=== PATIENT | female | born 1930 | race Asian ===

== ENCOUNTER 2016-12-31 06:18 | Day surgery (SDC) | payer OTHER ==
[2016-12-25 14:58] VITALS: BMI 22.2
[2016-12-31] MEDS ORDERED: LIDOCAINE HCL 1%, 10 MG/ML (20ML VIAL) ONE (07:14)
[2016-12-31] MEDS ORDERED: BUPIVACAINE HCL/PF 0.5% (5MG/ML) 10 ML VIAL ONE (07:14)
--- NOTE | 2016-12-31 07:56 | HP ---
Satellite [facility] - Chief Complaint Chief Complaint: right hand pain/numbness - Past Medical History Allergies/Adverse Reactions: Allergies Allergy/AdvReac Type Severity Reaction Status Date / Time No Known Allergies Allergy Verified 12/31/16 07:12 - Current Medications Current Medications: Home Medications Medication Instructions Recorded Amlodipine Besylate [Norvasc -] 5 mg PO DAILY #0 tablet 04/04/12 Aspirin [ASA -] 81 mg PO DAILY #0 tab.chew 04/04/12 Simvastatin 20 mg PO DAILY #0 tablet 04/04/12 Linagliptin [Tradjenta] 5 mg PO DAILY 09/20/15 Losartan Potassium 100 mg PO DAILY 09/20/15 Metoprolol Succinate [Toprol XL -] 25 mg PO DAILY 09/20/15 Calcium Carbonate/Vitamin D3 1 each PO DAILY 12/31/16 [Calcium 500-Vit D3 400 Tablet] Diclofenac Sodium [Diclofenac 100 mg PO DAILY 12/31/16 Sodium ER] Hydrocodone/Acetaminophen 1 each PO Q6H PRN #40 tablet MDD 4 12/31/16 [Hydrocodon-Acetaminophen 5-300] Linagliptin [Tradjenta] 5 mg PO DAILY 12/31/16 Methylprednisolone [Medrol -] 4 mg PO DAILY 12/31/16 Satellite Physical Exam - Physical Examination Vital Signs: Vital Signs Period Temp Pulse Resp BP Sys/Mabry Pulse Ox Last 24 Hr 97.5 F 83 20 163/99 96 General Appearance: Well Nourished, Well Developed, Alert & Oriented x3 ENT: Clear Lung: Normal air movement Heart: Regular rate & rhythm Extremities: Other (right hand- + ttp, + tinels, + phalens EMG + cts) Neurological: Intact, Alert, Oriented Satellite Impression/Plan - Impression/Plan Impression: right cts Operative Procedure: right ctr Date to be Performed: 12/31/16
[2016-12-31] MEDS ORDERED: MIDAZOLAM HCL 2 MG/2 ML SINGLE DOSE VIAL ONE (08:27)
[2016-12-31] MEDS ORDERED: PROPOFOL 20 ML ONE (08:29)
[2016-12-31] MEDS ORDERED: LIDOCAINE HCL 1%, 10 MG/ML (50 mL VIAL) IJ ONE ×2 (08:35)
[2016-12-31] MEDS ORDERED: BUPIVACAINE HCL/PF 0.5% (5MG/ML) 10 ML VIAL IJ ONE ×2 (08:35)
--- NOTE | 2016-12-31 08:46 | OP ---
Operative Note - Note: Operative Date: 12/31/16 ([facility]) Pre-Operative Diagnosis: right cts Operation: right ctr, tenosynovectomy Post-Operative Diagnosis: Same as Pre-op Surgeon: Zach Craft Anesthesiologist/SHIP RIGGER: Janice Hester MD Anesthesia: Local, MAC Specimens Removed: tenosynovium Estimated Blood Loss (mls): 0 (tourniquet) Operative Report Dictated: Yes
[2016-12-31 09:42] VITALS: TEMP 98.3
--- NOTE | 2016-12-31 10:17 | OP ---
DATE OF OPERATION: 12/31/2016 PROCEDURE: 1. Right carpal tunnel release. 2. Tenosynovectomy. PREOPERATIVE DIAGNOSIS: 1. Right carpal tunnel syndrome. 2, Tenosynovitis. POSTOPERATIVE DIAGNOSIS: 1. Right carpal tunnel syndrome. 2, Tenosynovitis. SURGEON: Facundo Neely MD ASSISTANTS: None. DRAINS: None ANESTHESIA: MAC anesthesia, local injection of 12 mL of 0.5% Marcaine and 1% lidocaine mix. DRAINS: None. COMPLICATIONS: None. SPECIMEN: Tenosynovium right wrist. BLOOD LOSS: None. BLOOD GIVEN: None. FLUID REPLACEMENT: 500 mL. INDICATIONS: This patient right is an 86-year-old female with a preoperative diagnosis of severe right carpal tunnel syndrome. After understanding the potential risks, complications, alternatives and benefits to surgery versus non-surgical treatment, the patient elected to undergo this procedure. She understands she may not get complete relief of her symptoms. She will likely have continuation of some of her numbness, tingling/pins and needles, weakness, thenar atrophy, et cetera. This was all explained in both [place] and [place]istan[place]. She understands she will not improve for 6 months. DESCRIPTION OF PROCEDURE: The patient was brought to the operating room, peripheral IV placed and intravenous sedation was given. One gram of intravenous Ancef was given. MAC anesthesia was induced. A tourniquet was applied to the right upper arm and the right upper extremity was prepped and draped in sterile fashion. The entire case was done under 3.8 loupe magnification. A marking pen was utilized to chari out a longitudinal incision in an already existing skin crease. Twenty mL of 0.5% Marcaine mixed with 1% Lidocaine was injected in and around the surgical incision. The right upper extremity was elevated, exsanguinated with an Esmarch bandage and the tourniquet inflated to 250 mmHg. A No. 15 scalpel blade was utilized to cut down through the skin. Subcutaneous hemostasis was achieved with the bipolar cautery. Dissection was done through the superficial palmar fascia. Self-retaining retractors were placed into the wound. Under direct visualization, the transverse carpal ligament was transected with a No. 15 scalpel blade, exposing the median nerve and the contents of the carpal tunnel. The distal and proximal extents of the release were completed with a Littler scissor and checked with irrigation and my small finger. They were seen to be complete. Limited dissection was done on the radial side of the median nerve and more extensive dissection was done on the ulnar side of the median nerve. The patients nerve was seen to be quite compressed by epineurium and therefore a limited epineurotomy was performed. A Ragnell retractor was used to gently retract the median nerve in a radial direction. The patient had a lot of tenosynovitis and therefore a tenosynovectomy was performed off all 9 flexor tendons. This was passed off the field as tenosynovium right wrist. The floor of the carpal tunnel was checked. There were no abnormal masses or ganglion cysts. The area was copiously irrigated and washed out and closure begun. Undyed 4-0 Vicryl was used to close the deep dermal layer. Final skin reapproximation was done with horizontal mattress 4-0 nylon sutures. The area was then washed and dried, covered with Xeroform, 4x4s, fluffs between the fingers, Webril and a 4-inch plaster roll was utilized to make a volar splint, which was then wrapped with Richa and Coban. The tourniquet was taken down after a total tourniquet time of 16 minutes. There were no complications during the case. The patient tolerated the procedure well and was brought to the ambulatory recovery room in stable condition. FACUNDO NEELY M.D. [id number]
[2016-12-31 12:27] VITALS: BP 148/70; PULSE 88
--- NOTE | 2017-01-01 11:21 | PATH ---
Surgical Pathology Report Patient Name: BRIDGET RAMEY [facility]. Rec. #: [id number] /Age/Gender: 1930 (Age: 86) / F Account: [id number] Location: [facility] SURGICAL Taken: 12/31/2016 Received: 12/31/2016 Reported: 01/01/2017 Physicians: Zach Craft M.D. Specimen(s) Received TENOSYNOVIUM RIGHT WRIST Clinical History Carpal tunnel syndrome right Final Diagnosis SOFT TISSUE, RIGHT WRIST, CARPAL TUNNEL RELEASE: TENOSYNOVIUM WITH NON-SPECIFIC CHRONIC INFLAMMATION. Comment: Recommend correlation with clinical findings and follow up as clinically indicated. Electronically Signed Joe Mitchell M.D. Gross Description Received in formalin labelled "tenosynovium right wrist" is a 2 x 2 x 0.3 cm aggregate of greene tissue fragments. Totally submitted in one cassette. [facility]/12/31/2016 [facility]/12/31/2016
== END 2016-12-31 11:40 | disposition home or self-care (01) ==
LOC: JASU-SURG 06:18
PROVIDERS: ATTEND Orthopaedic Surgery
PROC: 0LB50ZZ Excision of Right Lower Arm and Wrist Tendon, Open Approach (ICD-10-PCS; 2016-12-31)
PROC: 01N50ZZ Release Median Nerve, Open Approach (ICD-10-PCS; principal; 2016-12-31 08:00)
DX: G56.01 Carpal tunnel syndrome, right upper limb (principal); M65.831 Other synovitis and tenosynovitis, right forearm
CPT/HCPCS: 88304-TC; 94760

== ENCOUNTER 2018-07-23 04:39 | Inpatient (IN) | payer OTHER ==
--- NOTE | 2018-07-23 05:01 | PDOC ---
Attending Attestation - Resident Resident Name: Jorden Acevedo - ED Attending Attestation I have performed the following: I have examined & evaluated the patient, The case was reviewed & discussed with the resident, I agree w/resident's findings & plan - HPI HPI: 07/23/18 05:36 Pt has a hx of peptic ulcers in the past. Pt takes omeprazole daily. She comes with tachycardia, vomiting blood and tarry black stools, noted since yesterday. - Physicial Exam PE: 07/23/18 05:37 Agree with resident exam. - Medical Decision Making 07/23/18 05:38 Pt's chem and CBC pending. 07/23/18 06:55 We paged ICU for consult; no reply. We will sign out to the day team. 2 Units PRBC ordered.
[2018-07-23] MEDS ORDERED: PANTOPRAZOLE SODIUM 40 MG VIAL IVPUSH ONE (05:06)
[2018-07-23] MEDS ORDERED: SODIUM CHLORIDE 500 ML IV STA ×2 (05:08→05:14)
[2018-07-23] MEDS ORDERED: ONDANSETRON 4 MG/2 ML VIAL IVPUSH ONE (05:21)
--- NOTE | 2018-07-23 05:23 | PDOC ---
History of Present Illness - General Chief Complaint: Hemoptysis Stated Complaint: COUGHING UP BLOOD Time Seen by Provider: 07/23/18 04:57 History Source: Patient, Family - History of Present Illness Initial Comments: 07/23/18 05:18 Patient is an 88F with history of HTN, DM, HLD, PUD here today complaining of hematemesis that started last night. She also complains of dark stools and nausea. She denies chest pain, shortness of breath. Denies fevers, chills. Review of hospital records shows that the patient was admitted for a "PUD exacerbation" in 2011 and instructed to follow up with Dr Hein. Patient currently takes meloxicam everyday. No history of alcohol abuse or liver cirrhosis. Patient was born in [place], no night sweats, no history of +TB testing. Takes aspirin, no other blood thinners. Past History - Past Medical History Allergies/Adverse Reactions: Allergies Allergy/AdvReac Type Severity Reaction Status Date / Time No Known Allergies Allergy Verified 07/23/18 04:52 Home Medications: Ambulatory Orders Amlodipine Besylate [Norvasc -] 5 mg PO DAILY #0 tablet 04/04/12 Aspirin [ASA -] 81 mg PO DAILY #0 tab.chew 04/04/12 Simvastatin 20 mg PO DAILY #0 tablet 04/04/12 Losartan Potassium 100 mg PO DAILY 09/20/15 Metoprolol Succinate [Toprol XL -] 25 mg PO DAILY 09/20/15 Linagliptin [Tradjenta] 5 mg PO DAILY 12/31/16 Cholecalciferol (Vitamin D3) [Vitamin D3] 10,000 unit PO 07/23/18 Donepezil HCl [Aricept -] 5 mg PO DAILY 07/23/18 Esomeprazole Magnesium 40 mg PO 07/23/18 Gabapentin [Neurontin] 300 mg PO 07/23/18 Icosapent Ethyl [Vascepa] 1 gm PO 07/23/18 Loratadine [Claritin -] 10 mg PO DAILY 07/23/18 Meloxicam [Mobic] 15 mg PO DAILY 07/23/18 Oxybutynin Chloride [Oxybutynin Chloride ER] 5 mg PO DAILY 07/23/18 Sennosides [Senna] 8.6 mg PO DAILY 07/23/18 Anemia: No Asthma: No Cancer: No Cardiac Disorders: No CVA: No COPD: No CHF: No Dementia: No Diabetes: Yes GI Disorders: Yes (GERD) Disorders: No HTN: Yes Hypercholesterolemia: Yes Liver Disease: No Seizures: No Thyroid Disease: No - Suicide/Smoking/Psychosocial Hx Smoking Status: No Smoking History: Never smoked Have you smoked in the past 12 months: No Number of Cigarettes Smoked Daily: 0 Information on smoking cessation initiated: No Hx Alcohol Use: No Drug/Substance Use Hx: No Substance Use Type: None Hx Substance Use Treatment: No Review of Systems - Review of Systems Comments:: 07/23/18 05:23 GENERAL/CONSTITUTIONAL: No fever or chills. No weakness. HEAD, EYES, EARS, NOSE AND THROAT: No change in vision. No sore throat. CARDIOVASCULAR: No chest pain or shortness of breath RESPIRATORY: No cough, wheezing, or hemoptysis. GASTROINTESTINAL: +nausea, +vomiting. No diarrhea or constipation. GENITOURINARY: No dysuria, frequency, or change in urination. MUSCULOSKELETAL: No joint or muscle swelling or pain. No neck or back pain. SKIN: No rash NEUROLOGIC: No headache, vertigo, loss of consciousness, or change in strength/ sensation. ENDOCRINE: No increased thirst. No abnormal weight change HEMATOLOGIC/LYMPHATIC: No anemia, easy bleeding, or history of blood clots. ALLERGIC/IMMUNOLOGIC: No hives or skin allergy. *Physical Exam - Vital Signs Last Vital Signs Temp Pulse Resp BP Pulse Ox 97.9 F 108 H 18 122/77 95 07/23/18 04:53 07/23/18 04:53 07/23/18 04:53 07/23/18 04:53 07/23/18 04:53 - Physical Exam Comments: 07/23/18 05:24 GENERAL: Awake, alert, and fully oriented, in no acute distress RECTAL: Dark tarry stool, normal tone, no masses HEAD: No signs of trauma, normocephalic, atraumatic EYES: PERRLA, EOMI, sclera anicteric, conjunctiva clear ENT: Auricles normal inspection, hearing grossly normal, nares patent, oropharynx clear without exudates. Moist mucosa NECK: Normal ROM, supple, no lymphadenopathy, JVD, or masses LUNGS: No distress, speaks full sentences, clear to auscultation bilaterally HEART: Tachycardic, normal S1 and S2, no murmurs, rubs or gallops, peripheral pulses normal and equal bilaterally. ABDOMEN: Soft, nontender, normoactive bowel sounds. No guarding, no rebound. No masses EXTREMITIES: Normal inspection, Normal range of motion, no edema. No clubbing or cyanosis. NEUROLOGICAL: Cranial nerves II through XII grossly intact. Normal speech, no focal sensorimotor deficits SKIN: Warm, Dry, normal turgor, no rashes or lesions noted. ED Treatment Course - LABORATORY CBC & Chemistry Diagram: 07/23/18 05:22 07/23/18 05:22 - RADIOLOGY Radiology Studies Ordered: Category Date Time Status CHEST X-RAY PORTABLE* [RAD] Stat Radiology 07/23/18 05:05 Ordered Medical Decision Making - Medical Decision Making 07/23/18 05:40 Patient is 88F with history of HTN, DM, HLD, PUD here today with GI bleed. Vital signs notable for tachycardia, blood pressures stable. No marielos bowel movements or episodes of vomiting in ED, but melena appreciated on exam. Will evaluate with cbc, cmp, type and screen, pt/inr, ekg, cxr. Will treat with protonix, fluid resuscitate and likely transfuse. CXR shows no free air under diaphragm. No acute cardiopulmonary process. EKG shows sinus tachycardia with rate of 109. No st elevations. ST depressions in lateral leads. ST depressions in prior EKGs, but deeper now. Suspect cardiopulmonary process. 07/23/18 05:52 FOBT+ 07/23/18 05:57 Laboratory Tests 10/24/15 07/23/18 11:00 05:22 Hgb 11.4 D 7.9 L MCV 92.6 CBC shows hgb of 7.9, last hgb done in 2016. GI paged. 2 units ordered. 07/23/18 06:52 Dr Srivastava paged 6:10 and 6:35. 07/23/18 06:[address] Kaufman. *DC/Admit/Observation/Transfer Diagnosis at time of Disposition: GI bleed - Discharge Dispostion Condition at time of disposition: Stable - Referrals - Patient Instructions - Post Discharge Activity
[2018-07-23] MEDS ORDERED: ONDANSETRON 4 MG/2 ML VIAL ONE (05:37)
[2018-07-23] MEDS ORDERED: PANTOPRAZOLE SODIUM 40 MG VIAL ONE ×2 (05:37→08:40)
[2018-07-23 05:49] LABS: BASO % 0.6 % (0-2.0); HEMATOCRIT 23.8 % (32.4-45.2); HEMOGLOBIN 7.9 GM/dL (10.7-15.3); MCHC 33.4 g/dl (32.0-36.0); MEAN CELL VOLUME 92.6 fl (80-96); MEAN PLT VOLUME 9.9 fl (7.5-11.1); MONO % 2.1 % (3.8-10.2); NEUT % 86.3 % (42.8-82.8); PLATELET COUNT 210 K/MM3 (134-434); RBC 2.57 M/mm3 (3.60-5.2); RDW 14.1 % (11.6-15.6)
[2018-07-23 06:00] LABS: INR 1.18 (0.83-1.09); PROTHROMBIN TIME (PATIENT) 13.9 SEC (9.7-13.0)
--- NOTE | 2018-07-23 07:04 | PDOC ---
*Physical Exam - Vital Signs Last Vital Signs Temp Pulse Resp BP Pulse Ox 97.9 F 108 H 18 122/77 99 07/23/18 04:53 07/23/18 06:00 07/23/18 04:53 07/23/18 04:53 07/23/18 06:00 - Physical Exam General Appearance: Yes: Nourished, Thin HEENT: positive: Normal Voice, Hearing Grossly Normal Neck: positive: Trachea midline, Supple Respiratory/Chest: positive: Rapid RR, Crackles (bibasilar) Cardiovascular: positive: S1, S2, Murmur (Grade II systolic murmur best appreciated in 2nd R intercostal space). negative: Edema, JVD <Sheron Kaufman - Last Filed: 07/23/18 18:13> - Vital Signs Last Vital Signs Temp Pulse Resp BP Pulse Ox 98.3 F 86 22 H 113/60 98 07/24/18 06:00 07/24/18 06:00 07/24/18 06:00 07/24/18 06:00 07/23/18 21:00 <Chrissie Zelaya - Last Filed: 07/24/18 07:39> ED Treatment Course - LABORATORY CBC & Chemistry Diagram: 07/23/18 05:22 07/23/18 05:22 - ADDITIONAL ORDERS Additional order review: Laboratory Results 07/23/18 07/23/18 07/23/18 05:22 05:22 05:11 PT with INR 13.90 H INR 1.18 H Stool Occult Blood Positive Blood Type A POSITIVE Antibody Screen Negative Crossmatch See Detail 07/23/18 05:22 RBC 2.57 L MCV 92.6 MCHC 33.4 RDW 14.1 D MPV 9.9 D Neutrophils % 86.3 H Lymphocytes % 11.0 D Monocytes % 2.1 L Eosinophils % 0.0 D Basophils % 0.6 - Medications Given in the ED: ED Medications Discontinued Medications Generic Name Dose Route Start Last Admin Trade Name Freq PRN Reason Stop Dose Admin Sodium Chloride 500 mls @ 500 mls/hr 07/23/18 05:08 07/23/18 05:50 Normal Saline - IV 07/23/18 06:07 500 mls/hr ASDIR STA Administration Sodium Chloride 500 mls @ 500 mls/hr 07/23/18 05:14 07/23/18 05:51 Normal Saline - IV 07/23/18 06:13 500 mls/hr ASDIR STA Administration Ondansetron HCl 4 mg 07/23/18 05:21 07/23/18 05:51 Zofran Injection IVPUSH 07/23/18 05:22 4 mg ONCE ONE Administration Pantoprazole Sodium 80 mg 07/23/18 05:06 07/23/18 05:50 Protonix Iv IVPUSH 07/23/18 05:07 80 mg ONCE ONE Administration <ShaeSheron - Last Filed: 07/23/18 18:13> - LABORATORY CBC & Chemistry Diagram: 07/24/18 05:30 07/24/18 05:30 - ADDITIONAL ORDERS Additional order review: 07/23/18 05:22 RBC 2.57 L MCV 92.6 MCHC 33.4 RDW 14.1 D MPV 9.9 D Neutrophils % 86.3 H Lymphocytes % 11.0 D Monocytes % 2.1 L Eosinophils % 0.0 D Basophils % 0.6 - Medications Given in the ED: ED Medications Discontinued Medications Generic Name Dose Route Start Last Admin Trade Name Freq PRN Reason Stop Dose Admin Atorvastatin Calcium 80 mg 07/23/18 15:08 07/23/18 16:07 Lipitor - PO 07/23/18 15:09 80 mg ONCE ONE Administration Furosemide 40 mg 07/23/18 12:25 07/23/18 12:25 Lasix Injection - IVPUSH 07/23/18 12:26 40 mg ONCE ONE Administration Sodium Chloride 500 mls @ 500 mls/hr 07/23/18 05:08 07/23/18 05:50 Normal Saline - IV 07/23/18 06:07 500 mls/hr ASDIR STA Administration Sodium Chloride 500 mls @ 500 mls/hr 07/23/18 05:14 07/23/18 05:51 Normal Saline - IV 07/23/18 06:13 500 mls/hr ASDIR STA Administration Insulin Aspart 0 vial 07/23/18 08:30 07/23/18 09:27 Novolog Vial Sliding Scale - SQ Not Given Q6H JANETTE Protocol Insulin Aspart 0 vial 07/23/18 09:13 07/23/18 09:26 Novolog Vial Sliding Scale - SQ 4 unit Q6H JANETTE Administration Protocol Ondansetron HCl 4 mg 07/23/18 05:21 07/23/18 05:51 Zofran Injection IVPUSH 07/23/18 05:22 4 mg ONCE ONE Administration Pantoprazole Sodium 80 mg 07/23/18 05:06 07/23/18 05:50 Protonix Iv IVPUSH 07/23/18 05:07 80 mg ONCE ONE Administration <Chrissie Zelaya - Last Filed: 07/24/18 07:39> Medical Decision Making - Medical Decision Making 07/23/18 07:07 Patient signed out by Dr. Acevedo (Resident) and Dr. Sullivan (Attending) 88 year old female presents w/hematemsis possibly 2/2 to PUD vs. NSAID abuse. FOBT (+). - Hb 7.9 - Repeat VS: HR 105, RR 21, BP 129/72, SpO2 100% - recieving 1 L IV NS, pending 2 units RBC - ICU called (no MD in unit), Hospitalist microblogged 07/23/18 07:46 Trop leak (0.06) previous Trop 0.02 in 2016 - no ASA given GI bleed, EKG shows ST depressions in Leads V4-V6. Serial troponins ordered. BS 343 - patient receiving IV fluids Paged ICU consult pager 07/23/18 07:55 Contacted ICU, requests callback in 5 minutes 07/23/18 07:56 Case d/w AMINA Hudson. Will evaluate patient @ bedside. Patient and patient's family counseled on plan of care 07/23/18 08:24 Case d/w Dr. Srivastava (GI) will evaluated patient @ bedside. Requests cardio eval prior to endoscopy given patient's . Cardio consult ordered. 07/23/18 10:52 Patient admitted to ICU. <Sheron Kaufman - Last Filed: 07/23/18 18:13> - Medical Decision Making pt signed out from Dr. Sullivan pending GI eval, ICU placement for GIB, UGIB vs LGIB given protonix. 2 units pRBC. hydrated. BP stable, VS notable for tachycardia that is relatively unchanged ~100s. GI consulted, ICU for higher level of care and bleeding. admitted to ICU for further management. 07/24/18 07:37 07/24/18 07:38 <Chrissie Zelaya - Last Filed: 07/24/18 07:39> *DC/Admit/Observation/Transfer <Sheron Kaufman - Last Filed: 07/23/18 18:13> - Discharge Dispostion Decision to Admit order: Yes Decision to Admit order Date/Time: 07/24/18 07:39 <Chrissie Zelaya - Last Filed: 07/24/18 07:39> Diagnosis at time of Disposition: GI bleed - Discharge Dispostion Condition at time of disposition: Guarded
[2018-07-23 07:05] LABS: ALK PHOS 52 U/L (45-117); ANION GAP 9 MMOL/L (8-16); BILIRUBIN,TOTAL 0.5 mg/dL (0.2-1); BLOOD UREA NITROGEN 75 mg/dL (7-18); CALCIUM 8.4 mg/dL (8.5-10.1); CHLORIDE 107 mmol/L (98-107); CO2 24 mmol/L (21-32); CREATININE 0.7 mg/dL (0.55-1.3); MAGNESIUM 2.1 mg/dL (1.8-2.4); POTASSIUM 4.7 mmol/L (3.5-5.1); SGOT/AST 19 U/L (15-37); SGPT/ALT 11 U/L (13-61); SODIUM 141 mmol/L (136-145); TOT PROT 5.9 g/dl (6.4-8.2)
[2018-07-23 07:07] LABS: GLUCOSE,RANDOM 343 mg/dL (74-106)
[2018-07-23] MEDS ORDERED: INSULIN SLIDING SCALE (NOVOLOG) 1 VIAL SQ SCH ×2 (08:30→09:13)
--- NOTE | 2018-07-23 08:48 | HP ---
CHIEF COMPLAINT:Vomiting Blood PCP:Alexy Campbell MD HISTORY OF PRESENT ILLNESS: 88F with PMH listed below including presents to the hospital with acute onset hematemesis which started last night. Patient is Nepali speaking and presents with her son who speaks Turkish. Patient states she all of a sudden had hematemesis last night. Her son who does not live with her (Patient lives alone) , has also noticed her stools are becoming pasty and black. She denies any abdominal pain. She has a history of peptic ulcer disease and was seen here at [place] [facility] 6 years ago, for which she was to follow up with GI. She followed up with a GI doctor about 5 years ago and had an EGD and colonoscopy and per patient she does not remember anything concerning as a result. The patient denies any other symptoms such fever, chills, chest pain, shortness of breath, or lightheadedness. Patient does report some mild weakness. Son endorses the patient's recently 3 months ago and the patient has been very depressed and has not been eating and drinking well. Her Hb in our system about 2.5 years ago was 11.9. Hb 6 years ago was around 13. Patient reports taking meloxicam daily and aspirin daily. ER course was notable for: (1)Labs (2)IVF (3)Blood transfusion Recent Travel:Denies PAST MEDICAL HISTORY:HTN, HLD, DM, CAD, chronic low back pain, osteoperosis, urinary incontinence/urinary frequency, Peptic Ulcer Disease, Dementia PAST SURGICAL HISTORY:Patient and Son denies any major surgical history of procedures Social History: Smoking:Denies Alcohol:Denies Drugs: Denies Family History:Denies Allergies No Known Allergies Allergy (Verified 07/23/18 04:52) HOME MEDICATIONS: HOME MEDICATIONS WERE REVIEWED, VERIFIED, ENTERED, AND EDITED BY DR. RUANO Home Medications Medication Instructions Recorded Amlodipine Besylate [Norvasc -] 5 mg PO DAILY #0 tablet 04/04/12 Aspirin [ASA -] 81 mg PO DAILY #0 tab.chew 04/04/12 Losartan Potassium 100 mg PO DAILY 09/20/15 Metoprolol Succinate [Toprol XL -] 25 mg PO DAILY 09/20/15 Linagliptin [Tradjenta] 5 mg PO DAILY 12/31/16 Donepezil HCl [Aricept -] 5 mg PO DAILY 07/23/18 Ergocalciferol [Vitamin D2] 50,000 unit PO Q7D@1000 07/23/18 Esomeprazole Magnesium 40 mg PO DAILY@0700 07/23/18 Gabapentin [Neurontin] 300 mg PO Q12H 07/23/18 Icosapent Ethyl [Vascepa] 1 gm PO Q12H 07/23/18 Loratadine [Claritin -] 10 mg PO DAILY 07/23/18 Meloxicam [Mobic] 15 mg PO DAILY 07/23/18 Oxybutynin Chloride [Oxybutynin 5 mg PO DAILY 07/23/18 Chloride ER] Sennosides [Senna] 2 tab PO DAILY PRN 07/23/18 Simvastatin 20 mg PO HS 07/23/18 REVIEW OF SYSTEMS CONSTITUTIONAL: Absent: fever, chills, diaphoresis, malaise, loss of appetite, weight change Present:generalized weakness HEENT: Absent: rhinorrhea, nasal congestion, throat pain, throat swelling, difficulty swallowing, mouth swelling, ear pain, eye pain, visual changes CARDIOVASCULAR: Absent: chest pain, syncope, palpitations, irregular heart rate, lightheadedness , peripheral edema RESPIRATORY: Absent: cough, shortness of breath, dyspnea with exertion, orthopnea, wheezing, stridor, hemoptysis GASTROINTESTINAL: Absent: abdominal pain, abdominal distension, diarrhea, constipation, melena Present: Nausea, vomiting, hematemesis, black tarry stools GENITOURINARY: Absent: dysuria, hesitancy, hematuria, flank pain, genital pain Present: Chronic frequency, urgency MUSCULOSKELETAL: Absent: myalgia, arthralgia, joint swelling, neck pain Present: Chronic back pain SKIN: Absent: rash, itching, pallor HEMATOLOGIC/IMMUNOLOGIC: Absent: easy bleeding, easy bruising, lymphadenopathy, frequent infections ENDOCRINE: Absent: unexplained weight gain, unexplained weight loss, heat intolerance, cold intolerance NEUROLOGIC: Absent: headache, focal weakness or paresthesias, dizziness, unsteady gait, seizure, mental status changes, bladder or bowel incontinence PSYCHIATRIC: Absent: anxiety, depression, suicidal or homicidal ideation, hallucinations. PHYSICAL EXAMINATION Vital Signs - 24 hr 07/23/18 07/23/18 07/23/18 04:53 06:00 07:03 Temperature 97.9 F Pulse Rate 108 H 108 H Pulse Rate [ 101 H Left Radial] Respiratory 18 16 Rate Blood Pressure 122/77 Blood Pressure 129/72 [Left Arm] O2 Sat by Pulse 95 99 100 Oximetry (%) 07/23/18 07/23/18 07:35 07:50 Temperature 97.6 F 98.4 F Pulse Rate Pulse Rate [ 102 H 96 H Left Radial] Respiratory 20 18 Rate Blood Pressure Blood Pressure 125/67 119/64 [Left Arm] O2 Sat by Pulse 100 100 Oximetry (%) GENERAL: Awake, alert, and fully oriented, in no acute distress. HEAD: Normal with no signs of trauma. EYES: Pupils equal, round and reactive to light, extraocular movements intact, conjunctival pallor. EARS, NOSE, THROAT: Dry mucous membranes. NECK: Normal range of motion, supple without JVD LUNGS: Breath sounds equal, faint bibasilar crackles. HEART: Tachycardic, normal S1 and S2 loud 4/6 murmur with radiation to carotids and axilla. ABDOMEN: Soft, Mildly TTP RLQ, not distended, no guarding, no rebound MUSCULOSKELETAL: Normal range of motion at all joints. No CVA tenderness. UPPER EXTREMITIES: warm, well-perfused. No peripheral edema. LOWER EXTREMITIES: warm, well-perfused. No calf tenderness. No peripheral edema. NEUROLOGICAL: Cranial nerves II-XII intact. sensation intact in all extremities and in the face. 5/5 muscle strength in all extremities. Normal speech. SKIN: Warm, dry, normal turgor Laboratory Results - last 24 hr 07/23/18 07/23/18 07/23/18 05:11 05:22 05:22 WBC 10.0 RBC 2.57 L Hgb 7.9 L Hct 23.8 L D MCV 92.6 MCH 31.0 MCHC 33.4 RDW 14.1 D Plt Count 210 D MPV 9.9 D Absolute Neuts (auto) 8.6 H Neutrophils % 86.3 H Lymphocytes % 11.0 D Monocytes % 2.1 L Eosinophils % 0.0 D Basophils % 0.6 Nucleated RBC % 0 PT with INR 13.90 H INR 1.18 H Sodium Potassium Chloride Carbon Dioxide Anion Gap BUN Creatinine Creat Clearance w eGFR Random Glucose Calcium Magnesium Total Bilirubin AST ALT Alkaline Phosphatase Creatine Kinase Troponin I Total Protein Albumin Stool Occult Blood Positive Blood Type Antibody Screen Crossmatch 07/23/18 07/23/18 05:22 05:22 WBC RBC Hgb Hct MCV MCH MCHC RDW Plt Count MPV Absolute Neuts (auto) Neutrophils % Lymphocytes % Monocytes % Eosinophils % Basophils % Nucleated RBC % PT with INR INR Sodium 141 Potassium 4.7 Chloride 107 Carbon Dioxide 24 Anion Gap 9 BUN 75 H Creatinine 0.7 Creat Clearance w eGFR > 60 Random Glucose 343 H* Calcium 8.4 L Magnesium 2.1 Total Bilirubin 0.5 AST 19 ALT 11 L Alkaline Phosphatase 52 Creatine Kinase 50 Troponin I 0.06 H Total Protein 5.9 L Albumin 3.0 L Stool Occult Blood Blood Type A POSITIVE Antibody Screen Negative Crossmatch See Detail CXR: No acute chest process EKG: LVH Tachycardic. ST depressions in V5-V6 ASSESSMENT/PLAN: 88F with multiple medical problems presents to the ER with hematemesis and black tarry stools with likely UGIB. Acute blood loss anemia: Stage 2 hypovolemia as evidenced by tachycardia. Patient is likely having upper GI bleed given hematemesis and black tarry stool. History of peptic ulcer disease Admit to ICU Give 2 units PRBCs Trend CBC GI consult ICU consult protonix gtt Given 1 liter NS bolus already put in second large bore IV Strict I/Os Avoid NSAIDs Hold aspirin send iron studies to rule out iron deficiency anemia (Added on to labs which were done before transfusion) Troponinemia: Likely secondary to demand ischemia given volume depletion repeat EKG STAT Cardiology consult trend troponins Cardiac monitoring in ICU CAD: Hold aspirin given GI bleed Hold statin HLD: Hold statin for now HTN: Hold antihypertensives for now given bleeding and concern for dropping her BP BP controlled at this time DM: Patient hyperglycemic on arrival BGM Q6h ISS Q6h Urinary incontinence/frequency: Chronic Hold oxybutynin for now Constipation Hold laxatives and stool softeners for now Neuropathy hold gabapentin for now while NPO FEN: No IVF for now no electrolyte issues NPO for now PPx: SCDs. No Chemical PPx Protonix gtt PT consult Case discussed with Dr. Maurer Spoke with son and patient and patient states she is DNR. Will speak to patient with a [employer] diplomatic interpreter/translator and get DNR form signed. Med list entered and reconciled and verified with pharmacy list brought in by patient's son Visit type - Emergency Visit Emergency Visit: Yes ED Registration Date: 07/23/18 Care time: The patient presented to the Emergency Department on the above date and was hospitalized for further evaluation of their emergent condition. - New Patient This patient is new to me today: Yes Date on this admission: 07/23/18 - Critical Care Critical Care patient: Yes Total Critical Care Time (in minutes): 60 Critical Care Statement: The care of this patient involved high complexity decision making to prevent further life threatening deterioration of the patient 's condition and/or to evaluate & treat vital organ system(s) failure or risk of failure.
[2018-07-23] MEDS: PANTOPRAZOLE SODIUM 80 MG in SODIUM CHLORIDE 100 ML IVPB SCH ×2 (09:04→18:30)
[2018-07-23] MEDS ORDERED: INSULIN (NOVOLOG) ASPART 100 UNITS/ML 10ML VIAL ONE (09:22)
[2018-07-23] MEDS: INSULIN SLIDING SCALE (NOVOLOG) 1 VIAL SQ SCH ×3 (10:21→22:56)
--- NOTE | 2018-07-23 10:44 | CON.GI ---
Consult Consult Specialty:: Gastroenterology ( covering Dr Barros) Referred by:: Dr. Chrissie Zelaya Reason for Consultation:: bleed - History of Present Illness Chief Complaint: hematemesis, melena and epigastric pain History of Present Illness: 88F developed hematemesis and melena at 10PM but did not want to trouble her sons. She did summon 911 at 3AM when her hematemesis worsens and weakness ensued. She denies any previous h/o GI bleeding or GI problems. She has been depressed over the loss of her 3 months ago and has been eating minimally She takes meloxicam and aspirin daily. She denies any h/o heart disease or murmurs. Her troponins are elevated. - History Source History Provided By: Patient, Family Member Limitations to Obtaining History: Language Barrier - Past Medical History Cardio/Vascular: Yes: HTN, Hyperlipdemia Psych: Yes: Depression (depressed over loss of 3 months ago) Musculoskeletal: Yes: Chronic low back pain, Osteoarthritis Endocrine: Yes: Diabetes Mellitus, Osteopenia - Past Surgical History Additional Surgical History: right hand surgery - Alcohol/Substance Use Hx Alcohol Use: No - Smoking History Smoking history: Never smoked Have you smoked in the past 12 months: No Aproximately how many cigarettes per day: 0 - Social History Usual Living Arrangement: Alone ADL: Family Assistance 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 (year): age 84 History of Recent Travel: No Home Medications - Allergies Allergies/Adverse Reactions: Allergies Allergy/AdvReac Type Severity Reaction Status Date / Time No Known Allergies Allergy Verified 07/23/18 04:52 - Home Medications Home Medications: Ambulatory Orders Amlodipine Besylate [Norvasc -] 5 mg PO DAILY #0 tablet 04/04/12 Aspirin [ASA -] 81 mg PO DAILY #0 tab.chew 04/04/12 Losartan Potassium 100 mg PO DAILY 09/20/15 Metoprolol Succinate [Toprol XL -] 25 mg PO DAILY 09/20/15 Linagliptin [Tradjenta] 5 mg PO DAILY 12/31/16 Donepezil HCl [Aricept -] 5 mg PO DAILY 07/23/18 Ergocalciferol [Vitamin D2] 50,000 unit PO Q7D@1000 07/23/18 Esomeprazole Magnesium 40 mg PO DAILY@0700 07/23/18 Gabapentin [Neurontin] 300 mg PO Q12H 07/23/18 Icosapent Ethyl [Vascepa] 1 gm PO Q12H 07/23/18 Loratadine [Claritin -] 10 mg PO DAILY 07/23/18 Meloxicam [Mobic] 15 mg PO DAILY 07/23/18 Oxybutynin Chloride [Oxybutynin Chloride ER] 5 mg PO DAILY 07/23/18 Sennosides [Senna] 2 tab PO DAILY PRN 07/23/18 Simvastatin 20 mg PO HS 07/23/18 Family Disease History - Family Disease History Family Disease History: Other: Father ( in his 70s), Mother ( in her 70s ) Review of Systems - Review of Systems Constitutional: reports: Loss of Appetite, Unintentional Wgt. Loss, Weakness Eyes: reports: No Symptoms HENT: reports: No Symptoms Neck: reports: No Symptoms Cardiovascular: reports: No Symptoms Respiratory: reports: No Symptoms Gastrointestinal: reports: Abdominal Pain, Melena, Vomiting Blood Genitourinary: reports: No Symptoms Psychiatric: reports: Depression ( 3months ago) Physical Exam-GI Vital Signs: Vital Signs Temperature 98.4 F 07/23/18 07:50 Pulse Rate 96 H 07/23/18 07:50 Respiratory Rate 18 07/23/18 07:50 Blood Pressure 119/64 07/23/18 07:50 O2 Sat by Pulse Oximetry (%) 100 07/23/18 07:50 CBC,CMP WBC 10.0 K/mm3 (4.0-10.0) 07/23/18 05:22 RBC 2.57 M/mm3 (3.60-5.2) L 07/23/18 05:22 Hgb 7.9 GM/dL (10.7-15.3) L 07/23/18 05:22 Hct 23.8 % (32.4-45.2) L D 07/23/18 05:22 MCV 92.6 fl (80-96) 07/23/18 05:22 MCH 31.0 pg (25.7-33.7) 07/23/18 05:22 MCHC 33.4 g/dl (32.0-36.0) 07/23/18 05:22 RDW 14.1 % (11.6-15.6) D 07/23/18 05:22 Plt Count 210 K/MM3 (134-434) D 07/23/18 05:22 MPV 9.9 fl (7.5-11.1) D 07/23/18 05:22 Absolute Neuts (auto) 8.6 K/mm3 (1.5-8.0) H 07/23/18 05:22 Neutrophils % 86.3 % (42.8-82.8) H 07/23/18 05:22 Lymphocytes % 11.0 % (8-40) D 07/23/18 05:22 Monocytes % 2.1 % (3.8-10.2) L 07/23/18 05:22 Eosinophils % 0.0 % (0-4.5) D 07/23/18 05:22 Basophils % 0.6 % (0-2.0) 07/23/18 05:22 Nucleated RBC % 0 % (0-0) 07/23/18 05:22 Sodium 141 mmol/L (136-145) 07/23/18 05:22 Potassium 4.7 mmol/L (3.5-5.1) 07/23/18 05:22 Chloride 107 mmol/L (98-107) 07/23/18 05:22 Carbon Dioxide 24 mmol/L (21-32) 07/23/18 05:22 Anion Gap 9 MMOL/L (8-16) 07/23/18 05:22 BUN 75 mg/dL (7-18) H 07/23/18 05:22 Creatinine 0.7 mg/dL (0.55-1.3) 07/23/18 05:22 Creat Clearance w eGFR > 60 (>60) 07/23/18 05:22 POC Glucometer 253.96994 UNITS (80-120) 07/23/18 09:00 Random Glucose 343 mg/dL (74-106) H* 07/23/18 05:22 Calcium 8.4 mg/dL (8.5-10.1) L 07/23/18 05:22 Magnesium 2.1 mg/dL (1.8-2.4) 07/23/18 05:22 Ferritin 32.5 ng/ml (8-388) 07/23/18 05:22 Total Bilirubin 0.5 mg/dL (0.2-1) 07/23/18 05:22 AST 19 U/L (15-37) 07/23/18 05:22 ALT 11 U/L (13-61) L 07/23/18 05:22 Alkaline Phosphatase 52 U/L (45-117) 07/23/18 05:22 Creatine Kinase 50 IU/L (26-192) 07/23/18 05:22 Troponin I 0.06 ng/ml (0.00-0.05) H 07/23/18 05:22 Total Protein 5.9 g/dl (6.4-8.2) L 07/23/18 05:22 Albumin 3.0 g/dl (3.4-5.0) L 07/23/18 05:22 Current Medications Generic Name Dose Route Start Last Admin Trade Name Vasquez PRN Reason Stop Dose Admin Chlorhexidine Gluconate 1 applic 07/23/18 22:00 Hibiclens For Decolonization - TP HS JANETTE Pantoprazole Sodium 80 mg/ 100 mls @ 10 mls/hr 07/23/18 08:30 07/23/18 09:04 Sodium Chloride IVPB 10 mls/hr Q10H JANETTE Administration 8 MG/HR Insulin Aspart 1 vial 07/23/18 09:58 07/23/18 10:21 Novolog Vial Sliding Scale - SQ Not Given Q6H [facility] Protocol Mupirocin 1 applic 07/23/18 10:00 Bactroban Ointment (For Decolonization) - NS 07/28/18 09:59 BID JANETTE Constitutional: Yes: Calm, Thin Eyes: Yes: Conjunctiva Clear HENT: Yes: Normocephalic Neck: Yes: Supple Cardiovascular: Yes: Regular Rate and Rhythm, Murmur (3/6 early harsh sysptolic murmur at base radiating into carotids 2/6 holosystolic blowing murmur at apex) Respiratory: Yes: CTA Bilaterally Gastrointestinal Inspection: Yes: WNL ...Auscultate: Yes: Normoactive Bowel Sounds ...Palpate: Yes: Soft, Other ...Rectal Exam: Yes: Guaiac Positive (black guaiac positive stool, no masses) Musculoskeletal: Yes: Back Pain Edema: No Peripheral Pulses WNL: Yes Neurological: Yes: Alert, Oriented Labs: CBC, BMP 07/23/18 05:22 07/23/18 05:22 INR, PTT INR 1.18 (0.83-1.09) H 07/23/18 05:22 Laboratory Tests 10/08/11 10/24/15 07/23/18 20:30 11:00 05:22 Hgb 13.9 11.4 D 7.9 L Plt Count 210 D PT with INR BUN Troponin I 07/23/18 07/23/18 05:22 05:22 Hgb Plt Count PT with INR 13.90 H BUN 75 H Troponin I 0.06 H Problem List - Problems (1) Hematemesis/vomiting blood Assessment/Plan: Suspect UGI bleeding due to NSAID induced erosions or ulcers. I have discussed the likely need for EGD with Gayle Calvillo and her sons. I informed them of the potential for such complications as perforation and hemorrhage. She has signed an informed consent. Given my concern that she may have critical aortic stenosis the EGD and anesthesia will need to be deferred until she is optimized and cleared by cardiology. Given her elevated troponins ths also gives cause to defer the EGD for now. I am prepared to do it emergently should she begin to hemorrhage significantly and discussed this with her sons and her. I discussed the case with Dr Maurer who has already consulted cardiology. A PPI drip should be maintained in the interim. She denies ever having had an ulcer or bleeding before. Code(s): K92.0 - HEMATEMESIS (2) Melena Code(s): K92.1 - MELENA (3) GI bleed Code(s): K92.2 - GASTROINTESTINAL HEMORRHAGE, UNSPECIFIED (4) Epigastric abdominal pain Code(s): R10.13 - EPIGASTRIC PAIN (5) Holosystolic murmur Code(s): R01.1 - CARDIAC MURMUR, UNSPECIFIED (6) Aortic diastolic murmur on examination Code(s): I35.8 - OTHER NONRHEUMATIC AORTIC VALVE DISORDERS Assessment/Plan NSAID induced ulcer or gastritis/duodenitis bleed PPI drip Await cardiology clearance Dr Barros will return 07/25
[2018-07-23] MEDS ORDERED: FUROSEMIDE 40 MG/4 ML INJECTABLE VIAL ONE (11:25)
--- NOTE | 2018-07-23 11:33 | PN ---
Teaching Attending Note Name of Resident: Cam Reynoso ATTENDING PHYSICIAN STATEMENT I saw and evaluated the patient. I reviewed the resident's note and discussed the case with the resident. I agree with the resident's findings and plan as documented. CC; hematemesis and melena HPI: 88 y/o lady with h/o Dm , PUD, HL, HTN who presented with hematemesis and melena. Yesterday she started having bloody emesis, and has charles having melena for a while ( unable to specify ) . denies abd pain. she has been on asa and taking meloxicam. she was evaluated here in 2011 but no scopes were done. per son she had EGD and colo 5 yrs ago and were normal. She was never told she had heart disease. No stress test before, had echo few years ago ( ? results ) . No cathor stents before and nhas no market specialist. she takes aspirin per PCP for primary prophylaxis. she was never told that she had valve disease. no cp or SOB . denies exertional CP OBJECTIVE: NAD, awake, pale, oriented x3 . dry MM. no JVD . CV: RRR, 3/6 SM at [facility] with radiatio to carotid and 3/6 Sm at [facility] and [place] with radiation to axilla Lungs: L base fine crackles Abd: soft, NT, ND , NL BS . discomfort over bladder. Ext : no edema or erythema neuro : awake , alert , oriented, no facial droop, EOMI, round equal pupils and reactive to light . tongue at mid line , strength 5/5 in uppe rand lwoer extremities proximally and distally. Rectal : deferred per family request ( done by ER ) ASSESSMENT AND PLAN: 88 y/o lady with h/o DM, PUD, HL, HTN who presented with hematemesis and melena. 1- Upper GI bleed with acute blood loss anemia: could be NSAIDS induced. no hx of cirrhosis or varices or alcohol use. - PPI gtt - transfuse 2 units of blood - repeat HB q 4 hrs after transfusion . - transfuse if Hb < 8 or for active bleed - tachycardia improved ( 90s now) , and her BP is stable - hold asa and NSAIDs - case d/w Dr. Srivastava. agree with holding EGD due to her cardiac status - add iron studies to am labs ( before transfusion ) 2- Troponenemia: likely demand ischemia insetting of acute blood loss and tachycardia. EKG with sinus rhythm and ST depression /TWI in laterl leads worsened compared to before. - repeat EKG , improved ST depression - can' t give asa or heparin products given GI bleed - follow trop . prevent Hypotension - echo . to evaluate wall motion - card consult 3- Heart murmur: possible MR and . - echo - avoid hypovolemia and avoid fluid overload with transfusion /fluids . 4- h/o HTN: hold all ani-hypertensive meds 5- SCDs Monitor in ICU Critical Care Total Critical Care Time (in minutes): 45 Critical Care Statement: The care of this patient involved high complexity decision making to prevent further life threatening deterioration of the patient 's condition and/or to evaluate & treat vital organ system(s) failure or risk of failure.
[2018-07-23] MEDS ORDERED: FUROSEMIDE 40 MG/4 ML INJECTABLE VIAL IVPUSH ONE (12:25)
--- NOTE | 2018-07-23 14:12 | CONSULT ---
Consult - text type - Consultation Consultation Note: Pulm/CCM Pt seen and examined in ICU CC: hematemesis, melena Hx obtained from medical record and pt family HPI: Briefly Ms Jennings is an 88 y/o lady with pmhx notable for PUD, IDDM, HL, HTN who came to ED with family (lives alone largely independent of all ADLs) after episode of hematemesis and melena. Her hgb from last discharge was 12, now 7.9. Pt was tachycardic but normotensive. PPI bolus and gtt started, ordered 2 PRBC, no further evidenced of bleeding. Pt takes NSAIDS and baby asa daily. She had + trop (0.08---> 3.26), seen by GI. Pt noted to have pronounced KONG, GI attending wants cardiac eval prior to scope unless severe bleeding. No hx of CAD, no stents, no valvular disease, son's not aware of murmur. Transferred to ICU for further care. Transfusion ongoing. 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 History of Recent Travel No Ambulatory Orders Amlodipine Besylate [Norvasc -] 5 mg PO DAILY #0 tablet 04/04/12 Aspirin [ASA -] 81 mg PO DAILY #0 tab.chew 04/04/12 Losartan Potassium 100 mg PO DAILY 09/20/15 Metoprolol Succinate [Toprol XL -] 25 mg PO DAILY 09/20/15 Linagliptin [Tradjenta] 5 mg PO DAILY 12/31/16 Donepezil HCl [Aricept -] 5 mg PO DAILY 07/23/18 Ergocalciferol [Vitamin D2] 50,000 unit PO Q7D@1000 07/23/18 Esomeprazole Magnesium 40 mg PO DAILY@0700 07/23/18 Gabapentin [Neurontin] 300 mg PO Q12H 07/23/18 Icosapent Ethyl [Vascepa] 1 gm PO Q12H 07/23/18 Loratadine [Claritin -] 10 mg PO DAILY 07/23/18 Meloxicam [Mobic] 15 mg PO DAILY 10/06/18 Oxybutynin Chloride [Oxybutynin Chloride ER] 5 mg PO DAILY 07/23/18 Sennosides [Senna] 2 tab PO DAILY PRN 07/23/18 Simvastatin 20 mg PO HS 07/23/18 CBCD WBC 10.0 K/mm3 (4.0-10.0) 07/23/18 05:22 RBC 2.57 M/mm3 (3.60-5.2) L 07/23/18 05:22 Hgb 7.9 GM/dL (10.7-15.3) L 07/23/18 05:22 Hct 23.8 % (32.4-45.2) L D 07/23/18 05:22 MCV 92.6 fl (80-96) 07/23/18 05:22 MCHC 33.4 g/dl (32.0-36.0) 07/23/18 05:22 RDW 14.1 % (11.6-15.6) D 07/23/18 05:22 Plt Count 210 K/MM3 (134-434) D 07/23/18 05:22 MPV 9.9 fl (7.5-11.1) D 07/23/18 05:22 CMP Sodium 141 mmol/L (136-145) 07/23/18 05:22 Potassium 4.7 mmol/L (3.5-5.1) 07/23/18 05:22 Chloride 107 mmol/L (98-107) 07/23/18 05:22 Carbon Dioxide 24 mmol/L (21-32) 07/23/18 05:22 Anion Gap 9 MMOL/L (8-16) 07/23/18 05:22 BUN 75 mg/dL (7-18) H 07/23/18 05:22 Creatinine 0.7 mg/dL (0.55-1.3) 07/23/18 05:22 Creat Clearance w eGFR > 60 (>60) 07/23/18 05:22 Random Glucose 343 mg/dL (74-106) H* 07/23/18 05:22 Calcium 8.4 mg/dL (8.5-10.1) L 07/23/18 05:22 Total Bilirubin 0.5 mg/dL (0.2-1) 07/23/18 05:22 AST 19 U/L (15-37) 07/23/18 05:22 ALT 11 U/L (13-61) L 07/23/18 05:22 Alkaline Phosphatase 52 U/L (45-117) 07/23/18 05:22 Total Protein 5.9 g/dl (6.4-8.2) L 07/23/18 05:22 Albumin 3.0 g/dl (3.4-5.0) L 07/23/18 05:22 CARDIAC ENZYMES Creatine Kinase 80 IU/L (26-192) 07/23/18 13:40 Troponin I 3.26 ng/ml (0.00-0.05) H* 07/23/18 13:40 Vital Signs Temp 99.0 F 07/23/18 14:00 Pulse 109 H 07/23/18 14:00 Resp 15 07/23/18 14:00 BP 120/60 07/23/18 14:00 Pulse Ox 96 07/23/18 12:22 Intake & Output 07/22/18 07/23/18 07/23/18 23:59 11:59 23:59 Weight 45.359 kg 45.529 kg Other: Voiding Method Bedpan Bedpan Height 5 ft 1 in 5 ft 1 in Body Mass Index (BMI) 18.8 18.9 Weight Measurement Method Built in Bedscale Weight Measurement Method Est/Stated by Patient Gen: Eld woman, INAD, awake, alert, C/o L shoulder pain HEENT: PERRL, NCAT, no jvd CV: RRR, IV/ KONG heard best a LSB but also at apex and to carotids Lungs: few scattered crackles Abd: soft, NT, ND ,+BS, Ext : no edema or erythema Rectal : deferred EKG: Sinus few PAC, LVH, diffuse TWI CXR: clear A/ 88 y/o woman on ASA and NSAIDS with hematemesis, melena, and anemia P/ -GI consult, apprec recs -PPI gtt -cardiology to see, currently not candidate for hep, asa, antiplt, given GIB -serial trop/EKG -NPO for now -glucose control, turning per protocol, PPI, SCD Tristan Ramos ACNP [id number] 35Min CCT
[2018-07-23] MEDS ORDERED: ATORVASTATIN CA 80 MG TABLET (FP) PO ONE (15:08)
--- NOTE | 2018-07-23 16:23 | CON.CARD ---
Consult Consult Specialty:: Cardiology Referred by:: Dr. Maurer Reason for Consultation:: NSTEMI - History of Present Illness Chief Complaint: GI bleeding History of Present Illness: 88 year-old Uzbek speaking woman (lives alone, independent of all ADLs) with a PMHx of HTN, IDDM, hyperlipidemia, PUD, admitted 07/23/2018 after episode of hematemesis and melena with evidence of severe anemia. The patient was seen by GI, endoscopies planned. She was found to have elevated troponin (0.08-> 3.26) with marked ECG abnormalities of inferolateral ischemia and LVH. She was tachycardic with normal BP. Significant systolic ejection murmur in the absence of A2 and holosystolic murmur consistent with severe aortic stenosis and significant mitral regurgitation. She is receiving PRBC transfusion. The patient appears weak. But she denies chest pain, SOB at rest, palpitation or history of syncope. - History Source History Provided By: Patient, Medical Record Limitations to Obtaining History: No Limitations - Past Medical History Cardio/Vascular: Yes: HTN, Hyperlipdemia ...: No Psych: Yes: Depression (depressed over loss of 3 months ago) Musculoskeletal: Yes: Chronic low back pain, Osteoarthritis Endocrine: Yes: Diabetes Mellitus, Osteopenia - Past Surgical History Additional Surgical History: right hand surgery - Alcohol/Substance Use Hx Alcohol Use: No - Smoking History Smoking history: Never smoked Have you smoked in the past 12 months: No Aproximately how many cigarettes per day: 0 - Social History Usual Living Arrangement: Alone ADL: Family Assistance 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 History of Recent Travel: No Home Medications - Allergies Allergies/Adverse Reactions: Allergies Allergy/AdvReac Type Severity Reaction Status Date / Time No Known Allergies Allergy Verified 07/23/18 04:52 - Home Medications Home Medications: Ambulatory Orders Amlodipine Besylate [Norvasc -] 5 mg PO DAILY #0 tablet 04/04/12 Aspirin [ASA -] 81 mg PO DAILY #0 tab.chew 04/04/12 Losartan Potassium 100 mg PO DAILY 09/20/15 Metoprolol Succinate [Toprol XL -] 25 mg PO DAILY 09/20/15 Linagliptin [Tradjenta] 5 mg PO DAILY 12/31/16 Donepezil HCl [Aricept -] 5 mg PO DAILY 07/23/18 Ergocalciferol [Vitamin D2] 50,000 unit PO Q7D@1000 07/23/18 Esomeprazole Magnesium 40 mg PO DAILY@0700 07/23/18 Gabapentin [Neurontin] 300 mg PO Q12H 07/23/18 Icosapent Ethyl [Vascepa] 1 gm PO Q12H 07/23/18 Loratadine [Claritin -] 10 mg PO DAILY 07/23/18 Meloxicam [Mobic] 15 mg PO DAILY 07/23/18 Oxybutynin Chloride [Oxybutynin Chloride ER] 5 mg PO DAILY 07/23/18 Sennosides [Senna] 2 tab PO DAILY PRN 07/23/18 Simvastatin 20 mg PO HS 07/23/18 Family Disease History - Family Disease History Family Disease History: Other: Father ( in his 70s), Mother ( in her 70s ) Review of Systems - Review of Systems Constitutional: reports: Weakness Eyes: reports: No Symptoms HENT: reports: No Symptoms Neck: reports: No Symptoms Cardiovascular: reports: No Symptoms Respiratory: reports: No Symptoms Gastrointestinal: reports: Rectal Bleeding, Vomiting, Vomiting Blood Genitourinary: reports: No Symptoms Breasts: reports: No Symptoms Reported Musculoskeletal: reports: No Symptoms Integumentary: reports: No Symptoms Neurological: reports: No Symptoms Endocrine: reports: No Symptoms Hematology/Lymphatic: reports: No Symptoms Psychiatric: reports: No Symptoms Vital Signs: Vital Signs Temperature 99.0 F 07/23/18 14:00 Pulse Rate 109 H 07/23/18 14:00 Respiratory Rate 15 07/23/18 14:00 Blood Pressure 120/60 07/23/18 14:00 O2 Sat by Pulse Oximetry (%) 96 07/23/18 15:00 General: Weal and pale. Well developed. Well nourished. No acute distress. Head: Normocephalic. Atraumatic, Eyes: PERRLA, EOMI. Sclerae anicteric. Conjunctivae pale Neck: Supple. No JVD. No bruits. Heart: S1, S2: Regularly regular rhythm and mild tachy. III/ KONG at RUB with radiation to the neck, A2 absent. Carotid upstroke delayed. III/ HSM with radiation to left axilla. Lungs: Symmetrical air entry. Bibasilar crackle. No wheezing or rhonchi. Abdomen: Soft. Bowel sound positive. Non tender. No masses. Extremities: No edema. No clubbing or cyanosis. PD 2+, equal bilaterally. - Other Data Labs, Other Data: CBC, BMP 07/23/18 05:22 07/23/18 05:22 INR, PTT INR 1.18 (0.83-1.09) H 07/23/18 05:22 Troponin, BNP 07/23/18 07/23/18 05:22 13:40 Troponin I 0.06 H 3.26 H* Troponin, BNP 07/23/18 07/23/18 05:22 13:40 Troponin I 0.06 H 3.26 H* Imaging - Results EKG: Image Reviewed (Sinus rhythm. Normal axis. LVH. Marked downsloping ST depression and T inversion in the inferior and lateral leads.) Assessment/Plan 88 year-old Uzbek speaking woman (lives alone, independent of all ADLs) with a PMHx of HTN, IDDM, hyperlipidemia, PUD, admitted 07/23/2018 after episode of hematemesis and melena with evidence of severe anemia. The patient was seen by GI, endoscopies planned. She was found to have elevated troponin (0.08-> 3.26) with marked ECG abnormalities of inferolateral ischemia and LVH. She was tachycardic with normal BP. Significant systolic ejection murmur in the absence of A2 and holosystolic murmur consistent with severe aortic stenosis and significant mitral regurgitation. She is receiving PRBC transfusion. 1) NSTEMI with ECG evidence of ischemia in the setting of GI bleeding and severe anemia. It is likely demand ischemia with underline CAD. Start low dose metoprolol 12.5 mg BID, titrate up for heart rate control. Start Statin therapy with atorvastatin 40 mg daily. Transfusion to keep HCT aroud 30%. 2) Severe aortic stenosis and significant mitral regurgitation. She has physical signs of pulmonary congestion Echocardiogram for further evaluation. Would use low dose - 20 mg IV Lasix and more frequent as needed for fluid overload before and after blood transfusion to prevent sudden drop pre-load in the setting of severe . Further management of , possible TAVR could be discussed in future. 3) The patient is at high risk of cardiac complication for planned endoscopies at this time. Would postpone it till the patient is more stable with better heart rate and blood pressure control
--- NOTE | 2018-07-23 16:37 | EKG ---
Test Reason : Blood Pressure : / mmHG Vent. Rate : 098 BPM Atrial Rate : 098 BPM P-R Int : 138 ms QRS Dur : 104 ms QT Int : 364 ms P-R-T Axes : 047 -10 167 degrees QTc Int : 464 ms SINUS RHYTHM WITH PREMATURE ATRIAL COMPLEXES LEFT VENTRICULAR HYPERTROPHY WITH REPOLARIZATION ABNORMALITY ABNORMAL ECG WHEN COMPARED WITH ECG OF 23-JUL-2018 09:28, PREMATURE ATRIAL COMPLEXES ARE NOW PRESENT CLINICAL CORRELATION IS RECOMMENDED Confirmed by LAURA MURRELL, PHI ([id number]) on 07/23/2018 4:37:32 PM Referred By: Dayo LATHAM Confirmed By:PHI SANCHEZ MD
--- NOTE | 2018-07-23 16:49 | EKG ---
Test Reason : Blood Pressure : / mmHG Vent. Rate : 089 BPM Atrial Rate : 089 BPM P-R Int : 140 ms QRS Dur : 104 ms QT Int : 392 ms P-R-T Axes : 039 -06 198 degrees QTc Int : 476 ms SINUS RHYTHM WITH MARKED SINUS ARRHYTHMIA LEFT VENTRICULAR HYPERTROPHY WITH REPOLARIZATION ABNORMALITY ABNORMAL ECG WHEN COMPARED WITH ECG OF 23-JUL-2018 05:24, PREMATURE ATRIAL COMPLEXES ARE NO LONGER PRESENT T WAVE INVERSION MORE EVIDENT IN INFERIOR LEADS CLINICAL CORRELATION IS RECOMMENDED Confirmed by LAURA MURRELL, PHI ([id number]) on 07/23/2018 4:48:59 PM Referred By: Confirmed By:PHI SANCHEZ MD
--- NOTE | 2018-07-23 16:51 | EKG ---
Test Reason : Blood Pressure : / mmHG Vent. Rate : 109 BPM Atrial Rate : 109 BPM P-R Int : 132 ms QRS Dur : 104 ms QT Int : 360 ms P-R-T Axes : 058 000 164 degrees QTc Int : 484 ms SINUS TACHYCARDIA WITH PREMATURE ATRIAL COMPLEXES LEFT VENTRICULAR HYPERTROPHY WITH REPOLARIZATION ABNORMALITY ABNORMAL ECG WHEN COMPARED WITH ECG OF 19-SEP-2014 08:16, NOTE PRESNSE OF APCS AND IN ADDITION, NOTE INCREASE IN THE PULSE RATE NOTE PRESNSE OF FURTHER ST SEGMENT DEPRESSION CLINICAL CORRELATION IS RECOMMENDED Confirmed by LAURA MURRELL, PHI ([id number]) on 07/23/2018 4:51:37 PM Referred By: Confirmed By:PHI SANCHEZ MD
[2018-07-23 18:24] LABS: HEMATOCRIT 32.8 % (32.4-45.2); HEMOGLOBIN 11.3 GM/dL (10.7-15.3); MCH 31.1 pg (25.7-33.7); MCHC 34.5 g/dl (32.0-36.0); PLATELET COUNT 171 K/MM3 (134-434); RBC 3.65 M/mm3 (3.60-5.2); RDW 13.9 % (11.6-15.6); WHITE BLOOD COUNT 11.3 K/mm3 (4.0-10.0)
[2018-07-23 18:55] LABS: PHOSPHOROUS 3.3 mg/dL (2.5-4.9)
[2018-07-23] MEDS: MUPIROCIN 2% TOPICAL OINTMENT FOR DECOLONIZATION NS SCH (22:55)
[2018-07-23] MEDS: CHLORHEXIDINE GLUCONATE 4% CLEANSER FOR DECOLONIZATION TP SCH (22:57)
[2018-07-24 01:14] LABS: HEMOGLOBIN 10.8 GM/dL (10.7-15.3); MCH 31.4 pg (25.7-33.7); MEAN CELL VOLUME 89.8 fl (80-96); MEAN PLT VOLUME 9.2 fl (7.5-11.1); PLATELET COUNT 171 K/MM3 (134-434); RBC 3.45 M/mm3 (3.60-5.2); RDW 14.2 % (11.6-15.6); WHITE BLOOD COUNT 10.9 K/mm3 (4.0-10.0)
[2018-07-24] MEDS: PANTOPRAZOLE SODIUM 80 MG in SODIUM CHLORIDE 100 ML IVPB SCH ×2 (04:30→16:43)
[2018-07-24] MEDS: INSULIN SLIDING SCALE (NOVOLOG) 1 VIAL SQ SCH ×4 (05:00→16:50)
[2018-07-24 05:59] LABS: BASO % 0.9 % (0-2.0); EOS % 1.2 % (0-4.5); HEMATOCRIT 30.8 % (32.4-45.2); HEMOGLOBIN 10.5 GM/dL (10.7-15.3); LYMPH % 23.9 % (8-40); MCH 30.9 pg (25.7-33.7); MCHC 33.9 g/dl (32.0-36.0); MEAN CELL VOLUME 90.9 fl (80-96); MEAN PLT VOLUME 9.1 fl (7.5-11.1); PLATELET COUNT 157 K/MM3 (134-434); RBC 3.39 M/mm3 (3.60-5.2); RDW 14.4 % (11.6-15.6)
[2018-07-24 07:24] LABS: ALK PHOS 49 U/L (45-117); ANION GAP 3 MMOL/L (8-16); BILIRUBIN,TOTAL 1.5 mg/dL (0.2-1); BLOOD UREA NITROGEN 47 mg/dL (7-18); CALCIUM 8.6 mg/dL (8.5-10.1); CHLORIDE 111 mmol/L (98-107); CO2 29 mmol/L (21-32); CREATININE 0.5 mg/dL (0.55-1.3); GLUCOSE,RANDOM 145 mg/dL (74-106); PHOSPHOROUS 3.7 mg/dL (2.5-4.9); POTASSIUM 3.5 mmol/L (3.5-5.1); SGOT/AST 20 U/L (15-37); SGPT/ALT 10 U/L (13-61); SODIUM 143 mmol/L (136-145); TOT PROT 5.5 g/dl (6.4-8.2)
[2018-07-24 08:07] LABS: SERUM IRON SATURATION 14 % (15-55); TOTAL IRON BINDING CAPACITY 280 ug/dL (250-450); UIBC 240 ug/dL (118-369)
--- NOTE | 2018-07-24 08:13 | PN ---
Progress Note (short form) - Note Progress Note: PULM/CCM Pt seen and examined in ICU 24HR: -no further bleeding -crit stable, without further transfusion -Trop peaked 3, now 2 -cards saw, concern for critical , TTE pending -no plans for EGD, will start clears Vital Signs Temp 98.3 F 07/24/18 06:00 Pulse 86 07/24/18 06:00 Resp 22 H 07/24/18 06:00 BP 113/60 07/24/18 06:00 Pulse Ox 98 07/23/18 21:00 Intake & Output 07/23/18 07/23/18 07/24/18 11:59 23:59 11:59 Intake Total 875 70 Balance 875 70 Weight 45.359 kg 45.529 kg Intake: IV 115 70 protonix drip 115 70 Oral 60 Packed Cells 700 Other: Voiding Method Bedpan Bedpan # Unmeasured Voids Void 2 1 Bowel Movement No Height 5 ft 1 in 5 ft 1 in Body Mass Index (BMI) 18.8 18.9 Weight Measurement Method Built in [facility] Weight Measurement Method Est/Stated by Patient CBC, BMP 07/24/18 05:30 07/24/18 05:30 Current Medications Chlorhexidine Gluconate (Hibiclens For Decolonization -) 1 applic TP HS JANETTE Last Admin: 07/23/18 22:57 Dose: 1 applic Pantoprazole Sodium 80 mg/ (Sodium Chloride) 100 mls @ 10 mls/hr IVPB Q10H JANETTE Last Admin: 07/24/18 04:30 Dose: 10 mls/hr Insulin Aspart (Novolog Vial Sliding Scale -) 1 vial SQ Q6H JANETTE; Protocol Last Admin: 07/23/18 22:56 Dose: Not Given Mupirocin (Bactroban Ointment (For Decolonization) -) 1 applic NS BID JANETTE Stop: 07/28/18 21:59 Last Admin: 07/23/18 22:55 Dose: 1 applic EKG:sinus diffuse inferolateral TWI PE: Gen: awake, non-toxic PULM: clear, no wheezes CV: loud III/ KONG, regular ABD:soft, NT, ND, +BS Ext: no edema Neuro: intact, non focal A/ 88 y/o woman w/ PUD, 2/2 NSAIDS, STEMI P/ -PPI x 72 hr -would start clears today -once taking clears, start stain, hold ASA -Cards consulted, TTE pending -start BB Tristan Ramos ACNP [id number]
[2018-07-24] MEDS: MUPIROCIN 2% TOPICAL OINTMENT FOR DECOLONIZATION NS SCH ×2 (09:59→21:51)
--- NOTE | 2018-07-24 14:13 | PN ---
Progress Note, Physician Chief Complaint: Patient is sitting comfortably. She reports no chest pain, SOB or palpitation. Tele shows sinus rhythm around 90s, frequent APCs and short atrial runs. History of Present Illness: 88 year-old Hungarian speaking woman (lives alone, independent of all ADLs) with a PMHx of HTN, IDDM, hyperlipidemia, PUD, admitted 07/23/2018 after episode of hematemesis and melena with evidence of severe anemia. The patient was seen by GI, endoscopies planned. She was found to have elevated troponin (0.08-> 3.26) with marked ECG abnormalities of inferolateral ischemia and LVH. She was tachycardic with normal BP. Significant systolic ejection murmur in the absence of A2 and holosystolic murmur consistent with severe aortic stenosis and significant mitral regurgitation. She is receiving PRBC transfusion. Stable without evidence of further GI bleeding. - Current Medication List Current Medications: Active Medications Chlorhexidine Gluconate (Hibiclens For Decolonization -) 1 applic TP HS [facility] Last Admin: 07/23/18 22:57 Dose: 1 applic Pantoprazole Sodium 80 mg/ (Sodium Chloride) 100 mls @ 10 mls/hr IVPB Q10H [facility] Last Admin: 07/24/18 04:30 Dose: 10 mls/hr Insulin Aspart (Novolog Vial Sliding Scale -) 1 vial SQ ACHS [facility]; Protocol Last Admin: 07/24/18 12:28 Dose: Not Given Mupirocin (Bactroban Ointment (For Decolonization) -) 1 applic NS BID [facility] Stop: 07/28/18 21:59 Last Admin: 07/24/18 09:59 Dose: 1 applic - Objective Vital Signs: Vital Signs Temperature 98.3 F 07/24/18 06:00 Pulse Rate 89 07/24/18 08:00 Respiratory Rate 14 07/24/18 08:00 Blood Pressure 108/61 07/24/18 08:00 O2 Sat by Pulse Oximetry (%) 95 07/24/18 09:09 General: Well developed. Well nourished. No acute distress. Head: Normocephalic. Atraumatic, Eyes: PERRLA, EOMI. Sclerae anicteric. Conjunctivae pale Neck: Supple. No JVD. No bruits. Heart: S1, S2: Regularly regular rhythm and rate. III/ KONG at RUB with radiation to the neck, A2 absent. Carotid upstroke delayed. III/ HSM with radiation to left axilla. Lungs: Symmetrical air entry. Bibasilar crackle. No wheezing or rhonchi. Abdomen: Soft. Bowel sound positive. Non tender. No masses. Extremities: No edema. No clubbing or cyanosis. PD 2+, equal bilaterally. Labs: CBC, BMP 07/24/18 05:30 07/24/18 05:30 INR, PTT INR 1.18 (0.83-1.09) H 07/23/18 05:22 Assessment/Plan 88 year-old Hungarian speaking woman (lives alone, independent of all ADLs) with a PMHx of HTN, IDDM, hyperlipidemia, PUD, admitted 07/23/2018 after episode of hematemesis and melena with evidence of severe anemia. The patient was seen by GI, endoscopies planned. She was found to have elevated troponin (0.08-> 3.26) with marked ECG abnormalities of inferolateral ischemia and LVH. She was tachycardic with normal BP. Significant systolic ejection murmur in the absence of A2 and holosystolic murmur consistent with severe aortic stenosis and significant mitral regurgitation. She is receiving PRBC transfusion. 1) NSTEMI with ECG evidence of ischemia in the setting of GI bleeding and severe anemia. It is likely demand ischemia with underline CAD. Start low dose metoprolol 12.5 mg BID for heart rate control. Start Statin therapy with atorvastatin 40 mg daily. Transfusion to keep HCT aroud 30%. 2) Severe aortic stenosis and significant mitral regurgitation. She has physical signs of pulmonary congestion Echocardiogram. Would use low dose Lasix and more frequent as needed for fluid overload before and after blood transfusion to prevent sudden drop pre-load in the setting of severe . Further management of , possible TAVR could be discussed in future. 3) The patient is at high risk of cardiac complication for planned endoscopies at this time. Would postpone it till the patient is more stable with better heart rate and blood pressure control
[2018-07-24] MEDS ORDERED: FUROSEMIDE 40 MG/4 ML INJECTABLE VIAL IVPUSH ONE (15:13)
--- NOTE | 2018-07-24 18:16 | PN ---
Progress Note (short form) - Note Progress Note: Subjective: No fever or chills . No SOB , no PC , no Abd pain, No BM since yesterday. per RN : hypoxic Objective: Vital Signs: Last Vital Signs Temp Pulse Resp BP Pulse Ox 98.3 F 86 14 122/59 L 95 07/24/18 06:00 07/24/18 14:44 07/24/18 14:44 07/24/18 14:44 07/24/18 09:09 Laboratory Results - last 24 hr 07/23/18 07/23/18 07/23/18 05:29 16:05 18:00 WBC RBC Hgb Hct MCV MCH MCHC RDW Plt Count MPV Absolute Neuts (auto) Neutrophils % Lymphocytes % Monocytes % Eosinophils % Basophils % Nucleated RBC % Sodium Potassium Chloride Carbon Dioxide Anion Gap BUN Creatinine Creat Clearance w eGFR POC Glucometer 132.63824 Random Glucose Calcium Phosphorus 3.3 Magnesium Iron 40 TIBC 280 Iron Saturation 14 L Total Bilirubin AST ALT Alkaline Phosphatase Creatine Kinase 82 Troponin I 2.58 H* Total Protein Albumin 07/23/18 07/23/18 07/24/18 18:00 22:25 01:00 WBC 11.3 H 10.9 H RBC 3.65 3.45 L Hgb 11.3 10.8 Hct 32.8 D 31.0 L MCV 90.0 89.8 MCH 31.1 31.4 MCHC 34.5 35.0 RDW 13.9 14.2 Plt Count 171 171 MPV 10.0 9.2 Absolute Neuts (auto) Neutrophils % Lymphocytes % Monocytes % Eosinophils % Basophils % Nucleated RBC % Sodium Potassium Chloride Carbon Dioxide Anion Gap BUN Creatinine Creat Clearance w eGFR POC Glucometer 165.62122 Random Glucose Calcium Phosphorus Magnesium Iron TIBC Iron Saturation Total Bilirubin AST ALT Alkaline Phosphatase Creatine Kinase Troponin I Total Protein Albumin 07/24/18 07/24/18 07/24/18 05:30 05:30 05:45 WBC 10.0 RBC 3.39 L Hgb 10.5 L Hct 30.8 L MCV 90.9 MCH 30.9 MCHC 33.9 RDW 14.4 Plt Count 157 MPV 9.1 Absolute Neuts (auto) 6.8 Neutrophils % 68.0 D Lymphocytes % 23.9 D Monocytes % 6.0 D Eosinophils % 1.2 D Basophils % 0.9 Nucleated RBC % 0 Sodium 143 Potassium 3.5 Chloride 111 H Carbon Dioxide 29 Anion Gap 3 L BUN 47 H Creatinine 0.5 L Creat Clearance w eGFR > 60 POC Glucometer [phone] Random Glucose 145 H Calcium 8.6 Phosphorus 3.7 Magnesium 2.0 Iron TIBC Iron Saturation Total Bilirubin 1.5 H AST 20 ALT 10 L Alkaline Phosphatase 49 Creatine Kinase Troponin I Total Protein 5.5 L Albumin 3.0 L 07/24/18 07/24/18 07/24/18 09:54 12:27 16:47 WBC RBC Hgb Hct MCV MCH MCHC RDW Plt Count MPV Absolute Neuts (auto) Neutrophils % Lymphocytes % Monocytes % Eosinophils % Basophils % Nucleated RBC % Sodium Potassium Chloride Carbon Dioxide Anion Gap BUN Creatinine Creat Clearance w eGFR POC Glucometer 159.93061 199.83211 178.14835 Random Glucose Calcium Phosphorus Magnesium Iron TIBC Iron Saturation Total Bilirubin AST ALT Alkaline Phosphatase Creatine Kinase Troponin I Total Protein Albumin Physical Exam: NAD, awake, pale,MMM. CV: RRR, 3/6 SM at RUSb with radiation to carotid and 3/6 Sm at LLSB and Adams with radiation to axilla Lungs: bilateral crackles half way down Abd: soft, NT, ND , NL BS Ext : no edema or erythema ASSESSMENT AND PLAN: 88 y/o lady with h/o DM, PUD, HL, HTN who presented with hematemesis and melena. 1- Upper GI bleed with acute blood loss anemia: - cont PPI gtt - stable Hb . repeat - clears - EGD is deffered at this point - iron studies pending 2- NSTemi: in setting of Acute GI bleed - BP stable . hold her toprol and add lopressor in case she re-bleeds - echo pending - start statin - No aspirin 3- Heart murmurs: possible MR and . - echo pending - give iv lasix x 1 today as more crackly 4- h/o HTN: BB as above hold other home meds 5- SCDs d/w patient and her son at bedside Visit type - Emergency Visit Emergency Visit: Yes ED Registration Date: 07/23/18 Care time: The patient presented to the Emergency Department on the above date and was hospitalized for further evaluation of their emergent condition. - New Patient This patient is new to me today: No - Critical Care Critical Care patient: No
--- NOTE | 2018-07-24 18:41 | PN ---
GI Progress Note Subjective: GI NOte ( covering Dr Barros): The bleeding has fortunately stopped with PPI drip. Elevated troponins have risen further. Cardiology agrees with aortic stenosis concerns- discussed case with Dr Lora - Objective Vital Signs: Vital Signs Temperature 98.1 F 07/24/18 18:00 Pulse Rate 87 07/24/18 18:00 Respiratory Rate 17 07/24/18 18:00 Blood Pressure 120/60 07/24/18 18:00 O2 Sat by Pulse Oximetry (%) 95 07/24/18 09:09 Laboratory Tests 07/23/18 07/23/18 07/24/18 05:22 18:00 01:00 Hgb 7.9 L 11.3 10.8 07/24/18 05:30 Hgb 10.5 L Constitutional: Calm ...Auscultate: Yes: Normoactive Bowel Sounds ...Palpate: Yes: Soft, Other (nontender) Labs: CBC, BMP 07/24/18 05:30 07/24/18 05:30 INR, PTT INR 1.18 (0.83-1.09) H 07/23/18 05:22 Assessment/Plan NSAID induced ulcer or gastritis/duodenitis bleed PPI drip Await cardiology clearance Dr Barros will return 07/25 Problem List - Problems (1) Hematemesis/vomiting blood Assessment/Plan: Suspect UGI bleeding due to NSAID induced erosions or ulcers. EGD deferred until cardiologically fit for this. Will advance to full liquid diet. Discussed case with family at bedside and with Dr. Maurer. Code(s): K92.0 - HEMATEMESIS (2) Melena Code(s): K92.1 - MELENA (3) GI bleed Code(s): K92.2 - GASTROINTESTINAL HEMORRHAGE, UNSPECIFIED (4) Epigastric abdominal pain Code(s): R10.13 - EPIGASTRIC PAIN (5) Holosystolic murmur Code(s): R01.1 - CARDIAC MURMUR, UNSPECIFIED (6) Aortic diastolic murmur on examination Code(s): I35.8 - OTHER NONRHEUMATIC AORTIC VALVE DISORDERS
[2018-07-24 19:23] LABS: HEMATOCRIT 31.5 % (32.4-45.2); HEMOGLOBIN 10.8 GM/dL (10.7-15.3); MCHC 34.3 g/dl (32.0-36.0); MEAN CELL VOLUME 90.2 fl (80-96); MEAN PLT VOLUME 9.6 fl (7.5-11.1); PLATELET COUNT 185 K/MM3 (134-434); RBC 3.49 M/mm3 (3.60-5.2); RDW 14.4 % (11.6-15.6); WHITE BLOOD COUNT 11.7 K/mm3 (4.0-10.0)
[2018-07-24] MEDS: ATORVASTATIN CA 20 MG TABLET (FP) PO SCH (21:50)
[2018-07-24] MEDS: METOPROLOL TARTRATE 25 MG TABLET (FP) PO SCH (21:51)
[2018-07-24] MEDS: CHLORHEXIDINE GLUCONATE 4% CLEANSER FOR DECOLONIZATION TP SCH (21:51)
[2018-07-25] MEDS: PANTOPRAZOLE SODIUM 80 MG in SODIUM CHLORIDE 100 ML IVPB SCH ×3 (00:48→21:34)
[2018-07-25] MEDS: INSULIN SLIDING SCALE (NOVOLOG) 1 VIAL SQ SCH ×3 (06:58→17:08)
[2018-07-25 07:18] LABS: ALBUMIN 3.1 g/dl (3.4-5.0); ALK PHOS 52 U/L (45-117); ANION GAP 6 MMOL/L (8-16); BILIRUBIN,TOTAL 1.3 mg/dL (0.2-1); BLOOD UREA NITROGEN 36 mg/dL (7-18); CALCIUM 8.3 mg/dL (8.5-10.1); CHLORIDE 103 mmol/L (98-107); CO2 32 mmol/L (21-32); CREATININE 0.5 mg/dL (0.55-1.3); GLUCOSE,RANDOM 142 mg/dL (74-106); POTASSIUM 3.4 mmol/L (3.5-5.1); SGOT/AST 17 U/L (15-37); SGPT/ALT 11 U/L (13-61); SODIUM 141 mmol/L (136-145)
[2018-07-25 08:19] LABS: HEMATOCRIT 30.8 % (32.4-45.2); HEMOGLOBIN 10.4 GM/dL (10.7-15.3); MCH 30.8 pg (25.7-33.7); MCHC 33.8 g/dl (32.0-36.0); MEAN CELL VOLUME 91.2 fl (80-96); MEAN PLT VOLUME 9.7 fl (7.5-11.1); PLATELET COUNT 165 K/MM3 (134-434); RBC 3.37 M/mm3 (3.60-5.2); RDW 14.1 % (11.6-15.6); WHITE BLOOD COUNT 11.2 K/mm3 (4.0-10.0)
[2018-07-25] MEDS ORDERED: POTASSIUM CHLORIDE TABS 20 MEQ TABLET.ER (FP) PO ONE ×2 (08:45→09:30)
[2018-07-25] MEDS ORDERED: PANTOPRAZOLE SODIUM 40 MG VIAL IVPUSH SCH (10:00)
--- NOTE | 2018-07-25 10:36 | PN ---
GI Progress Note Subjective: No acute events patient states feeling well No hematemesis / coffee ground emesis Echo was being performed at bedside - Objective Vital Signs: Vital Signs Temperature 98.3 F 07/25/18 06:00 Pulse Rate 82 07/25/18 08:00 Respiratory Rate 16 07/25/18 08:00 Blood Pressure 128/58 L 07/25/18 08:00 O2 Sat by Pulse Oximetry (%) 98 07/25/18 08:51 Constitutional: Calm Eyes: Yes: Cataracts. No: Sclera Icterus Cardiovascular: Yes: Regular Rate and Rhythm, Murmur (2/6 Systolic murmur) Respiratory: Yes: Diminished (at bases with poor insp effort) Gastrointestinal Inspection: No: Distention, Hernia ...Auscultate: Yes: Normoactive Bowel Sounds ...Palpate: No: Hepatomegaly, Splenomegaly, Tenderness Edema: No (No LE edema) Neurological: Yes: Alert Labs: CBC, BMP 07/25/18 05:30 07/25/18 05:30 INR, PTT INR 1.18 (0.83-1.09) H 07/23/18 05:22 Problem List - Problems (1) GI bleed Assessment/Plan: suspected UGIB in setting of daily meloxicam/ASA use. No overt bleeding currently and H/H stable Advise: As conservative measures being utlized right now given cardiac issues, continue PPI drip for total 72 hours. Monitor magnesiumlevels while on PPI drip NPO except meds Echo just performed. Results pending, Cardiology following Code(s): K92.2 - GASTROINTESTINAL HEMORRHAGE, UNSPECIFIED
[2018-07-25] MEDS: MUPIROCIN 2% TOPICAL OINTMENT FOR DECOLONIZATION NS SCH ×2 (10:39→21:34)
[2018-07-25] MEDS: METOPROLOL TARTRATE 25 MG TABLET (FP) PO SCH ×2 (10:40→21:36)
--- NOTE | 2018-07-25 11:10 | PN ---
Physical Exam: SUBJECTIVE: Patient seen and examined at bedside this morning. She is NPO and complains that she has not eaten. Denies abdominal pain, nausea, vomiting, or hematemesis. Endorses urinating well without dysuria, or hematuria. Last bowel movement was two days ago. OBJECTIVE: Vital Signs Period Temp Pulse Resp BP Sys/Mabry Pulse Ox Last 24 Hr 97.9 F-98.9 F 81-88 14-23 105-130/51-63 98-98 GENERAL: The patient is awake, alert, and fully oriented, in no acute distress. HEAD: Normocephalic, trumatic. EYES: PERRLA, extraocular movements intact, sclera anicteric, conjunctiva clear. ENT: Oropharynx clear without exudates, lesions or erythema. Dry mucous membranes. NECK: Trachea midline, full range of motion, supple without lymphadenopathy. LUNGS: Breath sounds equal, clear to auscultation bilaterally, no wheezes, no crackles, no accessory muscle use. HEART: Regular rate and rhythm. Harsh holosystolic murmur auscultated radaiting to the carotids. S1, S2 auscultated. ABDOMEN: Soft, nontender to light and deep palpation X4 quadrants, nondistended. Normoactive bowel sounds x4 quadrants. No guarding, no rebound tenderness. no hepatosplenomegaly, no masses. EXTREMITIES: 2+ radial and dorsalis pedis pulses b/l. Warm, well-perfused, no lower extremity edema b/l. NEUROLOGICAL: Cranial nerves II through XII grossly intact. No gross focal deficits. PSYCH: Normal mood, normal affect upon my encounter today. SKIN: Warm, dry. Laboratory Results - last 24 hr 07/24/18 07/24/18 07/24/18 12:27 16:47 18:54 WBC 11.7 H RBC 3.49 L Hgb 10.8 Hct 31.5 L MCV 90.2 MCH 31.0 MCHC 34.3 RDW 14.4 Plt Count 185 MPV 9.6 Sodium Potassium Chloride Carbon Dioxide Anion Gap BUN Creatinine Creat Clearance w eGFR POC Glucometer [phone] Random Glucose Calcium Total Bilirubin AST ALT Alkaline Phosphatase Total Protein Albumin 07/25/18 07/25/18 07/25/18 05:30 05:30 05:34 WBC 11.2 H RBC 3.37 L Hgb 10.4 L Hct 30.8 L MCV 91.2 MCH 30.8 MCHC 33.8 RDW 14.1 Plt Count 165 MPV 9.7 Sodium 141 Potassium 3.4 L Chloride 103 Carbon Dioxide 32 Anion Gap 6 L BUN 36 H Creatinine 0.5 L Creat Clearance w eGFR > 60 POC Glucometer [phone] Random Glucose 142 H Calcium 8.3 L Total Bilirubin 1.3 H AST 17 ALT 11 L Alkaline Phosphatase 52 Total Protein 6.0 L Albumin 3.1 L Active Medications Generic Name Dose Route Start Last Admin Trade Name Freq PRN Reason Stop Dose Admin Atorvastatin Calcium 20 mg 07/24/18 22:00 07/24/18 21:50 Lipitor - PO 20 mg HS JANETTE Administration Chlorhexidine Gluconate 1 applic 07/23/18 22:00 07/24/18 21:51 Hibiclens For Decolonization - TP 1 applic HS JANETTE Administration Pantoprazole Sodium 80 mg/ 100 mls @ 10 mls/hr 07/25/18 10:45 Sodium Chloride IVPB Q10H JANETTE 8 MG/HR Insulin Aspart 1 vial 07/25/18 07:00 07/25/18 06:58 Novolog Vial Sliding Scale - SQ Not Given TIDAC [facility] Protocol Metoprolol Tartrate 12.5 mg 07/24/18 22:00 07/24/18 21:51 Lopressor - PO 12.5 mg BID JANETTE Administration Mupirocin 1 applic 07/23/18 22:00 07/24/18 21:51 Bactroban Ointment (For Decolonization) - NS 07/28/18 21:59 1 applic BID JANETTE Administration ASSESSMENT/PLAN: Patient is an 88 year old female with history significant for hypertension, hyperlipidemia, diabetes, presents with complaint of vomiting with hematemesis, and melanotic stools. Upper GI bleed -Presented with hematemesis, and melanotic stools. No events since hospitalization. -Protonix drip at 10mL/ hour -GI consult (Dr. Hein) appreciated: Will continue conservative management ( due to history of severe aortic stenosis) with pantoprazole drip for 72 hours. Will hold off on endoscopy until stabilized. F/U Magnesium level Troponinema -0.06 -> 3.26 -> 2.58 trended down. -Cardiology consult (Dr. Bell) appreciated: Troponins likely secondary to demand ischemia. Severe aortic stenosis with VALDO 0.7 cm^2. Will consider TAVR once stabilized. Diabetes Mellitus -BGM ACHS -ISS ACHS Hypertension -Metoprolol tartrate 12.5mg PO BID Hyperlipdemia -Lipitor 20mg HS FEN -No IV fluids. Patient tolerates oral intake, will encourage judicious oral hydration. -Hyperkalema. Will follow up CMP, in addition to Magnesium. -NPO Prophylaxis -SCDs b/l lower extremities. Chemical anticoagulation held due to likely upper GI bleeding -Pantoprazole drip 10mL/ hour Disposition -Continue care in ICU, pending transfer to Telemetry floor. Visit type - Emergency Visit Emergency Visit: Yes ED Registration Date: 07/23/18 Care time: The patient presented to the Emergency Department on the above date and was hospitalized for further evaluation of their emergent condition. - New Patient This patient is new to me today: Yes Date on this admission: 07/25/18 - Critical Care Critical Care patient: Yes Total Critical Care Time (in minutes): 35 Critical Care Statement: The care of this patient involved high complexity decision making to prevent further life threatening deterioration of the patient 's condition and/or to evaluate & treat vital organ system(s) failure or risk of failure. - Discharge Referral Referred to [facility] No
[2018-07-25 12:45] VITALS: BMI 18.8
--- NOTE | 2018-07-25 13:07 | ECHO ---
Name: BRIDGET RAMEY Exam:Adult Echocardiogram Study Date: 07/25/2018 09:41 AM Age: 88 yrs Reason For Study: ABBYR ELEVATED TROPONINS Height: 61 in Weight: 100 lb BSA: 1.4 m2 MMode/2D Measurements & Calculations IVSd: 1.3 cm LA dimension: 4.2 cm LVIDd: 3.8 cm LVIDs: 2.7 cm LVPWd: 1.1 cm EDV(Teich): 60.8 ml LVOT diam: 1.6 cm ESV(Teich): 26.5 ml LAV (MOD-bp): 90.0 ml TAPSE: 3.1 cm RV S Garett: 13.5 cm/sec Doppler Measurements & Calculations MV E max garett: 179.6 cm/sec Ao V2 max: 611.6 cm/sec MV A max garett: 154.3 cm/sec Ao max P.8 mmHg MV E/A: 1.2 Ao V2 mean: 458.8 cm/sec MV dec time: 0.34 sec Ao mean P.3 mmHg Ao V2 VTI: 133.7 cm VALDO(I,D): 0.65 cm2 AI P1/2t: 371.2 msec VALDO(V,D): 0.71 cm2 AI max garett: 329.5 cm/sec LV V1 max P.1 mmHg AI max P.7 mmHg LV V1 mean P.5 mmHg AI dec slope: 259.9 cm/sec2 LV V1 max: 224.4 cm/sec LV V1 mean: 148.5 cm/sec LV V1 VTI: 45.0 cm MR max garett: 498.5 cm/sec SV(LVOT): 87.5 ml MR max P.4 mmHg TR max garett: 261.9 cm/sec Med Peak E' Garett: 3.6 cm/sec TR max P.6 mmHg Med E/e': 49.8 Lat Peak E' Garett: 5.7 cm/sec Lat E/e': 31.4 Procedure A complete two-dimensional transthoracic echocardiogram was performed (2D, M-mode, Doppler and color flow Doppler). Left Ventricle The left ventricle is normal in size. Left ventricular systolic function is normal. Ejection Fraction = 65- 70%. Pseudonormalization mitral inflow suggests moderate diastoic dysfunction with elevated filling p ressure. No regional wall motion abnormalities noted. Right Ventricle The right ventricle is normal size. The right ventricular systolic function is normal. RV systolic TD I is 13 cm/s. Atria The left atrium is severely dilated. LA volume index is 64 ml/m2. Right atrial size is normal. Mitral Valve There is moderate mitral annular calcification. There is mild to moderate mitral valve thickening. Th ere is no mitral regurgitation noted. Tricuspid Valve The tricuspid valve is normal in structure and function. There is mild tricuspid regurgitation. Pulmo nary artery systolic pressure is at least 38 mmHg assuming RA pressure of 3 mmHg (Normal IVC and >50% fred apse). Aortic Valve There is severe aortic valve thickening. Severe valvular aortic stenosis. The calculated aortic valve area using the continuity equation is 0.7 cm2. Dimentionless index (DI) is 0.3. No aortic regurgitation is present. Pulmonic Valve The pulmonic valve is not well visualized. Great Vessels The aortic root is normal size. Pericardium/Pleura There is no pericardial effusion. Interpretation Summary The left ventricle is normal in size. Left ventricular systolic function is normal. No regional wall motion abnormalities noted. Ejection Fraction = 65-70%. Pseudonormalization mitral inflow suggests moderate diastoic dysfunction with elevated filling pressu re The right ventricular systolic function is normal. The left atrium is severely dilated.(LA volume index is 64 ml/m2) Right atrial size is normal. There is moderate mitral annular calcification. There is mild to moderate mitral valve thickening. There is mild tricuspid regurgitation. Pulmonary artery systolic pressure is at least 38 mmHg assuming RA pressure of 3 mmHg (Normal IVC and >50% collapse) There is severe aortic valve thickening. The calculated aortic valve area using the continuity equation is 0.7 cm2. Dimentionless index (DI) is 0.3 There is no pericardial effusion. Previous study is not available for comparison Corey Jose MD 07/25/2018 01:06 PM
--- NOTE | 2018-07-25 13:58 | PN ---
Teaching Attending Note Name of Resident: Moses Montoya ATTENDING PHYSICIAN STATEMENT I saw and evaluated the patient. I reviewed the resident's note and discussed the case with the resident. I agree with the resident's findings and plan as documented. SUBJECTIVE: Patient seen and examined in the ICU. Awake and alert. Remains on IV Protonix drip. No CP or SOB. No occult bleeding noted. Intake & Output 07/22/18 07/23/18 07/24/18 07/25/18 23:59 23:59 23:59 23:59 Intake Total 875 430 370 Balance 875 430 370 Weight 100 lb 6 oz 100 lb Last Vital Signs Temp Pulse Resp BP Pulse Ox 98.9 F 74 20 135/56 L 98 07/25/18 10:00 07/25/18 12:00 07/25/18 12:00 07/25/18 12:00 07/25/18 08:51 Active Medications Atorvastatin Calcium (Lipitor -) 20 mg PO HS [facility] Last Admin: 07/24/18 21:50 Dose: 20 mg Chlorhexidine Gluconate (Hibiclens For Decolonization -) 1 applic TP [facility] Last Admin: 07/24/18 21:51 Dose: 1 applic Pantoprazole Sodium 80 mg/ (Sodium Chloride) 100 mls @ 10 mls/hr IVPB Q10H [facility] Last Admin: 07/25/18 11:06 Dose: 10 mls/hr Insulin Aspart (Novolog Vial Sliding Scale -) 1 vial SQ TIDAC [facility]; Protocol Last Admin: 07/25/18 12:41 Dose: Not Given Metoprolol Tartrate (Lopressor -) 12.5 mg PO BID [facility] Last Admin: 07/25/18 10:40 Dose: 12.5 mg Mupirocin (Bactroban Ointment (For Decolonization) -) 1 applic NS BID [facility] Stop: 07/28/18 21:59 Last Admin: 07/25/18 10:39 Dose: 1 applic Gen: Awake and alert, NAD n HEENT: PERRL, NCAT, (-) JVD CV: RRR, IV/ KONG Lungs: few basilar rhonchi Abd: soft, NT, ND ,+BS, Ext : no edema or erythema IMP: GI bleed, likely upper due to ASA and NSAIDS Hematemesis / melena Anemia Severe PLAN: Normal transfusion thresholds PO when cleared by GI PPI drip O2 as needed SCDs Cardiac Telemetry monitoring Dr Johnston
--- NOTE | 2018-07-25 15:25 | PN ---
Teaching Attending Note Name of Resident: Martín Zapata ATTENDING PHYSICIAN STATEMENT I saw and evaluated the patient. I reviewed the resident's note and discussed the case with the resident. I agree with the resident's findings and plan as documented. SUBJECTIVE: no fever or chills. No abd pain , no vomiting , or melena OBJECTIVE: NAD, awake, pale,MMM. CV: RRR, 3/6 SM at RUSb with radiation to carotid and 3/6 Sm at LLSB and [place] with radiation to axilla Lungs: minimal crackles at bases Abd: soft, NT, ND , NL BS Ext : no edema or erythema ASSESSMENT AND PLAN: 88 y/o lady with h/o DM, PUD, HL, HTN who presented with hematemesis and melena. 1- Upper GI bleed with acute blood loss anemia: - cont PPI gtt - Hb cont to be stable - NPO - EGD is deffered at this point - iron studies might suggest depleted iron stores 2- NSTEMI: in setting of Acute GI bleed - cont BB - echo reviewed. no WMA - statin - No aspirin 3- Heart murmurs: and TR on Echo with disatolic dysfunction . no SIGNS OF ACUTE HEART FIALURE TODAY E/U OUT PT 4- h/o HTN: BB as above hold other home meds 5- SCDs
--- NOTE | 2018-07-25 15:34 | PN ---
Physical Exam: SUBJECTIVE: Patient seen and examined at bedside. Denies pain. No further hematemesis, n/v, melena. OBJECTIVE: Vital Signs Period Temp Pulse Resp BP Sys/Mabry Pulse Ox Last 24 Hr 98.1 F-99.0 F 74-400 14-23 105-135/51-63 98-98 GENERAL: A&Ox3, NAD HEAD: NC/AT EYES: PERRLA, EOMI ENT: moist mucous membranes. NECK: Trachea midline, full range of motion, supple. LUNGS: bibasilar crackles HEART: S1/S1, harsh 3/6 sys at b/l sternal borders radiating to carotids and axilla ABDOMEN: +bs, soft, NTND EXTREMITIES: 2+ pulses, warm, well-perfused, no edema. 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 SKIN: Warm, dry, normal turgor, no rashes or lesions noted Laboratory Results - last 24 hr 07/24/18 07/24/18 07/25/18 16:47 18:54 05:30 WBC 11.7 H RBC 3.49 L Hgb 10.8 Hct 31.5 L MCV 90.2 MCH 31.0 MCHC 34.3 RDW 14.4 Plt Count 185 MPV 9.6 Sodium 141 Potassium 3.4 L Chloride 103 Carbon Dioxide 32 Anion Gap 6 L BUN 36 H Creatinine 0.5 L Creat Clearance w eGFR > 60 POC Glucometer [phone] Random Glucose 142 H Calcium 8.3 L Total Bilirubin 1.3 H AST 17 ALT 11 L Alkaline Phosphatase 52 Total Protein 6.0 L Albumin 3.1 L 07/25/18 07/25/18 07/25/18 05:30 05:34 12:31 WBC 11.2 H RBC 3.37 L Hgb 10.4 L Hct 30.8 L MCV 91.2 MCH 30.8 MCHC 33.8 RDW 14.1 Plt Count 165 MPV 9.7 Sodium Potassium Chloride Carbon Dioxide Anion Gap BUN Creatinine Creat Clearance w eGFR POC Glucometer [phone] Random Glucose Calcium Total Bilirubin AST ALT Alkaline Phosphatase Total Protein Albumin Active Medications Generic Name Dose Route Start Last Admin Trade Name Freq PRN Reason Stop Dose Admin Atorvastatin Calcium 20 mg 07/24/18 22:00 07/24/18 21:50 Lipitor - PO 20 mg HS JANETTE Administration Chlorhexidine Gluconate 1 applic 07/23/18 22:00 07/24/18 21:51 Hibiclens For Decolonization - TP 1 applic HS JANETTE Administration Pantoprazole Sodium 80 mg/ 100 mls @ 10 mls/hr 07/25/18 10:45 07/25/18 11:06 Sodium Chloride IVPB 10 mls/hr Q10H JANETTE Administration 8 MG/HR Insulin Aspart 1 vial 07/25/18 07:00 07/25/18 12:41 Novolog Vial Sliding Scale - SQ Not Given TIDAC [facility] Protocol Metoprolol Tartrate 12.5 mg 07/24/18 22:00 07/25/18 10:40 Lopressor - PO 12.5 mg BID JANETTE Administration Mupirocin 1 applic 07/23/18 22:00 07/25/18 10:39 Bactroban Ointment (For Decolonization) - NS 07/28/18 21:59 1 applic BID JANETTE Administration ASSESSMENT/PLAN: 88 y/o F w/ PMHx of HTN, IDDM, HLD, PUD, admitted for hematemesis and melena with evidence of severe anemia s/p 2 units PRBC #cardiac -troponemia to 3.26 w/ EKG abnormalities suggesting NSTEMI -echo: nl EF, severely dilated LA, mitral annular calification and valvular thickening, mild TR, elevated PA pressure, severe aortic valve thickening -not a candidate for endoscopy currently given cardiac risk -cont metoprolol -initiate lipitor -Lasix as needed -consider TAVR in long-term f/u #GIB -will need EGD but presently not a candidate d/t cardiac risk factors -Hb stabilized on Protonix drip -clinical symptoms resolved -cont Protonix drip 48 more hours (72 total) -monitor Mg -NPO except meds #DM -SSI, BGM #FEN -no IVF at this time -monitor lytes -NPO except meds #PPx -SCDs, AC contraindicated given bleeding -GI: Protonix drip #Dispo -transfer to tele Visit type - Emergency Visit Emergency Visit: No - New Patient This patient is new to me today: Yes Date on this admission: 07/25/18 - Critical Care Critical Care patient: Yes Total Critical Care Time (in minutes): 40 Critical Care Statement: The care of this patient involved high complexity decision making to prevent further life threatening deterioration of the patient 's condition and/or to evaluate & treat vital organ system(s) failure or risk of failure.
--- NOTE | 2018-07-25 16:02 | PN ---
Progress Note, Physician History of Present Illness: 88 year-old Pashto speaking woman (lives alone, independent of all ADLs) with a PMHx of HTN, IDDM, hyperlipidemia, PUD, admitted 07/23/2018 after episode of hematemesis and melena with evidence of severe anemia. The patient was seen by GI, endoscopies planned. She was found to have elevated troponin (0.08-> 3.26) with marked ECG abnormalities of inferolateral ischemia and LVH. She was tachycardic with normal BP. Significant systolic ejection murmur in the absence of A2 and holosystolic murmur consistent with severe aortic stenosis and significant mitral regurgitation. She is receiving PRBC transfusion. Stable without evidence of further GI bleeding. Echocardiogrqam 07/25/18 NL RV fxn Severe LAE Mild to mod MR Mild TR PASP 38 mmHg VALDO is 0.7 cm^ consistent with severe 07/25/18 Comfortable appearing - Current Medication List Current Medications: Active Medications Atorvastatin Calcium (Lipitor -) 20 mg PO HS [facility] Last Admin: 07/24/18 21:50 Dose: 20 mg Chlorhexidine Gluconate (Hibiclens For Decolonization -) 1 applic TP HS [facility] Last Admin: 07/24/18 21:51 Dose: 1 applic Pantoprazole Sodium 80 mg/ (Sodium Chloride) 100 mls @ 10 mls/hr IVPB Q10H [facility] Last Admin: 07/25/18 11:06 Dose: 10 mls/hr Insulin Aspart (Novolog Vial Sliding Scale -) 1 vial SQ TIDAC [facility]; Protocol Last Admin: 07/25/18 12:41 Dose: Not Given Metoprolol Tartrate (Lopressor -) 12.5 mg PO BID [facility] Last Admin: 07/25/18 10:40 Dose: 12.5 mg Mupirocin (Bactroban Ointment (For Decolonization) -) 1 applic NS BID [facility] Stop: 07/28/18 21:59 Last Admin: 07/25/18 10:39 Dose: 1 applic - Objective Vital Signs: Vital Signs Temperature 99.0 F 07/25/18 14:00 Pulse Rate 400 H 07/25/18 14:00 Respiratory Rate 18 07/25/18 14:00 Blood Pressure 122/58 L 07/25/18 14:00 O2 Sat by Pulse Oximetry (%) 98 07/25/18 08:51 Constitutional: Yes: Well Nourished Eyes: Yes: WNL Neck: Yes: WNL Cardiovascular: Yes: Regular Rate and Rhythm (dinminished S2 with a decreshendo murmur at the RUSB) Respiratory: Yes: CTA Bilaterally Gastrointestinal: Yes: Soft Edema: No Neurological: Yes: Alert, Oriented Labs: CBC, BMP 07/25/18 05:30 07/25/18 05:30 INR, PTT INR 1.18 (0.83-1.09) H 07/23/18 05:22 Assessment/Plan 88 year-old Pashto speaking woman (lives alone, independent of all ADLs) with a PMHx of HTN, IDDM, hyperlipidemia, PUD, admitted 07/23/2018 after episode of hematemesis and melena with evidence of severe anemia. The patient was seen by GI, endoscopies planned. She was found to have elevated troponin (0.08-> 3.26) with marked ECG abnormalities of inferolateral ischemia and LVH. She was tachycardic with normal BP. She is received PRBC transfusion. Echo confirmed severe with an VALDO of 0.7 cm^2 1) NSTEMI with ECG evidence of ischemia in the setting of GI bleeding and severe anemia. It is likely demand ischemia with underline CAD. Continue low dose metoprolol 12.5 mg BID for heart rate control. Continue Statin therapy with atorvastatin 40 mg daily. Transfusion to keep HCT aroud 30%. 2) Severe aortic stenosis. Would consider TAVR when stable.
[2018-07-25] MEDS ORDERED: PT OWN MED DRAWER 7, Y5N ONE (20:48)
[2018-07-25] MEDS: CHLORHEXIDINE GLUCONATE 4% CLEANSER FOR DECOLONIZATION TP SCH (21:34)
[2018-07-25] MEDS: ATORVASTATIN CA 20 MG TABLET (FP) PO SCH (21:35)
[2018-07-26 06:17] LABS: BASO % 0.2 % (0-2.0); EOS % 0.5 % (0-4.5); HEMATOCRIT 31.2 % (32.4-45.2); HEMOGLOBIN 10.5 GM/dL (10.7-15.3); MCH 31.2 pg (25.7-33.7); MCHC 33.8 g/dl (32.0-36.0); MEAN CELL VOLUME 92.1 fl (80-96); MEAN PLT VOLUME 9.7 fl (7.5-11.1); MONO % 7.8 % (3.8-10.2); NEUT % 78.5 % (42.8-82.8); PLATELET COUNT 165 K/MM3 (134-434); RBC 3.38 M/mm3 (3.60-5.2); RDW 13.8 % (11.6-15.6)
[2018-07-26] MEDS: INSULIN SLIDING SCALE (NOVOLOG) 1 VIAL SQ SCH ×4 (06:29→22:23)
[2018-07-26 06:54] LABS: ANION GAP 4 MMOL/L (8-16); BLOOD UREA NITROGEN 22 mg/dL (7-18); CALCIUM 8.7 mg/dL (8.5-10.1); CHLORIDE 106 mmol/L (98-107); CO2 29 mmol/L (21-32); CREATININE 0.4 mg/dL (0.55-1.3); GLUCOSE,RANDOM 141 mg/dL (74-106); PHOSPHOROUS 3.1 mg/dL (2.5-4.9); SODIUM 139 mmol/L (136-145)
--- NOTE | 2018-07-26 08:03 | PN ---
Physical Exam: SUBJECTIVE: Patient seen and examined at bedside this morning. She denies abdominal pain, nausea, vomiting, or hematemesis. Endorses urinating well without dysuria, or hematuria. Has not had bowel movement in the past two days. Denies fevers, chills, shortness of breath, chest pain, palpitations. OBJECTIVE: Vital Signs Temperature 99.0 F 07/26/18 10:00 Pulse Rate 96 H 07/26/18 12:00 Respiratory Rate 18 07/26/18 12:00 Blood Pressure 108/54 L 07/26/18 12:00 O2 Sat by Pulse Oximetry (%) 94 L 07/26/18 10:40 GENERAL: The patient is awake, alert, and fully oriented, in no acute distress. HEAD: Normocephalic, trumatic. EYES: PERRLA, extraocular movements intact, sclera anicteric, conjunctiva clear. ENT: Oropharynx clear without exudates, lesions or erythema. Moist mucous membranes. NECK: Trachea midline, full range of motion, supple without lymphadenopathy. LUNGS: Breath sounds equal, clear to auscultation bilaterally, no wheezes, no crackles, no accessory muscle use. HEART: Regular rate and rhythm. Harsh holosystolic murmur auscultated radaiting to the carotids. S1, S2 auscultated. ABDOMEN: Soft, nontender to light and deep palpation X4 quadrants, nondistended. Normoactive bowel sounds x4 quadrants. No guarding, no rebound tenderness. No hepatosplenomegaly. EXTREMITIES: 2+ radial and dorsalis pedis pulses b/l. Warm, well-perfused, no lower extremity edema b/l. NEUROLOGICAL: Cranial nerves II through XII grossly intact. No gross focal deficits. PSYCH: Normal mood, normal affect upon my encounter today. SKIN: Warm (left forearm warmer than right), dry. Laboratory Last Values WBC 13.0 K/mm3 (4.0-10.0) H 07/26/18 05:30 RBC 3.38 M/mm3 (3.60-5.2) L 07/26/18 05:30 Hgb 10.5 GM/dL (10.7-15.3) L 07/26/18 05:30 Hct 31.2 % (32.4-45.2) L 07/26/18 05:30 MCV 92.1 fl (80-96) 07/26/18 05:30 MCH 31.2 pg (25.7-33.7) 07/26/18 05:30 MCHC 33.8 g/dl (32.0-36.0) 07/26/18 05:30 RDW 13.8 % (11.6-15.6) 07/26/18 05:30 Plt Count 165 K/MM3 (134-434) 07/26/18 05:30 MPV 9.7 fl (7.5-11.1) 07/26/18 05:30 Absolute Neuts (auto) 10.2 K/mm3 (1.5-8.0) H 07/26/18 05:30 Neutrophils % 78.5 % (42.8-82.8) 07/26/18 05:30 Lymphocytes % 13.0 % (8-40) D 07/26/18 05:30 Monocytes % 7.8 % (3.8-10.2) 07/26/18 05:30 Eosinophils % 0.5 % (0-4.5) 07/26/18 05:30 Basophils % 0.2 % (0-2.0) 07/26/18 05:30 Nucleated RBC % 0 % (0-0) 07/26/18 05:30 PT with INR 13.90 SEC (9.7-13.0) H 07/23/18 05:22 INR 1.18 (0.83-1.09) H 07/23/18 05:22 Sodium 139 mmol/L (136-145) 07/26/18 05:30 Potassium 4.0 mmol/L (3.5-5.1) 07/26/18 05:30 Chloride 106 mmol/L (98-107) 07/26/18 05:30 Carbon Dioxide 29 mmol/L (21-32) 07/26/18 05:30 Anion Gap 4 MMOL/L (8-16) L 07/26/18 05:30 BUN 22 mg/dL (7-18) H 07/26/18 05:30 Creatinine 0.4 mg/dL (0.55-1.3) L 07/26/18 05:30 Creat Clearance w eGFR > 60 (>60) 07/26/18 05:30 POC Glucometer 161.76040 UNITS (80-120) 07/26/18 05:56 Random Glucose 141 mg/dL (74-106) H 07/26/18 05:30 Calcium 8.7 mg/dL (8.5-10.1) 07/26/18 05:30 Phosphorus 3.1 mg/dL (2.5-4.9) 07/26/18 05:30 Magnesium 2.0 mg/dL (1.8-2.4) 07/26/18 05:30 Iron 40 ug/dL (27-139) 07/23/18 05:29 TIBC 280 ug/dL (250-450) 07/23/18 05:29 Iron Saturation 14 % (15-55) L 07/23/18 05:29 Ferritin 32.5 ng/ml (8-388) 07/23/18 05:22 Total Bilirubin 1.3 mg/dL (0.2-1) H 07/25/18 05:30 AST 17 U/L (15-37) 07/25/18 05:30 ALT 11 U/L (13-61) L 07/25/18 05:30 Alkaline Phosphatase 52 U/L (45-117) 07/25/18 05:30 Creatine Kinase 82 IU/L (26-192) 07/23/18 18:00 Troponin I 2.58 ng/ml (0.00-0.05) H* 07/23/18 18:00 Total Protein 6.0 g/dl (6.4-8.2) L 07/25/18 05:30 Albumin 3.1 g/dl (3.4-5.0) L 07/25/18 05:30 Stool Occult Blood Positive (NEGATIVE) 07/23/18 05:11 Blood Type A POSITIVE 07/23/18 05:22 Antibody Screen Negative 07/23/18 05:22 Crossmatch See Detail 07/23/18 05:22 Active Medications Generic Name Dose Route Start Last Admin Trade Name Freq PRN Reason Stop Dose Admin Atorvastatin Calcium 20 mg 07/24/18 22:00 07/25/18 21:35 Lipitor - PO 20 mg HS JANETTE Administration Chlorhexidine Gluconate 1 applic 07/23/18 22:00 07/25/18 21:34 Hibiclens For Decolonization - TP 1 applic HS JANETTE Administration Pantoprazole Sodium 80 mg/ 100 mls @ 10 mls/hr 07/25/18 10:45 07/25/18 21:34 Sodium Chloride IVPB 10 mls/hr Q10H JANETTE Administration 8 MG/HR Insulin Aspart 1 vial 07/25/18 07:00 07/26/18 06:29 Novolog Vial Sliding Scale - SQ Not Given [facility] Protocol Metoprolol Tartrate 12.5 mg 07/24/18 22:00 07/25/18 21:36 Lopressor - PO 12.5 mg BID JANETTE Administration Mupirocin 1 applic 07/23/18 22:00 07/25/18 21:34 Bactroban Ointment (For Decolonization) - NS 07/28/18 21:59 1 applic BID JANETTE Administration ASSESSMENT/PLAN: Patient is an 88 year old female with history significant for hypertension, hyperlipidemia, diabetes, presents with complaint of vomiting with hematemesis, and melanotic stools. Upper GI bleed -Presented with hematemesis, and melanotic stools. No events since hospitalization. -Protonix drip at 10mL/ hour -Cardiology consult (Dr. Roper) appreciated: No cardiac contraindication to EGD, patient high risk but benefits outweigh the risks. -GI consult (Dr. Hein) appreciated: Will continue conservative management with clear liquids and pantoprazole drip for 72 hours. No endoscopy for now. To be considered if evidence of acute upper GI bleed. F/U Magnesium level while patient receiving protonix. Troponinema- resolved -0.06 -> 3.26 -> 2.58 trended down. -Cardiology consult (Dr. Bell) appreciated: Troponins likely secondary to demand ischemia. Severe aortic stenosis with VALDO 0.7 cm^2. Will consider TAVR once stabilized. Left superficial thrombophlebiits -Patient complains of left forearm pain. Warm, mild erythema. -Warm compress -Tylenol 1000mg IV one time dose -Will reassess her symptoms Diabetes Mellitus -BGM ACHS -ISS ACHS Hypertension -Metoprolol tartrate 12.5mg PO BID Hyperlipdemia -Lipitor 20mg HS FEN -No IV fluids. Patient tolerates oral intake, will encourage judicious oral hydration. -Will follow up CMP, in addition to Magnesium. -Clear liquid diet Prophylaxis -SCDs b/l lower extremities. Chemical anticoagulation held due to likely upper GI bleeding -Pantoprazole drip 10mL/ hour Disposition -Continue care in ICU, pending transfer to Telemetry floor. Visit type - Emergency Visit Emergency Visit: Yes ED Registration Date: 07/23/18 Care time: The patient presented to the Emergency Department on the above date and was hospitalized for further evaluation of their emergent condition. - New Patient This patient is new to me today: No - Critical Care Critical Care patient: Yes Total Critical Care Time (in minutes): 35 Critical Care Statement: The care of this patient involved high complexity decision making to prevent further life threatening deterioration of the patient 's condition and/or to evaluate & treat vital organ system(s) failure or risk of failure. - Discharge Referral Referred to [facility] No
[2018-07-26] MEDS: PANTOPRAZOLE SODIUM 80 MG in SODIUM CHLORIDE 100 ML IVPB SCH ×2 (08:36→17:37)
[2018-07-26] MEDS: MUPIROCIN 2% TOPICAL OINTMENT FOR DECOLONIZATION NS SCH ×2 (10:24→21:54)
[2018-07-26] MEDS: METOPROLOL TARTRATE 25 MG TABLET (FP) PO SCH ×2 (10:47→21:55)
[2018-07-26] MEDS ORDERED: INSULIN SLIDING SCALE (NOVOLOG) 1 VIAL SQ SCH (11:00)
--- NOTE | 2018-07-26 11:03 | PN ---
Progress Note, Physician Chief Complaint: no complaints tele neg History of Present Illness: 88 year-old Maori speaking woman (lives alone, independent of all ADLs) with a PMHx of HTN, IDDM, hyperlipidemia, PUD, admitted 07/23/2018 after episode of hematemesis and melena with evidence of severe anemia. The patient was seen by GI, endoscopies planned. She was found to have elevated troponin (0.08-> 3.26) with marked ECG abnormalities of inferolateral ischemia and LVH. She was tachycardic with normal BP. Significant systolic ejection murmur in the absence of A2 and holosystolic murmur consistent with severe aortic stenosis and significant mitral regurgitation. She is receiving PRBC transfusion. Stable without evidence of further GI bleeding. Echocardiogrqam 07/25/18 NL RV fxn Severe LAE Mild to mod MR Mild TR PASP 38 mmHg VALDO is 0.7 cm^ consistent with severe - Current Medication List Current Medications: Active Medications Atorvastatin Calcium (Lipitor -) 20 mg PO HS [facility] Chlorhexidine Gluconate (Hibiclens For Decolonization -) 1 applic TP HS JANETTE Pantoprazole Sodium 80 mg/ (Sodium Chloride) 100 mls @ 10 mls/hr IVPB Q10H [facility] Insulin Aspart (Novolog Vial Sliding Scale -) 1 vial SQ TIDAC [facility]; Protocol Metoprolol Tartrate (Lopressor -) 12.5 mg PO BID [facility] Last Admin: 07/26/18 10:47 Dose: 12.5 mg Mupirocin (Bactroban Ointment (For Decolonization) -) 1 applic NS BID [facility] Stop: 07/28/18 21:59 Last Admin: 07/26/18 10:24 Dose: 1 applic - Objective Vital Signs: Vital Signs Temperature 99.0 F 07/26/18 10:00 Pulse Rate 87 07/26/18 10:00 Respiratory Rate 18 07/26/18 10:00 Blood Pressure 128/61 07/26/18 10:00 O2 Sat by Pulse Oximetry (%) 94 L 07/26/18 10:40 Constitutional: Yes: No Distress, Calm Eyes: Yes: Conjunctiva Clear, EOM Intact HENT: Yes: Atraumatic, Normocephalic Neck: Yes: Trachea Midline Cardiovascular: Yes: Regular Rate and Rhythm, Murmur (2/6 jeromy rusb), S1, S2 Respiratory: Yes: CTA Bilaterally Gastrointestinal: Yes: Normal Bowel Sounds, Soft Musculoskeletal: Yes: WNL Extremities: Yes: WNL Edema: No Peripheral Pulses WNL: Yes Labs: CBC, BMP 07/26/18 05:30 07/26/18 05:30 INR, PTT INR 1.18 (0.83-1.09) H 07/23/18 05:22 Assessment/Plan 88 year-old Maori speaking woman (lives alone, independent of all ADLs) with a PMHx of HTN, IDDM, hyperlipidemia, PUD, admitted 07/23/2018 after episode of hematemesis and melena with evidence of severe anemia. The patient was seen by GI, endoscopies planned. She was found to have elevated troponin (0.08-> 3.26) with marked ECG abnormalities of inferolateral ischemia and LVH. She was tachycardic with normal BP. Significant systolic ejection murmur in the absence of A2 and holosystolic murmur consistent with severe aortic stenosis and significant mitral regurgitation. She is receiving PRBC transfusion. Stable without evidence of further GI bleeding. Echocardiogrqam 07/25/18 NL RV fxn Severe LAE Mild to mod MR Mild TR PASP 38 mmHg VALDO is 0.7 cm^ consistent with severe Plan: 1) NSTEMI with ECG evidence of ischemia in the setting of GI bleeding and severe anemia. It is likely demand ischemia with underline CAD. Continue low dose metoprolol 12.5 mg BID for heart rate control. Continue Statin therapy with atorvastatin 40 mg daily. Transfusion to keep HCT around 30%. There are no cardiac contraindications to EGD. She is at elevated risk but the benefits outweigh the risks. 2) Severe aortic stenosis. Would consider TAVR eval when stable, as outpatient.
--- NOTE | 2018-07-26 13:49 | PN ---
GI Progress Note Subjective: No acute events No abdominal pain No overt bleeding Was given regular diet for lunch Echocardiogram reveals severe aortic narrowing - Objective Vital Signs: Vital Signs Temperature 99.0 F 07/26/18 10:00 Pulse Rate 96 H 07/26/18 12:00 Respiratory Rate 18 07/26/18 12:00 Blood Pressure 108/54 L 07/26/18 12:00 O2 Sat by Pulse Oximetry (%) 94 L 07/26/18 10:40 Constitutional: Calm Eyes: No: Sclera Icterus Cardiovascular: Yes: Regular Rate and Rhythm, Murmur Respiratory: Yes: CTA Bilaterally, Diminished Gastrointestinal Inspection: No: Hernia ...Auscultate: No: Normoactive Bowel Sounds ...Palpate: No: Hepatomegaly, Splenomegaly, Tenderness ...Percussion: No: Tympanitic Edema: No (No LE edema) Labs: CBC, BMP 07/26/18 05:30 07/26/18 05:30 INR, PTT INR 1.18 (0.83-1.09) H 07/23/18 05:22 Problem List - Problems (1) GI bleed Assessment/Plan: No overt bleeding with stable H/H and improving BUN/Cr ratio Cardiology cleared Ms. Jennings for EGD however did stratify her as a higher risk I discussed this with her son Lorenzo today (tel # [phone]) and explained options would include EGD for further intraluminal evaluation vs. conservative therapy with PPI and observation. He has opted for conservative measures given her significant valvular disease. If it appears as though there is continued active bleeding, then the possibility of performing EGD would be revisited Avoid NSAIDs Continue clear liquids and PPI drip as we are trying to optimize conservative therapy If H/H remains stable without evidence of ongoing GI bleeding, advance diet in AM and switch to PO Protonix 40mg once daily Discussed with housestaff Code(s): K92.2 - GASTROINTESTINAL HEMORRHAGE, UNSPECIFIED
--- NOTE | 2018-07-26 14:21 | PN ---
Teaching Attending Note Name of Resident: Moses Montoya ATTENDING PHYSICIAN STATEMENT I saw and evaluated the patient. I reviewed the resident's note and discussed the case with the resident. I agree with the resident's findings and plan as documented. SUBJECTIVE: Patient seen and examined in the ICU. Awake and alert. Remains on IV Protonix drip. No CP or SOB. No occult bleeding noted. Intake & Output 07/23/18 07/24/18 07/25/18 07/26/18 23:59 23:59 23:59 23:59 Intake Total 875 430 990 140 Balance 875 430 990 140 Weight 100 lb 6 oz 100 lb Last Vital Signs Temp Pulse Resp BP Pulse Ox 99.0 F 96 H 18 108/54 L 94 L 07/26/18 10:00 07/26/18 12:00 07/26/18 12:00 07/26/18 12:00 07/26/18 10:40 Active Medications Atorvastatin Calcium (Lipitor -) 20 mg PO HS [facility] Chlorhexidine Gluconate (Hibiclens For Decolonization -) 1 applic TP HS [facility] Pantoprazole Sodium 80 mg/ (Sodium Chloride) 100 mls @ 10 mls/hr IVPB Q10H [facility] Insulin Aspart (Novolog Vial Sliding Scale -) 1 vial SQ ACHS [facility]; Protocol Last Admin: 07/26/18 13:33 Dose: Not Given Metoprolol Tartrate (Lopressor -) 12.5 mg PO BID [facility] Last Admin: 07/26/18 10:47 Dose: 12.5 mg Mupirocin (Bactroban Ointment (For Decolonization) -) 1 applic NS BID [facility] Stop: 07/28/18 21:59 Last Admin: 07/26/18 10:24 Dose: 1 applic Gen: Awake and alert, NAD HEENT: PERRL, NCAT, (-) JVD CV: RRR, IV/ KONG Lungs: few basilar rhonchi Abd: soft, NT, ND ,+BS, Ext : no edema or erythema IMP: GI bleed, likely upper due to ASA and NSAIDS Hematemesis / melena Anemia Severe PLAN: Normal transfusion thresholds PO when cleared by GI D/W GI about converting PPI drip to IVP O2 as needed SCDs Cardiac Telemetry monitoring Dr Johnston
[2018-07-26] MEDS ORDERED: ACETAMINOPHEN 1000 MG/100 ML VIAL (NON FORMULARY) IVPB ONE ×2 (15:30→17:45)
--- NOTE | 2018-07-26 15:37 | PN ---
Physical Exam: SUBJECTIVE: Patient seen and examined at bedside. No further hematemesis, n/v, melena. Had 1 normal BM. C/o pain along ventral aspect of left forearm. OBJECTIVE: Vital Signs Period Temp Pulse Resp BP Sys/Mabry Pulse Ox Last 24 Hr 98.8 F-99.0 F 84-98 17-22 108-148/54-87 94-99 GENERAL: A&Ox3, NAD HEAD: NC/AT EYES: PERRLA, EOMI ENT: moist mucous membranes. NECK: Trachea midline, full range of motion, supple. LUNGS: bibasilar crackles HEART: S1/S1, harsh 3/6 sys at b/l sternal borders radiating to carotids and axilla ABDOMEN: +bs, soft, NTND EXTREMITIES: 2+ pulses, warm, well-perfused, no edema. Ventral left forearm warm , firm, erythematous proximal to IV access site. NEUROLOGICAL: plunket nurse, motor, sensory systems without focal deficit PSYCH: Normal mood, normal affect. SKIN: Warm, dry, normal turgor, no rashes or lesions noted Laboratory Results - last 24 hr 07/23/18 07/25/18 07/25/18 05:22 16:58 21:46 WBC RBC Hgb Hct MCV MCH MCHC RDW Plt Count MPV Absolute Neuts (auto) Neutrophils % Lymphocytes % Monocytes % Eosinophils % Basophils % Nucleated RBC % Sodium Potassium Chloride Carbon Dioxide Anion Gap BUN Creatinine Creat Clearance w eGFR POC Glucometer 254.35193 178.34571 Random Glucose Calcium Phosphorus Magnesium Blood Type A POSITIVE Antibody Screen Negative Crossmatch See Detail 07/26/18 07/26/18 07/26/18 05:30 05:30 05:56 WBC 13.0 H RBC 3.38 L Hgb 10.5 L Hct 31.2 L MCV 92.1 MCH 31.2 MCHC 33.8 RDW 13.8 Plt Count 165 MPV 9.7 Absolute Neuts (auto) 10.2 H Neutrophils % 78.5 Lymphocytes % 13.0 D Monocytes % 7.8 Eosinophils % 0.5 Basophils % 0.2 Nucleated RBC % 0 Sodium 139 Potassium 4.0 Chloride 106 Carbon Dioxide 29 Anion Gap 4 L BUN 22 H Creatinine 0.4 L Creat Clearance w eGFR > 60 POC Glucometer 161.71720 Random Glucose 141 H Calcium 8.7 Phosphorus 3.1 Magnesium 2.0 Blood Type Antibody Screen Crossmatch Active Medications Generic Name Dose Route Start Last Admin Trade Name Vasquez PRN Reason Stop Dose Admin Atorvastatin Calcium 20 mg 07/26/18 22:00 Lipitor - PO HS JANETTE Chlorhexidine Gluconate 1 applic 07/26/18 22:00 Hibiclens For Decolonization - TP HS JANETTE Pantoprazole Sodium 80 mg/ 100 mls @ 10 mls/hr 07/26/18 16:45 Sodium Chloride IVPB Q10H JANETTE 8 MG/HR Insulin Aspart 1 vial 07/26/18 12:15 07/26/18 13:33 Novolog Vial Sliding Scale - SQ Not Given ACHS JANETTE Protocol Metoprolol Tartrate 12.5 mg 07/26/18 10:00 07/26/18 10:47 Lopressor - PO 12.5 mg BID JANETTE Administration Mupirocin 1 applic 07/26/18 10:00 07/26/18 10:24 Bactroban Ointment (For Decolonization) - NS 07/28/18 21:59 1 applic BID JANETTE Administration ASSESSMENT/PLAN: 88 y/o F w/ PMHx of HTN, IDDM, HLD, PUD, admitted for hematemesis and melena with evidence of severe anemia s/p 2 units PRBC #cardiac -troponemia to 3.26 w/ EKG abnormalities suggesting NSTEMI -echo: nl EF, severely dilated LA, mitral annular calification and valvular thickening, mild TR, elevated PA pressure, severe aortic valve thickening -Cardiology states patient cleared for endoscopy -cont metoprolol -initiate lipitor -Lasix as needed -consider TAVR in long-term f/u #GIB -will need EGD but presently not a candidate d/t cardiac risk factors -Hb stabilized on Protonix drip -clinical symptoms resolved -cont Protonix drip 48 more hours (72 total) -monitor Mg #superficial phlebitis -left forearm findings as per PE -IV tylenol -monitor #DM -SSI, BGM #FEN -no IVF at this time -monitor lytes -clear liquid diet #PPx -SCDs, AC contraindicated given bleeding -GI: Protonix drip #Dispo -transfer to tele Visit type - Emergency Visit Emergency Visit: No - New Patient This patient is new to me today: No - Critical Care Critical Care patient: Yes Total Critical Care Time (in minutes): 40 Critical Care Statement: The care of this patient involved high complexity decision making to prevent further life threatening deterioration of the patient 's condition and/or to evaluate & treat vital organ system(s) failure or risk of failure.
--- NOTE | 2018-07-26 16:10 | PN ---
Teaching Attending Note Name of Resident: Martín Zapata ATTENDING PHYSICIAN STATEMENT I saw and evaluated the patient. I reviewed the resident's note and discussed the case with the resident. I agree with the resident's findings and plan as documented. SUBJECTIVE: No fever or chills . No abd pain . OBJECTIVE: NAD, awake, pale,MMM. CV: RRR, 3/6 SM at [facility] with radiation to carotid and 3/6 SM at [facility] and [place] with radiation to axilla Lungs: CTAB today Abd: soft, NT, ND , NL BS Ext : no edema or erythema ASSESSMENT AND PLAN: 88 y/o lady with h/o DM, PUD, HL, HTN who presented with hematemesis and melena. 1- Upper GI bleed with acute blood loss anemia: bleeding did not recur - cont PPI gtt , and clears per GI - EGD is deffered at this point due to high risk procedure - iron studies might suggest depleted iron stores. can start iron as out pt 2- NSTEMI: in setting of Acute GI bleed - cont BB . at dc will resume her toprol - statin - No aspirin 3- Heart murmurs: and TR on Echo with disatolic dysfunction . f/u as out pt for TVAR 4- Acute diastolic CHF: resolved . received PRN lasix. salgado snot need it today 5- h/o HTN: cont metoprolol for now hold other home meds . at dc might be able to dc on 2 out of the 3 home HTN meds 5- SCDs
[2018-07-26] MEDS ORDERED: PT OWN MED DRAWER 7, Y5N ONE (17:31)
[2018-07-26] MEDS: ATORVASTATIN CA 20 MG TABLET (FP) PO SCH (21:55)
[2018-07-26] MEDS: CHLORHEXIDINE GLUCONATE 4% CLEANSER FOR DECOLONIZATION TP SCH (21:55)
[2018-07-27] MEDS ORDERED: PT OWN MED DRAWER 7, Y5N ONE ×2 (05:42→20:57)
[2018-07-27 06:41] LABS: BASO % 0.4 % (0-2.0); EOS % 1.7 % (0-4.5); HEMATOCRIT 30.7 % (32.4-45.2); HEMOGLOBIN 10.4 GM/dL (10.7-15.3); LYMPH % 12.6 % (8-40); MCHC 33.8 g/dl (32.0-36.0); MEAN CELL VOLUME 91.8 fl (80-96); MEAN PLT VOLUME 9.6 fl (7.5-11.1); MONO % 6.7 % (3.8-10.2); NEUT % 78.6 % (42.8-82.8); PLATELET COUNT 172 K/MM3 (134-434); RBC 3.35 M/mm3 (3.60-5.2); RDW 13.9 % (11.6-15.6); WHITE BLOOD COUNT 12.1 K/mm3 (4.0-10.0)
[2018-07-27] MEDS: PANTOPRAZOLE SODIUM 80 MG in SODIUM CHLORIDE 100 ML IVPB SCH (06:44)
[2018-07-27] MEDS: INSULIN SLIDING SCALE (NOVOLOG) 1 VIAL SQ SCH ×4 (06:45→21:12)
--- NOTE | 2018-07-27 07:53 | PN ---
Physical Exam: SUBJECTIVE: Patient seen and examined at bedside this morning. She is tolerating clear liquids and denies abdominal pain, nausea, vomiting, hematemesis. Endorses she has not had bowel movement for the past three days. Patient denies headaches, changes in vision, lightheadedness, fevers, chills, shortness of breath, chest pain, palpitations. OBJECTIVE: Vital Signs Temperature 98.9 F 07/27/18 06:00 Pulse Rate 78 07/27/18 06:00 Respiratory Rate 22 H 07/27/18 06:00 Blood Pressure 120/78 07/27/18 06:00 O2 Sat by Pulse Oximetry (%) 98 07/26/18 20:30 GENERAL: The patient is awake, alert, and fully oriented, in no acute distress. HEAD: Normocephalic, trumatic. EYES: PERRLA, extraocular movements intact, sclera anicteric, conjunctiva clear. ENT: Oropharynx clear without exudates, lesions or erythema. Moist mucous membranes. NECK: Trachea midline, full range of motion, supple without lymphadenopathy. LUNGS: Breath sounds equal, clear to auscultation bilaterally, no wheezes, no crackles, no accessory muscle use. HEART: Regular rate and rhythm. Harsh holosystolic murmur auscultated radaiting to the carotids. S1, S2 auscultated. ABDOMEN: Soft, nontender to light and deep palpation X4 quadrants, nondistended. Normoactive bowel sounds x4 quadrants. No guarding, no rebound tenderness. No hepatosplenomegaly. EXTREMITIES: 2+ radial and dorsalis pedis pulses b/l. Warm, well-perfused, no lower extremity edema b/l. NEUROLOGICAL: Cranial nerves II through XII grossly intact. No gross focal deficits. PSYCH: Normal mood, normal affect upon my encounter today. SKIN: Warm (left forearm warmer than right), dry. Laboratory Results - last 24 hr 07/26/18 07/26/18 07/27/18 17:23 22:11 05:30 WBC 12.1 H RBC 3.35 L Hgb 10.4 L Hct 30.7 L MCV 91.8 MCH 31.0 MCHC 33.8 RDW 13.9 Plt Count 172 MPV 9.6 Absolute Neuts (auto) 9.6 H Neutrophils % 78.6 Lymphocytes % 12.6 Monocytes % 6.7 Eosinophils % 1.7 D Basophils % 0.4 Nucleated RBC % 0 POC Glucometer [phone] Blood Type Antibody Screen Crossmatch Active Medications Generic Name Dose Route Start Last Admin Trade Name Vasquez PRN Reason Stop Dose Admin Atorvastatin Calcium 20 mg 07/26/18 22:00 07/26/18 21:55 Lipitor - PO 20 mg HS JANETTE Administration Chlorhexidine Gluconate 1 applic 07/26/18 22:00 07/26/18 21:55 Hibiclens For Decolonization - TP 1 applic HS JANETTE Administration Pantoprazole Sodium 80 mg/ 100 mls @ 10 mls/hr 07/26/18 16:45 07/27/18 06:44 Sodium Chloride IVPB 10 mls/hr Q10H JANETTE Administration 8 MG/HR Insulin Aspart 1 vial 07/26/18 12:15 07/27/18 06:45 Novolog Vial Sliding Scale - SQ Not Given ACHS JANETTE Protocol Metoprolol Tartrate 12.5 mg 07/26/18 10:00 07/26/18 21:55 Lopressor - PO 12.5 mg BID JANETTE Administration Mupirocin 1 applic 07/26/18 10:00 07/26/18 21:54 Bactroban Ointment (For Decolonization) - NS 07/28/18 21:59 1 applic BID JANETTE Administration ASSESSMENT/PLAN: Patient is an 88 year old female with history significant for hypertension, hyperlipidemia, diabetes, presents with complaint of vomiting with hematemesis, and melanotic stools. Upper GI bleed -Presented with hematemesis, and melanotic stools. No events for past 4 days. Hb 10.4 Hct 30.7, stable. -Protonix drip at 10mL/ hour -Cardiology consult (Dr. Roper) appreciated: No cardiac contraindication to EGD, patient high risk for the procedure. -GI consult (Dr. Hein) appreciated: Will continue conservative management: Switched IV pantoprazole drip to oral pantoprazole 40mg daily Advanced diet to full liquid diet today. Diabetic diet starting dinner tonight. No endoscopy for now. To be considered if evidence of acute upper GI bleed. F/U Magnesium level while patient receiving protonix. Troponinema- resolved -0.06 -> 3.26 -> 2.58 trended down. -Cardiology consult (Dr. Bell) appreciated: Troponins likely secondary to demand ischemia. Severe aortic stenosis with VALDO 0.7 cm^2. Will consider TAVR once stabilized. Left superficial thrombophlebiits -Patient complains of left forearm pain. Warm, mild erythema. Symptoms improved today. -Warm compress -Tylenol 1000mg IV one time dose yesterday. Diabetes Mellitus -BGM ACHS -ISS ACHS Hypertension -Metoprolol tartrate 12.5mg PO BID Hyperlipdemia -Lipitor 20mg HS FEN -No IV fluids. Patient tolerates oral intake, will encourage judicious oral hydration. -Will follow up CMP, in addition to Magnesium. -Diabetic diet Prophylaxis -SCDs b/l lower extremities. Chemical anticoagulation held due to likely upper GI bleeding -Pantoprazole 40mg PO daily Disposition -Continue care in Telemetry floor. Visit type - Emergency Visit Emergency Visit: Yes ED Registration Date: 07/23/18 Care time: The patient presented to the Emergency Department on the above date and was hospitalized for further evaluation of their emergent condition. - New Patient This patient is new to me today: No - Critical Care Critical Care patient: No - Discharge Referral Referred to [facility] No
[2018-07-27 08:26] LABS: ANION GAP 9 MMOL/L (8-16); BLOOD UREA NITROGEN 18 mg/dL (7-18); CALCIUM 8.8 mg/dL (8.5-10.1); CHLORIDE 104 mmol/L (98-107); CO2 29 mmol/L (21-32); CREATININE 0.4 mg/dL (0.55-1.3); GLUCOSE,RANDOM 137 mg/dL (74-106); MAGNESIUM 2.1 mg/dL (1.8-2.4); PHOSPHOROUS 3.4 mg/dL (2.5-4.9); SODIUM 141 mmol/L (136-145)
[2018-07-27] MEDS ORDERED: ACETAMINOPHEN 1000 MG/100 ML VIAL (NON FORMULARY) IVPB ONE ×2 (10:54→23:29)
[2018-07-27] MEDS: METOPROLOL TARTRATE 25 MG TABLET (FP) PO SCH ×2 (11:18→21:11)
[2018-07-27] MEDS: MUPIROCIN 2% TOPICAL OINTMENT FOR DECOLONIZATION NS SCH ×2 (11:34→21:14)
--- NOTE | 2018-07-27 12:05 | PN ---
Teaching Attending Note Name of Resident: Martín Zapata ATTENDING PHYSICIAN STATEMENT I saw and evaluated the patient. I reviewed the resident's note and discussed the case with the resident. I agree with the resident's findings and plan as documented. SUBJECTIVE: Patient is a comfortable with no acute distress. OBJECTIVE: Vital Signs Temperature 98.9 F 07/27/18 06:00 Pulse Rate 78 07/27/18 06:00 Respiratory Rate 22 H 07/27/18 06:00 Blood Pressure 120/78 07/27/18 06:00 O2 Sat by Pulse Oximetry (%) 98 07/26/18 20:30 GENERAL: The patient is awake, alert, and fully oriented, in no acute distress. HEAD: Normocephalic, trumatic. EYES: PERRLA, extraocular movements intact, sclera anicteric, conjunctiva clear. ENT: Oropharynx clear without exudates, lesions or erythema. Moist mucous membranes. NECK: Trachea midline, full range of motion, supple without lymphadenopathy. LUNGS: Breath sounds equal, CTAB, no wheezes, no crackles, no accessory muscle use. HEART: Regular rate and rhythm. positive for Harsh holosystolic murmur . S1, S2 auscultated. ABDOMEN: Soft, nontender , No guarding, no rebound tenderness. No hepatosplenomegaly. EXTREMITIES: pulses are positive, well-perfused, no lower extremity edema b/l. NEUROLOGICAL: Cranial nerves II through XII grossly intact. No gross focal deficits. PSYCH: Normal mood, normal affect upon my encounter today. SKIN: Warm (left forearm warmer than right). WBC 12.1 K/mm3 (4.0-10.0) H 07/27/18 05:30 RBC 3.35 M/mm3 (3.60-5.2) L 07/27/18 05:30 Hgb 10.4 GM/dL (10.7-15.3) L 07/27/18 05:30 Hct 30.7 % (32.4-45.2) L 07/27/18 05:30 MCV 91.8 fl (80-96) 07/27/18 05:30 MCHC 33.8 g/dl (32.0-36.0) 07/27/18 05:30 RDW 13.9 % (11.6-15.6) 07/27/18 05:30 Plt Count 172 K/MM3 (134-434) 07/27/18 05:30 MPV 9.6 fl (7.5-11.1) 07/27/18 05:30 CMP Sodium 141 mmol/L (136-145) 07/27/18 05:30 Potassium 4.0 mmol/L (3.5-5.1) 07/27/18 05:30 Chloride 104 mmol/L (98-107) 07/27/18 05:30 Carbon Dioxide 29 mmol/L (21-32) 07/27/18 05:30 Anion Gap 9 MMOL/L (8-16) 07/27/18 05:30 BUN 18 mg/dL (7-18) 07/27/18 05:30 Creatinine 0.4 mg/dL (0.55-1.3) L 07/27/18 05:30 Creat Clearance w eGFR > 60 (>60) 07/27/18 05:30 Random Glucose 137 mg/dL (74-106) H 07/27/18 05:30 Calcium 8.8 mg/dL (8.5-10.1) 07/27/18 05:30 Total Bilirubin 1.3 mg/dL (0.2-1) H 07/25/18 05:30 AST 17 U/L (15-37) 07/25/18 05:30 ALT 11 U/L (13-61) L 07/25/18 05:30 Alkaline Phosphatase 52 U/L (45-117) 07/25/18 05:30 Total Protein 6.0 g/dl (6.4-8.2) L 07/25/18 05:30 Albumin 3.1 g/dl (3.4-5.0) L 07/25/18 05:30 CARDIAC ENZYMES Creatine Kinase 82 IU/L (26-192) 07/23/18 18:00 Troponin I 2.58 ng/ml (0.00-0.05) H* 07/23/18 18:00 Current Medications Generic Name Dose Route Start Last Admin Trade Name Freq PRN Reason Stop Dose Admin Atorvastatin Calcium 20 mg 07/26/18 22:00 07/26/18 21:55 Lipitor - PO 20 mg HS JANETTE Administration Chlorhexidine Gluconate 1 applic 07/26/18 22:00 07/26/18 21:55 Hibiclens For Decolonization - TP 1 applic HS JANETTE Administration Insulin Aspart 1 vial 07/26/18 12:15 07/27/18 11:35 Novolog Vial Sliding Scale - SQ Not Given [facility] Protocol Metoprolol Tartrate 12.5 mg 07/26/18 10:00 07/27/18 11:18 Lopressor - PO 12.5 mg BID JANETTE Administration Mupirocin 1 applic 07/26/18 10:00 07/27/18 11:34 Bactroban Ointment (For Decolonization) - NS 07/28/18 21:59 1 applic BID JANETTE Administration Pantoprazole Sodium 40 mg 07/27/18 11:00 Protonix - PO DAILY [facility] Home Medications Medication Instructions Recorded Amlodipine Besylate [Norvasc -] 5 mg PO DAILY #0 tablet 04/04/12 Aspirin [ASA -] 81 mg PO DAILY #0 tab.chew 04/04/12 Losartan Potassium 100 mg PO DAILY 09/20/15 Metoprolol Succinate [Toprol XL -] 25 mg PO DAILY 09/20/15 Linagliptin [Tradjenta] 5 mg PO DAILY 12/31/16 Donepezil HCl [Aricept -] 5 mg PO DAILY 07/23/18 Ergocalciferol [Vitamin D2] 50,000 unit PO Q7D@1000 07/23/18 Esomeprazole Magnesium 40 mg PO DAILY@0700 07/23/18 Gabapentin [Neurontin] 300 mg PO Q12H 07/23/18 Icosapent Ethyl [Vascepa] 1 gm PO Q12H 07/23/18 Loratadine [Claritin -] 10 mg PO DAILY 07/23/18 Meloxicam [Mobic] 15 mg PO DAILY 07/23/18 Oxybutynin Chloride [Oxybutynin 5 mg PO DAILY 07/23/18 Chloride ER] Sennosides [Senna] 2 tab PO DAILY PRN 07/23/18 Simvastatin 20 mg PO HS 07/23/18 ASSESSMENT AND PLAN: Patient is a 88 y/o lady with h/o DM, PUD, HL, HTN who presented with hematemesis and melena. # Upper GI bleed with acute blood loss anemia: no further bleed today ,on oral PPI , advance diet, EGD is deffered at this point due to high risk procedure GI is on the case. appreciated. # NSTEMI: in setting of Acute GI bleed , cont BB . at dc will resume her toprol ,continue statin , No aspirin # Heart murmurs: and TR on Echo with disatolic dysfunction . f/u as out pt for TVAR # Acute diastolic CHF: resolved, received PRN lasix. does not need it today # H/o HTN: cont metoprolol, hold other home meds . at dc might be able to dc on 2 out of the 3 home HTN meds DVT Px: SCDs
--- NOTE | 2018-07-27 13:03 | PN ---
Physical Exam: SUBJECTIVE: Patient seen and examined at bedside. No further hematemesis, n/v, melena. Had 1 normal BM. C/o pain along ventral aspect of left forearm. OBJECTIVE: Vital Signs Period Temp Pulse Resp BP Sys/Mabry Pulse Ox Last 24 Hr 98.8 F-98.9 F 67-98 19-22 100-124/53-78 98-98 GENERAL: A&Ox3, NAD HEAD: NC/AT EYES: PERRLA, EOMI ENT: moist mucous membranes. NECK: Trachea midline, full range of motion, supple. LUNGS: bibasilar crackles HEART: S1/S1, harsh 3/6 sys at b/l sternal borders radiating to carotids and axilla ABDOMEN: +bs, soft, NTND EXTREMITIES: 2+ pulses, warm, well-perfused, no edema. Ventral left forearm warm , firm, erythematous proximal to IV access site, area delinated by marker. NEUROLOGICAL: set up mechanic automatic line, motor, sensory systems without focal deficit PSYCH: Normal mood, normal affect. SKIN: Warm, dry, normal turgor, no rashes or lesions noted Laboratory Results - last 24 hr 07/26/18 07/26/18 07/26/18 11:44 11:53 17:23 WBC RBC Hgb Hct MCV MCH MCHC RDW Plt Count MPV Absolute Neuts (auto) Neutrophils % Lymphocytes % Monocytes % Eosinophils % Basophils % Nucleated RBC % Sodium Potassium Chloride Carbon Dioxide Anion Gap BUN Creatinine Creat Clearance w eGFR POC Glucometer > 400 > [phone] Random Glucose Calcium Phosphorus Magnesium 07/26/18 07/27/18 07/27/18 22:11 05:30 05:30 WBC 12.1 H RBC 3.35 L Hgb 10.4 L Hct 30.7 L MCV 91.8 MCH 31.0 MCHC 33.8 RDW 13.9 Plt Count 172 MPV 9.6 Absolute Neuts (auto) 9.6 H Neutrophils % 78.6 Lymphocytes % 12.6 Monocytes % 6.7 Eosinophils % 1.7 D Basophils % 0.4 Nucleated RBC % 0 Sodium 141 Potassium 4.0 Chloride 104 Carbon Dioxide 29 Anion Gap 9 BUN 18 Creatinine 0.4 L Creat Clearance w eGFR > 60 POC Glucometer [phone] Random Glucose 137 H Calcium 8.8 Phosphorus 3.4 Magnesium 2.1 07/27/18 07/27/18 06:23 11:28 WBC RBC Hgb Hct MCV MCH MCHC RDW Plt Count MPV Absolute Neuts (auto) Neutrophils % Lymphocytes % Monocytes % Eosinophils % Basophils % Nucleated RBC % Sodium Potassium Chloride Carbon Dioxide Anion Gap BUN Creatinine Creat Clearance w eGFR POC Glucometer 163.48833 163.38526 Random Glucose Calcium Phosphorus Magnesium Active Medications Generic Name Dose Route Start Last Admin Trade Name Freq PRN Reason Stop Dose Admin Atorvastatin Calcium 20 mg 07/26/18 22:00 07/26/18 21:55 Lipitor - PO 20 mg HS JANETTE Administration Chlorhexidine Gluconate 1 applic 07/26/18 22:00 07/26/18 21:55 Hibiclens For Decolonization - TP 1 applic HS JANETTE Administration Insulin Aspart 1 vial 07/26/18 12:15 07/27/18 11:35 Novolog Vial Sliding Scale - SQ Not Given ACHS JANETTE Protocol Metoprolol Tartrate 12.5 mg 07/26/18 10:00 07/27/18 11:18 Lopressor - PO 12.5 mg BID JANETTE Administration Mupirocin 1 applic 07/26/18 10:00 07/27/18 11:34 Bactroban Ointment (For Decolonization) - NS 07/28/18 21:59 1 applic BID JANETTE Administration Pantoprazole Sodium 40 mg 07/27/18 11:00 Protonix - PO DAILY JANETTE ASSESSMENT/PLAN: 88 y/o F w/ PMHx of HTN, IDDM, HLD, PUD, admitted for hematemesis and melena with evidence of severe anemia s/p 2 units PRBC #cardiac -troponemia to 3.26 w/ EKG abnormalities suggesting NSTEMI -echo: nl EF, severely dilated LA, mitral annular calification and valvular thickening, mild TR, elevated PA pressure, severe aortic valve thickening -Cardiology states patient cleared for endoscopy -cont metoprolol -initiate lipitor -Lasix as needed -consider TAVR in long-term f/u #GIB -will need EGD but presently not a candidate d/t cardiac risk factors -Hb stabilized on Protonix drip -clinical symptoms resolved -convert to PO Protonix -monitor Mg #superficial phlebitis -left forearm findings as per PE -IV tylenol -monitor #DM -SSI, BGM #FEN -no IVF at this time -monitor lytes -full liquid diet #PPx -SCDs, AC contraindicated given bleeding -GI: Protonix PO #Dispo -transfer to tele Visit type - Emergency Visit Emergency Visit: No - New Patient This patient is new to me today: No - Critical Care Critical Care patient: Yes Total Critical Care Time (in minutes): 40 Critical Care Statement: The care of this patient involved high complexity decision making to prevent further life threatening deterioration of the patient 's condition and/or to evaluate & treat vital organ system(s) failure or risk of failure.
--- NOTE | 2018-07-27 13:21 | PN ---
Teaching Attending Note Name of Resident: Moses Montoya ATTENDING PHYSICIAN STATEMENT I saw and evaluated the patient. I reviewed the resident's note and discussed the case with the resident. I agree with the resident's findings and plan as documented. SUBJECTIVE: Pt seen and examined in the ICU. No further bleeding, remains on protonix gtt. Started on clears per GI. OBJECTIVE: Vital Signs Period Temp Pulse Resp BP Sys/Mabry Pulse Ox Last 24 Hr 98.8 F-98.9 F 67-98 19-22 100-124/53-78 98-98 Intake & Output 07/24/18 07/25/18 07/26/18 07/27/18 23:59 23:59 23:59 23:59 Intake Total 430 990 855 360 Balance 430 990 855 360 Weight 45.359 kg Gen: NAD at rest Heart: RRR, +harsh systolic murmur Lung: decreased breath sounds at the bases Abd: soft, nontender Ext: no edema, LUE forearm tenderness, no erythema CBC, BMP 07/27/18 05:30 07/27/18 05:30 Active Medications Atorvastatin Calcium (Lipitor -) 20 mg PO HS [facility] Last Admin: 07/26/18 21:55 Dose: 20 mg Chlorhexidine Gluconate (Hibiclens For Decolonization -) 1 applic TP HS [facility] Last Admin: 07/26/18 21:55 Dose: 1 applic Insulin Aspart (Novolog Vial Sliding Scale -) 1 vial SQ ACHS [facility]; Protocol Last Admin: 07/27/18 11:35 Dose: Not Given Metoprolol Tartrate (Lopressor -) 12.5 mg PO BID [facility] Last Admin: 07/27/18 11:18 Dose: 12.5 mg Mupirocin (Bactroban Ointment (For Decolonization) -) 1 applic NS BID [facility] Stop: 07/28/18 21:59 Last Admin: 07/27/18 11:34 Dose: 1 applic Pantoprazole Sodium (Protonix -) 40 mg PO DAILY [facility] ASSESSMENT AND PLAN: GI Bleed likely Upper Acute Blood Loss Anemia h/o Peptic Ulcer Disease Severe Aortic Stenosis Acute NSTEMI LV Diastolic Dysfunction HTN Hyperlipidemia DM - monitor H/H - protonix - PO per GI - beta rafiq, statin - warm compresses to left forearm - DVT prophylaxis - can monitor on floor
--- NOTE | 2018-07-27 14:20 | PN ---
Progress Note, Physician Chief Complaint: Presently comfortable History of Present Illness: 88 year-old Frisian speaking woman (lives alone, independent of all ADLs) with a PMHx of HTN, IDDM, hyperlipidemia, PUD, admitted 07/23/2018 after episode of hematemesis and melena with evidence of severe anemia. The patient was seen by GI, endoscopies planned. She was found to have elevated troponin (0.08-> 3.26) with marked ECG abnormalities of inferolateral ischemia and LVH. She was tachycardic with normal BP. Significant systolic ejection murmur in the absence of A2 and holosystolic murmur consistent with severe aortic stenosis and significant mitral regurgitation. She is receiving PRBC transfusion. Stable without evidence of further GI bleeding. Echocardiogrqam 07/25/18 NL RV fxn Severe LAE Mild to mod MR Mild TR PASP 38 mmHg VALDO is 0.7 cm^ consistent with severe 07/27/18 Comfortable appearing - Current Medication List Current Medications: Active Medications Atorvastatin Calcium (Lipitor -) 20 mg PO HS [facility] Last Admin: 07/26/18 21:55 Dose: 20 mg Chlorhexidine Gluconate (Hibiclens For Decolonization -) 1 applic TP [facility] Last Admin: 07/26/18 21:55 Dose: 1 applic Insulin Aspart (Novolog Vial Sliding Scale -) 1 vial SQ [facility]; Protocol Last Admin: 07/27/18 11:35 Dose: Not Given Metoprolol Tartrate (Lopressor -) 12.5 mg PO BID [facility] Last Admin: 07/27/18 11:18 Dose: 12.5 mg Mupirocin (Bactroban Ointment (For Decolonization) -) 1 applic NS BID [facility] Stop: 07/28/18 21:59 Last Admin: 07/27/18 11:34 Dose: 1 applic Pantoprazole Sodium (Protonix -) 40 mg PO DAILY [facility] - Objective Vital Signs: Vital Signs Temperature 98.9 F 07/27/18 06:00 Pulse Rate 78 07/27/18 06:00 Respiratory Rate 22 H 07/27/18 06:00 Blood Pressure 120/78 07/27/18 06:00 O2 Sat by Pulse Oximetry (%) 98 07/26/18 20:30 Constitutional: Yes: No Distress Eyes: Yes: WNL HENT: Yes: WNL Neck: Yes: WNL Cardiovascular: Yes: Regular Rate and Rhythm (2/6 KONG RUSB radiating to the carotids.) Respiratory: Yes: CTA Bilaterally Gastrointestinal: Yes: Soft Extremities: Yes: WNL Edema: No Neurological: Yes: Alert, Oriented (Non focal) Labs: CBC, BMP 07/27/18 05:30 07/27/18 05:30 INR, PTT INR 1.18 (0.83-1.09) H 07/23/18 05:22 Assessment/Plan 88 year-old Frisian speaking woman (lives alone, independent of all ADLs) with a PMHx of HTN, IDDM, hyperlipidemia, PUD, admitted 07/23/2018 after episode of hematemesis and melena with evidence of severe anemia. The patient was seen by GI, endoscopies planned. She was found to have elevated troponin (0.08-> 3.26) with marked ECG abnormalities of inferolateral ischemia and LVH. She was tachycardic with normal BP. She is received PRBC transfusion. Echo confirmed severe with an VALDO of 0.7 cm^2 1) NSTEMI with ECG evidence of ischemia in the setting of GI bleeding and severe anemia. It is likely demand ischemia with underline CAD. Continue low dose metoprolol 12.5 mg BID for heart rate control. Continue Statin therapy with atorvastatin 40 mg daily. Transfusion to keep HCT aroud 30%. 2) Severe aortic stenosis. Would consider TAVR when stable. Will follow with you.
[2018-07-27] MEDS: PANTOPRAZOLE 40 MG TABLET (FP) PO SCH (16:19)
--- NOTE | 2018-07-27 17:12 | PN ---
GI Progress Note Subjective: No acute events No overt bleeding Patient states feeling well Son present at bedside - Objective Vital Signs: Vital Signs Temperature 98.6 F 07/27/18 16:00 Pulse Rate 72 07/27/18 16:00 Respiratory Rate 20 07/27/18 16:00 Blood Pressure 116/54 L 07/27/18 16:00 O2 Sat by Pulse Oximetry (%) 99 07/27/18 16:56 Constitutional: Calm Eyes: No: Sclera Icterus Cardiovascular: Yes: Regular Rate and Rhythm, Murmur (2/6 KONG at the LSB) Respiratory: Yes: CTA Bilaterally Gastrointestinal Inspection: No: Distention, Scars ...Auscultate: Yes: Normoactive Bowel Sounds ...Palpate: No: Hepatomegaly, Splenomegaly, Tenderness ...Percussion: No: Tympanitic Edema: No (No LE edema) Neurological: Yes: Alert Labs: CBC, BMP 07/27/18 05:30 07/27/18 05:30 INR, PTT INR 1.18 (0.83-1.09) H 07/23/18 05:22 Problem List - Problems (1) GI bleed Assessment/Plan: No overt bleeding with stable H/H Advance diet Protonix 40mg PO once daily Code(s): K92.2 - GASTROINTESTINAL HEMORRHAGE, UNSPECIFIED
[2018-07-27] MEDS: ATORVASTATIN CA 20 MG TABLET (FP) PO SCH (21:11)
[2018-07-27] MEDS: CHLORHEXIDINE GLUCONATE 4% CLEANSER FOR DECOLONIZATION TP SCH (21:12)
[2018-07-28] MEDS: INSULIN SLIDING SCALE (NOVOLOG) 1 VIAL SQ SCH ×2 (06:04→11:46)
[2018-07-28 06:50] LABS: BASO % 0.5 % (0-2.0); HEMATOCRIT 31.4 % (32.4-45.2); HEMOGLOBIN 10.4 GM/dL (10.7-15.3); LYMPH % 17.5 % (8-40); MCH 30.8 pg (25.7-33.7); MCHC 33.3 g/dl (32.0-36.0); MEAN CELL VOLUME 92.7 fl (80-96); MEAN PLT VOLUME 9.6 fl (7.5-11.1); MONO % 8.6 % (3.8-10.2); NEUT % 70.4 % (42.8-82.8); PLATELET COUNT 189 K/MM3 (134-434); RBC 3.39 M/mm3 (3.60-5.2); RDW 13.7 % (11.6-15.6); WHITE BLOOD COUNT 11.3 K/mm3 (4.0-10.0)
[2018-07-28 06:52] LABS: ANION GAP 7 MMOL/L (8-16); BLOOD UREA NITROGEN 19 mg/dL (7-18); CALCIUM 8.4 mg/dL (8.5-10.1); CHLORIDE 105 mmol/L (98-107); CO2 28 mmol/L (21-32); CREATININE 0.4 mg/dL (0.55-1.3); GLUCOSE,RANDOM 117 mg/dL (74-106); MAGNESIUM 2.2 mg/dL (1.8-2.4); PHOSPHOROUS 4.2 mg/dL (2.5-4.9); POTASSIUM 3.8 mmol/L (3.5-5.1); SODIUM 140 mmol/L (136-145)
--- NOTE | 2018-07-28 09:17 | PN ---
Physical Exam: SUBJECTIVE: Patient seen and examined at bedside this morning. She denies any acute complaints, and expresses desire to go home today. She is tolerating diabetic full diet and denies abdominal pain, nausea, vomiting, hematemesis. No bowel movements overnight. Urinating within diaper without dysuria, hesitency, or hematuria. OBJECTIVE: Vital Signs Temperature 98.5 F 07/28/18 05:44 Pulse Rate 85 07/28/18 05:44 Respiratory Rate 18 07/28/18 05:44 Blood Pressure 107/62 07/28/18 05:44 O2 Sat by Pulse Oximetry (%) 99 07/27/18 20:24 GENERAL: The patient is awake, alert, and fully oriented, in no acute distress. HEAD: Normocephalic, trumatic. EYES: PERRLA, extraocular movements intact, sclera anicteric, conjunctiva clear. ENT: Oropharynx clear without exudates, lesions or erythema. Moist mucous membranes. NECK: Trachea midline, full range of motion, supple without lymphadenopathy. LUNGS: Breath sounds equal, clear to auscultation bilaterally, no wheezes, no crackles, no accessory muscle use. HEART: Regular rate and rhythm. Harsh holosystolic murmur auscultated radaiting to the carotids. S1, S2 auscultated. ABDOMEN: Soft, nontender to light and deep palpation X4 quadrants, nondistended. Normoactive bowel sounds x4 quadrants. No guarding, no rebound tenderness. No hepatosplenomegaly palpated or percussed. EXTREMITIES: 2+ radial and dorsalis pedis pulses b/l. Warm, well-perfused, no lower extremity edema b/l. NEUROLOGICAL: Cranial nerves II through XII grossly intact. No gross focal deficits. PSYCH: Normal mood, normal affect upon my encounter today. SKIN: Warm (left forearm warmer than right), dry. Erythema diminished from outlined margin along left forearm today. Tender to palpation. Laboratory Results - last 24 hr 07/28/18 07/28/18 07/28/18 05:29 05:30 05:30 WBC 11.3 H RBC 3.39 L Hgb 10.4 L Hct 31.4 L MCV 92.7 MCH 30.8 MCHC 33.3 RDW 13.7 Plt Count 189 MPV 9.6 Absolute Neuts (auto) 8.0 Neutrophils % 70.4 Lymphocytes % 17.5 D Monocytes % 8.6 Eosinophils % 3.0 Basophils % 0.5 Nucleated RBC % 0 Sodium 140 Potassium 3.8 Chloride 105 Carbon Dioxide 28 Anion Gap 7 L BUN 19 H Creatinine 0.4 L Creat Clearance w eGFR > 60 POC Glucometer 131 Random Glucose 117 H Calcium 8.4 L Phosphorus 4.2 Magnesium 2.2 Active Medications Generic Name Dose Route Start Last Admin Trade Name Freq PRN Reason Stop Dose Admin Atorvastatin Calcium 20 mg 07/26/18 22:00 07/27/18 21:11 Lipitor - PO 20 mg HS JANETTE Administration Chlorhexidine Gluconate 1 applic 07/26/18 22:00 07/27/18 21:12 Hibiclens For Decolonization - TP Not Given HS JANETTE Insulin Aspart 1 vial 07/26/18 12:15 07/28/18 06:04 Novolog Vial Sliding Scale - SQ Not Given ACHS [facility] Protocol Metoprolol Tartrate 12.5 mg 07/26/18 10:00 07/27/18 21:11 Lopressor - PO Not Given BID JANETTE Mupirocin 1 applic 07/26/18 10:00 07/27/18 21:14 Bactroban Ointment (For Decolonization) - NS 07/28/18 21:59 1 applic BID JANETTE Administration Pantoprazole Sodium 40 mg 07/27/18 11:00 07/27/18 16:19 Protonix - PO 40 mg DAILY JANETTE Administration ASSESSMENT/PLAN: Patient is an 88 year old female with history significant for hypertension, hyperlipidemia, diabetes, presents with complaint of vomiting with hematemesis, and melanotic stools. Upper GI bleed -Presented with hematemesis, and melanotic stools. No events for past 5 days. Hb 10.4 Hct 31.4, stable -Cardiology consult (Dr. Roper) appreciated: No cardiac contraindication to EGD, patient high risk for the procedure. -GI consult (Dr. Hein) appreciated: Will continue conservative management: Oral pantoprazole 40mg daily Advanced diet diabetic diet. Patient tolerating diet well. No endoscopy for now. To be considered if evidence of acute upper GI bleed. Troponinema- resolved -0.06 -> 3.26 -> 2.58 trended down. -Cardiology consult (Dr. Bell) appreciated: Troponins likely secondary to demand ischemia. Severe aortic stenosis with VALDO 0.7 cm^2. Will consider TAVR once stabilized. Left superficial thrombophlebiits -Patient complains of left forearm pain. -Warm, mild erythema, improving from outlined margins -Warm compress -Pain control with tylenol 1000mg IV -F/U Duplex US of left upper extremity Diabetes Mellitus -BGM ACHS -ISS ACHS Hypertension -Metoprolol tartrate 12.5mg PO BID Hyperlipdemia -Lipitor 20mg HS FEN -No IV fluids. Patient tolerates oral intake, will encourage judicious oral hydration. -Will follow up CMP, in addition to Magnesium. -Diabetic diet Prophylaxis -SCDs b/l lower extremities. Chemical anticoagulation held due to likely upper GI bleeding -Pantoprazole 40mg PO daily Disposition -
[2018-07-28] MEDS: METOPROLOL TARTRATE 25 MG TABLET (FP) PO SCH (09:42)
[2018-07-28] MEDS: PANTOPRAZOLE 40 MG TABLET (FP) PO SCH (09:42)
[2018-07-28] MEDS: MUPIROCIN 2% TOPICAL OINTMENT FOR DECOLONIZATION NS SCH (11:48)
--- NOTE | 2018-07-28 14:10 | DS ---
Physical Exam: SUBJECTIVE: Patient seen and examined at bedside this morning. She denies any acute complaints, and expresses desire to go home today. She is tolerating diabetic full diet and denies abdominal pain, nausea, vomiting, hematemesis. No bowel movements overnight. Urinating within diaper without dysuria, hesitency, or hematuria. OBJECTIVE: Vital Signs Period Temp Pulse Resp BP Sys/Mabry Pulse Ox Last 24 Hr 97.7 F-98.6 F 72-92 18-20 107-121/54-67 99-99 PHYSICAL EXAM GENERAL: The patient is awake, alert, and fully oriented, in no acute distress. HEAD: Normocephalic, trumatic. EYES: PERRLA, extraocular movements intact, sclera anicteric, conjunctiva clear. ENT: Oropharynx clear without exudates, lesions or erythema. Moist mucous membranes. NECK: Trachea midline, full range of motion, supple without lymphadenopathy. LUNGS: Breath sounds equal, clear to auscultation bilaterally, no wheezes, no crackles, no accessory muscle use. HEART: Regular rate and rhythm. Harsh holosystolic murmur auscultated radaiting to the carotids. S1, S2 auscultated. ABDOMEN: Soft, nontender to light and deep palpation X4 quadrants, nondistended. Normoactive bowel sounds x4 quadrants. No guarding, no rebound tenderness. No hepatosplenomegaly palpated or percussed. EXTREMITIES: 2+ radial and dorsalis pedis pulses b/l. Warm, well-perfused, no lower extremity edema b/l. NEUROLOGICAL: Cranial nerves II through XII grossly intact. No gross focal deficits. PSYCH: Normal mood, normal affect upon my encounter today. SKIN: Warm (left forearm warmer than right), dry. Erythema diminished from outlined margin along left forearm today. Mild tenderness to palpation. LABS Laboratory Results - last 24 hr 07/27/18 07/27/18 07/28/18 16:46 20:39 05:29 WBC RBC Hgb Hct MCV MCH MCHC RDW Plt Count MPV Absolute Neuts (auto) Neutrophils % Lymphocytes % Monocytes % Eosinophils % Basophils % Nucleated RBC % Sodium Potassium Chloride Carbon Dioxide Anion Gap BUN Creatinine Creat Clearance w eGFR POC Glucometer 121 259 131 Random Glucose Calcium Phosphorus Magnesium 07/28/18 07/28/18 07/28/18 05:30 05:30 12:17 WBC 11.3 H RBC 3.39 L Hgb 10.4 L Hct 31.4 L MCV 92.7 MCH 30.8 MCHC 33.3 RDW 13.7 Plt Count 189 MPV 9.6 Absolute Neuts (auto) 8.0 Neutrophils % 70.4 Lymphocytes % 17.5 D Monocytes % 8.6 Eosinophils % 3.0 Basophils % 0.5 Nucleated RBC % 0 Sodium 140 Potassium 3.8 Chloride 105 Carbon Dioxide 28 Anion Gap 7 L BUN 19 H Creatinine 0.4 L Creat Clearance w eGFR > 60 POC Glucometer 169 Random Glucose 117 H Calcium 8.4 L Phosphorus 4.2 Magnesium 2.2 HOSPITAL COURSE: Date of Admission:07/23/18 Date of Discharge: 07/28/18 Patient is an 88 year old female with history significant for hypertension, hyperlipidemia, diabetes, presented with complaint of vomiting with hematemesis , and episode of melanotic stool. Troponins peaked at 3.26 and trended downwards. Cardiology consult discussed troponinemia likely secondary to demand ischemia. Patient was placed NPO and initiated Pantoprazole drip with GI recommendation. Conservative management was continued, and diet slowly advanced which patient tolerated Pantoprazole drip switched to oral Pantoprazole. Patient developed pain, warmth within left upper extremity and treated with warm , compress, limb elevation, and Tylenol Discharged with Keflex 500mg Q6H for 5 days. Patient is discharged home with instruction to follow up with primary care physician and gastroenterology within one week of discharge. Aspirin, Meloxicam, and Celecoxib held. Discharged with Pantoprazole 40mg daily. Minutes to complete discharge: 35 Discharge Summary Reason For Visit: GASTROINTESTINAL HEMORRHAGE Current Active Problems Aortic diastolic murmur on examination (Acute) Epigastric abdominal pain (Acute) GI bleed (Acute) Hematemesis/vomiting blood (Acute) Holosystolic murmur (Acute) Melena (Acute) Condition: Stable - Instructions Diet, Activity, Other Instructions: You were admitted for an episode of vomiting with blood. You were treated with intravenous fluids, and bowel rest You are discharged on new medication Pantoprazole 40mg daily. We are prescribing antibiotic Keflex 500mg every 6 hours for the next 5 days. We have stopped taking your Aspirin, Celebrex, and Meloxicam as they may contribute to the bleeding episode. Discuss with your primary care physician regarding these medications. We have stopped your Nexium, and instead you will begin taking Pantoprazole 40mg daily. Continue taking your other home medications as directed It is important that you follow up with your primary care physician within one week of discharge. Further, it is important that you follow up with the [employer] Ne[employer] Salesperson, Dr. Barros within one week of discharge. Please return to the nearest emergency department if you experience any fevers, chills, shortness of breath, chest pain, palpitations, abdominal pain, vomiting , continuous diarrhea, falls, loss of consciousness, or any bleeding. Referrals: Rey Barros DO [Staff Physician] - 1 Week Disposition: HOME - Home Medications Comprehensive Discharge Medication List: Ambulatory Orders Amlodipine Besylate [Norvasc -] 5 mg PO DAILY #0 tablet 04/04/12 Aspirin [ASA -] 81 mg PO DAILY #0 tab.chew 04/04/12 Losartan Potassium 100 mg PO DAILY 09/20/15 Metoprolol Succinate [Toprol XL -] 25 mg PO DAILY 09/20/15 Linagliptin [Tradjenta] 5 mg PO DAILY 12/31/16 Donepezil HCl [Aricept -] 5 mg PO DAILY 07/23/18 Ergocalciferol [Vitamin D2] 50,000 unit PO Q7D@1000 07/23/18 Esomeprazole Magnesium 40 mg PO DAILY@0700 07/23/18 Gabapentin [Neurontin] 300 mg PO Q12H 07/23/18 Icosapent Ethyl [Vascepa] 1 gm PO Q12H 07/23/18 Loratadine [Claritin -] 10 mg PO DAILY 07/23/18 Meloxicam [Mobic] 15 mg PO DAILY 07/23/18 Oxybutynin Chloride [Oxybutynin Chloride ER] 5 mg PO DAILY 07/23/18 Sennosides [Senna] 2 tab PO DAILY PRN 07/23/18 Simvastatin 20 mg PO HS 07/23/18 This patient is new to me today: No Emergency Visit: Yes ED Registration Date: 07/23/18 Care time: The patient presented to the Emergency Department on the above date and was hospitalized for further evaluation of their emergent condition. Critical Care patient: No - Discharge Referral Referred to [facility] Med P.C.: Yes Physician Referral: Deyvi Barros DO (GI)
[2018-07-28 15:11] VITALS: BP 124/59; PULSE 78; TEMP 98.6
--- NOTE | 2018-07-28 16:14 | DS ---
Physical Exam: SUBJECTIVE: Patient seen and examined OBJECTIVE: Vital Signs Period Temp Pulse Resp BP Sys/Mabry Pulse Ox Last 24 Hr 97.7 F-98.6 F 75-92 18-20 107-124/54-67 99-99 PHYSICAL EXAM GENERAL: The patient is awake, alert, and fully oriented, in no acute distress. HEAD: Normal with no signs of trauma. EYES: PERRL, extraocular movements intact, sclera anicteric, conjunctiva clear. ENT: Ears normal, nares patent, oropharynx clear without exudates, moist mucous membranes. NECK: Trachea midline, full range of motion, supple. LUNGS: Breath sounds equal, clear to auscultation bilaterally, no wheezes, no crackles, no accessory muscle use. HEART: Regular rate and rhythm, S1, S2 without murmur, rub or gallop. ABDOMEN: Soft, nontender, nondistended, normoactive bowel sounds, no guarding, no rebound, no hepatosplenomegaly, no masses. EXTREMITIES: 2+ pulses, warm, well-perfused, no edema. NEUROLOGICAL: Cranial nerves II through XII grossly intact. Normal speech, gait not observed. PSYCH: Normal mood, normal affect. SKIN: Warm, dry, normal turgor, no rashes or lesions noted. LABS Laboratory Results - last 24 hr 07/27/18 07/27/18 07/28/18 16:46 20:39 05:29 WBC RBC Hgb Hct MCV MCH MCHC RDW Plt Count MPV Absolute Neuts (auto) Neutrophils % Lymphocytes % Monocytes % Eosinophils % Basophils % Nucleated RBC % Sodium Potassium Chloride Carbon Dioxide Anion Gap BUN Creatinine Creat Clearance w eGFR POC Glucometer 121 259 131 Random Glucose Calcium Phosphorus Magnesium 07/28/18 07/28/18 07/28/18 05:30 05:30 12:17 WBC 11.3 H RBC 3.39 L Hgb 10.4 L Hct 31.4 L MCV 92.7 MCH 30.8 MCHC 33.3 RDW 13.7 Plt Count 189 MPV 9.6 Absolute Neuts (auto) 8.0 Neutrophils % 70.4 Lymphocytes % 17.5 D Monocytes % 8.6 Eosinophils % 3.0 Basophils % 0.5 Nucleated RBC % 0 Sodium 140 Potassium 3.8 Chloride 105 Carbon Dioxide 28 Anion Gap 7 L BUN 19 H Creatinine 0.4 L Creat Clearance w eGFR > 60 POC Glucometer 169 Random Glucose 117 H Calcium 8.4 L Phosphorus 4.2 Magnesium 2.2 HOSPITAL COURSE: Date of Admission:07/23/18 Date of Discharge: 07/28/18 Minutes to complete discharge: 35 Discharge Summary Reason For Visit: GASTROINTESTINAL HEMORRHAGE Current Active Problems Epigastric abdominal pain (Acute) GI bleed (Acute) Hematemesis/vomiting blood (Acute) Holosystolic murmur (Acute) Melena (Acute) Condition: Stable - Instructions Diet, Activity, Other Instructions: You were admitted for an episode of vomiting with blood. You were treated with intravenous fluids, and bowel rest You are discharged on new medication Pantoprazole 40mg daily. We are prescribing antibiotic Keflex 500mg every 6 hours for the next 5 days. We have stopped taking your Aspirin, Celebrex, and Meloxicam as they may contribute to the bleeding episode. Discuss with your primary care physician regarding these medications. We have stopped your Nexium, and instead you will begin taking Pantoprazole 40mg daily. Continue taking your other home medications as directed It is important that you follow up with your primary care physician within one week of discharge. Further, it is important that you follow up with the [facility] [employer] As[facility]er, Dr. Barros within one week of discharge. Please return to the nearest emergency department if you experience any fevers, chills, shortness of breath, chest pain, palpitations, abdominal pain, vomiting , continuous diarrhea, falls, loss of consciousness, or any bleeding. Referrals: Rey Barros DO [Staff Physician] - 1 Week Disposition: HOME - Home Medications Comprehensive Discharge Medication List: Ambulatory Orders Amlodipine Besylate [Norvasc -] 5 mg PO DAILY #0 tablet 04/04/12 Losartan Potassium 100 mg PO DAILY 09/20/15 Linagliptin [Tradjenta] 5 mg PO DAILY 12/31/16 Donepezil HCl [Aricept -] 5 mg PO DAILY 07/23/18 Ergocalciferol [Vitamin D2] 50,000 unit PO Q7D@1000 07/23/18 Gabapentin [Neurontin] 300 mg PO Q12H 07/23/18 Icosapent Ethyl [Vascepa] 1 gm PO Q12H 07/23/18 Loratadine [Claritin -] 10 mg PO DAILY 07/23/18 Oxybutynin Chloride [Oxybutynin Chloride ER] 5 mg PO DAILY 07/23/18 Sennosides [Senna] 2 tab PO DAILY PRN 07/23/18 Simvastatin 20 mg PO HS 07/23/18 Cephalexin [Keflex] 500 mg PO Q6H 5 Days #20 capsule 07/28/18 Metoprolol Succinate 25 mg PO DAILY 07/28/18 Pantoprazole Sodium [Protonix] 40 mg PO DAILY 30 Days #30 tablet. 07/28/18 - Discharge Referral Referred to [facility] Med P.C.: No
--- NOTE | 2018-07-28 17:50 | PN ---
Teaching Attending Note Name of Resident: Martín Zapata ATTENDING PHYSICIAN STATEMENT I saw and evaluated the patient. I reviewed the resident's note and discussed the case with the resident. I agree with the resident's findings and plan as documented. SUBJECTIVE: Patient is comfortable with no further bleed. tolerating diet. OBJECTIVE: Vital Signs Temperature 98.6 F 07/28/18 14:10 Pulse Rate 78 07/28/18 14:10 Respiratory Rate 18 07/28/18 14:10 Blood Pressure 124/59 L 07/28/18 14:10 O2 Sat by Pulse Oximetry (%) 99 07/28/18 10:00 GENERAL: The patient is awake, alert, and fully oriented, in no acute distress. HEAD: Normocephalic, trumatic. EYES: PERRLA, extraocular movements intact, sclera anicteric, conjunctiva clear. ENT: Oropharynx clear without exudates, lesions or erythema. Moist mucous membranes. NECK: Trachea midline, full range of motion, supple without lymphadenopathy. LUNGS: Breath sounds equal, CTAB, no wheezes, no crackles, no accessory muscle use. HEART: Regular rate and rhythm. positive for holosystolic murmur . S1, S2 positive. ABDOMEN: Soft, nontender , No guarding, no rebound tenderness. No hepatosplenomegaly. EXTREMITIES: pulses are positive, well-perfused, no lower extremity edema b/l. Left upper extremity positive for mild warmth to touch. NEUROLOGICAL: Cranial nerves II through XII grossly intact. No gross focal deficits. PSYCH: Normal mood, normal affect upon my encounter today. SKIN: warm to touch , dry CBCD WBC 11.3 K/mm3 (4.0-10.0) H 07/28/18 05:30 RBC 3.39 M/mm3 (3.60-5.2) L 07/28/18 05:30 Hgb 10.4 GM/dL (10.7-15.3) L 07/28/18 05:30 Hct 31.4 % (32.4-45.2) L 07/28/18 05:30 MCV 92.7 fl (80-96) 07/28/18 05:30 MCHC 33.3 g/dl (32.0-36.0) 07/28/18 05:30 RDW 13.7 % (11.6-15.6) 07/28/18 05:30 Plt Count 189 K/MM3 (134-434) 07/28/18 05:30 MPV 9.6 fl (7.5-11.1) 07/28/18 05:30 CMP Sodium 140 mmol/L (136-145) 07/28/18 05:30 Potassium 3.8 mmol/L (3.5-5.1) 07/28/18 05:30 Chloride 105 mmol/L (98-107) 07/28/18 05:30 Carbon Dioxide 28 mmol/L (21-32) 07/28/18 05:30 Anion Gap 7 MMOL/L (8-16) L 07/28/18 05:30 BUN 19 mg/dL (7-18) H 07/28/18 05:30 Creatinine 0.4 mg/dL (0.55-1.3) L 07/28/18 05:30 Creat Clearance w eGFR > 60 (>60) 07/28/18 05:30 Random Glucose 117 mg/dL (74-106) H 07/28/18 05:30 Calcium 8.4 mg/dL (8.5-10.1) L 07/28/18 05:30 Total Bilirubin 1.3 mg/dL (0.2-1) H 07/25/18 05:30 AST 17 U/L (15-37) 07/25/18 05:30 ALT 11 U/L (13-61) L 07/25/18 05:30 Alkaline Phosphatase 52 U/L (45-117) 07/25/18 05:30 Total Protein 6.0 g/dl (6.4-8.2) L 07/25/18 05:30 Albumin 3.1 g/dl (3.4-5.0) L 07/25/18 05:30 CARDIAC ENZYMES Creatine Kinase 82 IU/L (26-192) 07/23/18 18:00 Troponin I 2.58 ng/ml (0.00-0.05) H* 07/23/18 18:00 ASSESSMENT AND PLAN: Patient is a 88 y/o lady with h/o DM, PUD, HL, HTN who presented with hematemesis and melena. # Upper GI bleed with acute blood loss anemia: no further bleed today ,will discharge patient home on oral PPI . EGD is deffered at this point due to high risk procedure. Discussed with GI. Ok to discharge patient home. # Mild warmth to the LUE , will discharge the patient on Keflex x 5 days. # NSTEMI: in setting of Acute GI bleed , on BB . to continue at home statin , but No aspirin due to GI bleed. # Heart murmurs: and TR on Echo with disatolic dysfunction . f/u as out pt for TVAR # Acute diastolic CHF: resolved # H/o HTN: cont metoprolol and continue home meds. DVT Px: SCDs
== END 2018-07-28 16:20 | disposition home or self-care (01) | DRG 377 ==
LOC: JER 04:39 → JERBED 07:35 → JICU 11:35 → J4W 07-27 15:47
PROVIDERS: ADMIT Internal Medicine; ATTEND Internal Medicine
PROC: 30233N1 Transfusion of Nonautologous Red Blood Cells into Peripheral Vein, Percutaneous Approach (ICD-10-PCS; principal; 2018-07-23)
DX: K92.2 Gastrointestinal hemorrhage, unspecified (principal); I21.A1 Myocardial infarction type 2; I50.31 Acute diastolic (congestive) heart failure; D62 Acute posthemorrhagic anemia; E78.5 Hyperlipidemia, unspecified; K21.9 Gastro-esophageal reflux disease without esophagitis; M54.5 Low back pain; M81.0 Age-related osteoporosis without current pathological fracture; R32 Unspecified urinary incontinence; F03.90 Unspecified dementia, unspecified severity, without behavioral disturbance, psychotic disturbance, mood disturbance, and anxiety; E86.1 Hypovolemia; I11.0 Hypertensive heart disease with heart failure; R00.0 Tachycardia, unspecified; I25.10 Atherosclerotic heart disease of native coronary artery without angina pectoris; E11.65 Type 2 diabetes mellitus with hyperglycemia; K59.00 Constipation, unspecified; E11.40 Type 2 diabetes mellitus with diabetic neuropathy, unspecified; M85.80 Other specified disorders of bone density and structure, unspecified site; F32.9 Major depressive disorder, single episode, unspecified; K92.1 Melena; K92.0 Hematemesis; I08.0 Rheumatic disorders of both mitral and aortic valves; R01.1 Cardiac murmur, unspecified; I80.8 Phlebitis and thrombophlebitis of other sites; E87.5 Hyperkalemia; T39.395A Adverse effect of other nonsteroidal anti-inflammatory drugs [NSAID], initial encounter; Y92.89 Other specified places as the place of occurrence of the external cause; Z79.1 Long term (current) use of non-steroidal anti-inflammatories (NSAID); Z87.11 Personal history of peptic ulcer disease
CPT/HCPCS: 36415; 36430; 71045-TC-FY; 80048; 80053; 82272; 82550; 82728; 82962; 83540; 83550; 83735; 84100; 84484; 85025; 85027; 85610; 86850; 86900; 86901; 86922; 93005; 93010; 93306-TC; 97116-GP; 97161-GP; 99285-25; J0131; P9038; P9058

== ENCOUNTER 2020-08-10 08:47 | Inpatient (IN) | payer OTHER ==
--- OUTSIDE RECORDS SUMMARY | 2020-08-10 08:56 | XMS ---
:1930 Author Organization [facility] Support Name Relationship Address Phone RE Unavailable Unavailable Unavailable RE Unavailable Unavailable Unavailable DYLAN SON [address] [place] [address] DYLAN Child [address] [place] [address] Re-disclosure Warning The records that you are about to access may contain information from federally- assisted alcohol or drug abuse programs. If such information is present, then the following federally mandated warning applies: This information has been disclosed to you from records protected by federal confidentiality rules (42 CFR part 2). The federal rules prohibit you from making any further disclosure of this information unless further disclosure is expressly permitted by the written consent of the person to whom it pertains or as otherwise permitted by 42 CFR part 2. A general authorization for the release of medical or other information is NOT sufficient for this purpose. The Federal rules restrict any use of the information to criminally investigate or prosecute any alcohol or drug abuse patient.The records that you are about to access may contain highly sensitive health information, the redisclosure of which is protected by Article 27-F of the [facility] Public Health law. If you continue you may haveaccess to information: Regarding HIV / AIDS; Provided by facilities licensed or operated by the [facility] Office of Mental Health; or Provided by the [facility] Office for People With Developmental Disabilities. If such information is present, then the following [facility] mandated warning applies: This information has been disclosed to you from confidential records which are protected by state law. State law prohibits you from making any further disclosure of this information without the specific written consent of the person to whom it pertains, or as otherwise permitted by law. Any unauthorized further disclosure in violation of state law may result in a fine or group home sentence or both. A general authorization for the release of medical or other information is NOT sufficient authorization for further disclosure. Insurance Providers Payer name Policy type Policy ID Covered Covered libertarian's Policy P shabnam / Coverage libertarian ID relationship to [employer] Inf ormation type [place] MEDICAID [id number] SP [id number] [employer] [place] DUAL [id number] SP [id number] COMPLETE Results ID Date Data Source [id number] 07/29/2020 04:30:00 PM EDT [facility] Name Value Range Interpretation Description Data Sup porting Code Source(s) Document(s ) SARS [facility] coronavirus 2 RNA This lab was ordered by [facility] and reported by [facility]. ID Date Data Source [id number] 07/19/2020 12:00:00 AM EDT [facility] Name Value Range Interpretation Code Description Data Rosamaria rce(s) Supporting Document(s ) [facility] XXX SHONDA+probe- Imp This lab was ordered by [facility] and reported by [facility]. ID Date Data Source [id number] 06/07/2020 12:25:00 PM EDT [facility] Name Value Range Interpretation Description Data Sup porting Code Source(s) Document(s ) SARS [facility] coronavirus 2 RNA This lab was ordered by [facility] and reported by [facility]. Procedure
[2020-08-10] MEDS ORDERED: SODIUM CHLORIDE 1,000 ML IV STA (09:02)
--- NOTE | 2020-08-10 09:09 | PDOC ---
History of Present Illness - General Chief Complaint: Shortness of Breath Stated Complaint: S.O.B Time Seen by Provider: 08/10/20 08:50 - History of Present Illness Initial Comments: HPI: 08/10/20 09:12 89 yo F PMH HTN, HLD, diastolic CHF on amiodarone, T2DM, severe s/p TAVR, paroxysmal A-fib s/p cardioversion on Eliquis, recent ICU admission from 07/29/20 to 08/09/20 for acute hypoxic respiratory failure on BIPAP and presso rs, discharged on home oxygen with diuresis via Lasix, presenting with SOB. Divehi speaking, son here to translate. Reportedly went home around 1730 last night, started complaining of worsening SOB at 1900 despite home O2. Denies CP, palpitations, fevers/chills, N/V, diarrhea/constipation, urinary sympoms. PCP: Dr. Samy Campbell in [place] Cardio: Dr. Jose ROS: GENERAL/CONSTITUTIONAL: endorses lethargy. Denies fever, chills, diaphoresis HEAD, EYES, EARS, NOSE AND THROAT: denies rhinorrhea, nasal congestion NEUROLOGIC: denies headache, dizziness, mental status changes CARDIOVASCULAR: denies chest pain, syncope, lightheadedness RESPIRATORY: endorses shortness of breath, dyspnea with exertion, and orthopnea. Denies cough GASTROINTESTINAL: denies abdominal pain, abdominal distension, nausea, vomiting, diarrhea, constipation GENITOURINARY: denies dysuria, frequency, urgency MUSCULOSKELETAL: denies myalgia, arthralgia SKIN: denies rash, itching PE: Gen: appears uncomfortable, tired Neuro: AAOX4, CN II-XII intact HEENT: atraumatic, normocephalic Neck: trachea midline, supple CV: bradycardic in the 40s, regular rhythm, no murmurs, rubs, or gallops Pulm: anterior diffuse crackles and squeaks Abd: soft, non-distended, non-tender MSK: full ROM, intact pulses Extr: no edema, no deformities Skin: warm, dry MDM: Concern for sepsis v CHF exacerbation vs ACS. - CBC, CMP - PT/PTT - UA - N-terminal BNP - cardiac profile - CXR, EKG - magnesium - reassess EKG sinus bradycardia at 49 bpm, QRS 122, QTc 513, LVH, appears similar to prior 08/10/20 09:20 CXR with fluid overload, particularly at the bases, similar to yesterday 08/10/20 09:24 08/10/20 09:[address] Zapata, who is covering for Dr. Jose. He will come see the patient, recommends adding on TSH. 08/10/20 10:38 WBC 16.2. BNP 17881.2, Cr 1.8 from yesterday's wnl. Will cover empirically for ?PNA (would be hospital acquired if present), admit to telemetry. 08/10/20 10:51 BP now 147/63 after liter of saline, but patient with worsening SOB, still satting 90% on 3L NC. Will order BIPAP. 08/10/20 11:15 Appears more comfortable on BIPAP, satting 98%. Past History - Medical History Allergies/Adverse Reactions: Allergies Allergy/AdvReac Type Severity Reaction Status Date / Time No Known Allergies Allergy Verified 08/10/20 08:47 Home Medications: Ambulatory Orders Linagliptin [Tradjenta] 5 mg PO DAILY 12/31/16 Donepezil HCl [Aricept -] 5 mg PO HS 07/23/18 Metoprolol Succinate 25 mg PO DAILY 07/28/18 Apixaban [Eliquis] 2.5 mg PO BID 06/07/20 Diclofenac Epolamine [Flector] 1 each TP Q12H PRN 07/30/20 Lidocaine 5% Top. Ointment [Xylocaine 5% Top. Ointment -] 1 applic TP Q12H 07/30/20 Magnesium Oxide [Mag-Oxide] 400 mg PO DAILY 07/30/20 Mirtazapine 15 mg PO HS 07/30/20 Pitavastatin Calcium [Livalo] 2 mg PO DAILY 07/30/20 Amiodarone HCl 200 mg PO DAILY #30 tablet 08/09/20 Apixaban [Eliquis -] 2.5 mg PO BID #60 tablet 08/09/20 Furosemide [Lasix -] 40 mg PO DAILY #30 tablet 08/09/20 Losartan Potassium [Cozaar -] 25 mg PO DAILY #30 tablet 08/09/20 Anemia: No Asthma: No Cancer: No Cardiac Disorders: Yes (AF, CAD, AORTIC VALVE DISEASE(STENOSIS)) CVA: No COPD: No CHF: No Dementia: No Diabetes: Yes (BORDERLINE) GI Disorders: Yes (GERD) Disorders: No HTN: Yes Hypercholesterolemia: Yes Liver Disease: No Seizures: No Thyroid Disease: No - Surgical History Abdominal Surgery: No Appendectomy: No Cardiac Surgery: Yes Cholecystectomy: No Lung Surgery: No (S/P TAVR) Orthopedic Surgery: No - Psycho-Social/Smoking History Smoking Status: No Smoking History: Never smoked Have you smoked in the past 12 months: No Number of Cigarettes Smoked Daily: 0 - Substance Abuse Hx (Audit-C & DAST Scrn) How often the patient has a drink containing alcohol: Never Score: In Men: 4 or > Positive; In Women: 3 or > Positive: 0 Screen Result (Pos requires Nsg. Audit-10AR): Negative In the last yr the pt used illegal drug/Rx for NonMed reason: No Score: Yes response is considered Positive: 0 Screen Result (Positive result requires Nsg. DAST-10): Negative *Physical Exam - Vital Signs Last Vital Signs Temp Pulse Resp BP Pulse Ox 50 L 26 H 86/48 L 100 08/10/20 08:48 08/10/20 08:48 08/10/20 08:48 08/10/20 08:48 ED Treatment Course - LABORATORY CBC & Chemistry Diagram: 08/10/20 09:20 08/10/20 09:20 Discharge - Discharge Information Problems reviewed: Yes Clinical Impression/Diagnosis: NYHA class 2 acute on chronic systolic heart failure, EMILY (acute kidney injury) Leukocytosis Qualifiers: Leukocytosis type: bandemia Qualified Code(s): D72.825 - Bandemia - Follow up/Referral - Patient Discharge Instructions - Post Discharge Activity
[2020-08-10 09:31] LABS: BASO % 0.8 % (0-2.0); HEMATOCRIT 35.9 % (32.4-45.2); HEMOGLOBIN 11.9 GM/dL (10.7-15.3); LYMPH % 8.8 % (8-40); MCH 30.4 pg (25.7-33.7); MCHC 33.2 g/dl (32.0-36.0); MEAN CELL VOLUME 91.7 fl (80-96); MEAN PLT VOLUME 10.3 fl (7.5-11.1); MONO % 6.3 % (3.8-10.2); NEUT % 83.1 % (42.8-82.8); PLATELET COUNT 252 K/MM3 (134-434); RBC 3.91 M/mm3 (3.60-5.2); RDW 20.1 % (11.6-15.6); WHITE BLOOD COUNT 16.2 K/mm3 (4.0-10.0)
[2020-08-10 09:45] LABS: INR 1.73 (0.83-1.09); PROTHROMBIN TIME (PATIENT) 20.9 SEC (9.7-13.0)
[2020-08-10 09:48] LABS: ACTIVATED PTT 32.8 SECONDS (25.2-36.5)
[2020-08-10 09:53] LABS: ALBUMIN 3.6 g/dl (3.4-5.0); BLOOD UREA NITROGEN 59.5 mg/dL (7-18); CALCIUM 9.4 mg/dL (8.5-10.1); MAGNESIUM 2.7 mg/dL (1.8-2.4)
[2020-08-10 09:57] LABS: CREATININE 1.8 mg/dL (0.55-1.3)
[2020-08-10 09:58] LABS: BILIRUBIN,TOTAL 0.9 mg/dL (0.2-1); TOT PROT 7.6 g/dl (6.4-8.2)
[2020-08-10 10:12] LABS: N-TERMINAL BNP 14599.2 pg/ml (5-450)
[2020-08-10] MEDS ORDERED: PIPERACILLIN/TAZOB 4.5 GM 4.5 GM in DEXTROSE 5%-WATER 100 ML IVPB ONE (10:43)
[2020-08-10] MEDS ORDERED: VANCOMYCIN 1,000 MG in DEXTROSE 5%-WATER - 250 ML IVPB ONE (10:43)
[2020-08-10] MEDS ORDERED: PIPERACILLIN/TAZOB 4.5 GM 4.5 GM/100 ML BAG IVPB ONE (10:49)
[2020-08-10] MEDS ORDERED: VANCOMYCIN 1 GRAM (PRE-DOCKED) 1,000 MG/250 ML BAG IVPB ONE (10:49)
--- NOTE | 2020-08-10 10:55 | PDOC ---
Documentation entered by Wolf Burns SCRIBE, acting as scribe for Kim Cardona MD. Kim Cardona MD: This documentation has been prepared by the Katy anand Aaron, SCRIBE, under my direction and personally reviewed by me in its entirety. I confirm that the documentation accurately reflects all work, treatment, procedures, and medical decision making performed by me. Attending Attestation - Resident Resident Name: BautistaJesrey - ED Attending Attestation I have performed the following: I have examined & evaluated the patient, The case was reviewed & discussed with the resident, I agree w/resident's findings & plan, Exceptions are as noted - HPI HPI: 08/10/20 10:06 The patient is a 89 year old female with a significant PMH of HTN, DMT2, HLD, and recent exacerbation of CHF (diastolic on amiodarone), who presents to the emergency department for SOB. Patient was recently admitted to ICU ( - 08/09/20) for acute hypoxic respiratory failure (on BIPAP and pressors) and was discharged on home oxygen. Patient arrived at home last night at 5:30 pm and noticed worsening SOB by 6:00 pm. The patient noted that the SOB is worsened by lying down. The patient denies chest pain, palpitations, fever, chills, nausea, vomiting, diarrhea and constipation. Denies dysuria, frequency, urgency and hematuria. Patient denies any other symptoms. Allergies: NKDA Past surgical history: AF (cardioversion on Eliquis), CAD, Aortic Valve Disease (Stenosis) Social Hx: Sami Speaking. Non-smoker PCP: Dr. Samy Campbell ([place]) - Physicial Exam PE: 08/10/20 09:38 General: non-toxic appearing Chest: slight crackles b/l, good air entry, no accessory muscle use CVS: + s1 s2, mikey Extremities: No LE edema - Medical Decision Making 08/10/20 09:38 89 yo F p/w SOB, found to be bradycardic to 50s with EKG showing slow afib, BP 80's/60's and patient slightly more sleepy than usual but otherwise at her baseline, as per family has not taken metoprolol since last night 9PM so lower suspicion for beta rafiq overdose. Possible symptoms 2/2 concurrent use of amiodarone and beta rafiq. Will also r/o infection and electrolyte abnormality. Will also check TSH to evaluate for hypothyroidism as patient is on amiodarone. Plan: -labs -COVID swab -cxr -cardiology consult -gentle hydration with IVF given low BP and patient with lethargy and SOB so also possible PNA -admit to telemetry This clinical encounter is taking place during a federal and state health care emergency attributable to the novel [place] Virus pandemic. The [place] of the Department of Health and Human Services has declared, pursuant to the Public Health Service Act 319F-3 (42 U.S.C. 247d-6d), that a covered persons activities related to medical countermeasures against COVID-19 will be immune from liability under Federal and State law. Discharge - Discharge Information Problems reviewed: Yes Clinical Impression/Diagnosis: NYHA class 2 acute on chronic systolic heart failure, EMILY (acute kidney injury) Leukocytosis Qualifiers: Leukocytosis type: bandemia Qualified Code(s): D72.825 - Bandemia - Follow up/Referral - Patient Discharge Instructions - Post Discharge Activity
--- OUTSIDE RECORDS SUMMARY | 2020-08-10 11:48 | XMS ---
:1930 Author Organization [facility] Support Name Relationship Address Phone RE Unavailable Unavailable Unavailable RE Unavailable Unavailable Unavailable DYLAN SON [address] [address] DYLAN Child [address] [place] [address] Re-disclosure Warning The records that you are [...] is protected by Article 27-F of the [facility] Public Health law. If you continue you may haveaccess to information: Regarding HIV / AIDS; Provided by facilities licensed or operated by the [facility] Office of Mental Health; or Provided by the [facility] Office for People With Developmental Disabilities. If such information is present, then the following [facility] mandated warning applies: This information has [...] law may result in a fine or nursing home sentence or both. A general authorization for the release of medical or other information is NOT sufficient authorization for further disclosure. Insurance Providers Payer name Policy type Policy ID Covered Covered democrat's Policy P shabnam / Coverage democrat ID relationship to [place] Inf ormation type [place] MEDICAID [id number] SP [id number] [employer] [place] DUAL [id number] SP [id number] COMPLETE Results ID Date Data Source [id number] 07/29/2020 04:30:00 PM EDT [facility] Name Value Range Interpretation Description Data Sup porting Code Source(s) Document(s ) SARS [facility] coronavirus 2 RNA This lab was ordered by [facility] and reported by [facility]. ID Date Data Source [id number] 07/19/2020 12:00:00 AM EDT [facility] Name Value Range Interpretation Code Description Data Rosamaria rce(s) Supporting Document(s ) 2019-nCoV [facility] RNA XXX SHONAD+probe- Imp This lab was ordered by [facility] and reported by [facility]. ID Date Data Source [id number] 06/07/2020 12:25:00 PM EDT [facility] Name Value Range Interpretation Description Data Sup porting Code Source(s) Document(s ) SARS [facility] coronavirus 2 RNA This lab was ordered by [facility] and reported by [facility]. Procedure
--- NOTE | 2020-08-10 13:02 | CON.CARD ---
Consult Consult Specialty:: cardiology Reason for Consultation:: hypotension; bradycardia - History of Present Illness Chief Complaint: (Pt's son at bedside, translating): Pt has intermittent trouble breathing, though feels better after nasal cannula changed to VM History of Present Illness: Ms. Jennings is an 89 year old female (b. [place]), with a significant PMH of HTN, DM, HLD, PAF (on metoprolol, amiodarone, and apixaban) and recently exacerbated CHF (diastolic), ?dementia (on Aricept), who presents to the emergency department for SOB. Patient was recently admitted to ICU ( - 08/09/20) for acute hypoxic respiratory failure (on BIPAP and pressors) and was discharged on home oxygen. Patient arrived at home last night at 5:30 pm and noticed worsening SOB by 6:00 pm. The patient noted that the SOB is worsened by lying down. The patient denies chest pain, palpitations, fever, chills, nausea, vomiting, diarrhea and constipation. Denies dysuria, frequency, urgency and hematuria. Patient denies any other symptoms. Allergies: NKDA Past surgical history: AF (cardioversion on Eliquis), CAD, Aortic Valve Stenosis-->TAVR. Social Hx: Divehi Speaking. Non-smoker PCP: Dr. Samy Campbell ([place]) Maker Up Folding: Dr. Corey Jose - History Source History Provided By: Patient, Family Member (son), Medical Record Limitations to Obtaining History: No Limitations - Past Medical History Cardio/Vascular: Yes: AFIB, Aortic Stenosis (s/p TAVR (see HPI)), CHF (diastolic ), HTN, Hyperlipdemia, Mitral Insufficiency, Pulmonary Hypertension Pulmonary: No: COPD Gastrointestinal: Yes: Peptic Ulcer Disease Reproductive: Yes: Postmenopausal ...: No Psych: Yes: Depression (depressed over loss of 3 months ago) Musculoskeletal: Yes: Chronic low back pain, Osteoarthritis Endocrine: Yes: Diabetes Mellitus, Osteopenia - Past Surgical History Past Surgical History: Yes: Valve Replacement (TAVR ) - Alcohol/Substance Use Hx Alcohol Use: No History of Substance Use: reports: None - Smoking History Smoking history: Never smoked Have you smoked in the past 12 months: No Aproximately how many cigarettes per day: 0 - Social History Usual Living Arrangement: Alone ADL: Family Assistance 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 Ointment [Xylocaine 5% Top. Ointment -] 1 applic TP Q12H 07/30/20 Magnesium Oxide [Mag-Oxide] 400 mg PO DAILY 07/30/20 Mirtazapine 15 mg PO HS 07/30/20 Pitavastatin Calcium [Livalo] 2 mg PO DAILY 07/30/20 Amiodarone HCl 200 mg PO DAILY #30 tablet 08/09/20 Apixaban [Eliquis -] 2.5 mg PO BID #60 tablet 08/09/20 Furosemide [Lasix -] 40 mg PO DAILY #30 tablet 08/09/20 Losartan Potassium [Cozaar -] 25 mg PO DAILY #30 tablet 08/09/20 Review of Systems - Review of Systems Constitutional: reports: Weakness Eyes: reports: No Symptoms HENT: reports: No Symptoms Neck: reports: No Symptoms Cardiovascular: reports: Shortness of Breath Respiratory: reports: SOB Gastrointestinal: reports: No Symptoms Genitourinary: reports: No Symptoms Breasts: reports: No Symptoms Reported Musculoskeletal: reports: Muscle Weakness Integumentary: reports: No Symptoms Neurological: reports: Weakness Endocrine: reports: No Symptoms Hematology/Lymphatic: reports: No Symptoms Psychiatric: reports: Anxiety - Risk Factors Known Risk Factors: Yes: Age, Physical Inactivity Vital Signs: Vital Signs Temperature Pulse Rate 50 L 08/10/20 12:07 Respiratory Rate 30 H 08/10/20 12:07 Blood Pressure 101/46 L 08/10/20 12:07 O2 Sat by Pulse Oximetry (%) 98 08/10/20 12:07 Constitutional: Yes: Thin Eyes: Yes: WNL HENT: Yes: WNL Neck: Yes: Decreased ROM Respiratory: Yes: Diminished, On BiPap, SOB, Tachypnea Gastrointestinal: Yes: Soft Renal/: No: Anuria Cardiovascular: Yes: Bradycardia, Pulse Irregular JVD: Yes Carotid Bruit: No PMI: Non-Displaced Heart Sounds: Yes: S1 (varies in intensity), Split S2 Murmur: Yes: Systolic Murmur (LSB-->apex), Diastolic Murmur (2/4, LSB-->base), Grade 2 Musculoskeletal: Yes: Muscle Weakness Extremities: Yes: Cool Edema: No Peripheral Pulses WNL: No Peripheral Pulses: 1+ Left Doralis Pedis, 1+ Right Dorsalis Pedis Integumentary: Yes: Other Neurological: Yes: Confusion, Weakness - Other Data Labs, Other Data: CBC, BMP 08/10/20 09:20 08/10/20 09:20 INR, PTT INR 1.73 (0.83-1.09) H 08/10/20 09:20 Troponin, BNP 08/10/20 09:20 Troponin I 0.04 B-Natriuretic Peptide 24909.2 H Troponin, BNP 08/10/20 09:20 Troponin I 0.04 B-Natriuretic Peptide 75032.2 H Abnormal Lab Results 08/11/20 08/11/20 07:00 07:00 WBC 17.5 H RDW 20.2 H Absolute Neuts (auto) 16.3 H Neutrophils % 93.3 H Neutrophils % (Manual) 91.5 H Lymphocytes % 3.4 L D Lymphocytes % (Manual) 5.3 L Monocytes % 3.0 L Monocytes % (Manual) 2 L BUN 48.0 H Random Glucose 165 H Total Bilirubin 1.8 H Echo: Report Reviewed Ejection Fraction %: LVEF > or = 40 % Imaging - Results Chest X-ray: Image Reviewed EKG: Image Reviewed Assessment/Plan 07/31/2020 Echo: Mod cLVH with normal systolic LVEF 62%, abnl LV compliance, normal RV size and fxn, mod LAE, mod-severe MAC, functional MS MVA 1.07 cm^2 P1/2t, mild TR< RVSP 24 mmHg, bioTAVR w/o regurgitation; PAF. Discharged home yesterday; readmitted with respiratory distress; found bradycardic and hypotensive. 1. Acute Hypoxic Respiratory Failure 2/2 2. Acute on chronic diastolic clinical class 2-3 NYHA classification heart failure 3. Aortic valve stenosis s/p TAVR, post op IV septal hypertrophy and small paravalvular leak since resolved 4. PAF [id number] score 6 s/p LALO guided synchronized cardioversion to sinus rhythm 5. HTN 6. Hypercholesterolemia 7. CAD 8. Moderate mitral valve regurgitation and functional MS 9. Type 2 DM 10. Acute renal dysfunction 11.Leukocytosis 12. Rising K+ PLAN: 1. Furosemide IVP cautiously; monitor diuretic response, renal function (worsening BUN/Cr in the past week), and electrolytes (K+ rising), BP. 2. Remains off Levophed 3. Hold metorolol 12.5 bid, amiodarone and losartan (hypotension; rising K+; normal LVEF) until BP and HR improve 4. Continue Eliquis 2.5 mg BID 5. Completed empiric antibiotic coverage, C&S NGTD 6. O2 as needed, COVID not detected 07/29/2020; repeat pending
--- NOTE | 2020-08-10 13:35 | HP ---
CHIEF COMPLAINT: SOB PCP: HISTORY OF PRESENT ILLNESS: This is an 89 year old female with PMH of HTN, HLD, HFpEF(62%), (s/p TAVR), AFib (Eliquis), and DM. She is Lithuanian speaking and the son is present at bedside to help translate. She was recently admitted to [facility] for acute hypoxic respiratory failure and cardiogenic shock, requiring ICU admission for pressor support (Norepinephrine from ). She was started on IV Lasix, Vanc and Zosyn in the ED, switched to Azithromycin (3 days) and Rocephin (4 days) for suspected sepsis, Echo showed diastolic heart failure with EF of 62%, and moderate concentric LVH, moderate LAE, moderate to severe mitral annular calcification, and bioprosthetic aortic valve She was discharged on home O2 and Lasix the day prior to admission. The night she returned home, she began complaining of SOB with no other symptoms. Neither sitting up nor the home oxygen relieved her symptoms. The decision was then amde to bring the patient back to the ER. ER course was notable for: (1) Cr. 1.8 (2) CXR: (3) Recent Travel: denies PAST MEDICAL HISTORY: PAST SURGICAL HISTORY: Social History: Smoking: denies Alcohol: denies Drugs: denies Allergies No Known Allergies Allergy (Verified 08/10/20 08:47) HOME MEDICATIONS: Home Medications Medication Instructions Recorded Linagliptin [Tradjenta] 5 mg PO DAILY 12/31/16 Donepezil HCl [Aricept -] 5 mg PO HS 07/23/18 Metoprolol Succinate 25 mg PO DAILY 07/28/18 Apixaban [Eliquis] 2.5 mg PO BID 06/07/20 Diclofenac Epolamine [Flector] 1 each TP Q12H PRN 07/30/20 Lidocaine 5% Top. Ointment 1 applic TP Q12H 07/30/20 [Xylocaine 5% Top. Ointment -] Magnesium Oxide [Mag-Oxide] 400 mg PO DAILY 07/30/20 Mirtazapine 15 mg PO HS 07/30/20 Pitavastatin Calcium [Livalo] 2 mg PO DAILY 07/30/20 Amiodarone HCl 200 mg PO DAILY #30 tablet 08/09/20 Apixaban [Eliquis -] 2.5 mg PO BID #60 tablet 08/09/20 Furosemide [Lasix -] 40 mg PO DAILY #30 tablet 08/09/20 Losartan Potassium [Cozaar -] 25 mg PO DAILY #30 tablet 08/09/20 REVIEW OF SYSTEMS CONSTITUTIONAL: Absent: fever, chills, diaphoresis, generalized weakness, malaise, loss of appetite, weight change HEENT: Absent: rhinorrhea, nasal congestion, throat pain, throat swelling, difficulty swallowing, mouth swelling, ear pain, eye pain, visual changes CARDIOVASCULAR: Absent: chest pain, syncope, palpitations, irregular heart rate, lightheadedness, peripheral edema RESPIRATORY: Absent: cough, shortness of breath, dyspnea with exertion, orthopnea, wheezing, stridor, hemoptysis GASTROINTESTINAL: Absent: abdominal pain, abdominal distension, nausea, vomiting, diarrhea, constipation, melena, hematochezia GENITOURINARY: Absent: dysuria, frequency, urgency, hesitancy, hematuria, flank pain, genital pain MUSCULOSKELETAL: Absent: myalgia, arthralgia, joint swelling, back pain, neck pain SKIN: Absent: rash, itching, pallor HEMATOLOGIC/IMMUNOLOGIC: Absent: easy bleeding, easy bruising, lymphadenopathy, frequent infections ENDOCRINE: Absent: unexplained weight gain, unexplained weight loss, heat intolerance, cold intolerance NEUROLOGIC: Absent: headache, focal weakness or paresthesias, dizziness, unsteady gait, seizure, mental status changes, bladder or bowel incontinence PSYCHIATRIC: Absent: anxiety, depression, suicidal or homicidal ideation, hallucinations. PHYSICAL EXAMINATION Vital Signs - 24 hr 08/10/20 08/10/20 08/10/20 08:48 09:15 09:36 Pulse Rate 50 L 50 L Pulse Rate [ Apical] Respiratory 26 H Rate Blood Pressure 86/48 L Blood Pressure [Left Arm] O2 Sat by Pulse 100 99 100 Oximetry (%) 08/10/20 08/10/20 08/10/20 10:16 10:41 11:00 Pulse Rate Pulse Rate [ 50 L Apical] Respiratory 24 H 24 H Rate Blood Pressure Blood Pressure 98/52 L [Left Arm] O2 Sat by Pulse 99 99 99 Oximetry (%) 08/10/20 12:07 Pulse Rate Pulse Rate [ 50 L Apical] Respiratory 30 H Rate Blood Pressure Blood Pressure 101/46 L [Left Arm] O2 Sat by Pulse 98 Oximetry (%) GENERAL: Awake, alert, and fully oriented, in no acute distress. HEAD: Normal with no signs of trauma. EYES: Pupils equal, round and reactive to light, extraocular movements intact, sclera anicteric, conjunctiva clear. No lid lag. EARS, NOSE, THROAT: Ears normal, nares patent, oropharynx clear without exudates. Moist mucous membranes. NECK: Normal range of motion, supple without lymphadenopathy, JVD, or masses. LUNGS: Breath sounds equal, clear to auscultation bilaterally. No wheezes, and no crackles. No accessory muscle use. HEART: Regular rate and rhythm, normal S1 and S2 without murmur, rub or gallop. ABDOMEN: Soft, nontender, not distended, normoactive bowel sounds, no guarding, no rebound, no masses. No hepatomegaly or splenomegaly. MUSCULOSKELETAL: Normal range of motion at all joints. No bony deformities or tenderness. No CVA tenderness. UPPER EXTREMITIES: 2+ pulses, warm, well-perfused. No cyanosis. No clubbing. No peripheral edema. LOWER EXTREMITIES: 2+ pulses, warm, well-perfused. No calf tenderness. No peripheral edema. NEUROLOGICAL: Cranial nerves II-XII intact. Normal speech. Normal gait. PSYCHIATRIC: Cooperative. Good eye contact. Appropriate mood and affect. SKIN: Warm, dry, normal turgor, no rashes or lesions noted, normal capillary refill. Laboratory Results - last 24 hr 08/10/20 08/10/20 08/10/20 09:20 09:20 09:20 WBC 16.2 H RBC 3.91 Hgb 11.9 Hct 35.9 MCV 91.7 MCH 30.4 MCHC 33.2 RDW 20.1 H Plt Count 252 MPV 10.3 Absolute Neuts (auto) 13.5 H Neutrophils % 83.1 H Lymphocytes % 8.8 Monocytes % 6.3 Eosinophils % 1.0 D Basophils % 0.8 Nucleated RBC % 0 PT with INR 20.90 H INR 1.73 H PTT (Actin FS) 32.8 Sodium 137 Potassium 5.0 Chloride 102 Carbon Dioxide 26 Anion Gap 9 BUN 59.5 H Creatinine 1.8 H Est GFR (CKD-EPI)AfAm 28.62 Est GFR (CKD-EPI)NonAf 24.69 Random Glucose 192 H Lactic Acid Calcium 9.4 Magnesium 2.7 H Total Bilirubin 0.9 AST 33 ALT 17 Alkaline Phosphatase 58 Creatine Kinase 67 Troponin I 0.04 B-Natriuretic Peptide 30396.2 H Total Protein 7.6 Albumin 3.6 08/10/20 09:20 WBC RBC Hgb Hct MCV MCH MCHC RDW Plt Count MPV Absolute Neuts (auto) Neutrophils % Lymphocytes % Monocytes % Eosinophils % Basophils % Nucleated RBC % PT with INR INR PTT (Actin FS) Sodium Potassium Chloride Carbon Dioxide Anion Gap BUN Creatinine Est GFR (CKD-EPI)AfAm Est GFR (CKD-EPI)NonAf Random Glucose Lactic Acid 1.8 Calcium Magnesium Total Bilirubin AST ALT Alkaline Phosphatase Creatine Kinase Troponin I B-Natriuretic Peptide Total Protein Albumin ASSESSMENT/PLAN: This is an 89 year old female with PMH of HTN, HLD, HFpEF(62%), (s/p TAVR), AFib (Eliquis), and DM, recent admission for CHF exacerbation, presented with SOB #HFpEF exacerbation #EMILY #Leukocytosis #Hx of AF #Hx of HTN/HLD #Hx of DM #FEN #Prophylaxis #Dispo ATTENDING PHYSICIAN STATEMENT I saw and evaluated the patient. I reviewed the resident's note and discussed the case with the resident. I agree with the resident's findings and plan as documented. SUBJECTIVE: OBJECTIVE: ASSESSMENT AND PLAN:
--- NOTE | 2020-08-10 14:20 | PN ---
Teaching Attending Note Name of Resident: Romario Casas ATTENDING PHYSICIAN STATEMENT I saw and evaluated the patient. I reviewed the resident's note and discussed the case with the resident. I agree with the resident's findings and plan as documented. SUBJECTIVE: 89 year old female with a significant PMH of HTN, DMT2, HLD, severe , s/p TAVR and recent discharge for cardiogenic shock yest evening returns after felling unwell a couple hours after returning home. Her son reports pt was ok initially but then became more short of breath within 2 hours of going home. Denies any chest pain or cough. Family reports thinking she just needed to settle and went thru the night but pt was agitated due to the shortness of breath all night brin ging her back to the ED this am. In ED pt noted to be mikey in the 40s, fluid overloaded on exam in the lungs but hypotensive in the 80's systolic. Pt's family member states she usually voids often due to lasix, but only voided once since being home last night and very little in amount. Pt was seen while on bipap and feeling slightly better since arriving to the ED. OBJECTIVE: Vital Signs Temperature Pulse Rate 50 L 08/10/20 12:07 Respiratory Rate 30 H 08/10/20 12:07 Blood Pressure 101/46 L 08/10/20 12:07 O2 Sat by Pulse Oximetry (%) 98 08/10/20 12:07 - Physicial Exam General: Awake, alert, responsive on Bipap, appears fatigued Neck: pos jvd Chest: crackles b/l CVS: + s1 s2, mikey, POS KONG 4-6 Abd: soft, NT, ND, Pos BS Extremities: No LE edema CBC, BMP 08/10/20 09:20 08/10/20 09:20 Hepatic Panel Total Bilirubin 0.9 mg/dL (0.2-1) 08/10/20 09:20 AST 33 U/L (15-37) 08/10/20 09:20 ALT 17 U/L (13-61) 08/10/20 09:20 Alkaline Phosphatase 58 U/L (45-117) 08/10/20 09:20 Albumin 3.6 g/dl (3.4-5.0) 08/10/20 09:20 Active Medications Amiodarone HCl (Cordarone -) 200 mg PO DAILY JANETTE Apixaban (Eliquis -) 2.5 mg PO BID JANETTE Atorvastatin Calcium (Lipitor -) 10 mg PO HS JANETTE Donepezil HCl (Aricept -) 5 mg PO HS JANETTE Insulin Aspart (Novolog Vial Sliding Scale -) 1 vial SQ ACHS JANETTE; Protocol ASSESSMENT AND PLAN: 89 y/o female with above med hx bounce back after discharge within 24 hours for hypotension, chf and jessica - hypoxic resp failure *CHF - acutely decompensated again. ?ischemic Cont Bipap as showing some improvement Check cardiac enzymes Monitor closely, low threshold for ICU eval if does not continue to improve (was just on pressors) Cardio eval Hold off on diuretics for now, s/p gentle hydration in ED and pt felt worse, more sob *jessica - within one day ?overdiuresed hold off on diuretics unable to hydrate as felt worse in ed renal eval strict i/o's monitor for oliguria *PAF - on amio and bb would hold rate lowering agents for now until seen by cardio monitor on tele, check tsh on eliquis *hypotension - from diuresis?, hold for now and monitor bp *dm - place on iss *dvt prophy - on eliquis case d/w resident Pt is full code - d/w family
--- NOTE | 2020-08-10 15:01 | CONSULT ---
Consultation: REQUESTING PROVIDER: CONSULT REQUEST: We have been asked to medically evaluate this patient for shortness of breath, hypoxia, hypotension. HISTORY OF PRESENT ILLNESS: 89 year old female patient with past medical history that includes severe aortic valve stenosis s/p TAVR (at [facility]), HTN, type 2 DM, hypercholesterolemia, peptic ulcer disease, and diastolic heart failure, who presented to the ED due to shortness of breath. The patient had been using her home O2 and taking her medications, but she only urinated a little bit. She drank 1 bottle of Ensure and 1 glass of water at home. Sleeping was very difficult for her due to the shortness of breath, so she came here today. She was placed on 3 lpm NC and later Bipap with good oxygen saturation in the 90's. The patient is also bradycardic with hypotension. REVIEW OF SYSTEMS: CONSTITUTIONAL: weak Absent: HEENT: Absent: CARDIOVASCULAR: Absent: RESPIRATORY: shortness of breath Absent: GASTROINTESTINAL: Absent: GENITOURINARY: urinary incontinence, not urinating much Absent: MUSCULOSKELETAL: Absent: SKIN: Absent: HEMATOLOGIC/IMMUNOLOGIC: Absent: ENDOCRINE: Absent: NEUROLOGIC: lightheaded Absent: PSYCHIATRIC: Absent: PHYSICAL EXAMINATION Vital Signs - 24 hr 08/10/20 08/10/20 08/10/20 08:48 09:15 09:36 Pulse Rate 50 L 50 L Pulse Rate [ Apical] Respiratory 26 H Rate Blood Pressure 86/48 L Blood Pressure [Left Arm] O2 Sat by Pulse 100 99 100 Oximetry (%) 08/10/20 08/10/20 08/10/20 10:16 10:41 11:00 Pulse Rate Pulse Rate [ 50 L Apical] Respiratory 24 H 24 H Rate Blood Pressure Blood Pressure 98/52 L [Left Arm] O2 Sat by Pulse 99 99 99 Oximetry (%) 08/10/20 12:07 Pulse Rate Pulse Rate [ 50 L Apical] Respiratory 30 H Rate Blood Pressure Blood Pressure 101/46 L [Left Arm] O2 Sat by Pulse 98 Oximetry (%) GENERAL: Awake, alert, and fully oriented, in mild distress. HEAD: Normal with no signs of trauma. EYES: Pupils equal, round and reactive to light, extraocular movements intact. No lid lag. EARS, NOSE, THROAT: Ears normal, nares patent, oropharynx clear without exudates. Moist mucous membranes. NECK: Normal range of motion, supple without lymphadenopathy, JVD, or masses. LUNGS: Crackles bilaterally. On Bipap. HEART: Bradycardic. Systolic murmur. JVD. ABDOMEN: Soft, nontender, not distended, hypoactive bowel sounds, no guarding, no rebound, no masses. MUSCULOSKELETAL: Normal range of motion at all joints. No bony deformities or tenderness. UPPER EXTREMITIES: 2+ pulses, warm, well-perfused. No cyanosis. No clubbing. Cap refill <2 seconds. No peripheral edema. LOWER EXTREMITIES: 2+ pulses, warm, well-perfused. No calf tenderness. No edema. NEUROLOGICAL: Normal speech. Gait not observed. PSYCHIATRIC: Mildly agitated. SKIN: Warm, dry, normal turgor, no rashes or lesions noted. Laboratory Results - last 24 hr 08/10/20 08/10/20 08/10/20 09:20 09:20 09:20 WBC 16.2 H RBC 3.91 Hgb 11.9 Hct 35.9 MCV 91.7 MCH 30.4 MCHC 33.2 RDW 20.1 H Plt Count 252 MPV 10.3 Absolute Neuts (auto) 13.5 H Neutrophils % 83.1 H Lymphocytes % 8.8 Monocytes % 6.3 Eosinophils % 1.0 D Basophils % 0.8 Nucleated RBC % 0 PT with INR 20.90 H INR 1.73 H PTT (Actin FS) 32.8 Sodium 137 Potassium 5.0 Chloride 102 Carbon Dioxide 26 Anion Gap 9 BUN 59.5 H Creatinine 1.8 H Est GFR (CKD-EPI)AfAm 28.62 Est GFR (CKD-EPI)NonAf 24.69 Random Glucose 192 H Lactic Acid Calcium 9.4 Magnesium 2.7 H Total Bilirubin 0.9 AST 33 ALT 17 Alkaline Phosphatase 58 Creatine Kinase 67 Troponin I 0.04 B-Natriuretic Peptide 75388.2 H Total Protein 7.6 Albumin 3.6 TSH 3.42 08/10/20 09:20 WBC RBC Hgb Hct MCV MCH MCHC RDW Plt Count MPV Absolute Neuts (auto) Neutrophils % Lymphocytes % Monocytes % Eosinophils % Basophils % Nucleated RBC % PT with INR INR PTT (Actin FS) Sodium Potassium Chloride Carbon Dioxide Anion Gap BUN Creatinine Est GFR (CKD-EPI)AfAm Est GFR (CKD-EPI)NonAf Random Glucose Lactic Acid 1.8 Calcium Magnesium Total Bilirubin AST ALT Alkaline Phosphatase Creatine Kinase Troponin I B-Natriuretic Peptide Total Protein Albumin TSH Active Medications Generic Name Dose Route Start Last Admin Trade Name Freq PRN Reason Stop Dose Admin Amiodarone HCl 200 mg 08/11/20 10:00 Cordarone - PO DAILY JANETTE Apixaban 2.5 mg 08/10/20 22:00 Eliquis - PO BID JANETTE Atorvastatin Calcium 10 mg 08/10/20 22:00 Lipitor - PO HS JANETTE Donepezil HCl 5 mg 08/10/20 22:00 Aricept - PO HS JANETTE Insulin Aspart 1 vial 08/10/20 16:30 Novolog Vial Sliding Scale - SQ ACHS JANETTE Protocol ASSESSMENT/PLAN: 89 year old female patient with past medical history that includes severe aortic valve stenosis s/p TAVR (at [facility]), HTN, type 2 DM, hypercholesterolemia, peptic ulcer disease, and diastolic heart failure, who presented to the ED due to shortness of breath. NEURO - A&Ox3 - Mildly Agitated CARDIO - possible diastolic CHF exacerbation - lasix with close monitoring of fluid status and vitals - BNP 14k - bradycardic - SIRS+ (elevated WBC and tachypneic): received vanc and Zosyn in ED - may need vasopressors like in previous admission - ddx for hypotension includes but is not limited to: chf exacerbation, SIRS+, symptomatic bradycardia, dehydration (crackles on lung exam but no leg edema) - I/Os PULM - possible diastolic CHF exacerbation - crackles with breath sounds ID - SIRS+ (elevated WBC and tachypneic): received vanc and Zosyn in ED - panculture RENAL - EMILY - Nephro consulted ENDO - ISS - BGMs DVT PPx - Eliquis 2.5 BID FEN - monitor electrolytes Dispo: Patient to be upgraded to ICU. We will continue to follow the patient. Thank you for this consultative opportunity. Visit type - Medication Review Med list reviewed for High Risk Meds patients 65 and older: Yes - Emergency Visit Emergency Visit: Yes ED Registration Date: 08/10/20 Care time: The patient presented to the Emergency Department on the above date and was hospitalized for further evaluation of their emergent condition. - New Patient This patient is new to me today: Yes Date on this admission: 08/10/20 - Critical Care Critical Care patient: No ATTENDING PHYSICIAN STATEMENT I saw and evaluated the patient. I reviewed the resident's note and discussed the case with the resident. I agree with the resident's findings and plan as documented. SUBJECTIVE: OBJECTIVE: ASSESSMENT AND PLAN:
[2020-08-10 16:48] LABS: EPI CELLS >36 /uL (0-25.1); HYALINE CASTS 20 /uL (0-3.1); URINE APPEARANCE CLOUDY; URINE BACTERIA 4 /uL (0-1359); URINE BILIRUBIN NEGATIVE (NEGATIVE); URINE COLOR DK YELLOW; URINE GLUCOSE (UA) NEGATIVE (NEGATIVE); URINE KETONE NEGATIVE (NEGATIVE); URINE LEUK ESTERASE 1+ (NEGATIVE); URINE NITRITE NEGATIVE (NEGATIVE); URINE PROTEIN 1+ (NEGATIVE); URINE RBC 17 /uL (0-23.9); URINE UROBILINOGEN 0.2 mg/dL (0.2-1.0); URINE WBC 79 /uL (0-25.8)
[2020-08-10] MEDS ORDERED: MIDAZOLAM HCL 2 MG/2 ML SINGLE DOSE VIAL IVPUSH ONE ×2 (18:41→19:29)
[2020-08-10] MEDS: INSULIN SLIDING SCALE (NOVOLOG) 1 VIAL SQ SCH ×2 (18:44→23:20)
[2020-08-10] MEDS ORDERED: MORPHINE SULFATE 2 MG/ML VIAL IVPUSH ONE (19:29)
[2020-08-10] MEDS ORDERED: MORPHINE SULFATE 2 MG/ML VIAL ONE (19:33)
[2020-08-10] MEDS ORDERED: PT OWN MED DRAWER 7, Y5N ONE (20:36)
--- NOTE | 2020-08-10 21:35 | PROC ---
Central Line Insertion Indication: Poor Venous Access, Vasopressor Risks and Benefits Explained: Yes Consent on Chart: Yes Central Line: Triple Lumen Catheter Anesthesia: 1% Lidocaine Sterile Technique: Yes Ultrasound Guided Assistance: Yes Position: Right Internal Jugular Post Insertion: Yes: Bilateral Breath Sounds, Bilateral Chest Expansion, Chest X-Ray Ordered Sterile Dressing Applied: Yes
[2020-08-10] MEDS: MUPIROCIN 2% TOPICAL OINTMENT FOR DECOLONIZATION NS SCH (23:20)
[2020-08-10] MEDS: APIXABAN 2.5 MG TABLET PO SCH (23:20)
[2020-08-10] MEDS: CHLORHEXIDINE GLUCONATE 4% CLEANSER FOR DECOLONIZATION TP SCH (23:20)
[2020-08-10] MEDS: DONEPEZIL HCL 5 MG TABLET (FP) PO SCH (23:20)
[2020-08-10] MEDS: ATORVASTATIN CA 10 MG TABLET (FP) PO SCH (23:20)
[2020-08-11] MEDS: INSULIN SLIDING SCALE (NOVOLOG) 1 VIAL SQ SCH ×4 (07:42→21:20)
[2020-08-11] MEDS ORDERED: PT OWN MED DRAWER 7, Y5N ONE ×2 (08:37→10:07)
[2020-08-11 08:50] LABS: BASO % 0.3 % (0-2.0); HEMATOCRIT 34.1 % (32.4-45.2); HEMOGLOBIN 11.4 GM/dL (10.7-15.3); LYMPH % 3.4 % (8-40); MCH 30.9 pg (25.7-33.7); MCHC 33.6 g/dl (32.0-36.0); MEAN PLT VOLUME 10.1 fl (7.5-11.1); NEUT % 93.3 % (42.8-82.8); PLATELET COUNT 214 K/MM3 (134-434); RDW 20.2 % (11.6-15.6); WHITE BLOOD COUNT 17.5 K/mm3 (4.0-10.0)
[2020-08-11 09:30] LABS: POTASSIUM 4.1 mmol/L (3.5-5.1)
[2020-08-11 09:33] LABS: CALCIUM 8.7 mg/dL (8.5-10.1)
[2020-08-11 09:34] LABS: ALBUMIN 3.4 g/dl (3.4-5.0); MAGNESIUM 2.3 mg/dL (1.8-2.4)
[2020-08-11 09:37] LABS: CREATININE 1.1 mg/dL (0.55-1.3); PHOSPHOROUS 3.5 mg/dL (2.5-4.9)
[2020-08-11 09:38] LABS: BILIRUBIN,TOTAL 1.8 mg/dL (0.2-1); TOT PROT 7.2 g/dl (6.4-8.2)
[2020-08-11] MEDS ORDERED: AMIODARONE HCL 200 MG TABLET PO SCH (10:00)
[2020-08-11] MEDS ORDERED: MAGNESIUM OXIDE 400 MG PO SCH (10:00)
--- NOTE | 2020-08-11 10:06 | CON.NEP ---
Consult Consult Specialty:: Nephrology - History of Present Illness Chief Complaint: dyspnea History of Present Illness: This is an 89 year old serbian woman who was admitted recently and discharged 2 days ago but had to return because of dyspnea. She has a history of DM, HTN, HFpEF, , s/p TAVR. She was here previously in the ICU on multiple antibiotics and was discharged on home O2. History is from chart. She is now in ICU and is making urine via a cooper which has some cloudy urine. - Past Medical History Cardio/Vascular: Yes: AFIB, Aortic Stenosis (s/p TAVR (see HPI)), CHF (diastolic ), HTN, Hyperlipdemia, Mitral Insufficiency, Pulmonary Hypertension Pulmonary: No: COPD Gastrointestinal: Yes: Peptic Ulcer Disease ...: No Psych: Yes: Depression (depressed over loss of 3 months ago) Musculoskeletal: Yes: Chronic low back pain, Osteoarthritis Endocrine: Yes: Diabetes Mellitus, Osteopenia - Past Surgical History Past Surgical History: Yes: Valve Replacement (TAVR ) - Alcohol/Substance Use Hx Alcohol Use: No History of Substance Use: reports: None - Smoking History Smoking history: Never smoked Have you smoked in the past 12 months: No Aproximately how many cigarettes per day: 0 - Social History Usual Living Arrangement: Alone ADL: Family Assistance 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 Ointment [Xylocaine 5% Top. Ointment -] 1 applic TP Q12H 07/30/20 Magnesium Oxide [Mag-Oxide] 400 mg PO DAILY 07/30/20 Mirtazapine 15 mg PO HS 07/30/20 Pitavastatin Calcium [Livalo] 2 mg PO DAILY 07/30/20 Amiodarone HCl 200 mg PO DAILY #30 tablet 08/09/20 Apixaban [Eliquis -] 2.5 mg PO BID #60 tablet 08/09/20 Furosemide [Lasix -] 40 mg PO DAILY #30 tablet 08/09/20 Losartan Potassium [Cozaar -] 25 mg PO DAILY #30 tablet 08/09/20 Nephrology Consult - Height Height: 5 ft - Weight Weight: 94 lb - BMI Body Mass Index (BMI): 18.3 - Lab Results CBC,BMP: CBC, BMP 08/11/20 07:00 08/11/20 07:00 Anion Gap: Anion Gap Anion Gap 8 MMOL/L (8-16) 08/11/20 07:00 - Imaging Chest X-ray: Report Reviewed (congestive changes) - Physical Examination Vital Signs: Vital Signs Temperature 97.1 F L 08/11/20 07:17 Pulse Rate 92 H 08/11/20 07:17 Respiratory Rate 28 H 08/11/20 07:17 Blood Pressure 130/75 08/11/20 07:17 O2 Sat by Pulse Oximetry (%) 94 L 08/11/20 08:25 Constitutional: Yes: No Distress, Calm Eyes: Yes: Conjunctiva Clear HENT: Yes: Atraumatic, Normocephalic Neck: Yes: Supple, Trachea Midline Cardiovascular: Yes: Pulse Irregular, Murmur (right sternal border and apex) Respiratory: Yes: Regular, Diminished Gastrointestinal: Yes: Normal Bowel Sounds Renal/: Yes: Cooper Present Musculoskeletal: Yes: WNL Extremities: Yes: WNL Edema: Yes Neurological: Yes: Alert (moves her extremities) Psychiatric: Yes: Alert Assessment/Plan IMPRESSION EMILY possibly due to UTI causing retention and possibly hypotension. She received 1 liter of ivf in the ED and her BP improved which may have helped as well. Its unclear how much urine was in the bladder when cooper was inserted. Her kidney function improved from better BP (either from fluids or reduced cardiac meds) and possibly from cooper insertion though I dont see record of urine output PLAN diuretics would only be prn and monitor volume status continue cooper avoid hypotension antibiotics for UTI/pneumonia Await blood/urine cultures MV
[2020-08-11] MEDS: APIXABAN 2.5 MG TABLET PO SCH ×2 (10:08→21:31)
[2020-08-11 10:20] LABS: ANISOCYTOSIS 1+; MACROCYTOSIS 0; PLATELET ESTIMATE NORMAL
--- NOTE | 2020-08-11 10:28 | PN ---
Teaching Attending Note Name of Resident: Jeffy Isbell ATTENDING PHYSICIAN STATEMENT I saw and evaluated the patient. I reviewed the resident's note and discussed the case with the resident. I agree with the resident's findings and plan as documented. SUBJECTIVE: Pt seen and examined in the ICU. Remains on BiPAP. No pressors. OBJECTIVE: Vital Signs Period Temp Pulse Resp BP Sys/Mabry Pulse Ox Last 24 Hr 96.4 F-99.2 F 46-96 22-34 92-161/43-76 94-100 Intake & Output 08/08/20 08/09/20 08/10/20 08/11/20 23:59 23:59 23:59 23:59 Intake Total 1000 Balance 1000 Weight 42.638 kg 42.638 kg Gen: tachypneic on BiPAP Heart: RRR, +systolic murmur Lung: scattered rales Abd: soft, nontender Ext: no edema CBC, BMP 08/11/20 07:00 08/11/20 07:00 Active Medications Apixaban (Eliquis -) 2.5 mg PO BID [facility] Last Admin: 08/11/20 10:08 Dose: 2.5 mg Documented by: Atorvastatin Calcium (Lipitor -) [address] [facility] Last Admin: 08/10/20 23:20 Dose: 10 mg Documented by: Chlorhexidine Gluconate (Hibiclens For Decolonization -) [address] [facility] Last Admin: 08/10/20 23:20 Dose: 1 applic Documented by: Donepezil HCl (Aricept -) [address] [facility] Last Admin: 08/10/20 23:20 Dose: 5 mg Documented by: Insulin Aspart (Novolog Vial Sliding Scale -) 1 vial SQ [facility]; Protocol Last Admin: 08/11/20 07:42 Dose: Not Given Documented by: Mupirocin (Bactroban Ointment (For Decolonization) -) 1 applic NS BID [facility] Stop: 08/15/20 21:59 Last Admin: 08/10/20 23:20 Dose: 1 applic Documented by: ASSESSMENT AND PLAN: Acute Respiratory Failure requiring NIPPV Acute on Chronic Diastolic Heart Failure Aortic Stenosis Paroxysmal Atrial Fibrillation Acute Kidney Injury r/o UTI HTN DM Hypercholesterolemia - lasix - monitor urine output, creatinine - daily weights - O2 to keep SpO2 >90% - BiPAP to assist in work of breathing - rate control - continue anticoagulation - empiric antibiotics - f/u cultures - continue ICU monitoring
[2020-08-11] MEDS: MUPIROCIN 2% TOPICAL OINTMENT FOR DECOLONIZATION NS SCH ×2 (11:35→21:19)
[2020-08-11] MEDS ORDERED: CEFTRIAXONE 1 GM in DEXTROSE 5%-WATER - 50 ML IVPB SCH (11:45)
--- NOTE | 2020-08-11 12:09 | PN ---
Progress Note (short form) - Note Progress Note: ID CONSULT DICTATED ACUTE RESP FAILURE R/O HCAP MARKED LEUKOCYTOSIS R/O UTI AWAIT SEPSIS W/U EMPIRIC VENCOMYCIN/ CEFEPIME RESP SUPPORT THANK YOU CRITICAL CARE TIME 35MIN
--- NOTE | 2020-08-11 12:21 | DS ---
Physical Exam: SUBJECTIVE: Patient seen and examined OBJECTIVE: Vital Signs Period Temp Pulse Resp BP Sys/Mabry Pulse Ox Last 24 Hr 96.4 F-99.2 F 46-96 22-34 92-161/43-76 94-99 PHYSICAL EXAM GENERAL: The patient is awake, alert, and fully oriented, in no acute distress. HEAD: Normal with no signs of trauma. EYES: PERRL, extraocular movements intact, sclera anicteric, conjunctiva clear. ENT: Ears normal, nares patent, oropharynx clear without exudates, moist mucous membranes. NECK: Trachea midline, full range of motion, supple. LUNGS: Breath sounds equal, clear to auscultation bilaterally, no wheezes, no crackles, no accessory muscle use. HEART: Regular rate and rhythm, S1, S2 without murmur, rub or gallop. ABDOMEN: Soft, nontender, nondistended, normoactive bowel sounds, no guarding, no rebound, no hepatosplenomegaly, no masses. EXTREMITIES: 2+ pulses, warm, well-perfused, no edema. NEUROLOGICAL: Cranial nerves II through XII grossly intact. Normal speech, gait not observed. PSYCH: Normal mood, normal affect. SKIN: Warm, dry, normal turgor, no rashes or lesions noted. LABS Laboratory Results - last 24 hr 08/10/20 08/10/20 08/10/20 09:20 10:30 15:00 WBC RBC Hgb Hct MCV MCH MCHC RDW Plt Count MPV Absolute Neuts (auto) Neutrophils % Neutrophils % (Manual) Band Neutrophils % Lymphocytes % Lymphocytes % (Manual) Monocytes % Monocytes % (Manual) Eosinophils % Eosinophils % (Manual) Basophils % Basophils % (Manual) Myelocytes % (Man) Promyelocytes % (Man) Blast Cells % (Manual) Nucleated RBC % Metamyelocytes Hypochromia Platelet Estimate Polychromasia Poikilocytosis Anisocytosis Microcytosis Macrocytosis Sodium Potassium Chloride Carbon Dioxide Anion Gap BUN Creatinine Est GFR (CKD-EPI)AfAm Est GFR (CKD-EPI)NonAf POC Glucometer Random Glucose Calcium Phosphorus Magnesium Total Bilirubin AST ALT Alkaline Phosphatase Total Protein Albumin TSH 3.42 Urine Color Dk yellow Urine Appearance Cloudy Urine pH 5.0 Ur Specific [place] 1.018 Urine Protein 1+ H Urine Glucose (UA) Negative Urine Ketones Negative Urine Blood Negative Urine Nitrite Negative Urine Bilirubin Negative Urine Urobilinogen 0.2 Ur Leukocyte Esterase 1+ H Urine WBC (Auto) 79 Urine RBC (Auto) 17 Urine Casts (Auto) 20 U Pathogenic Cast Auto Negative U Epithel Cells (Auto) >36 Urine Bacteria (Auto) 4 COVID-19 (SHONDA) Not detected 08/10/20 08/10/20 08/11/20 18:13 21:48 07:00 WBC 17.5 H RBC 3.70 Hgb 11.4 Hct 34.1 MCV 92.0 MCH 30.9 MCHC 33.6 RDW 20.2 H Plt Count 214 MPV 10.1 Absolute Neuts (auto) 16.3 H Neutrophils % 93.3 H Neutrophils % (Manual) 91.5 H Band Neutrophils % 0.0 Lymphocytes % 3.4 L D Lymphocytes % (Manual) 5.3 L Monocytes % 3.0 L Monocytes % (Manual) 2 L Eosinophils % 0.0 D Eosinophils % (Manual) 0.0 Basophils % 0.3 Basophils % (Manual) 0.0 Myelocytes % (Man) 0 Promyelocytes % (Man) 0 Blast Cells % (Manual) 0 Nucleated RBC % 0 Metamyelocytes 0 Hypochromia 0 Platelet Estimate Normal Polychromasia 0 Poikilocytosis 0 Anisocytosis 1+ Microcytosis 1+ Macrocytosis 0 Sodium Potassium Chloride Carbon Dioxide Anion Gap BUN Creatinine Est GFR (CKD-EPI)AfAm Est GFR (CKD-EPI)NonAf POC Glucometer 149 153 Random Glucose Calcium Phosphorus Magnesium Total Bilirubin AST ALT Alkaline Phosphatase Total Protein Albumin TSH Urine Color Urine Appearance Urine pH Ur Specific [place] Urine Protein Urine Glucose (UA) Urine Ketones Urine Blood Urine Nitrite Urine Bilirubin Urine Urobilinogen Ur Leukocyte Esterase Urine WBC (Auto) Urine RBC (Auto) Urine Casts (Auto) U Pathogenic Cast Auto U Epithel Cells (Auto) Urine Bacteria (Auto) COVID-19 (SHONDA) 08/11/20 08/11/20 08/11/20 07:00 07:14 11:30 WBC RBC Hgb Hct MCV MCH MCHC RDW Plt Count MPV Absolute Neuts (auto) Neutrophils % Neutrophils % (Manual) Band Neutrophils % Lymphocytes % Lymphocytes % (Manual) Monocytes % Monocytes % (Manual) Eosinophils % Eosinophils % (Manual) Basophils % Basophils % (Manual) Myelocytes % (Man) Promyelocytes % (Man) Blast Cells % (Manual) Nucleated RBC % Metamyelocytes Hypochromia Platelet Estimate Polychromasia Poikilocytosis Anisocytosis Microcytosis Macrocytosis Sodium 141 Potassium 4.1 Chloride 106 Carbon Dioxide 28 Anion Gap 8 BUN 48.0 H Creatinine 1.1 Est GFR (CKD-EPI)AfAm 51.91 Est GFR (CKD-EPI)NonAf 44.79 POC Glucometer 181 153 Random Glucose 165 H Calcium 8.7 Phosphorus 3.5 Magnesium 2.3 Total Bilirubin 1.8 H AST 20 ALT 14 Alkaline Phosphatase 61 Total Protein 7.2 Albumin 3.4 TSH Urine Color Urine Appearance Urine pH Ur Specific [place] Urine Protein Urine Glucose (UA) Urine Ketones Urine Blood Urine Nitrite Urine Bilirubin Urine Urobilinogen Ur Leukocyte Esterase Urine WBC (Auto) Urine RBC (Auto) Urine Casts (Auto) U Pathogenic Cast Auto U Epithel Cells (Auto) Urine Bacteria (Auto) COVID-19 (SHONDA) HOSPITAL COURSE: Date of Admission:08/10/20 Date of Discharge: 08/11/20 Discharge Summary Problems reviewed: Yes Reason For Visit: ACUTE KIDNEY INFECTION RESPIRATORY DISTRESS NYHA C Current Active Problems EMILY (acute kidney injury) (Acute) Leukocytosis (Acute) NYHA class 2 acute on chronic systolic heart failure (Acute) - Instructions - Home Medications Comprehensive Discharge Medication List: Ambulatory Orders Linagliptin [Tradjenta] 5 mg PO DAILY 12/31/16 Donepezil HCl [Aricept -] 5 mg PO HS 07/23/18 Metoprolol Succinate 25 mg PO DAILY 07/28/18 Apixaban [Eliquis] 2.5 mg PO BID 06/07/20 Diclofenac Epolamine [Flector] 1 each TP Q12H PRN 07/30/20 Lidocaine 5% Top. Ointment [Xylocaine 5% Top. Ointment -] 1 applic TP Q12H 07/30/20 Magnesium Oxide [Mag-Oxide] 400 mg PO DAILY 07/30/20 Mirtazapine 15 mg PO HS 07/30/20 Pitavastatin Calcium [Livalo] 2 mg PO DAILY 07/30/20 Amiodarone HCl 200 mg PO DAILY #30 tablet 08/09/20 Apixaban [Eliquis -] 2.5 mg PO BID #60 tablet 08/09/20 Furosemide [Lasix -] 40 mg PO DAILY #30 tablet 08/09/20 Losartan Potassium [Cozaar -] 25 mg PO DAILY #30 tablet 08/09/20 ATTENDING PHYSICIAN STATEMENT I saw and evaluated the patient. I reviewed the resident's note and discussed the case with the resident. I agree with the resident's findings and plan as documented. SUBJECTIVE: OBJECTIVE: ASSESSMENT AND PLAN:
--- NOTE | 2020-08-11 12:34 | CONS ---
INFECTIOUS DISEASE CONSULTATION DATE OF CONSULTATION: DATE OF DICTATION: 08/11/2020 HISTORY: The patient is an 89-year-old Italian-speaking female who is evaluated for respiratory insufficiency and pneumonia. She was recently discharged from the [facility] ICU. She was hospitalized between July 29 and August 09 with acute respiratory failure. She required treatment for congestive heart failure as well as pneumonia/shock. She was empirically treated with Zithromax, Zosyn, ceftriaxone. The patient was discharged for approximately 24 hours when she developed worsening shortness of breath. She was brought back to the emergency room where she was noted to be hypoxemic with an O2 saturation of 90. She required placement on a BiPAP mask. She was also noted to have a white blood cell count of 16,000. Chest x-ray showed worsening congestion bilaterally, right greater than left. At the present time she is on a BiPAP mask. She is in no acute respiratory distress. She denies any pain. She has been afebrile. White blood cell count is elevated. PAST MEDICAL HISTORY: Positive for hypertension, hyperlipidemia, congestive heart failure, diabetes mellitus, aortic stenosis, paroxysmal atrial fibrillation. PAST SURGICAL HISTORY: Status post TAVR. ALLERGIES: No known allergies. MEDICATIONS: Include Zosyn, vancomycin, Aricept, Eliquis, Lipitor, Versed, morphine. Cultures are pending. SYSTEMS REVIEW: Neurologic: No loss of consciousness, seizure activity, focal weakness. Cardiac: Negative chest pain or palpitations. Respiratory: As per HPI. Gastrointestinal: Negative vomiting or diarrhea. Genitourinary: Positive for urinary tract infection. LABORATORY DATA: White count 17.5, neutrophils 93, lymphocytes 3, monocytes 3, hematocrit 34.1, platelet count 214. BUN 48, creatinine 1.1. Liver enzymes normal with the exception of total bilirubin 1.8. Urine analysis 79 white cells. COVID-19 PCR negative. Blood cultures negative. PHYSICAL EXAMINATION: General: She is an elderly female, frail, weak appearing, slightly short of breath at rest on BiPAP mask in no acute respiratory distress. Vital Signs: Temperature 97, blood pressure 96/58, pulse 88 regular, respirations 22 per minute. HEENT: Sclerae are anicteric. Heart: Sounds S1, S2. Lungs: Diminished breath sounds bilaterally. Abdomen: Soft, nontender. Extremities: Negative for edema. IMPRESSION: 1. Acute respiratory insufficiency. 2. Rule out healthcare-acquired pneumonia. 3. Marked leukocytosis. 4. Rule out urinary tract infection. Await culture results. Empiric antibiotic coverage for healthcare-acquired pathogens with vancomycin and cefepime. Respiratory support. Thank you for the kind referral. Critical care time spent 35 minutes. SATISH COLE M.D. [id number]
--- NOTE | 2020-08-11 13:01 | PN ---
Physical Exam: SUBJECTIVE: Patient seen and examined at bedside, no complaints, no acute events overnight OBJECTIVE: Vital Signs Period Temp Pulse Resp BP Sys/Mabry Pulse Ox Last 24 Hr 96.4 F-99.2 F 46-96 22-34 92-161/43-76 94-99 GENERAL: AAOx3, in no acute distress HEENT: NCAT, PERRLA, EOMI, sclera anicteric, conjunctiva clear, oropharynx clear w/o exudates. MMM. NECK: Normal ROM, supple, no lymphadenopathy, JVD, or masses LUNGS: b/l diffuse crackles. HEART: RRR, normal S1 S2, 3/6 systolic ejection murmur along the left lateral border, peripheral pulses 2+ and equal b/l ABDOMEN: Soft, non-tender, + BS. EXTREMITIES: Normal inspection. No peripheral edema. No clubbing or cyanosis. NEUROLOGICAL: Normal speech, gait not observed PSYCH: Normal mood, normal affect. SKIN: Warm, Dry, normal turgor, no rashes or lesions noted Laboratory Results - last 24 hr 08/10/20 08/10/20 08/10/20 09:20 10:30 15:00 WBC RBC Hgb Hct MCV MCH MCHC RDW Plt Count MPV Absolute Neuts (auto) Neutrophils % Neutrophils % (Manual) Band Neutrophils % Lymphocytes % Lymphocytes % (Manual) Monocytes % Monocytes % (Manual) Eosinophils % Eosinophils % (Manual) Basophils % Basophils % (Manual) Myelocytes % (Man) Promyelocytes % (Man) Blast Cells % (Manual) Nucleated RBC % Metamyelocytes Hypochromia Platelet Estimate Polychromasia Poikilocytosis Anisocytosis Microcytosis Macrocytosis Sodium Potassium Chloride Carbon Dioxide Anion Gap BUN Creatinine Est GFR (CKD-EPI)AfAm Est GFR (CKD-EPI)NonAf POC Glucometer Random Glucose Calcium Phosphorus Magnesium Total Bilirubin AST ALT Alkaline Phosphatase Total Protein Albumin TSH 3.42 Urine Color Dk yellow Urine Appearance Cloudy Urine pH 5.0 Ur Specific [place] 1.018 Urine Protein 1+ H Urine Glucose (UA) Negative Urine Ketones Negative Urine Blood Negative Urine Nitrite Negative Urine Bilirubin Negative Urine Urobilinogen 0.2 Ur Leukocyte Esterase 1+ H Urine WBC (Auto) 79 Urine RBC (Auto) 17 Urine Casts (Auto) 20 U Pathogenic Cast Auto Negative U Epithel Cells (Auto) >36 Urine Bacteria (Auto) 4 COVID-19 (SHONDA) Not detected 08/10/20 08/10/20 08/11/20 18:13 21:48 07:00 WBC 17.5 H RBC 3.70 Hgb 11.4 Hct 34.1 MCV 92.0 MCH 30.9 MCHC 33.6 RDW 20.2 H Plt Count 214 MPV 10.1 Absolute Neuts (auto) 16.3 H Neutrophils % 93.3 H Neutrophils % (Manual) 91.5 H Band Neutrophils % 0.0 Lymphocytes % 3.4 L D Lymphocytes % (Manual) 5.3 L Monocytes % 3.0 L Monocytes % (Manual) 2 L Eosinophils % 0.0 D Eosinophils % (Manual) 0.0 Basophils % 0.3 Basophils % (Manual) 0.0 Myelocytes % (Man) 0 Promyelocytes % (Man) 0 Blast Cells % (Manual) 0 Nucleated RBC % 0 Metamyelocytes 0 Hypochromia 0 Platelet Estimate Normal Polychromasia 0 Poikilocytosis 0 Anisocytosis 1+ Microcytosis 1+ Macrocytosis 0 Sodium Potassium Chloride Carbon Dioxide Anion Gap BUN Creatinine Est GFR (CKD-EPI)AfAm Est GFR (CKD-EPI)NonAf POC Glucometer 149 153 Random Glucose Calcium Phosphorus Magnesium Total Bilirubin AST ALT Alkaline Phosphatase Total Protein Albumin TSH Urine Color Urine Appearance Urine pH Ur Specific [place] Urine Protein Urine Glucose (UA) Urine Ketones Urine Blood Urine Nitrite Urine Bilirubin Urine Urobilinogen Ur Leukocyte Esterase Urine WBC (Auto) Urine RBC (Auto) Urine Casts (Auto) U Pathogenic Cast Auto U Epithel Cells (Auto) Urine Bacteria (Auto) COVID-19 (SHONDA) 08/11/20 08/11/20 08/11/20 07:00 07:14 11:30 WBC RBC Hgb Hct MCV MCH MCHC RDW Plt Count MPV Absolute Neuts (auto) Neutrophils % Neutrophils % (Manual) Band Neutrophils % Lymphocytes % Lymphocytes % (Manual) Monocytes % Monocytes % (Manual) Eosinophils % Eosinophils % (Manual) Basophils % Basophils % (Manual) Myelocytes % (Man) Promyelocytes % (Man) Blast Cells % (Manual) Nucleated RBC % Metamyelocytes Hypochromia Platelet Estimate Polychromasia Poikilocytosis Anisocytosis Microcytosis Macrocytosis Sodium 141 Potassium 4.1 Chloride 106 Carbon Dioxide 28 Anion Gap 8 BUN 48.0 H Creatinine 1.1 Est GFR (CKD-EPI)AfAm 51.91 Est GFR (CKD-EPI)NonAf 44.79 POC Glucometer 181 153 Random Glucose 165 H Calcium 8.7 Phosphorus 3.5 Magnesium 2.3 Total Bilirubin 1.8 H AST 20 ALT 14 Alkaline Phosphatase 61 Total Protein 7.2 Albumin 3.4 TSH Urine Color Urine Appearance Urine pH Ur Specific [place] Urine Protein Urine Glucose (UA) Urine Ketones Urine Blood Urine Nitrite Urine Bilirubin Urine Urobilinogen Ur Leukocyte Esterase Urine WBC (Auto) Urine RBC (Auto) Urine Casts (Auto) U Pathogenic Cast Auto U Epithel Cells (Auto) Urine Bacteria (Auto) COVID-19 (SHONDA) Active Medications Generic Name Dose Route Start Last Admin Trade Name Freq PRN Reason Stop Dose Admin Apixaban 2.5 mg 08/10/20 22:00 08/11/20 10:08 Eliquis - PO 2.5 mg BID JANETTE Administration Atorvastatin Calcium 10 mg 08/10/20 22:00 08/10/20 23:20 Lipitor - PO 10 mg HS JANETTE Administration Chlorhexidine Gluconate 1 applic 08/10/20 22:00 08/10/20 23:20 Hibiclens For Decolonization - TP 1 applic HS JANETTE Administration Donepezil HCl 5 mg 08/10/20 22:00 08/10/20 23:20 Aricept - PO 5 mg HS JANETTE Administration Furosemide 40 mg 08/11/20 14:00 Lasix Injection - IVPUSH BID@0600,1400 JANETTE Vancomycin HCl 1,000 mg in 250 mls @ 200 mls/hr 08/11/20 13:00 Vancomycin (Pre-Docked) IVPB Q24H AJNETTE Protocol Cefepime HCl 1 gm/ Dextrose 100 mls @ 200 mls/hr 08/11/20 13:00 IVPB Q8H-IV JANETTE Protocol Insulin Aspart 1 vial 08/10/20 16:30 08/11/20 11:35 Novolog Vial Sliding Scale - SQ 2 units ACHS JANETTE Administration Protocol Mupirocin 1 applic 08/10/20 22:00 08/11/20 11:35 Bactroban Ointment (For Decolonization) - NS 08/15/20 21:59 1 applic BID JANETTE Administration ASSESSMENT/PLAN: 89 Y F with PMH of severe aortic valve stenosis s/p TAVR (at [facility]), HTN, type 2 DM, hypercholesterolemia, peptic ulcer disease, and diastolic heart failure, presented to the ED with shortness of breath, admitted for Acute on Chronic Diastolic Heart Failure NEURO - A&Ox3 CARDIO - Acute on Chronic Diastolic Heart Failure - lasix 40mg BID, will continue to monitor I/Os, urine output, creatinine, weight - monitor diuretic response closely - BNP 14k - Paroxysmal Atrial Fibrillation, currently rate controlled on AC (Eliquis 2.5 BID) - Cardiology consulted PULM - Acute Respiratory Failure requiring NIPPV, on BiPAP - O2 to keep SpO2 >90% ID - SIRS+ (elevated WBC and tachypneic): received vanc and Zosyn in ED - ID Consulted, started empiric coverage with Vanc + Cefepime, pending Cx - panculture RENAL - EMILY - Nephro consulted ENDO - ISS - BGMs DVT PPx - Eliquis 2.5 BID FEN - No standing fluids - Continue to monitor electrolytes - Sodium controlled diet Dispo: will continue to monitor in ICU. Visit type - Emergency Visit Emergency Visit: Yes ED Registration Date: 08/10/20 Care time: The patient presented to the Emergency Department on the above date and was hospitalized for further evaluation of their emergent condition. - New Patient This patient is new to me today: No - Critical Care Critical Care patient: Yes Total Critical Care Time (in minutes): 36 Critical Care Statement: The care of this patient involved high complexity decision making to prevent further life threatening deterioration of the patient's condition and/or to evaluate & treat vital organ system(s) failure or risk of failure. - Discharge Referral Referred to [facility] Med P.C.: No - Medication Review Med list reviewed for High Risk Meds patients 65 and older: Yes ATTENDING PHYSICIAN STATEMENT I saw and evaluated the patient. I reviewed the resident's note and discussed the case with the resident. I agree with the resident's findings and plan as documented. SUBJECTIVE: OBJECTIVE: ASSESSMENT AND PLAN:
[2020-08-11] MEDS ORDERED: CEFEPIME HCL 1 GM VIAL (RESTRICTED TO ID) ONE ×2 (13:22→21:28)
[2020-08-11] MEDS ORDERED: DEXTROSE 5%-WATER 100 ML IVPB ONE ×2 (13:22→21:28)
[2020-08-11] MEDS: FUROSEMIDE 40 MG/4 ML INJECTABLE VIAL IVPUSH SCH (13:29)
[2020-08-11] MEDS: CEFEPIME 1 GM in DEXTROSE 5%-WATER 100 ML IVPB SCH ×3 (13:29→18:15)
[2020-08-11] MEDS: VANCOMYCIN 1 GRAM (PRE-DOCKED) 1,000 MG/250 ML BAG IVPB SCH (13:29)
[2020-08-11] MEDS: CHLORHEXIDINE GLUCONATE 4% CLEANSER FOR DECOLONIZATION TP SCH (21:19)
[2020-08-11] MEDS: DONEPEZIL HCL 5 MG TABLET (FP) PO SCH (21:31)
[2020-08-11] MEDS: ATORVASTATIN CA 10 MG TABLET (FP) PO SCH (21:31)
--- NOTE | 2020-08-11 22:54 | PN ---
Progress Note, Physician Chief Complaint: Pt on Bipap; little response to verbal queries. History of Present Illness: Ms. Jennings is an 89 year old female (b. [employer]), with a significant PMH of HTN, DM, HLD, PAF (on metoprolol, amiodarone, and apixaban) and recently exacerbated CHF (diastolic), ?dementia (on Aricept), who presents to the emergency department for SOB. Patient was recently admitted to ICU ( - 08/09/20) for acute hypoxic respiratory failure (on BIPAP and pressors) and was discharged on home oxygen. Patient arrived at home last night at 5:30 pm and noticed worsening SOB by 6:00 pm. The patient noted that the SOB is worsened by lying down. The patient denies chest pain, palpitations, fever, chills, nausea, vomiting, diarrhea and constipation. Denies dysuria, frequency, urgency and hematuria. Patient denies any other symptoms. Allergies: NKDA Past surgical history: AF (cardioversion on Eliquis), CAD, Aortic Valve Stenosis-->TAVR. Social Hx: Uz[place] Speaking. Non-smoker PCP: Dr. Samy Campbell ([place]) Integrated Circuit Layout Designer: Dr. Corey Jose - Current Medication List Current Medications: Active Medications Apixaban (Eliquis -) 2.5 mg PO BID [facility] Last Admin: 08/11/20 21:31 Dose: 2.5 mg Documented by: Atorvastatin Calcium (Lipitor -) 10 mg PO [facility] Last Admin: 08/11/20 21:31 Dose: 10 mg Documented by: Chlorhexidine Gluconate (Hibiclens For Decolonization -) 1 applic TP [facility] Last Admin: 08/11/20 21:19 Dose: 1 applic Documented by: Donepezil HCl (Aricept -) 5 mg PO [facility] Last Admin: 08/11/20 21:31 Dose: 5 mg Documented by: Furosemide (Lasix Injection -) 40 mg IVPUSH BID@0600,1400 [facility] Last Admin: 08/11/20 13:29 Dose: 40 mg Documented by: Vancomycin HCl (Vancomycin (Pre-Docked)) 1,000 mg in 250 mls @ 200 mls/hr IVPB Q24H JANETTE; Protocol Last Admin: 08/11/20 13:29 Dose: 200 mls/hr Documented by: Cefepime HCl 1 gm/ Dextrose 100 mls @ 200 mls/hr IVPB Q8H-IV JANETTE; Protocol Last Admin: 08/11/20 18:15 Dose: Not Given Documented by: Norepinephrine Bitartrate 4, (000 mcg/ Dextrose) 500 mls @ 37.5 mls/hr IV TITR JANETTE; Protocol Insulin Aspart (Novolog Vial Sliding Scale -) 1 vial SQ ACHS [facility]; Protocol Last Admin: 08/11/20 21:20 Dose: Not Given Documented by: Mupirocin (Bactroban Ointment (For Decolonization) -) 1 applic NS BID JANETTE Stop: 08/15/20 21:59 Last Admin: 08/11/20 21:19 Dose: 1 applic Documented by: - Objective Vital Signs: Vital Signs Temperature 97.1 F L 08/11/20 20:00 Pulse Rate 86 08/11/20 20:00 Respiratory Rate 19 08/11/20 20:00 Blood Pressure 94/57 L 08/11/20 20:00 O2 Sat by Pulse Oximetry (%) 99 08/11/20 21:13 Constitutional: Yes: Thin Eyes: Yes: WNL HENT: Yes: WNL Neck: Yes: Decreased ROM Cardiovascular: Yes: S1 (varies in intensity), S2 Labs: CBC, BMP 08/11/20 07:00 08/11/20 07:00 INR, PTT INR 1.73 (0.83-1.09) H 08/10/20 09:20 Assessment/Plan 07/31/2020 Echo: Mod cLVH with normal systolic LVEF 62%, abnl LV compliance, normal RV size and fxn, mod LAE, mod-severe MAC, functional MS MVA 1.07 cm^2 P1/2t, mild TR< RVSP 24 mmHg, bioTAVR w/o regurgitation; PAF. Discharged home yesterday; readmitted with respiratory distress; found bradycard ic and hypotensive. 1. Acute Hypoxic Respiratory Failure 2/2 2. Acute on chronic diastolic clinical class 2-3 NYHA classification heart failure 3. Aortic valve stenosis s/p TAVR, post op IV septal hypertrophy and small paravalvular leak since resolved 4. PAF [id number] score 6 s/p LALO guided synchronized cardioversion to sinus rhythm 5. HTN 6. Hypercholesterolemia 7. CAD 8. Moderate mitral valve regurgitation and functional MS 9. DM 10. Acute renal dysfunction 11.Leukocytosis 12. Rising K+ PLAN: 1. Furosemide IVP cautiously; monitor diuretic response, renal function (worsening BUN/Cr in the past week), and electrolytes. 2. Restart Levophed if remains hypotensive. Continue to hold metorolol, amiodarone and losartan (hypotension; rising K+; normal LVEF) until BP and HR improve 3. O2 per raw stock drier tender; on BiPAP. 4. Continue Eliquis 2.5 mg BID 5. On antibiotics per ID (on Cefepime and Vanco) 6. COVID not detected CC time spent: 35 minutes.
[2020-08-12] MEDS: CEFEPIME 1 GM in DEXTROSE 5%-WATER 100 ML IVPB SCH ×3 (01:02→19:17)
[2020-08-12] MEDS: NOREPINEPHRINE BITARTRATE 4,000 MCG in DEXTROSE 5%-WATER - 496 ML IV SCH ×2 (01:02→19:00)
[2020-08-12] MEDS: FUROSEMIDE 40 MG/4 ML INJECTABLE VIAL IVPUSH SCH ×2 (05:11→16:30)
[2020-08-12] MEDS ORDERED: NOREPINEPHRINE BITARTRATE 4 MG/4 ML ML IV ONE (05:12)
[2020-08-12] MEDS: INSULIN SLIDING SCALE (NOVOLOG) 1 VIAL SQ SCH ×4 (06:16→22:25)
[2020-08-12 06:24] LABS: BASO % 0.5 % (0-2.0); EOS % 3.3 % (0-4.5); HEMATOCRIT 34.2 % (32.4-45.2); HEMOGLOBIN 11.4 GM/dL (10.7-15.3); MCH 30.7 pg (25.7-33.7); MCHC 33.2 g/dl (32.0-36.0); MEAN CELL VOLUME 92.5 fl (80-96); MEAN PLT VOLUME 10.4 fl (7.5-11.1); MONO % 5.9 % (3.8-10.2); NEUT % 86.3 % (42.8-82.8); PLATELET COUNT 231 K/MM3 (134-434); RDW 20.2 % (11.6-15.6); WHITE BLOOD COUNT 18.9 K/mm3 (4.0-10.0)
[2020-08-12 06:35] LABS: POTASSIUM 3.9 mmol/L (3.5-5.1)
[2020-08-12 06:37] LABS: ALBUMIN 3.1 g/dl (3.4-5.0); CALCIUM 8.7 mg/dL (8.5-10.1)
[2020-08-12 06:38] LABS: BLOOD UREA NITROGEN 38.8 mg/dL (7-18); MAGNESIUM 2.4 mg/dL (1.8-2.4)
[2020-08-12 06:41] LABS: CREATININE 0.8 mg/dL (0.55-1.3); PHOSPHOROUS 2.8 mg/dL (2.5-4.9)
[2020-08-12 06:42] LABS: BILIRUBIN,TOTAL 1.6 mg/dL (0.2-1); TOT PROT 6.9 g/dl (6.4-8.2)
--- NOTE | 2020-08-12 10:03 | PN ---
Progress Note, Physician History of Present Illness: Re-admitted for recurrent HFpEF resumed on IV diuresis and Levophed gtt. Weaned off Bipap on NC. - Current Medication List Current Medications: Active Medications Apixaban (Eliquis -) 2.5 mg PO BID [facility] Last Admin: 08/11/20 21:31 Dose: 2.5 mg Documented by: Atorvastatin Calcium (Lipitor -) 10 mg PO HS [facility] Last Admin: 08/11/20 21:31 Dose: 10 mg Documented by: Chlorhexidine Gluconate (Hibiclens For Decolonization -) 1 applic TP [facility] Last Admin: 08/11/20 21:19 Dose: 1 applic Documented by: Donepezil HCl (Aricept -) 5 mg PO HS [facility] Last Admin: 08/11/20 21:31 Dose: 5 mg Documented by: Furosemide (Lasix Injection -) 40 mg IVPUSH BID@0600,1400 [facility] Last Admin: 08/12/20 05:11 Dose: 40 mg Documented by: Vancomycin HCl (Vancomycin (Pre-Docked)) 1,000 mg in 250 mls @ 200 mls/hr IVPB Q24H JANETTE; Protocol Last Admin: 08/11/20 13:29 Dose: 200 mls/hr Documented by: Cefepime HCl 1 gm/ Dextrose 100 mls @ 200 mls/hr IVPB Q8H-IV JANETTE; Protocol Last Admin: 08/12/20 01:02 Dose: 200 mls/hr Documented by: Norepinephrine Bitartrate 4, (000 mcg/ Dextrose) 500 mls @ 37.5 mls/hr IV TITR JANETTE; Protocol Last Titration: 08/12/20 04:00 Dose: 3 mcg/min, 22.5 mls/hr Documented by: Insulin Aspart (Novolog Vial Sliding Scale -) 1 vial SQ ACHS [facility]; Protocol Last Admin: 08/12/20 06:16 Dose: 2 units Documented by: Mupirocin (Bactroban Ointment (For Decolonization) -) 1 applic NS BID [facility] Stop: 08/15/20 21:59 Last Admin: 08/11/20 21:19 Dose: 1 applic Documented by: - Objective Vital Signs: Vital Signs Temperature 98 F 08/12/20 06:00 Pulse Rate 97 H 08/12/20 08:35 Respiratory Rate 18 08/12/20 06:00 Blood Pressure 112/63 10/26/20 06:00 O2 Sat by Pulse Oximetry (%) 98 08/12/20 08:35 Constitutional: Yes: No Distress, Calm, Thin Neck: Yes: Supple Cardiovascular: Yes: Regular Rate and Rhythm, Murmur (3/6 SM) Respiratory: Yes: Regular, Diminished, On Nasal O2, SOB Gastrointestinal: Yes: Soft, Hypoactive Bowel Sounds Genitourinary: Yes: Harrell Present Edema: No Labs: CBC, BMP 08/12/20 06:00 08/12/20 06:00 INR, PTT INR 1.73 (0.83-1.09) H 08/10/20 09:20 - ....Imaging Chest X-ray: Report Reviewed (Congestion and effusion R>L) EKG: Report Reviewed (Tele: NSR @ 93) Problem List - Problems (1) Acute on chronic diastolic heart failure Code(s): I50.33 - ACUTE ON CHRONIC DIASTOLIC (CONGESTIVE) HEART FAILURE (2) HTN (hypertension) Code(s): I10 - ESSENTIAL (PRIMARY) HYPERTENSION Qualifiers: Hypertension type: essential hypertension Qualified Code(s): I10 - Essential (primary) hypertension (3) Hypercholesterolemia Code(s): E78.00 - PURE HYPERCHOLESTEROLEMIA, UNSPECIFIED (4) PAF (paroxysmal atrial fibrillation) Code(s): I48.0 - PAROXYSMAL ATRIAL FIBRILLATION (5) Pleural effusion Code(s): J90 - PLEURAL EFFUSION, NOT ELSEWHERE CLASSIFIED (6) S/P TAVR (transcatheter aortic valve replacement) Code(s): Z95.2 - PRESENCE OF PROSTHETIC HEART VALVE Assessment/Plan 07/31/2020 Echo: Mod cLVH with normal systolic LVEF 62%, abnl LV compliance, normal RV size and fxn, mod LAE, mod-severe MAC, functional MS MVA 1.07 cm^2 P1/2t, mild TR< RVSP 24 mmHg, bioTAVR w/o regurgitation; PAF. 1. Acute Hypoxic Respiratory Failure 2/2 2. Acute on chronic diastolic clinical class 2-3 NYHA classification heart failure 3. Aortic valve stenosis s/p TAVR, post op IV septal hypertrophy and small paravalvular leak since resolved 4. PAF [id number] score 6 s/p LALO guided synchronized cardioversion to sinus rhythm 5. HTN 6. Hypercholesterolemia 7. CAD 8. Moderate mitral valve regurgitation and functional MS 9. DM 10. Acute renal dysfunction resolved 11. Leukocytosis PLAN: 1. Lasix 40 IV bid with monitor diuretic response, renal function (worsening BUN/Cr in the past week), and electrolytes. 2. Resumed Levophed and wean for MAP>65 MAP. Continue to hold metoprolol, amiodarone and losartan (hypotension; rising K+; normal LVEF) until BP and HR improve 3. Wean O2 as tolerated 4. Continue Eliquis 2.5 mg BID, Lipitor 10 qd 5. Empiric antibiotics per ID (on Cefepime and Vanco), f/u C&S 6. COVID not detected
[2020-08-12] MEDS ORDERED: DEXTROSE 5%-WATER 100 ML IVPB ONE ×2 (10:12→19:16)
[2020-08-12] MEDS ORDERED: CEFEPIME HCL 1 GM VIAL (RESTRICTED TO ID) ONE ×2 (10:12→19:16)
[2020-08-12] MEDS: APIXABAN 2.5 MG TABLET PO SCH ×2 (10:17→22:17)
[2020-08-12] MEDS: MUPIROCIN 2% TOPICAL OINTMENT FOR DECOLONIZATION NS SCH ×2 (10:21→22:17)
--- NOTE | 2020-08-12 10:31 | EKG ---
Test Reason : Blood Pressure : / mmHG Vent. Rate : 049 BPM Atrial Rate : 045 BPM P-R Int : 000 ms QRS Dur : 122 ms QT Int : 568 ms P-R-T Axes : 000 -15 106 degrees QTc Int : 513 ms WIDE QRS RHYTHM JUNCTIONAL BRADYCARDIA LEFT VENTRICULAR HYPERTROPHY WITH QRS WIDENING AND REPOLARIZATION ABNORMALITY ABNORMAL ECG WHEN COMPARED WITH ECG OF 10-AUG-2020 08:45, PRESENCE OF JUNCTIONAL BRADYCARDIA Confirmed by YADIRA BARRIOS MD ([id number]) on 08/12/2020 10:31:04 AM Referred By: Confirmed By:YADIRA BARRIOS MD
--- NOTE | 2020-08-12 10:32 | EKG ---
Test Reason : Blood Pressure : / mmHG Vent. Rate : 047 BPM Atrial Rate : 047 BPM P-R Int : 000 ms QRS Dur : 170 ms QT Int : 566 ms P-R-T Axes : 000 -21 136 degrees QTc Int : 500 ms WIDE QRS RHYTHM WITH JUNCTIONAL BRADYCARDIA LEFT BUNDLE BRANCH BLOCK ABNORMAL ECG WHEN COMPARED WITH ECG OF 04-AUG-2020 12:00, WIDE QRS RHYTHM HAS REPLACED ATRIAL FIBRILLATION VENT. RATE HAS DECREASED BY 60 BPM Confirmed by SOPHIE MURRELL, YADIRA ([id number]) on 08/12/2020 10:31:37 AM Referred By: Confirmed By:YADIRA BARRIOS MD
--- NOTE | 2020-08-12 12:38 | PN ---
Teaching Attending Note Name of Resident: Jose Manuel Fitch ATTENDING PHYSICIAN STATEMENT I saw and evaluated the patient. I reviewed the resident's note and discussed the case with the resident. I agree with the resident's findings and plan as documented. SUBJECTIVE: Pt seen and examined in the ICU. Remains on levophed gtt but now off BiPAP. OBJECTIVE: Vital Signs Period Temp Pulse Resp BP Sys/Mabry Pulse Ox Last 24 Hr 97 F-98.6 F 82-97 14-28 85-124/48-73 97-100 Intake & Output 08/09/20 08/10/20 08/11/20 08/12/20 23:59 23:59 23:59 23:59 Intake Total 1000 350 376 Output Total 1200 300 Balance 1000 -850 76 Weight 42.638 kg 42.638 kg 41.867 kg Gen: mildly tachypneic at rest Heart: RRR, +systolic murmur Lung: scattered rales Abd: soft, nontender Ext: no edema CBC, BMP 08/12/20 06:00 08/12/20 06:00 Active Medications Apixaban (Eliquis -) 2.5 mg PO BID [facility] Last Admin: 08/12/20 10:17 Dose: 2.5 mg Documented by: Atorvastatin Calcium (Lipitor -) 10 mg PO HS [facility] Last Admin: 08/11/20 21:31 Dose: 10 mg Documented by: Chlorhexidine Gluconate (Hibiclens For Decolonization -) 1 applic TP HS [facility] Last Admin: 08/11/20 21:19 Dose: 1 applic Documented by: Donepezil HCl (Aricept -) 5 mg PO HS [facility] Last Admin: 08/11/20 21:31 Dose: 5 mg Documented by: Furosemide (Lasix Injection -) 40 mg IVPUSH BID@0600,1400 JANETTE Last Admin: 08/12/20 05:11 Dose: 40 mg Documented by: Vancomycin HCl (Vancomycin (Pre-Docked)) 1,000 mg in 250 mls @ 200 mls/hr IVPB Q24H JANETTE; Protocol Last Admin: 08/11/20 13:29 Dose: 200 mls/hr Documented by: Cefepime HCl 1 gm/ Dextrose 100 mls @ 200 mls/hr IVPB Q8H-IV JANETTE; Protocol Last Admin: 08/12/20 10:18 Dose: 200 mls/hr Documented by: Norepinephrine Bitartrate 4, (000 mcg/ Dextrose) 500 mls @ 37.5 mls/hr IV TITR JANETTE; Protocol Last Titration: 08/12/20 10:33 Dose: 4 mcg/min, 30 mls/hr Documented by: Insulin Aspart (Novolog Vial Sliding Scale -) 1 vial SQ ACHS JANETTE; Protocol Last Admin: 08/12/20 06:16 Dose: 2 units Documented by: Mupirocin (Bactroban Ointment (For Decolonization) -) 1 applic NS BID JANETTE Stop: 08/15/20 21:59 Last Admin: 08/12/20 10:21 Dose: 1 applic Documented by: ASSESSMENT AND PLAN: Acute Respiratory Failure requiring NIPPV Acute on Chronic Diastolic Heart Failure Aortic Stenosis Paroxysmal Atrial Fibrillation Acute Kidney Injury r/o UTI HTN DM Hypercholesterolemia - lasix - monitor urine output, creatinine - daily weights - O2 to keep SpO2 >90% - BiPAP to assist in work of breathing - rate control - continue anticoagulation - empiric antibiotics - f/u cultures - continue ICU monitoring
--- NOTE | 2020-08-12 12:51 | PN ---
Physical Exam: SUBJECTIVE: Patient seen and examined at bedside. The patient shook her head when asked if she has difficulty breathing. Per the night team, the patient was able to tolerate BiPap at night without incident. (In contrast, on Wednesday night, the patient had difficulty with BiPap compliance and tried removing it then.) Plan to give lasix to help the patient's breathing, and to monitor the patient's I/O's and urine output. OBJECTIVE: Vital Signs Period Temp Pulse Resp BP Sys/Mabry Pulse Ox Last 24 Hr 97 F-98.6 F 82-97 14-28 85-124/48-73 97-100 GENERAL: Awake, alert, and fully oriented, in no acute distress. HEAD: Normal with no signs of trauma. EYES: Pupils equal, round and reactive to light, extraocular movements intact. No lid lag. EARS, NOSE, THROAT: Ears normal, nares patent, oropharynx clear without exudates. Moist mucous membranes. NECK: Normal range of motion, supple without lymphadenopathy, JVD, or masses. LUNGS: Decreased breaths sounds, but no crackles, rhonchi, or wheezing heard. HEART: Regular rate and rhythm. Systolic murmur. JVD. ABDOMEN: Soft, nontender, not distended, normoactive bowel sounds, no guarding, no rebound, no masses. MUSCULOSKELETAL: Normal range of motion at all joints. No bony deformities or tenderness. UPPER EXTREMITIES: 2+ pulses, warm, well-perfused. No cyanosis. No clubbing. Cap refill <2 seconds. No peripheral edema. LOWER EXTREMITIES: 2+ pulses, warm, well-perfused. No calf tenderness. No edema. NEUROLOGICAL: Normal speech. Gait not observed. SKIN: Warm, dry, normal turgor, no rashes or lesions noted. Laboratory Results - last 24 hr 08/11/20 08/11/20 08/12/20 16:21 21:14 05:41 WBC RBC Hgb Hct MCV MCH MCHC RDW Plt Count MPV Absolute Neuts (auto) Neutrophils % Lymphocytes % Monocytes % Eosinophils % Basophils % Nucleated RBC % Sodium Potassium Chloride Carbon Dioxide Anion Gap BUN Creatinine Est GFR (CKD-EPI)AfAm Est GFR (CKD-EPI)NonAf POC Glucometer 325 94 151 Random Glucose Calcium Phosphorus Magnesium Total Bilirubin AST ALT Alkaline Phosphatase Total Protein Albumin 08/12/20 08/12/20 08/12/20 06:00 06:00 11:34 WBC 18.9 H RBC 3.70 Hgb 11.4 Hct 34.2 MCV 92.5 MCH 30.7 MCHC 33.2 RDW 20.2 H Plt Count 231 MPV 10.4 Absolute Neuts (auto) 16.3 H Neutrophils % 86.3 H Lymphocytes % 4.0 L Monocytes % 5.9 D Eosinophils % 3.3 D Basophils % 0.5 Nucleated RBC % 0 Sodium 141 Potassium 3.9 Chloride 105 Carbon Dioxide 30 Anion Gap 6 L BUN 38.8 H Creatinine 0.8 Est GFR (CKD-EPI)AfAm 76.29 Est GFR (CKD-EPI)NonAf 65.82 POC Glucometer 352 Random Glucose 148 H Calcium 8.7 Phosphorus 2.8 Magnesium 2.4 Total Bilirubin 1.6 H AST 21 ALT 13 Alkaline Phosphatase 61 Total Protein 6.9 Albumin 3.1 L Active Medications Generic Name Dose Route Start Last Admin Trade Name Freq PRN Reason Stop Dose Admin Apixaban 2.5 mg 08/10/20 22:00 08/12/20 10:17 Eliquis - PO 2.5 mg BID JANETTE Administration Atorvastatin Calcium 10 mg 08/10/20 22:00 08/11/20 21:31 Lipitor - PO 10 mg HS JANETTE Administration Chlorhexidine Gluconate 1 applic 08/10/20 22:00 08/11/20 21:19 Hibiclens For Decolonization - TP 1 applic HS JNAETTE Administration Donepezil HCl 5 mg 08/10/20 22:00 08/11/20 21:31 Aricept - PO 5 mg HS JANETTE Administration Furosemide 40 mg 08/11/20 14:00 08/12/20 05:11 Lasix Injection - IVPUSH 40 mg BID@0600,1400 JANETTE Administration Vancomycin HCl 1,000 mg in 250 mls @ 200 mls/hr 08/11/20 13:00 08/11/20 13:29 Vancomycin (Pre-Docked) IVPB 200 mls/hr Q24H JANETTE Administration Protocol Cefepime HCl 1 gm/ Dextrose 100 mls @ 200 mls/hr 08/11/20 13:00 08/12/20 10:18 IVPB 200 mls/hr Q8H-IV JANETTE Administration Protocol Norepinephrine Bitartrate 4, 500 mls @ 37.5 mls/hr 08/11/20 21:30 08/12/20 10:33 000 mcg/ Dextrose IV 4 mcg/min TITR JANETTE 30 mls/hr Titration Protocol 5 MCG/MIN Insulin Aspart 1 vial 08/10/20 16:30 08/12/20 06:16 Novolog Vial Sliding Scale - SQ 2 units ACHS JANETTE Administration Protocol Mupirocin 1 applic 08/10/20 22:00 08/12/20 10:21 Bactroban Ointment (For Decolonization) - NS 08/15/20 21:59 1 applic BID JANETTE Administration ASSESSMENT/PLAN: 89 year old female patient with past medical history that includes severe aortic valve stenosis s/p TAVR (at [facility]), HTN, type 2 DM, hypercholesterolemia, peptic ulcer disease, and diastolic heart failure, who presented to the ED due to shortness of breath. NEURO - A&Ox3 CARDIO - diastolic CHF exacerbation - lasix with close monitoring of fluid status and vitals - BNP 14k - borderline tachycardic - SIRS+ (elevated WBC and tachypneic) - central line in place if needs vasopressors - I/Os PULM - diastolic CHF exacerbation - clear breath sounds bilaterally today ID - SIRS+ (elevated WBC and tachypneic) - WBC increasing, now 18.9 - panculture still negative - Cefepime 1gm TID RENAL - EMILY resolved ENDO - ISS - BGMs DVT PPx - Eliquis 2.5 BID FEN - monitor electrolytes TUBES LINES AND DRAINS - Right Internal Jugular Central Line Visit type - Emergency Visit Emergency Visit: Yes ED Registration Date: 08/10/20 Care time: The patient presented to the Emergency Department on the above date and was hospitalized for further evaluation of their emergent condition. - New Patient This patient is new to me today: No - Critical Care Critical Care patient: Yes Total Critical Care Time (in minutes): 40 Critical Care Statement: The care of this patient involved high complexity decision making to prevent further life threatening deterioration of the patient's condition and/or to evaluate & treat vital organ system(s) failure or risk of failure. - Discharge Referral Referred to [facility] No - Medication Review Med list reviewed for High Risk Meds patients 65 and older: Yes ATTENDING PHYSICIAN STATEMENT I saw and evaluated the patient. I reviewed the resident's note and discussed the case with the resident. I agree with the resident's findings and plan as documented. SUBJECTIVE: OBJECTIVE: ASSESSMENT AND PLAN:
--- NOTE | 2020-08-12 12:55 | PN ---
Progress Note, Physician History of Present Illness: AWAKE, LETHARGIC BREATHING NON LABORED OFF BIPAP ON NC AFEBRILE - Current Medication List Current Medications: Active Medications Apixaban (Eliquis -) 2.5 mg PO BID [facility] Last Admin: 08/12/20 10:17 Dose: 2.5 mg Documented by: Atorvastatin Calcium (Lipitor -) 10 mg PO [facility] Last Admin: 08/11/20 21:31 Dose: 10 mg Documented by: Chlorhexidine Gluconate (Hibiclens For Decolonization -) 1 applic TP [facility] Last Admin: 08/11/20 21:19 Dose: 1 applic Documented by: Donepezil HCl (Aricept -) 5 mg PO [facility] Last Admin: 08/11/20 21:31 Dose: 5 mg Documented by: Furosemide (Lasix Injection -) 40 mg IVPUSH BID@0600,1400 [facility] Last Admin: 08/12/20 05:11 Dose: 40 mg Documented by: Vancomycin HCl (Vancomycin (Pre-Docked)) 1,000 mg in 250 mls @ 200 mls/hr IVPB Q24H [facility]; Protocol Last Admin: 08/11/20 13:29 Dose: 200 mls/hr Documented by: Cefepime HCl 1 gm/ Dextrose 100 mls @ 200 mls/hr IVPB Q8H-IV JANETTE; Protocol Last Admin: 08/12/20 10:18 Dose: 200 mls/hr Documented by: Norepinephrine Bitartrate 4, (000 mcg/ Dextrose) 500 mls @ 37.5 mls/hr IV TITR JANETTE; Protocol Last Titration: 08/12/20 10:33 Dose: 4 mcg/min, 30 mls/hr Documented by: Insulin Aspart (Novolog Vial Sliding Scale -) 1 vial SQ ACHS [facility]; Protocol Last Admin: 08/12/20 06:16 Dose: 2 units Documented by: Mupirocin (Bactroban Ointment (For Decolonization) -) 1 applic NS BID [facility] Stop: 08/15/20 21:59 Last Admin: 08/12/20 10:21 Dose: 1 applic Documented by: - Objective Vital Signs: Vital Signs Temperature 98.2 F 08/12/20 10:00 Pulse Rate 84 08/12/20 10:33 Respiratory Rate 22 H 08/12/20 10:00 Blood Pressure 86/48 L 08/12/20 10:38 O2 Sat by Pulse Oximetry (%) 98 08/12/20 12:06 Constitutional: Yes: No Distress Eyes: Yes: Conjunctiva Clear Cardiovascular: Yes: Regular Rate and Rhythm, Murmur, S1, S2 Respiratory: Yes: Diminished Gastrointestinal: Yes: Normal Bowel Sounds, Soft. No: Tenderness Edema: No Labs: CBC, BMP 08/12/20 06:00 08/12/20 06:00 INR, PTT INR 1.73 (0.83-1.09) H 08/10/20 09:20 Assessment/Plan RESP FAILURE R/O HCAP LEUKOCYTOSIS UTI AWAIT C/S CONTINUE VANCOMYCIN/ CEFEPIME
[2020-08-12] MEDS: VANCOMYCIN 1 GRAM (PRE-DOCKED) 1,000 MG/250 ML BAG IVPB SCH (16:33)
--- NOTE | 2020-08-12 16:57 | PN ---
Progress Note, Physician History of Present Illness: Pt seen and examined at bedside. She appears comfortable. - Current Medication List Current Medications: Active Medications Apixaban (Eliquis -) 2.5 mg PO BID [facility] Last Admin: 08/12/20 10:17 Dose: 2.5 mg Documented by: Atorvastatin Calcium (Lipitor -) 10 mg PO [facility] Last Admin: 08/11/20 21:31 Dose: 10 mg Documented by: Chlorhexidine Gluconate (Hibiclens For Decolonization -) 1 applic TP [facility] Last Admin: 08/11/20 21:19 Dose: 1 applic Documented by: Donepezil HCl (Aricept -) 5 mg PO [facility] Last Admin: 08/11/20 21:31 Dose: 5 mg Documented by: Furosemide (Lasix Injection -) 40 mg IVPUSH BID@0600,1400 [facility] Last Admin: 08/12/20 16:30 Dose: 40 mg Documented by: Vancomycin HCl (Vancomycin (Pre-Docked)) 1,000 mg in 250 mls @ 200 mls/hr IVPB Q24H [facility]; Protocol Last Admin: 08/12/20 16:33 Dose: 200 mls/hr Documented by: Cefepime HCl 1 gm/ Dextrose 100 mls @ 200 mls/hr IVPB Q8H-IV JANETTE; Protocol Last Admin: 08/12/20 10:18 Dose: 200 mls/hr Documented by: Norepinephrine Bitartrate 4, (000 mcg/ Dextrose) 500 mls @ 37.5 mls/hr IV TITR [facility]; Protocol Last Titration: 08/12/20 10:33 Dose: 4 mcg/min, 30 mls/hr Documented by: Insulin Aspart (Novolog Vial Sliding Scale -) 1 vial SQ ACHS [facility]; Protocol Last Admin: 08/12/20 16:42 Dose: 6 units Documented by: Mupirocin (Bactroban Ointment (For Decolonization) -) 1 applic NS BID [facility] Stop: 08/15/20 21:59 Last Admin: 08/12/20 10:21 Dose: 1 applic Documented by: - Objective Vital Signs: Vital Signs Temperature 98.4 F 08/12/20 13:00 Pulse Rate 88 08/12/20 14:00 Respiratory Rate 22 H 08/12/20 14:00 Blood Pressure 103/55 L 10/26/20 14:00 O2 Sat by Pulse Oximetry (%) 96 08/12/20 15:47 Constitutional: Yes: Calm Eyes: Yes: Conjunctiva Clear HENT: Yes: Atraumatic Cardiovascular: Yes: S1, S2 Respiratory: Yes: CTA Bilaterally Gastrointestinal: Yes: Soft Genitourinary: Yes: Incontinence Musculoskeletal: Yes: WNL Edema: No Neurological: Yes: Oriented Labs: CBC, BMP 08/12/20 06:00 08/12/20 06:00 INR, PTT INR 1.73 (0.83-1.09) H 08/10/20 09:20 Assessment/Plan Current Medications Generic Name Dose Route Start Last Admin Trade Name Freq PRN Reason Stop Dose Admin Apixaban 2.5 mg 08/10/20 22:00 08/12/20 10:17 Eliquis - PO 2.5 mg BID JANETTE Administration Atorvastatin Calcium 10 mg 08/10/20 22:00 08/11/20 21:31 Lipitor - PO 10 mg HS JANETTE Administration Chlorhexidine Gluconate 1 applic 08/10/20 22:00 08/11/20 21:19 Hibiclens For Decolonization - TP 1 applic HS JANETTE Administration Donepezil HCl 5 mg 08/10/20 22:00 08/11/20 21:31 Aricept - PO 5 mg HS JANETTE Administration Furosemide 40 mg 08/11/20 14:00 08/12/20 16:30 Lasix Injection - IVPUSH 40 mg BID@0600,1400 JANETTE Administration Vancomycin HCl 1,000 mg in 250 mls @ 200 mls/hr 08/11/20 13:00 08/12/20 16:33 Vancomycin (Pre-Docked) IVPB 200 mls/hr Q24H JANETTE Administration Protocol Cefepime HCl 1 gm/ Dextrose 100 mls @ 200 mls/hr 08/11/20 13:00 08/12/20 10:18 IVPB 200 mls/hr Q8H-IV JANETTE Administration Protocol Norepinephrine Bitartrate 4, 500 mls @ 37.5 mls/hr 08/11/20 21:30 08/12/20 10:33 000 mcg/ Dextrose IV 4 mcg/min TITR JANETTE 30 mls/hr Titration Protocol 5 MCG/MIN Insulin Aspart 1 vial 08/10/20 16:30 08/12/20 16:42 Novolog Vial Sliding Scale - SQ 6 units ACHS JANETTE Administration Protocol Mupirocin 1 applic 08/10/20 22:00 08/12/20 10:21 Bactroban Ointment (For Decolonization) - NS 08/15/20 21:59 1 applic BID JANETTE Administration Impression 1. EMILY 2. chf 3. resp falure 4. htn 5. dm 6. hld 7. Aortic Stenosis 8. Paroxysmal Atrial Fibrillation Plan - renal function is improved - repeat labs in am - cont lasix - avoid nephrotoxins - maintain map 65
[2020-08-12] MEDS ORDERED: MELATONIN 5 MG TABLETS PO ONE (21:46)
[2020-08-12] MEDS: ATORVASTATIN CA 10 MG TABLET (FP) PO SCH (22:17)
[2020-08-12] MEDS: CHLORHEXIDINE GLUCONATE 4% CLEANSER FOR DECOLONIZATION TP SCH (22:17)
[2020-08-12] MEDS: DONEPEZIL HCL 5 MG TABLET (FP) PO SCH (22:17)
[2020-08-13] MEDS ORDERED: DEXTROSE 5%-WATER 100 ML IVPB ONE ×3 (01:02→16:29)
[2020-08-13] MEDS ORDERED: CEFEPIME HCL 1 GM VIAL (RESTRICTED TO ID) ONE ×3 (01:02→16:29)
[2020-08-13] MEDS: CEFEPIME 1 GM in DEXTROSE 5%-WATER 100 ML IVPB SCH ×3 (01:52→17:00)
--- NOTE | 2020-08-13 06:20 | PN ---
Progress Note (short form) - Note Progress Note: Chief Complaint: Events noted, notes reviewed, resting in bed in no distress, dyspnea improved, no reported chest discomfort, remains on pressors, sinus rhythm is noted- as per discussion plan to proceed with PPM implant in view of her clinical presentation and evidence of junctional rhythm bradycardia History of Present Illness: Seen and examined in the ICU. Events noted, notes reviewed, resting in bed in no distress, dyspnea improved, no reported chest discomfort, remains on pressors, sinus rhythm is noted- as per discussion plan to proceed with PPM implant in view of her clinical presentation and evidence of junctional rhythm bradycardia Remains on Norepinephrine therapy as noted above - Current Medication List Current Medications: Current Medications Generic Name Dose Route Start Last Admin Trade Name Freq PRN Reason Stop Dose Admin Apixaban 2.5 mg 08/10/20 22:00 08/12/20 22:17 Eliquis - PO 2.5 mg BID JANETTE Administration Atorvastatin Calcium 10 mg 08/10/20 22:00 08/12/20 22:17 Lipitor - PO 10 mg HS JANETTE Administration Chlorhexidine Gluconate 1 applic 08/10/20 22:00 08/12/20 22:17 Hibiclens For Decolonization - TP 1 applic HS JANETTE Administration Donepezil HCl 5 mg 08/10/20 22:00 08/12/20 22:17 Aricept - PO 5 mg HS JANETTE Administration Furosemide 40 mg 08/11/20 14:00 08/12/20 16:30 Lasix Injection - IVPUSH 40 mg BID@0600,1400 JANETTE Administration Vancomycin HCl 1,000 mg in 250 mls @ 200 mls/hr 08/11/20 13:00 08/12/20 16:33 Vancomycin (Pre-Docked) IVPB 200 mls/hr Q24H JANETTE Administration Protocol Cefepime HCl 1 gm/ Dextrose 100 mls @ 200 mls/hr 08/11/20 13:00 08/13/20 01:52 IVPB 200 mls/hr Q8H-IV JANETTE Administration Protocol Norepinephrine Bitartrate 4, 500 mls @ 37.5 mls/hr 08/11/20 21:30 08/12/20 19:00 000 mcg/ Dextrose IV Not Given TITR JANETTE Protocol 5 MCG/MIN Insulin Aspart 1 vial 08/10/20 16:30 08/12/20 22:25 Novolog Vial Sliding Scale - SQ Not Given ACHS [facility] Protocol Mupirocin 1 applic 08/10/20 22:00 08/12/20 22:17 Bactroban Ointment (For Decolonization) - NS 08/15/20 21:59 1 applic BID [facility] Administration - Review of Systems Unable to obtain/Language barrier - Objective Vital Signs: Last Vital Signs Temp Pulse Resp BP Pulse Ox 97.7 F 90 25 H 113/59 L 99 08/13/20 02:00 08/13/20 04:00 08/13/20 04:00 08/13/20 04:00 08/13/20 03:58 Intake & Output 08/10/20 08/11/20 08/12/20 08/13/20 23:59 23:59 23:59 23:59 Intake Total 8686 218 0359 Output Total 1200 1200 Balance 1000 -850 513 Weight 94 lb 94 lb 92 lb 89 lb 3.2 oz Neck: Supple Negative JVD Cardiovascular: S1 S2 Regular Rate and Rhythm Garde 3/6 Systolic Ejection Murmur Respiratory: Diminished breath sounds at the bases bilaterally Gastrointestinal: Soft Benign Normal Bowel Sounds Ext: No Edema Labs: CBC, BMP 08/13/20 05:44 08/13/20 05:44 CBC, BMP 08/12/20 06:00 08/12/20 06:00 Hepatic Panel Total Bilirubin 1.6 mg/dL (0.2-1) H 08/12/20 06:00 AST 21 U/L (15-37) 08/12/20 06:00 ALT 13 U/L (13-61) 08/12/20 06:00 Alkaline Phosphatase 61 U/L (45-117) 08/12/20 06:00 Albumin 3.1 g/dl (3.4-5.0) L 08/12/20 06:00 INR, PTT INR 1.73 (0.83-1.09) H 08/10/20 09:20 Assessment/Plan ASSESSMENT: 1. Acute hypoxic respiratory failure related to acute on chronic class II-III NYHA classification LV failure related to diastolic LV dysfunction, resolving 2. Aortic valve stenosis post TAVR with a small paravalvular leak (evidence of post procedure inter-ventricular septal hypertrophy) 3. CAD angina pectoris 4. Paroxysmal atrial fibrillation [id number] score 6 post LALO guided synchronized cardioversion, currently in sinus rhythm- recent presentation with bradyarrhythmia- junctional rhythm necessitating therapy adjustments for planned PPM implant later this week 5. HTN history currently hypotensive on pressors- etiology unclear cardiogenic versus sepsis related/possible pneumonia 6. Hypercholesterolemia 7. Mitral valve regurgitation moderate in severity 8. Organic brain syndrome 9. Pre-renal azotemia PLAN: 1. Continue Lasix IV with close monitoring of renal function and electrolytes 2. Attempt to taper off pressors as tolerated 3. Ideally Amiodarone therapy resumption is recommended pending PPM implant for management of recurrent paroxysmal atrial fibrillation 4. Ideally B-Koki therapy resumption is recommended pending PPM implant for management of recurrent paroxysmal atrial fibrillation- hemodynamics permitting 5. Continue A/C therapy with DOAC's/Eliquis with close monitoring of Hg level, therapy to be withheld prior to proceeding with PPM implant 6. Plan to proceed with PPM implant once deemed infection free Above has been discussed with patient's son and Dr. Guillermo Burnett MD
[2020-08-13] MEDS: FUROSEMIDE 40 MG/4 ML INJECTABLE VIAL IVPUSH SCH ×2 (06:22→14:42)
[2020-08-13] MEDS: INSULIN SLIDING SCALE (NOVOLOG) 1 VIAL SQ SCH ×4 (06:25→23:33)
[2020-08-13 07:04] LABS: BASO % 0.7 % (0-2.0); EOS % 5.5 % (0-4.5); HEMATOCRIT 33.6 % (32.4-45.2); HEMOGLOBIN 11.2 GM/dL (10.7-15.3); LYMPH % 4.6 % (8-40); MCH 31.1 pg (25.7-33.7); MCHC 33.4 g/dl (32.0-36.0); MEAN CELL VOLUME 93.1 fl (80-96); MONO % 6.9 % (3.8-10.2); NEUT % 82.3 % (42.8-82.8); PLATELET COUNT 231 K/MM3 (134-434); RBC 3.61 M/mm3 (3.60-5.2); WHITE BLOOD COUNT 19.1 K/mm3 (4.0-10.0)
[2020-08-13 07:29] LABS: POTASSIUM 3.5 mmol/L (3.5-5.1)
[2020-08-13 07:41] LABS: CALCIUM 8.7 mg/dL (8.5-10.1)
[2020-08-13 07:42] LABS: ALBUMIN 3.1 g/dl (3.4-5.0); BLOOD UREA NITROGEN 28.3 mg/dL (7-18); MAGNESIUM 2.3 mg/dL (1.8-2.4)
[2020-08-13 07:45] LABS: CREATININE 0.7 mg/dL (0.55-1.3); PHOSPHOROUS 2.3 mg/dL (2.5-4.9)
[2020-08-13 07:47] LABS: BILIRUBIN,TOTAL 1.6 mg/dL (0.2-1); TOT PROT 6.8 g/dl (6.4-8.2)
[2020-08-13] MEDS ORDERED: NAPH,MB-DB/K PH,MBDB POWDER PACKET PO ONE (08:20)
[2020-08-13] MEDS ORDERED: PT OWN MED DRAWER 7, Y5N ONE ×2 (08:49→22:45)
[2020-08-13] MEDS: APIXABAN 2.5 MG TABLET PO SCH ×2 (09:20→22:56)
[2020-08-13] MEDS: MUPIROCIN 2% TOPICAL OINTMENT FOR DECOLONIZATION NS SCH ×2 (09:20→22:55)
--- NOTE | 2020-08-13 11:58 | PN ---
Physical Exam: SUBJECTIVE: Patient seen and examined at bedside. Patient denies shortness of breath. Plan to continue diuresis and keep blood pressure up with Levophed. OBJECTIVE: Vital Signs Period Temp Pulse Resp BP Sys/Mabry Pulse Ox Last 24 Hr 97 F-98.4 F 85-98 20-28 84-113/50-61 96-100 GENERAL: Awake, alert, and fully oriented, in no acute distress. HEAD: Normal with no signs of trauma. EYES: Pupils equal, round and reactive to light, extraocular movements intact. No lid lag. EARS, NOSE, THROAT: Ears normal, nares patent, oropharynx clear without exudates. Moist mucous membranes. NECK: Normal range of motion, supple without lymphadenopathy, JVD, or masses. LUNGS: Clear to auscultation bilaterally. No wheezes, rhonchi, or rales heard. HEART: Regular rate and rhythm. Systolic murmur. JVD. ABDOMEN: Soft, nontender, not distended, normoactive bowel sounds, no guarding, no rebound, no masses. MUSCULOSKELETAL: Normal range of motion at all joints. No bony deformities or tenderness. UPPER EXTREMITIES: 2+ pulses, warm, well-perfused. No cyanosis. No clubbing. Cap refill <2 seconds. No peripheral edema. LOWER EXTREMITIES: 2+ pulses, warm, well-perfused. No calf tenderness. No edema. NEUROLOGICAL: Normal speech. Gait not observed. SKIN: Warm, dry, normal turgor, no rashes or lesions noted. Laboratory Results - last 24 hr 08/12/20 08/12/20 08/13/20 16:42 22:24 05:44 WBC 19.1 H RBC 3.61 Hgb 11.2 Hct 33.6 MCV 93.1 MCH 31.1 MCHC 33.4 RDW 20.0 H Plt Count 231 MPV 10.0 Absolute Neuts (auto) 15.7 H Neutrophils % 82.3 Lymphocytes % 4.6 L Monocytes % 6.9 Eosinophils % 5.5 H Basophils % 0.7 Nucleated RBC % 0 Sodium Potassium Chloride Carbon Dioxide Anion Gap BUN Creatinine Est GFR (CKD-EPI)AfAm Est GFR (CKD-EPI)NonAf POC Glucometer 300 122 Random Glucose Calcium Phosphorus Magnesium Total Bilirubin AST ALT Alkaline Phosphatase Total Protein Albumin 08/13/20 08/13/20 08/13/20 05:44 06:23 10:46 WBC RBC Hgb Hct MCV MCH MCHC RDW Plt Count MPV Absolute Neuts (auto) Neutrophils % Lymphocytes % Monocytes % Eosinophils % Basophils % Nucleated RBC % Sodium 139 Potassium 3.5 Chloride 101 Carbon Dioxide 31 Anion Gap 6 L BUN 28.3 H Creatinine 0.7 Est GFR (CKD-EPI)AfAm 89.66 Est GFR (CKD-EPI)NonAf 77.36 POC Glucometer 150 226 Random Glucose 145 H Calcium 8.7 Phosphorus 2.3 L Magnesium 2.3 Total Bilirubin 1.6 H AST 19 ALT 13 Alkaline Phosphatase 57 Total Protein 6.8 Albumin 3.1 L Active Medications Generic Name Dose Route Start Last Admin Trade Name Freq PRN Reason Stop Dose Admin Apixaban 2.5 mg 08/13/20 10:00 08/13/20 09:20 Eliquis - PO 2.5 mg BID JANETTE Administration Atorvastatin Calcium 10 mg 08/13/20 22:00 Lipitor - PO HS JANETTE Chlorhexidine Gluconate 1 applic 08/10/20 22:00 08/12/20 22:17 Hibiclens For Decolonization - TP 1 applic HS JANETTE Administration Donepezil HCl 5 mg 08/13/20 22:00 Aricept - PO HS JANETTE Furosemide 40 mg 08/11/20 14:00 08/13/20 06:22 Lasix Injection - IVPUSH 40 mg BID@0600,1400 J[facility]TE Administration Vancomycin HCl 1,000 mg in 250 mls @ 200 mls/hr 08/11/20 13:00 08/12/20 16:33 Vancomycin (Pre-Docked) IVPB 200 mls/hr Q24H JANETTE Administration Protocol Cefepime HCl 1 gm/ Dextrose 100 mls @ 200 mls/hr 08/11/20 13:00 08/13/20 09:19 IVPB 200 mls/hr Q8H-IV JAN[facility]TE Administration Protocol Norepinephrine Bitartrate 4, 500 mls @ 37.5 mls/hr 08/11/20 21:30 08/12/20 19:00 000 mcg/ Dextrose IV Not Given TITR JANETTE Protocol 5 MCG/MIN Insulin Aspart 1 vial 08/13/20 11:00 08/13/20 10:57 Novolog Vial Sliding Scale - SQ 4 units ACHS JANETTE Administration Protocol Mupirocin 1 applic 08/10/20 22:00 08/13/20 09:20 Bactroban Ointment (For Decolonization) - NS 08/15/20 21:59 1 applic BID JANETTE Administration ASSESSMENT/PLAN: 89 year old female patient with past medical history that includes severe aortic valve stenosis s/p TAVR (at [facility]), HTN, type 2 DM, hypercholesterolemia, peptic ulcer disease, and diastolic heart failure, who presented to the ED due to shortness of breath. NEURO - A&Ox3 CARDIO - diastolic CHF exacerbation - lasix with close monitoring of fluid status and vitals - BNP 14k - borderline tachycardic - SIRS+ (elevated WBC and tachypneic) - central line in place if needs vasopressors - attempting to wean patient off levophed - I/Os - per Dr. Burnett's note: Plan to proceed with permanent pacemaker implant once deemed infection free PULM - diastolic CHF exacerbation - clear breath sounds bilaterally still ID - SIRS+ (elevated WBC and tachypneic) - WBC increasing, now 19.1 - panculture still negative - Cefepime 1gm TID RENAL - EMILY resolved ENDO - ISS - BGMs DVT PPx - Eliquis 2.5 BID FEN - monitor electrolytes - diabetic/sodium controlled diet TUBES LINES AND DRAINS - Right Internal Jugular Central Line from 08/10/2020 Visit type - Emergency Visit Emergency Visit: Yes ED Registration Date: 08/10/20 Care time: The patient presented to the Emergency Department on the above date and was hospitalized for further evaluation of their emergent condition. - New Patient This patient is new to me today: No - Critical Care Critical Care patient: Yes Total Critical Care Time (in minutes): 40 Critical Care Statement: The care of this patient involved high complexity decision making to prevent further life threatening deterioration of the patient's condition and/or to evaluate & treat vital organ system(s) failure or risk of failure. - Discharge Referral Referred to [facility] No - Medication Review Med list reviewed for High Risk Meds patients 65 and older: Yes ATTENDING PHYSICIAN STATEMENT I saw and evaluated the patient. I reviewed the resident's note and discussed the case with the resident. I agree with the resident's findings and plan as documented. SUBJECTIVE: OBJECTIVE: ASSESSMENT AND PLAN:
--- NOTE | 2020-08-13 11:59 | PN ---
Teaching Attending Note Name of Resident: Jose Manuel Fitch ATTENDING PHYSICIAN STATEMENT I saw and evaluated the patient. I reviewed the resident's note and discussed the case with the resident. I agree with the resident's findings and plan as documented. SUBJECTIVE: Pt seen and examined in the ICU. Remains on levophed gtt, still short of breath. OBJECTIVE: Vital Signs Period Temp Pulse Resp BP Sys/Mabry Pulse Ox Last 24 Hr 97 F-98.4 F 85-98 20-28 84-113/50-61 96-100 Intake & Output 08/10/20 08/11/20 08/12/20 08/13/20 23:59 23:59 23:59 23:59 Intake Total 7624 978 8980 550 Output Total 1200 1200 200 Balance 1000 -850 513 350 Weight 42.638 kg 42.638 kg 41.73 kg 40.46 kg Gen: mildly tachypneic at rest Heart: RRR, +systolic murmur Lung: scattered rales Abd: soft, nontender Ext: no edema CBC, BMP 08/13/20 05:44 08/13/20 05:44 Active Medications Apixaban (Eliquis -) 2.5 mg PO BID [facility] Last Admin: 08/13/20 09:20 Dose: 2.5 mg Documented by: Atorvastatin Calcium (Lipitor -) 10 mg PO HS J[facility]TE Chlorhexidine Gluconate (Hibiclens For Decolonization -) [address] [facility] Last Admin: 08/12/20 22:17 Dose: 1 applic Documented by: Donepezil HCl (Aricept -) 5 mg PO HS J[facility]TE Furosemide (Lasix Injection -) 40 mg IVPUSH BID@0600,1400 [facility] Last Admin: 08/13/20 06:22 Dose: 40 mg Documented by: Vancomycin HCl (Vancomycin (Pre-Docked)) 1,000 mg in 250 mls @ 200 mls/hr IVPB Q24H [facility]; Protocol Last Admin: 08/12/20 16:33 Dose: 200 mls/hr Documented by: Cefepime HCl 1 gm/ Dextrose 100 mls @ 200 mls/hr IVPB Q8H-IV [facility]; Protocol Last Admin: 08/13/20 09:19 Dose: 200 mls/hr Documented by: Norepinephrine Bitartrate 4, (000 mcg/ Dextrose) 500 mls @ 37.5 mls/hr IV TITR [facility]; Protocol Last Admin: 08/12/20 19:00 Dose: Not Given Documented by: Insulin Aspart (Novolog Vial Sliding Scale -) [address] [facility]; Protocol Last Admin: 08/13/20 10:57 Dose: 4 units Documented by: Mupirocin (Bactroban Ointment (For Decolonization) -) 1 applic NS BID [facility] Stop: 08/15/20 21:59 Last Admin: 08/13/20 09:20 Dose: 1 applic Documented by: ASSESSMENT AND PLAN: Acute Respiratory Failure requiring NIPPV Acute on Chronic Diastolic Heart Failure Aortic Stenosis Paroxysmal Atrial Fibrillation Acute Kidney Injury r/o UTI HTN DM Hypercholesterolemia - continue lasix - monitor urine output, creatinine - daily weights - keep net negative - O2 to keep SpO2 >90% - BiPAP to assist in work of breathing - rate control - continue anticoagulation - empiric antibiotics - f/u cultures - continue ICU monitoring
--- NOTE | 2020-08-13 12:53 | PN ---
Progress Note, Physician History of Present Illness: Pt seen and examined at bedside. She appears comfortable. - Current Medication List Current Medications: Active Medications Apixaban (Eliquis -) 2.5 mg PO BID [facility] Last Admin: 08/13/20 09:20 Dose: 2.5 mg Documented by: Atorvastatin Calcium (Lipitor -) 10 mg PO HS [facility] Chlorhexidine Gluconate (Hibiclens For Decolonization -) 1 applic TP HS [facility] Last Admin: 08/12/20 22:17 Dose: 1 applic Documented by: Donepezil HCl (Aricept -) 5 mg PO HS J[facility]TE Furosemide (Lasix Injection -) 40 mg IVPUSH BID@0600,1400 [facility] Last Admin: 08/13/20 06:22 Dose: 40 mg Documented by: Vancomycin HCl (Vancomycin (Pre-Docked)) 1,000 mg in 250 mls @ 200 mls/hr IVPB Q24H [facility]; Protocol Last Admin: 08/12/20 16:33 Dose: 200 mls/hr Documented by: Cefepime HCl 1 gm/ Dextrose 100 mls @ 200 mls/hr IVPB Q8H-IV [facility]; Protocol Last Admin: 08/13/20 09:19 Dose: 200 mls/hr Documented by: Norepinephrine Bitartrate 4, (000 mcg/ Dextrose) 500 mls @ 37.5 mls/hr IV TITR [facility]; Protocol Last Admin: 08/12/20 19:00 Dose: Not Given Documented by: Insulin Aspart (Novolog Vial Sliding Scale -) 1 vial SQ ACHS [facility]; Protocol Last Admin: 08/13/20 10:57 Dose: 4 units Documented by: Mupirocin (Bactroban Ointment (For Decolonization) -) 1 applic NS BID [facility] Stop: 08/15/20 21:59 Last Admin: 08/13/20 09:20 Dose: 1 applic Documented by: - Objective Vital Signs: Vital Signs Temperature 97.2 F L 08/13/20 09:00 Pulse Rate 97 H 08/13/20 09:00 Respiratory Rate 24 H 08/13/20 09:00 Blood Pressure 97/59 L 08/13/20 09:00 O2 Sat by Pulse Oximetry (%) 98 08/13/20 09:00 Constitutional: Yes: Calm Eyes: Yes: Conjunctiva Clear HENT: Yes: Atraumatic Neck: Yes: Supple Cardiovascular: Yes: S1, S2 Respiratory: Yes: CTA Bilaterally Gastrointestinal: Yes: Soft Genitourinary: Yes: Incontinence Musculoskeletal: Yes: Muscle Weakness Edema: No Neurological: Yes: Oriented Psychiatric: Yes: Oriented Labs: CBC, BMP 08/13/20 05:44 08/13/20 05:44 INR, PTT INR 1.73 (0.83-1.09) H 08/10/20 09:20 Assessment/Plan Current Medications Generic Name Dose Route Start Last Admin Trade Name Vasquez PRN Reason Stop Dose Admin Apixaban 2.5 mg 08/13/20 10:00 08/13/20 09:20 Eliquis - PO 2.5 mg BID JANETTE Administration Atorvastatin Calcium 10 mg 08/13/20 22:00 Lipitor - PO HS JANETTE Chlorhexidine Gluconate 1 applic 08/10/20 22:00 08/12/20 22:17 Hibiclens For Decolonization - TP 1 applic HS JANETTE Administration Donepezil HCl 5 mg 08/13/20 22:00 Aricept - PO HS JANETTE Furosemide 40 mg 08/11/20 14:00 08/13/20 06:22 Lasix Injection - IVPUSH 40 mg BID@0600,1400 JAN[facility]TE Administration Vancomycin HCl 1,000 mg in 250 mls @ 200 mls/hr 08/11/20 13:00 08/12/20 16:33 Vancomycin (Pre-Docked) IVPB 200 mls/hr Q24H J[facility]TE Administration Protocol Cefepime HCl 1 gm/ Dextrose 100 mls @ 200 mls/hr 08/11/20 13:00 08/13/20 09:19 IVPB 200 mls/hr Q8H-IV JANETTE Administration Protocol Norepinephrine Bitartrate 4, 500 mls @ 37.5 mls/hr 08/11/20 21:30 08/12/20 19:00 000 mcg/ Dextrose IV Not Given TITR JANETTE Protocol 5 MCG/MIN Insulin Aspart 1 vial 08/13/20 11:00 08/13/20 10:57 Novolog Vial Sliding Scale - SQ 4 units ACHS J[facility]TE Administration Protocol Mupirocin 1 applic 08/10/20 22:00 08/13/20 09:20 Bactroban Ointment (For Decolonization) - NS 08/15/20 21:59 1 applic BID JANETTE Administration Impression 1. EMILY 2. chf 3. resp falure 4. htn 5. dm 6. hld 7. Aortic Stenosis 8. Paroxysmal Atrial Fibrillation Plan - renal function stable - monitor lytes - replace potassium - cont lasix - avoid nephrotoxins - maintain map 65
[2020-08-13] MEDS ORDERED: POTASSIUM CHLORIDE TABS 20 MEQ TABLET.ER (FP) PO ONE (14:15)
[2020-08-13] MEDS: VANCOMYCIN 1 GRAM (PRE-DOCKED) 1,000 MG/250 ML BAG IVPB SCH (14:42)
[2020-08-13] MEDS: NOREPINEPHRINE BITARTRATE 4,000 MCG in DEXTROSE 5%-WATER - 496 ML IV SCH ×2 (18:07→21:54)
[2020-08-13] MEDS ORDERED: MELATONIN 5 MG TABLETS PO ONE (21:55)
[2020-08-13] MEDS: DONEPEZIL HCL 5 MG TABLET (FP) PO SCH (22:55)
[2020-08-13] MEDS: CHLORHEXIDINE GLUCONATE 4% CLEANSER FOR DECOLONIZATION TP SCH (22:56)
[2020-08-13] MEDS: ATORVASTATIN CA 10 MG TABLET (FP) PO SCH (22:56)
--- NOTE | 2020-08-13 23:24 | PN ---
Progress Note, Physician History of Present Illness: AWAKE, LETHARGIC BREATHING NON LABORED AFEBRILE - Current Medication List Current Medications: Active Medications Apixaban (Eliquis -) 2.5 mg PO BID [facility] Last Admin: 08/13/20 22:56 Dose: 2.5 mg Documented by: Atorvastatin Calcium (Lipitor -) 10 mg PO [facility] Last Admin: 08/13/20 22:56 Dose: 10 mg Documented by: Chlorhexidine Gluconate (Hibiclens For Decolonization -) 1 applic TP [facility] Last Admin: 08/13/20 22:56 Dose: 1 applic Documented by: Donepezil HCl (Aricept -) 5 mg PO [facility] Last Admin: 08/13/20 22:55 Dose: 5 mg Documented by: Furosemide (Lasix Injection -) 40 mg IVPUSH BID@0600,1400 [facility] Last Admin: 08/13/20 14:42 Dose: 40 mg Documented by: Vancomycin HCl (Vancomycin (Pre-Docked)) 1,000 mg in 250 mls @ 200 mls/hr IVPB Q24H [facility]; Protocol Last Admin: 08/13/20 14:42 Dose: 200 mls/hr Documented by: Cefepime HCl 1 gm/ Dextrose 100 mls @ 200 mls/hr IVPB Q8H-IV [facility]; Protocol Last Admin: 08/13/20 17:00 Dose: 200 mls/hr Documented by: Norepinephrine Bitartrate 4, (000 mcg/ Dextrose) 500 mls @ 37.5 mls/hr IV TITR JANETTE; Protocol Last Admin: 08/13/20 21:54 Dose: Not Given Documented by: Insulin Aspart (Novolog Vial Sliding Scale -) 1 vial SQ ACHS [facility]; Protocol Last Admin: 08/13/20 16:57 Dose: 10 units Documented by: Mupirocin (Bactroban Ointment (For Decolonization) -) 1 applic NS BID [facility] Stop: 08/15/20 21:59 Last Admin: 08/13/20 22:55 Dose: 1 applic Documented by: - Objective Vital Signs: Vital Signs Temperature 97.2 F L 08/13/20 17:00 Pulse Rate 94 H 08/13/20 18:07 Respiratory Rate 52 H 08/13/20 17:00 Blood Pressure 113/60 08/13/20 18:07 O2 Sat by Pulse Oximetry (%) 95 10/27/20 16:41 Constitutional: Yes: No Distress Eyes: Yes: Conjunctiva Clear Cardiovascular: Yes: Regular Rate and Rhythm, S1, S2 Respiratory: Yes: Diminished Edema: No Labs: CBC, BMP 08/13/20 05:44 08/13/20 05:44 INR, PTT INR 1.73 (0.83-1.09) H 08/10/20 09:20 Assessment/Plan RESP FAILURE R/O HCAP LEUKOCYTOSIS UTI CONTINUE VANCOMYCIN/ CEFEPIME DISCUSSED WITH DAUGHTER AT BEDSIDE
[2020-08-14] MEDS ORDERED: DEXTROSE 5%-WATER 100 ML IVPB ONE ×4 (01:58→23:12)
[2020-08-14] MEDS ORDERED: CEFEPIME HCL 1 GM VIAL (RESTRICTED TO ID) ONE ×4 (01:58→23:11)
[2020-08-14] MEDS: CEFEPIME 1 GM in DEXTROSE 5%-WATER 100 ML IVPB SCH ×3 (02:04→18:16)
[2020-08-14] MEDS: FUROSEMIDE 40 MG/4 ML INJECTABLE VIAL IVPUSH SCH ×2 (05:29→15:27)
[2020-08-14] MEDS: INSULIN SLIDING SCALE (NOVOLOG) 1 VIAL SQ SCH ×4 (06:27→23:36)
[2020-08-14 07:44] LABS: POTASSIUM 3.6 mmol/L (3.5-5.1)
[2020-08-14 07:51] LABS: ALBUMIN 3.1 g/dl (3.4-5.0); BLOOD UREA NITROGEN 27.4 mg/dL (7-18); CALCIUM 8.7 mg/dL (8.5-10.1); MAGNESIUM 2.3 mg/dL (1.8-2.4)
[2020-08-14 07:54] LABS: CREATININE 0.9 mg/dL (0.55-1.3)
[2020-08-14 07:56] LABS: BILIRUBIN,TOTAL 1.8 mg/dL (0.2-1); TOT PROT 6.8 g/dl (6.4-8.2)
[2020-08-14 08:05] LABS: BASO % 0.6 % (0-2.0); EOS % 5.7 % (0-4.5); HEMATOCRIT 34.6 % (32.4-45.2); HEMOGLOBIN 11.5 GM/dL (10.7-15.3); LYMPH % 5.4 % (8-40); MCH 31.4 pg (25.7-33.7); MCHC 33.4 g/dl (32.0-36.0); MEAN CELL VOLUME 94.2 fl (80-96); MEAN PLT VOLUME 10.3 fl (7.5-11.1); MONO % 7.7 % (3.8-10.2); NEUT % 80.6 % (42.8-82.8); PLATELET COUNT 253 K/MM3 (134-434); RBC 3.67 M/mm3 (3.60-5.2); RDW 20.1 % (11.6-15.6); WHITE BLOOD COUNT 20.3 K/mm3 (4.0-10.0)
[2020-08-14] MEDS: MUPIROCIN 2% TOPICAL OINTMENT FOR DECOLONIZATION NS SCH ×2 (09:25→23:10)
[2020-08-14] MEDS: APIXABAN 2.5 MG TABLET PO SCH ×2 (09:25→23:10)
[2020-08-14 10:22] LABS: ANISOCYTOSIS 1+; MACROCYTOSIS 1+; PLATELET ESTIMATE NORMAL
--- NOTE | 2020-08-14 10:28 | PN ---
Progress Note, Physician History of Present Illness: Dyspnea improving on IV diuresis and Levophed gtt. Remains on NC. - Current Medication List Current Medications: Active Medications Apixaban (Eliquis -) 2.5 mg PO BID [facility] Last Admin: 08/14/20 09:25 Dose: 2.5 mg Documented by: Atorvastatin Calcium (Lipitor -) 10 mg PO [facility] Last Admin: 08/13/20 22:56 Dose: 10 mg Documented by: Chlorhexidine Gluconate (Hibiclens For Decolonization -) 1 applic TP [facility] Last Admin: 08/13/20 22:56 Dose: 1 applic Documented by: Donepezil HCl (Aricept -) 5 mg PO [facility] Last Admin: 08/13/20 22:55 Dose: 5 mg Documented by: Furosemide (Lasix Injection -) 40 mg IVPUSH BID@0600,1400 [facility] Last Admin: 08/14/20 05:29 Dose: 40 mg Documented by: Vancomycin HCl (Vancomycin (Pre-Docked)) 1,000 mg in 250 mls @ 200 mls/hr IVPB Q24H [facility]; Protocol Last Admin: 08/13/20 14:42 Dose: 200 mls/hr Documented by: Cefepime HCl 1 gm/ Dextrose 100 mls @ 200 mls/hr IVPB Q8H-IV [facility]; Protocol Last Admin: 08/14/20 09:25 Dose: 200 mls/hr Documented by: Norepinephrine Bitartrate 4, (000 mcg/ Dextrose) 500 mls @ 37.5 mls/hr IV TITR [facility]; Protocol Last Admin: 08/13/20 21:54 Dose: Not Given Documented by: Insulin Aspart (Novolog Vial Sliding Scale -) 1 vial SQ ACHS [facility]; Protocol Last Admin: 08/14/20 06:27 Dose: 4 units Documented by: Mupirocin (Bactroban Ointment (For Decolonization) -) 1 applic NS BID [facility] Stop: 08/15/20 21:59 Last Admin: 08/14/20 09:25 Dose: 1 applic Documented by: - Objective Vital Signs: Vital Signs Temperature 98.2 F 08/14/20 06:05 Pulse Rate 83 08/14/20 06:05 Respiratory Rate 16 08/14/20 06:05 Blood Pressure 120/59 L 08/14/20 06:05 O2 Sat by Pulse Oximetry (%) 97 08/14/20 00:51 Constitutional: Yes: No Distress, Calm, Thin Neck: Yes: Supple Cardiovascular: Yes: Regular Rate and Rhythm Respiratory: Yes: Regular, Diminished, On Nasal O2, SOB Gastrointestinal: Yes: Soft, Hypoactive Bowel Sounds Edema: No Labs: CBC, BMP 08/14/20 05:37 08/14/20 05:37 INR, PTT INR 1.73 (0.83-1.09) H 08/10/20 09:20 - ....Imaging EKG: Report Reviewed (Tele: NSR) Problem List - Problems (1) Acute on chronic diastolic heart failure Code(s): I50.33 - ACUTE ON CHRONIC DIASTOLIC (CONGESTIVE) HEART FAILURE (2) HTN (hypertension) Code(s): I10 - ESSENTIAL (PRIMARY) HYPERTENSION Qualifiers: Hypertension type: essential hypertension Qualified Code(s): I10 - Essential (primary) hypertension (3) Hypercholesterolemia Code(s): E78.00 - PURE HYPERCHOLESTEROLEMIA, UNSPECIFIED (4) PAF (paroxysmal atrial fibrillation) Code(s): I48.0 - PAROXYSMAL ATRIAL FIBRILLATION (5) Pleural effusion Code(s): J90 - PLEURAL EFFUSION, NOT ELSEWHERE CLASSIFIED (6) S/P TAVR (transcatheter aortic valve replacement) Code(s): Z95.2 - PRESENCE OF PROSTHETIC HEART VALVE Assessment/Plan 07/31/2020 Echo: Mod cLVH with normal systolic LVEF 62%, abnl LV compliance, normal RV size and fxn, mod LAE, mod-severe MAC, functional MS MVA 1.07 cm^2 P1/2t, mild TR< RVSP 24 mmHg, bioTAVR w/o regurgitation; PAF. ASSESSMENT: 1. Acute hypoxic respiratory failure related to acute on chronic class II-III NYHA classification LV failure related to diastolic LV dysfunction, resolving 2. Aortic valve stenosis post TAVR with a small paravalvular leak (evidence of post procedure inter-ventricular septal hypertrophy) 3. CAD angina pectoris 4. Paroxysmal atrial fibrillation [id number] score 6 post LALO guided synchronized cardioversion, currently in sinus rhythm- recent presentation with bradyarrhythmia- junctional rhythm necessitating therapy adjustments for planned PPM implant later this week 5. HTN history currently hypotensive on pressors- etiology unclear cardiogenic versus sepsis related/possible pneumonia 6. Hypercholesterolemia 7. Mitral valve regurgitation moderate in severity 8. Organic brain syndrome 9. Pre-renal azotemia improved 10. Leukocytosis r/o HCAP, UTI PLAN: 1. Continue Lasix 40 IV bid with close monitoring of diuretic response, renal function and electrolytes 2. Attempt to taper off pressors as tolerated, abx course per C&S 3. Ideally Amiodarone therapy resumption is recommended pending PPM implant for management of recurrent paroxysmal atrial fibrillation 4. Ideally B-Koki therapy resumption is recommended pending PPM implant for management of recurrent paroxysmal atrial fibrillation- hemodynamics permitting 5. Continue A/C therapy with DOAC's/Eliquis with close monitoring of Hg level, therapy to be withheld prior to proceeding with PPM implant 6. Plan to proceed with PPM implant once deemed infection free, hold Eliquis for 2 days prior and resume once post-procedure hemostasis achieved 7. Continue Lipitor 10 qhs
--- NOTE | 2020-08-14 10:35 | PN ---
Teaching Attending Note Name of Resident: Jose Manuel Fitch ATTENDING PHYSICIAN STATEMENT I saw and evaluated the patient. I reviewed the resident's note and discussed the case with the resident. I agree with the resident's findings and plan as documented. SUBJECTIVE: Pt seen and examined in the ICU. Remains on levophed gtt, breathing better toda y. Positive net balance per chart but weight is down. OBJECTIVE: Vital Signs Period Temp Pulse Resp BP Sys/Mabry Pulse Ox Last 24 Hr 97.1 F-98.8 F 83-100 16-52 91-127/50-60 95-98 Intake & Output 08/11/20 08/12/20 08/13/20 08/14/20 23:59 23:59 23:59 23:59 Intake Total 350 1713 2240 550 Output Total 1200 1200 700 800 Balance -009 207 5987 -250 Weight 42.638 kg 41.73 kg 40.46 kg 40.415 kg Gen: mildly tachypneic at rest Heart: RRR, +systolic murmur Lung: scattered rales Abd: soft, nontender Ext: no edema CBC, BMP 08/14/20 05:37 08/14/20 05:37 Active Medications Apixaban (Eliquis -) 2.5 mg PO BID [facility] Last Admin: 08/14/20 09:25 Dose: 2.5 mg Documented by: Atorvastatin Calcium (Lipitor -) 10 mg PO [facility] Last Admin: 08/13/20 22:56 Dose: 10 mg Documented by: Chlorhexidine Gluconate (Hibiclens For Decolonization -) 1 applic TP [facility] Last Admin: 08/13/20 22:56 Dose: 1 applic Documented by: Donepezil HCl (Aricept -) 5 mg PO [facility] Last Admin: 08/13/20 22:55 Dose: 5 mg Documented by: Furosemide (Lasix Injection -) 40 mg IVPUSH BID@0600,1400 [facility] Last Admin: 08/14/20 05:29 Dose: 40 mg Documented by: Vancomycin HCl (Vancomycin (Pre-Docked)) 1,000 mg in 250 mls @ 200 mls/hr IVPB Q24H [facility]; Protocol Last Admin: 08/13/20 14:42 Dose: 200 mls/hr Documented by: Cefepime HCl 1 gm/ Dextrose 100 mls @ 200 mls/hr IVPB Q8H-IV [facility]; Protocol Last Admin: 08/14/20 09:25 Dose: 200 mls/hr Documented by: Norepinephrine Bitartrate 4, (000 mcg/ Dextrose) 500 mls @ 37.5 mls/hr IV TITR [facility]TE; Protocol Last Admin: 08/13/20 21:54 Dose: Not Given Documented by: Insulin Aspart (Novolog Vial Sliding Scale -) 1 vial SQ ACHS [facility]; Protocol Last Admin: 08/14/20 06:27 Dose: 4 units Documented by: Mupirocin (Bactroban Ointment (For Decolonization) -) 1 applic NS BID [facility]TE Stop: 08/15/20 21:59 Last Admin: 08/14/20 09:25 Dose: 1 applic Documented by: ASSESSMENT AND PLAN: Acute Respiratory Failure requiring NIPPV Acute on Chronic Diastolic Heart Failure Aortic Stenosis Paroxysmal Atrial Fibrillation Acute Kidney Injury r/o UTI HTN DM Hypercholesterolemia - continue lasix - monitor urine output, creatinine - daily weights - keep net negative - O2 to keep SpO2 >90% - BiPAP to assist in work of breathing - rate control - continue anticoagulation - empiric antibiotics - f/u cultures - continue ICU monitoring
--- NOTE | 2020-08-14 10:44 | PN ---
Physical Exam: SUBJECTIVE: Patient seen and examined at bedside. The patient denied shortness of breath, fever, or nausea. Previously, elevated total bilirubin was trending down and was thought to possibly be due to stress/infection, but today the total bilirubin trended up a little. Direct Bilirubin order placed today, with abdominal ultrasound possible depending on results of the direct bilirubin. OBJECTIVE: Vital Signs Period Temp Pulse Resp BP Sys/Mabry Pulse Ox Last 24 Hr 97.1 F-98.8 F 83-100 16-52 91-127/50-60 95-98 GENERAL: Awake, alert, and fully oriented, in no acute distress. HEAD: Normal with no signs of trauma. EYES: Pupils equal, round and reactive to light, extraocular movements intact. No lid lag. EARS, NOSE, THROAT: Ears normal, nares patent, oropharynx clear without exudates. Moist mucous membranes. NECK: Normal range of motion, supple without lymphadenopathy or masses. LUNGS: Clear to auscultation bilaterally. No wheezes, rhonchi, or rales heard. HEART: Regular rate and rhythm. Systolic murmur. ABDOMEN: Soft, nontender, not distended, normoactive bowel sounds, no guarding, no rebound, no masses. Negative Murray's sign. MUSCULOSKELETAL: Normal range of motion at all joints. No bony deformities or tenderness. UPPER EXTREMITIES: 2+ pulses, warm, well-perfused. No cyanosis. No clubbing. Cap refill <2 seconds. No peripheral edema. LOWER EXTREMITIES: 2+ pulses, warm, well-perfused. No calf tenderness. No edema. NEUROLOGICAL: Normal speech. Gait not observed. SKIN: Warm, dry, normal turgor, no rashes or lesions noted. Laboratory Results - last 24 hr 08/13/20 08/13/20 08/13/20 10:46 12:45 16:11 WBC RBC Hgb Hct MCV MCH MCHC RDW Plt Count MPV Absolute Neuts (auto) Neutrophils % Neutrophils % (Manual) Band Neutrophils % Lymphocytes % Lymphocytes % (Manual) Monocytes % Monocytes % (Manual) Eosinophils % Eosinophils % (Manual) Basophils % Basophils % (Manual) Myelocytes % (Man) Promyelocytes % (Man) Blast Cells % (Manual) Nucleated RBC % Metamyelocytes Hypochromia Platelet Estimate Polychromasia Poikilocytosis Anisocytosis Microcytosis Macrocytosis Sodium Potassium Chloride Carbon Dioxide Anion Gap BUN Creatinine Est GFR (CKD-EPI)AfAm Est GFR (CKD-EPI)NonAf POC Glucometer 226 388 Random Glucose Calcium Phosphorus Magnesium Total Bilirubin AST ALT Alkaline Phosphatase Total Protein Albumin Vancomycin Pre-Dose 13.2 H 08/13/20 08/14/20 08/14/20 23:17 05:37 05:37 WBC 20.3 H RBC 3.67 Hgb 11.5 Hct 34.6 MCV 94.2 MCH 31.4 MCHC 33.4 RDW 20.1 H Plt Count 253 MPV 10.3 Absolute Neuts (auto) 16.4 H Neutrophils % 80.6 Neutrophils % (Manual) 81.2 Band Neutrophils % 0.0 Lymphocytes % 5.4 L Lymphocytes % (Manual) 3.0 L D Monocytes % 7.7 Monocytes % (Manual) 6 D Eosinophils % 5.7 H Eosinophils % (Manual) 6.9 H D Basophils % 0.6 Basophils % (Manual) 1.0 D Myelocytes % (Man) 1 D Promyelocytes % (Man) 0 Blast Cells % (Manual) 0 Nucleated RBC % 0 Metamyelocytes 0 Hypochromia 0 Platelet Estimate Normal Polychromasia 1+ Poikilocytosis 0 Anisocytosis 1+ Microcytosis 1+ Macrocytosis 1+ Sodium 135 L Potassium 3.6 Chloride 97 L Carbon Dioxide 31 Anion Gap 7 L BUN 27.4 H Creatinine 0.9 Est GFR (CKD-EPI)AfAm 66.16 Est GFR (CKD-EPI)NonAf 57.09 POC Glucometer 145 Random Glucose 175 H Calcium 8.7 Phosphorus 3.0 Magnesium 2.3 Total Bilirubin 1.8 H AST 20 ALT 14 Alkaline Phosphatase 63 Total Protein 6.8 Albumin 3.1 L Vancomycin Pre-Dose 08/14/20 05:40 WBC RBC Hgb Hct MCV MCH MCHC RDW Plt Count MPV Absolute Neuts (auto) Neutrophils % Neutrophils % (Manual) Band Neutrophils % Lymphocytes % Lymphocytes % (Manual) Monocytes % Monocytes % (Manual) Eosinophils % Eosinophils % (Manual) Basophils % Basophils % (Manual) Myelocytes % (Man) Promyelocytes % (Man) Blast Cells % (Manual) Nucleated RBC % Metamyelocytes Hypochromia Platelet Estimate Polychromasia Poikilocytosis Anisocytosis Microcytosis Macrocytosis Sodium Potassium Chloride Carbon Dioxide Anion Gap BUN Creatinine Est GFR (CKD-EPI)AfAm Est GFR (CKD-EPI)NonAf POC Glucometer 208 Random Glucose Calcium Phosphorus Magnesium Total Bilirubin AST ALT Alkaline Phosphatase Total Protein Albumin Vancomycin Pre-Dose Active Medications Generic Name Dose Route Start Last Admin Trade Name Vaughnq PRN Reason Stop Dose Admin Apixaban 2.5 mg 08/13/20 10:00 08/14/20 09:25 Eliquis - PO 2.5 mg BID JANETTE Administration Atorvastatin Calcium 10 mg 08/13/20 22:00 08/13/20 22:56 Lipitor - PO 10 mg HS JANETTE Administration Chlorhexidine Gluconate 1 applic 08/10/20 22:00 08/13/20 22:56 Hibiclens For Decolonization - TP 1 applic HS JANETTE Administration Donepezil HCl 5 mg 08/13/20 22:00 08/13/20 22:55 Aricept - PO 5 mg HS JANETTE Administration Furosemide 40 mg 08/11/20 14:00 08/14/20 05:29 Lasix Injection - IVPUSH 40 mg BID@0600,1400 JAN[facility]TE Administration Vancomycin HCl 1,000 mg in 250 mls @ 200 mls/hr 08/11/20 13:00 08/13/20 14:42 Vancomycin (Pre-Docked) IVPB 200 mls/hr Q24H JAN[facility]TE Administration Protocol Cefepime HCl 1 gm/ Dextrose 100 mls @ 200 mls/hr 08/11/20 13:00 08/14/20 09:25 IVPB 200 mls/hr Q8H-IV JANETTE Administration Protocol Norepinephrine Bitartrate 4, 500 mls @ 37.5 mls/hr 08/11/20 21:30 08/13/20 21:54 000 mcg/ Dextrose IV Not Given TITR JANETTE Protocol 5 MCG/MIN Insulin Aspart 1 vial 08/13/20 11:00 08/14/20 06:27 Novolog Vial Sliding Scale - SQ 4 units ACHS JANETTE Administration Protocol Mupirocin 1 applic 08/10/20 22:00 08/14/20 09:25 Bactroban Ointment (For Decolonization) - NS 08/15/20 21:59 1 applic BID JANETTE Administration ASSESSMENT/PLAN: 89 year old female patient with past medical history that includes severe aortic valve stenosis s/p TAVR (at [facility]), HTN, type 2 DM, hypercholesterolemia, peptic ulcer disease, and diastolic heart failure, who presented to the ED due to shortness of breath. NEURO - A&Ox3 CARDIO - diastolic CHF exacerbation - lasix with close monitoring of fluid status and vitals - BNP 14k - SIRS+ (elevated WBC and tachypneic) - attempting to wean patient off levophed (this morning was on a rate of 4 of levophed) - I/Os - per Dr. Burnett's note: Plan to proceed with permanent pacemaker implant once deemed infection free PULM - diastolic CHF exacerbation - diuresis with lasix - clear breath sounds bilaterally still GI - total bilirubin 1.8 with direct bilirubin 0.4 - possibly elevated unconjugated bilirubin due to stress/infection vs. hemolysis (Hgb uptrending but RDW elevated) vs genetic disorder such as Gilbert's syndrome - was downtrending, but total bilirubin went up from 1.6 to 1.8 today ID - SIRS+ (elevated WBC and tachypneic) - WBC increasing, now 20.3 - panculture still negative - Cefepime 1gm TID RENAL - EMILY resolved ENDO - ISS - BGMs DVT PPx - Eliquis 2.5 BID FEN - monitor electrolytes - diabetic/sodium controlled diet TUBES LINES AND DRAINS - Right Internal Jugular Central Line from 08/10/2020 Visit type - Emergency Visit Emergency Visit: Yes ED Registration Date: 08/10/20 Care time: The patient presented to the Emergency Department on the above date and was hospitalized for further evaluation of their emergent condition. - New Patient This patient is new to me today: No - Critical Care Critical Care patient: Yes Total Critical Care Time (in minutes): 40 Critical Care Statement: The care of this patient involved high complexity decision making to prevent further life threatening deterioration of the patient's condition and/or to evaluate & treat vital organ system(s) failure or risk of failure. - Discharge Referral Referred to [facility] No - Medication Review Med list reviewed for High Risk Meds patients 65 and older: Yes ATTENDING PHYSICIAN STATEMENT I saw and evaluated the patient. I reviewed the resident's note and discussed the case with the resident. I agree with the resident's findings and plan as documented. SUBJECTIVE: OBJECTIVE: ASSESSMENT AND PLAN:
[2020-08-14 11:35] LABS: BILIRUBIN,DIRECT 0.4 mg/dL (0.0-0.2)
[2020-08-14] MEDS: NOREPINEPHRINE BITARTRATE 16,000 MCG in SODIUM CHLORIDE 484 ML IV SCH (12:15)
--- NOTE | 2020-08-14 12:31 | PN ---
Progress Note, Physician History of Present Illness: Pt seen and examined at bedside. She is awake and appears comfortable. - Current Medication List Current Medications: Active Medications Apixaban (Eliquis -) 2.5 mg PO BID [facility] Last Admin: 08/14/20 09:25 Dose: 2.5 mg Documented by: Atorvastatin Calcium (Lipitor -) 10 mg PO [facility] Last Admin: 08/13/20 22:56 Dose: 10 mg Documented by: Chlorhexidine Gluconate (Hibiclens For Decolonization -) 1 applic TP [facility] Last Admin: 08/13/20 22:56 Dose: 1 applic Documented by: Donepezil HCl (Aricept -) 5 mg PO [facility] Last Admin: 08/13/20 22:55 Dose: 5 mg Documented by: Furosemide (Lasix Injection -) 40 mg IVPUSH BID@0600,1400 [facility] Last Admin: 08/14/20 05:29 Dose: 40 mg Documented by: Vancomycin HCl (Vancomycin (Pre-Docked)) 1,000 mg in 250 mls @ 200 mls/hr IVPB Q24H [facility]; Protocol Last Admin: 08/13/20 14:42 Dose: 200 mls/hr Documented by: Cefepime HCl 1 gm/ Dextrose 100 mls @ 200 mls/hr IVPB Q8H-IV [facility]; Protocol Last Admin: 08/14/20 09:25 Dose: 200 mls/hr Documented by: Norepinephrine Bitartrate 16, (000 mcg/ Sodium Chloride) 500 mls @ 9.375 mls/hr IV TITR [facility]; Protocol Last Admin: 08/14/20 12:15 Dose: 5 mcg/min, 9.375 mls/hr Documented by: Insulin Aspart (Novolog Vial Sliding Scale -) 1 vial SQ ACHS [facility]; Protocol Last Admin: 08/14/20 12:14 Dose: 10 units Documented by: Mupirocin (Bactroban Ointment (For Decolonization) -) 1 applic NS BID [facility] Stop: 08/15/20 21:59 Last Admin: 08/14/20 09:25 Dose: 1 applic Documented by: - Objective Vital Signs: Vital Signs Temperature 98.2 F 08/14/20 06:05 Pulse Rate 96 H 08/14/20 12:15 Respiratory Rate 22 H 08/14/20 10:00 Blood Pressure 95/60 08/14/20 12:15 O2 Sat by Pulse Oximetry (%) 100 08/14/20 10:43 Constitutional: Yes: Calm Eyes: Yes: Conjunctiva Clear HENT: Yes: Atraumatic Neck: Yes: Supple Cardiovascular: Yes: S1, S2 Respiratory: Yes: CTA Bilaterally, On Nasal O2 Gastrointestinal: Yes: Soft Genitourinary: Yes: Incontinence Edema: No Integumentary: Yes: WNL Labs: CBC, BMP 08/14/20 05:37 08/14/20 05:37 INR, PTT INR 1.73 (0.83-1.09) H 08/10/20 09:20 Assessment/Plan Current Medications Generic Name Dose Route Start Last Admin Trade Name Freq PRN Reason Stop Dose Admin Apixaban 2.5 mg 08/13/20 10:00 08/14/20 09:25 Eliquis - PO 2.5 mg BID JANETTE Administration Atorvastatin Calcium 10 mg 08/13/20 22:00 08/13/20 22:56 Lipitor - PO 10 mg HS [facility]ETTE Administration Chlorhexidine Gluconate 1 applic 08/10/20 22:00 08/13/20 22:56 Hibiclens For Decolonization - TP 1 applic HS [facility]ANETTE Administration Donepezil HCl 5 mg 08/13/20 22:00 08/13/20 22:55 Aricept - PO 5 mg HS [facility]TE Administration Furosemide 40 mg 08/11/20 14:00 08/14/20 05:29 Lasix Injection - IVPUSH 40 mg BID@0600,1400 [facility]TE Administration Vancomycin HCl 1,000 mg in 250 mls @ 200 mls/hr 08/11/20 13:00 08/13/20 14:42 Vancomycin (Pre-Docked) IVPB 200 mls/hr Q24H [facility]TE Administration Protocol Cefepime HCl 1 gm/ Dextrose 100 mls @ 200 mls/hr 08/11/20 13:00 08/14/20 09:25 IVPB 200 mls/hr Q8H-IV [facility]TE Administration Protocol Norepinephrine Bitartrate 16, 500 mls @ 9.375 mls/hr 08/14/20 11:45 08/14/20 12:15 000 mcg/ Sodium Chloride IV 5 mcg/min TITR JANETTE 9.375 mls/hr Administration Protocol 5 MCG/MIN Insulin Aspart 1 vial 08/13/20 11:00 08/14/20 12:14 Novolog Vial Sliding Scale - SQ 10 units ACHS [facility]AN[facility]TE Administration Protocol Mupirocin 1 applic 08/10/20 22:00 08/14/20 09:25 Bactroban Ointment (For Decolonization) - NS 08/15/20 21:59 1 applic BID [facility]AN[facility]TE Administration Impression 1. EMILY 2. chf 3. resp falure 4. htn 5. dm 6. hld 7. Aortic Stenosis 8. Paroxysmal Atrial Fibrillation Plan - monitor lytes while on lasix - evaluate for transition to po lasix daily - monitor bp, pt remains on pressors - avoid nephrotoxins - maintain map 65
[2020-08-14] MEDS: VANCOMYCIN 1 GRAM (PRE-DOCKED) 1,000 MG/250 ML BAG IVPB SCH (12:41)
--- NOTE | 2020-08-14 20:53 | PN ---
Progress Note, Physician History of Present Illness: AWAKE, ALERT BREATHING NON LABORED AFEBRILE HYPOTENSIVE ON PRESSORS WBC REMAINS ELEVATED VANCO T 13.2 - Current Medication List Current Medications: Active Medications Apixaban (Eliquis -) 2.5 mg PO BID [facility] Last Admin: 08/14/20 09:25 Dose: 2.5 mg Documented by: Atorvastatin Calcium (Lipitor -) 10 mg PO HS [facility] Last Admin: 08/13/20 22:56 Dose: 10 mg Documented by: Chlorhexidine Gluconate (Hibiclens For Decolonization -) 1 applic TP [facility] Last Admin: 08/13/20 22:56 Dose: 1 applic Documented by: Donepezil HCl (Aricept -) 5 mg PO HS [facility] Last Admin: 08/13/20 22:55 Dose: 5 mg Documented by: Furosemide (Lasix Injection -) 40 mg IVPUSH BID@0600,1400 [facility] Last Admin: 08/14/20 15:27 Dose: 40 mg Documented by: Vancomycin HCl (Vancomycin (Pre-Docked)) 1,000 mg in 250 mls @ 200 mls/hr IVPB Q24H [facility]; Protocol Last Admin: 08/14/20 12:41 Dose: 200 mls/hr Documented by: Cefepime HCl 1 gm/ Dextrose 100 mls @ 200 mls/hr IVPB Q8H-IV [facility]; Protocol Last Admin: 08/14/20 18:16 Dose: 200 mls/hr Documented by: Norepinephrine Bitartrate 16, (000 mcg/ Sodium Chloride) 500 mls @ 9.375 mls/hr IV TITR [facility]; Protocol Last Titration: 08/14/20 15:00 Dose: 15 mcg/min, 28.125 mls/hr Documented by: Insulin Aspart (Novolog Vial Sliding Scale -) 1 vial SQ ACHS [facility]; Protocol Last Admin: 08/14/20 18:12 Dose: Not Given Documented by: Mupirocin (Bactroban Ointment (For Decolonization) -) 1 applic NS BID [facility] Stop: 08/15/20 21:59 Last Admin: 08/14/20 09:25 Dose: 1 applic Documented by: - Objective Vital Signs: Vital Signs Temperature 98.2 F 08/14/20 20:00 Pulse Rate 73 08/14/20 20:00 Respiratory Rate 14 08/14/20 20:00 Blood Pressure 103/60 08/14/20 20:00 O2 Sat by Pulse Oximetry (%) 100 08/14/20 20:00 Constitutional: Yes: No Distress, Thin Cardiovascular: Yes: Regular Rate and Rhythm, S2, S3 Respiratory: Yes: Regular, CTA Bilaterally Gastrointestinal: Yes: Normal Bowel Sounds, Soft Edema: No Labs: CBC, BMP 08/14/20 05:37 08/14/20 05:37 INR, PTT INR 1.73 (0.83-1.09) H 08/10/20 09:20 Assessment/Plan RESP FAILURE R/O HCAP HYPOTENSION R/P SEPSIS LEUKOCYTOSIS UTI CONTINUE VANCOMYCIN/ CEFEPIME
[2020-08-14] MEDS: MELATONIN 5 MG TABLETS PO PRN (23:10)
[2020-08-14] MEDS: ATORVASTATIN CA 10 MG TABLET (FP) PO SCH (23:10)
[2020-08-14] MEDS: CHLORHEXIDINE GLUCONATE 4% CLEANSER FOR DECOLONIZATION TP SCH (23:10)
[2020-08-14] MEDS ORDERED: PT OWN MED DRAWER 7, Y5N ONE (23:11)
[2020-08-14] MEDS: DONEPEZIL HCL 5 MG TABLET (FP) PO SCH (23:12)
[2020-08-15] MEDS: CEFEPIME 1 GM in DEXTROSE 5%-WATER 100 ML IVPB SCH ×3 (02:34→17:16)
[2020-08-15] MEDS: FUROSEMIDE 40 MG/4 ML INJECTABLE VIAL IVPUSH SCH ×2 (05:52→14:13)
[2020-08-15] MEDS: INSULIN SLIDING SCALE (NOVOLOG) 1 VIAL SQ SCH ×4 (06:46→21:07)
[2020-08-15 06:49] LABS: BASO % 0.8 % (0-2.0); EOS % 7.3 % (0-4.5); HEMOGLOBIN 11.2 GM/dL (10.7-15.3); LYMPH % 5.9 % (8-40); MCH 30.7 pg (25.7-33.7); MEAN CELL VOLUME 93.1 fl (80-96); MEAN PLT VOLUME 9.8 fl (7.5-11.1); PLATELET COUNT 255 K/MM3 (134-434); RBC 3.65 M/mm3 (3.60-5.2); RDW 20.4 % (11.6-15.6); WHITE BLOOD COUNT 16.9 K/mm3 (4.0-10.0)
[2020-08-15 07:14] LABS: POTASSIUM 3.5 mmol/L (3.5-5.1)
[2020-08-15 07:24] LABS: ALBUMIN 2.9 g/dl (3.4-5.0)
[2020-08-15 07:25] LABS: BLOOD UREA NITROGEN 25.3 mg/dL (7-18); MAGNESIUM 2.4 mg/dL (1.8-2.4)
[2020-08-15 07:28] LABS: BILIRUBIN,TOTAL 1.5 mg/dL (0.2-1); CREATININE 0.8 mg/dL (0.55-1.3)
[2020-08-15 07:29] LABS: PHOSPHOROUS 3.1 mg/dL (2.5-4.9); TOT PROT 6.8 g/dl (6.4-8.2)
[2020-08-15] MEDS ORDERED: CEFEPIME HCL 1 GM VIAL (RESTRICTED TO ID) ONE ×2 (09:48→17:10)
[2020-08-15] MEDS ORDERED: DEXTROSE 5%-WATER 100 ML IVPB ONE ×2 (09:48→17:10)
[2020-08-15] MEDS: MUPIROCIN 2% TOPICAL OINTMENT FOR DECOLONIZATION NS SCH (09:53)
[2020-08-15] MEDS: APIXABAN 2.5 MG TABLET PO SCH ×2 (09:53→21:06)
--- NOTE | 2020-08-15 10:42 | PN ---
Progress Note, Physician History of Present Illness: Dyspnea worse, now on increased dose IV diuresis and Levophed gtt. Remains on NC. - Current Medication List Current Medications: Active Medications Apixaban (Eliquis -) 2.5 mg PO BID [facility] Last Admin: 08/15/20 09:53 Dose: 2.5 mg Documented by: Atorvastatin Calcium (Lipitor -) 10 mg PO HS [facility] Last Admin: 08/14/20 23:10 Dose: 10 mg Documented by: Chlorhexidine Gluconate (Hibiclens For Decolonization -) 1 applic TP [facility] Last Admin: 08/14/20 23:10 Dose: 1 applic Documented by: Donepezil HCl (Aricept -) 5 mg PO [facility] Last Admin: 08/14/20 23:12 Dose: 5 mg Documented by: Furosemide (Lasix Injection -) 60 mg IVPUSH BID@0600,1400 [facility] Vancomycin HCl (Vancomycin (Pre-Docked)) 1,000 mg in 250 mls @ 200 mls/hr IVPB Q24H [facility]; Protocol Last Admin: 08/14/20 12:41 Dose: 200 mls/hr Documented by: Cefepime HCl 1 gm/ Dextrose 100 mls @ 200 mls/hr IVPB Q8H-IV [facility]; Protocol Last Admin: 08/15/20 09:53 Dose: 200 mls/hr Documented by: Norepinephrine Bitartrate 16, (000 mcg/ Sodium Chloride) 500 mls @ 9.375 mls/hr IV TITR [facility]; Protocol Last Titration: 08/14/20 15:00 Dose: 15 mcg/min, 28.125 mls/hr Documented by: Insulin Aspart (Novolog Vial Sliding Scale -) 1 vial SQ ACHS [facility]; Protocol Last Admin: 08/15/20 06:46 Dose: 2 units Documented by: Melatonin (Melatonin) 5 mg PO HS PRN PRN Reason: INSOMNIA Last Admin: 08/14/20 23:10 Dose: 5 mg Documented by: Mupirocin (Bactroban Ointment (For Decolonization) -) 1 applic NS BID [facility] Stop: 08/15/20 21:59 Last Admin: 08/15/20 09:53 Dose: 1 applic Documented by: - Objective Vital Signs: Vital Signs Temperature 97.9 F 08/15/20 06:00 Pulse Rate 88 08/15/20 08:34 Respiratory Rate 24 H 10/29/20 08:00 Blood Pressure 98/55 L 08/15/20 08:00 O2 Sat by Pulse Oximetry (%) 97 08/15/20 08:34 Constitutional: Yes: No Distress, Calm, Thin Neck: Yes: Supple Cardiovascular: Yes: Regular Rate and Rhythm, Murmur Respiratory: Yes: Regular, Diminished, On Nasal O2, SOB Gastrointestinal: Yes: Soft, Hypoactive Bowel Sounds Edema: No Labs: CBC, BMP 08/15/20 06:00 08/15/20 06:00 INR, PTT INR 1.73 (0.83-1.09) H 08/10/20 09:20 - ....Imaging Chest X-ray: Report Reviewed (Right infiltrate with congestion) Problem List - Problems (1) Acute on chronic diastolic heart failure Code(s): I50.33 - ACUTE ON CHRONIC DIASTOLIC (CONGESTIVE) HEART FAILURE (2) HTN (hypertension) Code(s): I10 - ESSENTIAL (PRIMARY) HYPERTENSION Qualifiers: Hypertension type: essential hypertension Qualified Code(s): I10 - Essential (primary) hypertension (3) Hypercholesterolemia Code(s): E78.00 - PURE HYPERCHOLESTEROLEMIA, UNSPECIFIED (4) PAF (paroxysmal atrial fibrillation) Code(s): I48.0 - PAROXYSMAL ATRIAL FIBRILLATION (5) Pleural effusion Code(s): J90 - PLEURAL EFFUSION, NOT ELSEWHERE CLASSIFIED (6) S/P TAVR (transcatheter aortic valve replacement) Code(s): Z95.2 - PRESENCE OF PROSTHETIC HEART VALVE Assessment/Plan 07/31/2020 Echo: Mod cLVH with normal systolic LVEF 62%, abnl LV compliance, normal RV size and fxn, mod LAE, mod-severe MAC, functional MS MVA 1.07 cm^2 P1/2t, mild TR< RVSP 24 mmHg, bioTAVR w/o regurgitation; PAF. ASSESSMENT: 1. Acute hypoxic respiratory failure related to acute on chronic class II-III NYHA classification LV failure related to diastolic LV dysfunction, resolving 2. Aortic valve stenosis post TAVR with a small paravalvular leak (evidence of post procedure inter-ventricular septal hypertrophy) 3. CAD angina pectoris 4. Paroxysmal atrial fibrillation [id number] score 6 post LALO guided synchronized cardioversion, currently in sinus rhythm- recent presentation with bradyarrhythmia- junctional rhythm necessitating therapy adjustments for planned PPM implant later this week 5. HTN history currently hypotensive on pressors- etiology unclear cardiogenic versus sepsis related/possible pneumonia 6. Hypercholesterolemia 7. Mitral valve regurgitation moderate in severity 8. Organic brain syndrome 9. Pre-renal azotemia improved 10. Leukocytosis r/o HCAP, UTI PLAN: 1. Increased Lasix 60 IV bid with close monitoring of diuretic response, renal function and electrolytes 2. Attempt to taper off pressors as tolerated, abx course per C&S 3. Ideally Amiodarone therapy resumption is recommended pending PPM implant for management of recurrent paroxysmal atrial fibrillation 4. Ideally B-Koki therapy resumption is recommended pending PPM implant for management of recurrent paroxysmal atrial fibrillation- hemodynamics permitting 5. Continue A/C therapy with DOAC's/Eliquis 2.5 bid with close monitoring of Hg level, therapy to be withheld prior to proceeding with PPM implant 6. Plan to proceed with PPM implant once deemed infection free, hold Eliquis for 2 days prior and resume once post-procedure hemostasis achieved 7. Continue Lipitor 10 qhs
--- NOTE | 2020-08-15 10:45 | PN ---
Physical Exam: SUBJECTIVE: Patient seen and examined at bedside. The patient is sleepy and reports no appetite. She denies shortness of breath, nausea, or any pain. WBC count has been trending up since the hospital admission, but today decreased to 16.9 from yesterday's lab value of 20.3. Patient's weight has increased from 40.4 kg yesterday to 41.8 kg today. ESR/CRP and CXR ordered. Lasix increased from 40 BID to 60 BID. OBJECTIVE: Vital Signs Period Temp Pulse Resp BP Sys/Mabry Pulse Ox Last 24 Hr 97.6 F-98.2 F 73-97 14-28 83-112/49-60 97-100 GENERAL: Awake, alert, and fully oriented, in mild distress. HEAD: Normal with no signs of trauma. EYES: Pupils equal, round and reactive to light, extraocular movements intact. No lid lag. EARS, NOSE, THROAT: Ears normal, nares patent, oropharynx clear without exudates. Mildly moist mucous membranes. NECK: Normal range of motion, supple without lymphadenopathy or masses. LUNGS: Tachypneic. Decreased breath sounds bilaterally. Some accessory muscle use, but the patient's tachypneia comes and goes, has good oxygen saturation, and accessory muscle use is not heavy. HEART: Regular rate and rhythm. Systolic murmur. ABDOMEN: Soft, nontender, not distended, normoactive bowel sounds, no guarding, no rebound, no masses. MUSCULOSKELETAL: Normal range of motion at all joints. No bony deformities or tenderness. UPPER EXTREMITIES: 2+ pulses, warm, well-perfused. No cyanosis. No clubbing. Cap refill <2 seconds. No peripheral edema. LOWER EXTREMITIES: 2+ pulses, warm, well-perfused. No calf tenderness. No edema. NEUROLOGICAL: Normal speech. Gait not observed. SKIN: Warm, dry, normal turgor, no rashes or lesions noted. Laboratory Results - last 24 hr 08/14/20 08/14/20 08/14/20 05:37 11:43 17:46 WBC RBC Hgb Hct MCV MCH MCHC RDW Plt Count MPV Absolute Neuts (auto) Neutrophils % Lymphocytes % Monocytes % Eosinophils % Basophils % Nucleated RBC % Sodium 135 L Potassium 3.6 Chloride 97 L Carbon Dioxide 31 Anion Gap 7 L BUN 27.4 H Creatinine 0.9 Est GFR (CKD-EPI)AfAm 66.16 Est GFR (CKD-EPI)NonAf 57.09 POC Glucometer 397 66 Random Glucose 175 H Calcium 8.7 Phosphorus 3.0 Magnesium 2.3 Total Bilirubin 1.8 H Direct Bilirubin 0.4 H AST 20 ALT 14 Alkaline Phosphatase 63 Total Protein 6.8 Albumin 3.1 L 08/14/20 08/15/20 08/15/20 23:21 06:00 06:00 WBC 16.9 H RBC 3.65 Hgb 11.2 Hct 34.0 MCV 93.1 MCH 30.7 MCHC 33.0 RDW 20.4 H Plt Count 255 MPV 9.8 Absolute Neuts (auto) 13.3 H Neutrophils % 79.0 Lymphocytes % 5.9 L Monocytes % 7.0 Eosinophils % 7.3 H Basophils % 0.8 Nucleated RBC % 0 Sodium 137 Potassium 3.5 Chloride 99 Carbon Dioxide 30 Anion Gap 8 BUN 25.3 H Creatinine 0.8 Est GFR (CKD-EPI)AfAm 76.29 Est GFR (CKD-EPI)NonAf 65.82 POC Glucometer 158 Random Glucose 156 H Calcium 9.0 Phosphorus 3.1 Magnesium 2.4 Total Bilirubin 1.5 H Direct Bilirubin AST 19 ALT 13 Alkaline Phosphatase 63 Total Protein 6.8 Albumin 2.9 L 08/15/20 06:14 WBC RBC Hgb Hct MCV MCH MCHC RDW Plt Count MPV Absolute Neuts (auto) Neutrophils % Lymphocytes % Monocytes % Eosinophils % Basophils % Nucleated RBC % Sodium Potassium Chloride Carbon Dioxide Anion Gap BUN Creatinine Est GFR (CKD-EPI)AfAm Est GFR (CKD-EPI)NonAf POC Glucometer 171 Random Glucose Calcium Phosphorus Magnesium Total Bilirubin Direct Bilirubin AST ALT Alkaline Phosphatase Total Protein Albumin Active Medications Generic Name Dose Route Start Last Admin Trade Name Freq PRN Reason Stop Dose Admin Apixaban 2.5 mg 08/13/20 10:00 08/15/20 09:53 Eliquis - PO 2.5 mg BID JAN[facility]TE Administration Atorvastatin Calcium 10 mg 08/13/20 22:00 08/14/20 23:10 Lipitor - PO 10 mg HS [facility]ANETTE Administration Chlorhexidine Gluconate 1 applic 08/10/20 22:00 08/14/20 23:10 Hibiclens For Decolonization - TP 1 applic HS [facility]TE Administration Donepezil HCl 5 mg 08/13/20 22:00 08/14/20 23:12 Aricept - PO 5 mg HS [facility]TE Administration Furosemide 60 mg 08/15/20 09:59 Lasix Injection - IVPUSH BID@0600,1400 [facility] Vancomycin HCl 1,000 mg in 250 mls @ 200 mls/hr 08/11/20 13:00 08/14/20 12:41 Vancomycin (Pre-Docked) IVPB 200 mls/hr Q24H [facility]TE Administration Protocol Cefepime HCl 1 gm/ Dextrose 100 mls @ 200 mls/hr 08/11/20 13:00 08/15/20 09:53 IVPB 200 mls/hr Q8H-IV [facility]TE Administration Protocol Norepinephrine Bitartrate 16, 500 mls @ 9.375 mls/hr 08/14/20 11:45 08/14/20 15:00 000 mcg/ Sodium Chloride IV 15 mcg/min TITR JANETTE 28.125 mls/hr Titration Protocol 5 MCG/MIN Insulin Aspart 1 vial 08/13/20 11:00 08/15/20 06:46 Novolog Vial Sliding Scale - SQ 2 units ACHS JANETTE Administration Protocol Melatonin 5 mg 08/14/20 21:35 08/14/20 23:10 Melatonin PO 5 mg HS PRN Administration INSOMNIA Mupirocin 1 applic 08/10/20 22:00 08/15/20 09:53 Bactroban Ointment (For Decolonization) - NS 08/15/20 21:59 1 applic BID [facility]ANETTE Administration ASSESSMENT/PLAN: 89 year old female patient with past medical history that includes severe aortic valve stenosis s/p TAVR (at [facility]), HTN, type 2 DM, hypercholesterolemia, peptic ulcer disease, and diastolic heart failure, who presented to the ED due to shortness of breath. NEURO - A&Ox3 CARDIO - diastolic CHF exacerbation - lasix with close monitoring of fluid status and vitals - BNP 14k - SIRS+ (elevated WBC and tachypneic) - attempting to wean patient off levophed (this morning was on a rate of 15 of levophed) - I/Os - per Dr. Burnett's note: Plan to proceed with permanent pacemaker implant once deemed infection free PULM - diastolic CHF exacerbation - diuresis with lasix incrased to 60 BID - clear breath sounds bilaterally still - patient's weight has increased from 40.4 kg yesterday to 41.8 kg today. GI - possibly elevated unconjugated bilirubin due to stress/infection vs. hemolysis (Hgb uptrending but RDW elevated) vs genetic disorder such as Gilbert's syndrome - total bilirubin downtrending, now 1.5 today ID - SIRS+ (elevated WBC and tachypneic) - WBC decreased today, now 16.9 - panculture still negative - Cefepime 1gm TID RENAL - EMILY resolved ENDO - ISS - BGMs DVT PPx - Eliquis 2.5 BID FEN - monitor electrolytes - diabetic/sodium controlled diet TUBES LINES AND DRAINS - Right Internal Jugular Central Line from 08/10/2020 Visit type - Emergency Visit Emergency Visit: Yes ED Registration Date: 08/10/20 Care time: The patient presented to the Emergency Department on the above date and was hospitalized for further evaluation of their emergent condition. - New Patient This patient is new to me today: No - Critical Care Critical Care patient: Yes Total Critical Care Time (in minutes): 40 Critical Care Statement: The care of this patient involved high complexity decision making to prevent further life threatening deterioration of the patient's condition and/or to evaluate & treat vital organ system(s) failure or risk of failure. - Discharge Referral Referred to [facility] Med P.C.: No - Medication Review Med list reviewed for High Risk Meds patients 65 and older: Yes ATTENDING PHYSICIAN STATEMENT I saw and evaluated the patient. I reviewed the resident's note and discussed the case with the resident. I agree with the resident's findings and plan as documented. SUBJECTIVE: OBJECTIVE: ASSESSMENT AND PLAN:
--- NOTE | 2020-08-15 11:23 | PN ---
Teaching Attending Note Name of Resident: Jose Manuel Fitch ATTENDING PHYSICIAN STATEMENT I saw and evaluated the patient. I reviewed the resident's note and discussed the case with the resident. I agree with the resident's findings and plan as documented. SUBJECTIVE: Pt seen and examined in the ICU. Remains on levophed gtt. More short of breath today. OBJECTIVE: Vital Signs Period Temp Pulse Resp BP Sys/Mabry Pulse Ox Last 24 Hr 97.6 F-98.4 F 73-97 14-28 83-112/49-60 97-100 Intake & Output 08/12/20 08/13/20 08/14/20 08/15/20 23:59 23:59 23:59 23:59 Intake Total 1713 2240 2096 Output Total 0741 211 8262 Balance 513 1540 946 Weight 41.73 kg 40.46 kg 40.415 kg 41.821 kg Gen: tachypneic at rest Heart: RRR, +systolic murmur Lung: scattered rales Abd: soft, nontender Ext: no edema CBC, BMP 08/15/20 06:00 08/15/20 06:00 Active Medications Apixaban (Eliquis -) 2.5 mg PO BID [facility] Last Admin: 08/15/20 09:53 Dose: 2.5 mg Documented by: Atorvastatin Calcium (Lipitor -) 10 mg PO [facility] Last Admin: 08/14/20 23:10 Dose: 10 mg Documented by: Chlorhexidine Gluconate (Hibiclens For Decolonization -) 1 applic TP [facility] Last Admin: 08/14/20 23:10 Dose: 1 applic Documented by: Donepezil HCl (Aricept -) 5 mg PO [facility] Last Admin: 08/14/20 23:12 Dose: 5 mg Documented by: Furosemide (Lasix Injection -) 60 mg IVPUSH BID@0600,1400 [facility] Vancomycin HCl (Vancomycin (Pre-Docked)) 1,000 mg in 250 mls @ 200 mls/hr IVPB Q24H [facility]; Protocol Last Admin: 08/14/20 12:41 Dose: 200 mls/hr Documented by: Cefepime HCl 1 gm/ Dextrose 100 mls @ 200 mls/hr IVPB Q8H-IV [facility]; Protocol Last Admin: 08/15/20 09:53 Dose: 200 mls/hr Documented by: Norepinephrine Bitartrate 16, (000 mcg/ Sodium Chloride) 500 mls @ 9.375 mls/hr IV TITR [facility]; Protocol Last Titration: 08/14/20 15:00 Dose: 15 mcg/min, 28.125 mls/hr Documented by: Insulin Aspart (Novolog Vial Sliding Scale -) 1 vial SQ ACHS [facility]; Protocol Last Admin: 08/15/20 06:46 Dose: 2 units Documented by: Melatonin (Melatonin) 5 mg PO HS PRN PRN Reason: INSOMNIA Last Admin: 08/14/20 23:10 Dose: 5 mg Documented by: Mupirocin (Bactroban Ointment (For Decolonization) -) 1 applic NS BID [facility] Stop: 08/15/20 21:59 Last Admin: 08/15/20 09:53 Dose: 1 applic Documented by: ASSESSMENT AND PLAN: Acute Respiratory Failure requiring NIPPV Acute on Chronic Diastolic Heart Failure Aortic Stenosis Paroxysmal Atrial Fibrillation Acute Kidney Injury r/o UTI HTN DM Hypercholesterolemia - increase lasix - monitor urine output, creatinine - daily weights - keep net negative - O2 to keep SpO2 >90% - BiPAP to assist in work of breathing - rate control - continue anticoagulation - empiric antibiotics - f/u cultures - continue ICU monitoring
[2020-08-15] MEDS: NOREPINEPHRINE BITARTRATE 16,000 MCG in SODIUM CHLORIDE 484 ML IV SCH (12:28)
[2020-08-15] MEDS: VANCOMYCIN 1 GRAM (PRE-DOCKED) 1,000 MG/250 ML BAG IVPB SCH (14:13)
--- NOTE | 2020-08-15 15:49 | PN ---
Progress Note, Physician History of Present Illness: Pt seen and examined at bedside. She is awake and appears comfortable. - Current Medication List Current Medications: Active Medications Apixaban (Eliquis -) 2.5 mg PO BID [facility] Last Admin: 08/15/20 09:53 Dose: 2.5 mg Documented by: Atorvastatin Calcium (Lipitor -) 10 mg PO HS [facility] Last Admin: 08/14/20 23:10 Dose: 10 mg Documented by: Chlorhexidine Gluconate (Hibiclens For Decolonization -) 1 applic TP HS [facility] Last Admin: 08/14/20 23:10 Dose: 1 applic Documented by: Donepezil HCl (Aricept -) 5 mg PO HS [facility] Last Admin: 08/14/20 23:12 Dose: 5 mg Documented by: Furosemide (Lasix Injection -) 60 mg IVPUSH BID@0600,1400 [facility] Last Admin: 08/15/20 14:13 Dose: 60 mg Documented by: Vancomycin HCl (Vancomycin (Pre-Docked)) 1,000 mg in 250 mls @ 200 mls/hr IVPB Q24H [facility]; Protocol Last Admin: 08/15/20 14:13 Dose: 200 mls/hr Documented by: Cefepime HCl 1 gm/ Dextrose 100 mls @ 200 mls/hr IVPB Q8H-IV [facility]; Protocol Last Admin: 08/15/20 09:53 Dose: 200 mls/hr Documented by: Norepinephrine Bitartrate 16, (000 mcg/ Sodium Chloride) 500 mls @ 9.375 mls/hr IV TITR [facility]; Protocol Last Admin: 08/15/20 12:28 Dose: 15 mcg/min, 28.125 mls/hr Documented by: Insulin Aspart (Novolog Vial Sliding Scale -) 1 vial SQ ACHS [facility]; Protocol Last Admin: 08/15/20 12:26 Dose: 4 units Documented by: Melatonin (Melatonin) 5 mg PO HS PRN PRN Reason: INSOMNIA Last Admin: 08/14/20 23:10 Dose: 5 mg Documented by: Mupirocin (Bactroban Ointment (For Decolonization) -) 1 applic NS BID [facility] Stop: 08/15/20 21:59 Last Admin: 08/15/20 09:53 Dose: 1 applic Documented by: - Objective Vital Signs: Vital Signs Temperature 98.5 F 08/15/20 14:00 Pulse Rate 78 10/29/20 14:00 Respiratory Rate 16 08/15/20 14:00 Blood Pressure 112/64 08/15/20 14:00 O2 Sat by Pulse Oximetry (%) 100 08/15/20 14:00 Constitutional: Yes: Calm Eyes: Yes: Conjunctiva Clear HENT: Yes: Atraumatic Neck: Yes: Supple Cardiovascular: Yes: S1, S2 Respiratory: Yes: CTA Bilaterally Gastrointestinal: Yes: Soft Genitourinary: Yes: WNL Musculoskeletal: Yes: WNL Edema: No Integumentary: Yes: WNL Labs: CBC, BMP 08/15/20 06:00 08/15/20 06:00 INR, PTT INR 1.73 (0.83-1.09) H 08/10/20 09:20 Assessment/Plan Current Medications Generic Name Dose Route Start Last Admin Trade Name Freq PRN Reason Stop Dose Admin Apixaban 2.5 mg 08/13/20 10:00 08/15/20 09:53 Eliquis - PO 2.5 mg BID [facility] Administration Atorvastatin Calcium 10 mg 08/13/20 22:00 08/14/20 23:10 Lipitor - PO 10 mg HS [facility] Administration Chlorhexidine Gluconate 1 applic 08/10/20 22:00 08/14/20 23:10 Hibiclens For Decolonization - TP 1 applic HS [facility] Administration Donepezil HCl 5 mg 08/13/20 22:00 08/14/20 23:12 Aricept - PO 5 mg HS [facility] Administration Furosemide 60 mg 08/15/20 09:59 08/15/20 14:13 Lasix Injection - IVPUSH 60 mg BID@0600,1400 [facility] Administration Vancomycin HCl 1,000 mg in 250 mls @ 200 mls/hr 08/11/20 13:00 08/15/20 14:13 Vancomycin (Pre-Docked) IVPB 200 mls/hr Q24H [facility] Administration Protocol Cefepime HCl 1 gm/ Dextrose 100 mls @ 200 mls/hr 08/11/20 13:00 08/15/20 09:53 IVPB 200 mls/hr Q8H-IV [facility] Administration Protocol Norepinephrine Bitartrate 16, 500 mls @ 9.375 mls/hr 08/14/20 11:45 08/15/20 12:28 000 mcg/ Sodium Chloride IV 15 mcg/min TITR [facility] 28.125 mls/hr Administration Protocol 5 MCG/MIN Insulin Aspart 1 vial 08/13/20 11:00 08/15/20 12:26 Novolog Vial Sliding Scale - SQ 4 units ACHS [facility] Administration Protocol Melatonin 5 mg 08/14/20 21:35 08/14/20 23:10 Melatonin PO 5 mg HS PRN Administration INSOMNIA Mupirocin 1 applic 08/10/20 22:00 08/15/20 09:53 Bactroban Ointment (For Decolonization) - NS 08/15/20 21:59 1 applic BID [facility] Administration Impression 1. EMILY 2. chf 3. resp falure 4. htn 5. dm 6. hld 7. Aortic Stenosis 8. Paroxysmal Atrial Fibrillation Plan - cont lasix - monitor lytes - monitor bp - cardio input appreciated - avoid nephrotoxins - maintain map 65
--- NOTE | 2020-08-15 17:16 | PN ---
Progress Note, Physician History of Present Illness: AWAKE, ALERT BREATHING NON LABORED AFEBRILE WBC REMAINS ELEVATED VANCO T 13.2 - Current Medication List Current Medications: Active Medications Apixaban (Eliquis -) 2.5 mg PO BID [facility] Last Admin: 08/15/20 09:53 Dose: 2.5 mg Documented by: Atorvastatin Calcium (Lipitor -) 10 mg PO HS [facility] Last Admin: 08/14/20 23:10 Dose: 10 mg Documented by: Chlorhexidine Gluconate (Hibiclens For Decolonization -) 1 applic TP HS [facility] Last Admin: 08/14/20 23:10 Dose: 1 applic Documented by: Donepezil HCl (Aricept -) 5 mg PO [facility] Last Admin: 08/14/20 23:12 Dose: 5 mg Documented by: Furosemide (Lasix Injection -) 60 mg IVPUSH BID@0600,1400 [facility] Last Admin: 08/15/20 14:13 Dose: 60 mg Documented by: Vancomycin HCl (Vancomycin (Pre-Docked)) 1,000 mg in 250 mls @ 200 mls/hr IVPB Q24H [facility]; Protocol Last Admin: 08/15/20 14:13 Dose: 200 mls/hr Documented by: Cefepime HCl 1 gm/ Dextrose 100 mls @ 200 mls/hr IVPB Q8H-IV [facility]; Protocol Last Admin: 08/15/20 09:53 Dose: 200 mls/hr Documented by: Norepinephrine Bitartrate 16, (000 mcg/ Sodium Chloride) 500 mls @ 9.375 mls/hr IV TITR [facility]; Protocol Last Admin: 08/15/20 12:28 Dose: 15 mcg/min, 28.125 mls/hr Documented by: Insulin Aspart (Novolog Vial Sliding Scale -) 1 vial SQ ACHS [facility]; Protocol Last Admin: 08/15/20 17:08 Dose: 6 units Documented by: Melatonin (Melatonin) 5 mg PO HS PRN PRN Reason: INSOMNIA Last Admin: 08/14/20 23:10 Dose: 5 mg Documented by: Mupirocin (Bactroban Ointment (For Decolonization) -) 1 applic NS BID [facility] Stop: 08/15/20 21:59 Last Admin: 08/15/20 09:53 Dose: 1 applic Documented by: - Objective Vital Signs: Vital Signs Temperature 98.5 F 08/15/20 14:00 Pulse Rate 78 08/15/20 14:00 Respiratory Rate 16 08/15/20 14:00 Blood Pressure 112/64 08/15/20 14:00 O2 Sat by Pulse Oximetry (%) 98 08/15/20 16:12 Eyes: Yes: Conjunctiva Clear Cardiovascular: Yes: Regular Rate and Rhythm, S1, S2 Respiratory: Yes: Diminished Gastrointestinal: Yes: Normal Bowel Sounds, Soft Edema: No Labs: CBC, BMP 08/15/20 06:00 08/15/20 06:00 INR, PTT INR 1.73 (0.83-1.09) H 08/10/20 09:20 Assessment/Plan RESP FAILURE R/O HCAP HYPOTENSION R/P SEPSIS LEUKOCYTOSIS UTI CONTINUE VANCOMYCIN/ CEFEPIME
[2020-08-15] MEDS: CHLORHEXIDINE GLUCONATE 4% CLEANSER FOR DECOLONIZATION TP SCH (21:06)
[2020-08-15] MEDS: DONEPEZIL HCL 5 MG TABLET (FP) PO SCH (21:06)
[2020-08-15] MEDS: ATORVASTATIN CA 10 MG TABLET (FP) PO SCH (21:06)
[2020-08-15] MEDS: MELATONIN 5 MG TABLETS PO PRN (21:06)
[2020-08-16] MEDS ORDERED: DEXTROSE 5%-WATER 100 ML IVPB ONE ×3 (00:58→16:27)
[2020-08-16] MEDS ORDERED: CEFEPIME HCL 1 GM VIAL (RESTRICTED TO ID) ONE ×3 (00:58→16:27)
[2020-08-16] MEDS: CEFEPIME 1 GM in DEXTROSE 5%-WATER 100 ML IVPB SCH ×4 (01:02→17:35)
[2020-08-16] MEDS: NOREPINEPHRINE BITARTRATE 16,000 MCG in SODIUM CHLORIDE 484 ML IV SCH ×2 (01:02→17:34)
[2020-08-16] MEDS: FUROSEMIDE 40 MG/4 ML INJECTABLE VIAL IVPUSH SCH (06:28)
[2020-08-16] MEDS: INSULIN SLIDING SCALE (NOVOLOG) 1 VIAL SQ SCH ×4 (06:39→22:00)
[2020-08-16 07:33] LABS: BASO % 0.9 % (0-2.0); EOS % 10.8 % (0-4.5); HEMATOCRIT 31.9 % (32.4-45.2); HEMOGLOBIN 10.8 GM/dL (10.7-15.3); LYMPH % 6.8 % (8-40); MCH 31.8 pg (25.7-33.7); MEAN CELL VOLUME 93.4 fl (80-96); MEAN PLT VOLUME 10.2 fl (7.5-11.1); MONO % 6.7 % (3.8-10.2); NEUT % 74.8 % (42.8-82.8); PLATELET COUNT 242 K/MM3 (134-434); RBC 3.41 M/mm3 (3.60-5.2); RDW 19.8 % (11.6-15.6); WHITE BLOOD COUNT 16.5 K/mm3 (4.0-10.0)
[2020-08-16 07:53] LABS: POTASSIUM 3.3 mmol/L (3.5-5.1)
[2020-08-16] MEDS ORDERED: POTASSIUM CHLORIDE TABS 20 MEQ TABLET.ER (FP) PO ONE (07:59)
[2020-08-16 08:14] LABS: CALCIUM 8.8 mg/dL (8.5-10.1)
[2020-08-16 08:15] LABS: ALBUMIN 2.9 g/dl (3.4-5.0); BLOOD UREA NITROGEN 25.5 mg/dL (7-18)
[2020-08-16 08:16] LABS: MAGNESIUM 2.2 mg/dL (1.8-2.4); PHOSPHOROUS 2.8 mg/dL (2.5-4.9)
[2020-08-16 08:18] LABS: CREATININE 0.9 mg/dL (0.55-1.3)
[2020-08-16 08:19] LABS: BILIRUBIN,TOTAL 1.3 mg/dL (0.2-1); TOT PROT 6.7 g/dl (6.4-8.2)
[2020-08-16] MEDS: APIXABAN 2.5 MG TABLET PO SCH ×2 (08:24→22:00)
--- NOTE | 2020-08-16 08:38 | DS ---
Physical Exam: SUBJECTIVE: Patient seen and examined OBJECTIVE: Vital Signs Period Temp Pulse Resp BP Sys/Mabry Pulse Ox Last 24 Hr 98.0 F-98.5 F 78-99 16-31 98-122/51-64 95-100 PHYSICAL EXAM GENERAL: LABS Laboratory Results - last 24 hr 08/15/20 08/15/20 08/15/20 06:00 11:56 17:05 WBC RBC Hgb Hct MCV MCH MCHC RDW Plt Count MPV Absolute Neuts (auto) Neutrophils % Lymphocytes % Monocytes % Eosinophils % Basophils % Nucleated RBC % ESR Sodium 137 Potassium 3.5 Chloride 99 Carbon Dioxide 30 Anion Gap 8 BUN 25.3 H Creatinine 0.8 Est GFR (CKD-EPI)AfAm 76.29 Est GFR (CKD-EPI)NonAf 65.82 POC Glucometer 222 293 Random Glucose 156 H Calcium 9.0 Phosphorus 3.1 Magnesium 2.4 Total Bilirubin 1.5 H AST 19 ALT 13 Alkaline Phosphatase 63 C-Reactive Protein 2.7 H Total Protein 6.8 Albumin 2.9 L 08/15/20 08/15/20 08/16/20 18:00 20:37 06:00 WBC 16.5 H RBC 3.41 L Hgb 10.8 Hct 31.9 L MCV 93.4 MCH 31.8 MCHC 34.0 RDW 19.8 H Plt Count 242 MPV 10.2 Absolute Neuts (auto) 12.4 H Neutrophils % 74.8 Lymphocytes % 6.8 L Monocytes % 6.7 Eosinophils % 10.8 H Basophils % 0.9 Nucleated RBC % 0 ESR 42 H Sodium Potassium Chloride Carbon Dioxide Anion Gap BUN Creatinine Est GFR (CKD-EPI)AfAm Est GFR (CKD-EPI)NonAf POC Glucometer 148 Random Glucose Calcium Phosphorus Magnesium Total Bilirubin AST ALT Alkaline Phosphatase C-Reactive Protein Total Protein Albumin 08/16/20 08/16/20 06:00 06:38 WBC RBC Hgb Hct MCV MCH MCHC RDW Plt Count MPV Absolute Neuts (auto) Neutrophils % Lymphocytes % Monocytes % Eosinophils % Basophils % Nucleated RBC % ESR Sodium 137 Potassium 3.3 L Chloride 98 Carbon Dioxide 30 Anion Gap 9 BUN 25.5 H Creatinine 0.9 Est GFR (CKD-EPI)AfAm 66.16 Est GFR (CKD-EPI)NonAf 57.09 POC Glucometer 168 Random Glucose 151 H Calcium 8.8 Phosphorus 2.8 Magnesium 2.2 Total Bilirubin 1.3 H AST 19 ALT 12 L Alkaline Phosphatase 63 C-Reactive Protein Total Protein 6.7 Albumin 2.9 L HOSPITAL COURSE: Date of Admission:08/10/20 Date of Discharge: 08/16/20 Discharge Summary Problems reviewed: Yes Reason For Visit: ACUTE KIDNEY INFECTION RESPIRATORY DISTRESS NYHA C Current Active Problems EMILY (acute kidney injury) (Acute) Acute on chronic diastolic heart failure (Acute) Leukocytosis (Acute) NYHA class 2 acute on chronic systolic heart failure (Acute) Condition: Stable - Instructions Disposition: TRANSFER ACUTE CARE/OTHER HOSP - Home Medications Comprehensive Discharge Medication List: Ambulatory Orders Linagliptin [Tradjenta] 5 mg PO DAILY 12/31/16 Donepezil HCl [Aricept -] 5 mg PO HS 07/23/18 Metoprolol Succinate 25 mg PO DAILY 07/28/18 Apixaban [Eliquis] 2.5 mg PO BID 06/07/20 Diclofenac Epolamine [Flector] 1 each TP Q12H PRN 07/30/20 Lidocaine 5% Top. Ointment [Xylocaine 5% Top. Ointment -] 1 applic TP Q12H 07/30/20 Magnesium Oxide [Mag-Oxide] 400 mg PO DAILY 07/30/20 Mirtazapine 15 mg PO HS 07/30/20 Pitavastatin Calcium [Livalo] 2 mg PO DAILY 07/30/20 Amiodarone HCl 200 mg PO DAILY #30 tablet 08/09/20 Apixaban [Eliquis -] 2.5 mg PO BID #60 tablet 08/09/20 Furosemide [Lasix -] 40 mg PO DAILY #30 tablet 08/09/20 Losartan Potassium [Cozaar -] 25 mg PO DAILY #30 tablet 08/09/20 This patient is new to me today: No Emergency Visit: Yes ED Registration Date: 08/10/20 Care time: The patient presented to the Emergency Department on the above date and was hospitalized for further evaluation of their emergent condition. Critical Care patient: Yes Total Critical Care Time (in minutes): 20 - Discharge Referral Referred to [facility] No ATTENDING PHYSICIAN STATEMENT I saw and evaluated the patient. I reviewed the resident's note and discussed the case with the resident. I agree with the resident's findings and plan as documented. SUBJECTIVE: OBJECTIVE: ASSESSMENT AND PLAN:
--- NOTE | 2020-08-16 08:55 | PN ---
Progress Note, Physician History of Present Illness: Dyspnea worse, now on bipap and remains on Levophed gtt. - Current Medication List Current Medications: Active Medications Apixaban (Eliquis -) 2.5 mg PO BID [facility] Last Admin: 08/15/20 21:06 Dose: 2.5 mg Documented by: Atorvastatin Calcium (Lipitor -) 10 mg PO HS [facility] Last Admin: 08/15/20 21:06 Dose: 10 mg Documented by: Chlorhexidine Gluconate (Hibiclens For Decolonization -) 1 applic TP HS [facility] Last Admin: 08/15/20 21:06 Dose: 1 applic Documented by: Donepezil HCl (Aricept -) 5 mg PO HS [facility] Last Admin: 08/15/20 21:06 Dose: 5 mg Documented by: Furosemide (Lasix Injection -) 60 mg IVPUSH BID@0600,1400 [facility] Last Admin: 08/16/20 06:28 Dose: 60 mg Documented by: Vancomycin HCl (Vancomycin (Pre-Docked)) 1,000 mg in 250 mls @ 200 mls/hr IVPB Q24H [facility]; Protocol Last Admin: 08/15/20 14:13 Dose: 200 mls/hr Documented by: Cefepime HCl 1 gm/ Dextrose 100 mls @ 200 mls/hr IVPB Q8H-IV [facility]; Protocol Last Admin: 08/16/20 08:25 Dose: 200 mls/hr Documented by: Norepinephrine Bitartrate 16, (000 mcg/ Sodium Chloride) 500 mls @ 9.375 mls/hr IV TITR [facility]; Protocol Last Titration: 08/16/20 08:35 Dose: 14 mcg/min, 26.25 mls/hr Documented by: Insulin Aspart (Novolog Vial Sliding Scale -) 1 vial SQ ACHS [facility]; Protocol Last Admin: 08/16/20 06:39 Dose: 2 units Documented by: Melatonin (Melatonin) 5 mg PO HS PRN PRN Reason: INSOMNIA Last Admin: 08/15/20 21:06 Dose: 5 mg Documented by: - Objective Vital Signs: Vital Signs Temperature 98.2 F 08/16/20 06:26 Pulse Rate 99 H 08/16/20 08:00 Respiratory Rate 24 H 08/16/20 08:00 Blood Pressure 122/64 08/16/20 08:00 O2 Sat by Pulse Oximetry (%) 97 08/16/20 08:35 Constitutional: Yes: No Distress, Calm, Thin Neck: Yes: Supple Cardiovascular: Yes: Regular Rate and Rhythm Respiratory: Yes: Diminished, On BiPap, SOB Gastrointestinal: Yes: Soft, Hypoactive Bowel Sounds Edema: No Labs: CBC, BMP 08/16/20 06:00 08/16/20 06:00 INR, PTT INR 1.73 (0.83-1.09) H 08/10/20 09:20 - ....Imaging EKG: Report Reviewed (Tele: NSR) Problem List - Problems (1) Acute on chronic diastolic heart failure Code(s): I50.33 - ACUTE ON CHRONIC DIASTOLIC (CONGESTIVE) HEART FAILURE (2) HTN (hypertension) Code(s): I10 - ESSENTIAL (PRIMARY) HYPERTENSION Qualifiers: Hypertension type: essential hypertension Qualified Code(s): I10 - Essential (primary) hypertension (3) Hypercholesterolemia Code(s): E78.00 - PURE HYPERCHOLESTEROLEMIA, UNSPECIFIED (4) PAF (paroxysmal atrial fibrillation) Code(s): I48.0 - PAROXYSMAL ATRIAL FIBRILLATION (5) Pleural effusion Code(s): J90 - PLEURAL EFFUSION, NOT ELSEWHERE CLASSIFIED (6) S/P TAVR (transcatheter aortic valve replacement) Code(s): Z95.2 - PRESENCE OF PROSTHETIC HEART VALVE Assessment/Plan 07/31/2020 Echo: Mod cLVH with normal systolic LVEF 62%, abnl LV compliance, normal RV size and fxn, mod LAE, mod-severe MAC, functional MS MVA 1.07 cm^2 P1/2t, mild TR< RVSP 24 mmHg, bioTAVR w/o regurgitation; PAF. ASSESSMENT: 1. Acute hypoxic respiratory failure related to acute on chronic class II-III NYHA classification LV failure related to diastolic LV dysfunction, resolving 2. Aortic valve stenosis post TAVR with a small paravalvular leak (evidence of post procedure inter-ventricular septal hypertrophy) 3. CAD angina pectoris 4. Paroxysmal atrial fibrillation [id number] score 6 post LALO guided synchronized cardioversion, currently in sinus rhythm- recent presentation with bradyarrhythmia- junctional rhythm necessitating therapy adjustments for planned PPM implant later this week 5. HTN history currently hypotensive on pressors- etiology unclear cardiogenic versus sepsis related/possible pneumonia 6. Hypercholesterolemia 7. Mitral valve regurgitation moderate in severity 8. Organic brain syndrome 9. Pre-renal azotemia improved 10. Leukocytosis r/o HCAP, UTI PLAN: 1. Decreased Lasix 40 IV bid with close monitoring of diuretic response, renal function and electrolytes 2. Attempt to taper off pressors as tolerated, abx course per C&S 3. Ideally Amiodarone therapy resumption is recommended pending PPM implant for management of recurrent paroxysmal atrial fibrillation 4. Ideally B-Koki therapy resumption is recommended pending PPM implant for management of recurrent paroxysmal atrial fibrillation- hemodynamics permitting 5. Continue Eliquis 2.5 bid with close monitoring of Hg level, therapy to be withheld prior to proceeding with PPM implant 6. Plan to proceed with PPM implant once deemed infection free, hold Eliquis for 2 days prior and resume once post-procedure hemostasis achieved 7. Continue Lipitor 10 qhs
--- NOTE | 2020-08-16 11:47 | PN ---
Teaching Attending Note Name of Resident: Jose Manuel Fitch ATTENDING PHYSICIAN STATEMENT I saw and evaluated the patient. I reviewed the resident's note and discussed the case with the resident. I agree with the resident's findings and plan as documented. SUBJECTIVE: Patient seen and examined in the ICU. Remains on levophed drip @ 18 mcq for hemodynamic support. Denies CP. OBJECTIVE: Intake & Output 08/13/20 08/14/20 08/15/20 08/16/20 23:59 23:59 23:59 23:59 Intake Total 2240 2096 1348 Output Total 700 1150 1300 Balance 1540 946 48 Weight 89 lb 3.2 oz 89 lb 1.6 oz 92 lb 3.2 oz 91 lb 3.2 oz Last Vital Signs Temp Pulse Resp BP Pulse Ox 98.2 F 78 24 H 103/55 L 97 08/16/20 06:26 08/16/20 11:00 08/16/20 08:00 08/16/20 11:00 08/16/20 08:35 Active Medications Apixaban (Eliquis -) 2.5 mg PO BID [facility] Last Admin: 08/15/20 21:06 Dose: 2.5 mg Documented by: Atorvastatin Calcium (Lipitor -) 10 mg PO [facility] Last Admin: 08/15/20 21:06 Dose: 10 mg Documented by: Chlorhexidine Gluconate (Hibiclens For Decolonization -) 1 applic TP [facility] Last Admin: 08/15/20 21:06 Dose: 1 applic Documented by: Donepezil HCl (Aricept -) 5 mg PO [facility] Last Admin: 08/15/20 21:06 Dose: 5 mg Documented by: Furosemide (Lasix Injection -) 60 mg IVPUSH BID@0600,1400 [facility] Last Admin: 08/16/20 06:28 Dose: 60 mg Documented by: Vancomycin HCl (Vancomycin (Pre-Docked)) 1,000 mg in 250 mls @ 200 mls/hr IVPB Q24H [facility]; Protocol Last Admin: 08/15/20 14:13 Dose: 200 mls/hr Documented by: Cefepime HCl 1 gm/ Dextrose 100 mls @ 200 mls/hr IVPB Q8H-IV [facility]; Protocol Last Admin: 08/16/20 09:43 Dose: Not Given Documented by: Norepinephrine Bitartrate 16, (000 mcg/ Sodium Chloride) 500 mls @ 9.375 mls/hr IV TITR [facility]; Protocol Last Titration: 08/16/20 11:00 Dose: 18 mcg/min, 33.75 mls/hr Documented by: Insulin Aspart (Novolog Vial Sliding Scale -) 1 vial SQ ACHS [facility]; Protocol Last Admin: 08/16/20 06:39 Dose: 2 units Documented by: Melatonin (Melatonin) 5 mg PO HS PRN PRN Reason: INSOMNIA Last Admin: 08/15/20 21:06 Dose: 5 mg Documented by: Gen: tachypneic at rest Heart: RRR, +systolic murmur Lung: Bilateral rales Abd: soft, nontender Ext: no edema Laboratory Results - last 24 hr 08/15/20 08/15/20 08/15/20 06:00 11:56 17:05 WBC RBC Hgb Hct MCV MCH MCHC RDW Plt Count MPV Absolute Neuts (auto) Neutrophils % Lymphocytes % Monocytes % Eosinophils % Basophils % Nucleated RBC % ESR Sodium 137 Potassium 3.5 Chloride 99 Carbon Dioxide 30 Anion Gap 8 BUN 25.3 H Creatinine 0.8 Est GFR (CKD-EPI)AfAm 76.29 Est GFR (CKD-EPI)NonAf 65.82 POC Glucometer 222 293 Random Glucose 156 H Calcium 9.0 Phosphorus 3.1 Magnesium 2.4 Total Bilirubin 1.5 H AST 19 ALT 13 Alkaline Phosphatase 63 C-Reactive Protein 2.7 H Total Protein 6.8 Albumin 2.9 L SARS-CoV-2 (PCR) 08/15/20 08/15/20 08/16/20 18:00 20:37 06:00 WBC 16.5 H RBC 3.41 L Hgb 10.8 Hct 31.9 L MCV 93.4 MCH 31.8 MCHC 34.0 RDW 19.8 H Plt Count 242 MPV 10.2 Absolute Neuts (auto) 12.4 H Neutrophils % 74.8 Lymphocytes % 6.8 L Monocytes % 6.7 Eosinophils % 10.8 H Basophils % 0.9 Nucleated RBC % 0 ESR 42 H Sodium Potassium Chloride Carbon Dioxide Anion Gap BUN Creatinine Est GFR (CKD-EPI)AfAm Est GFR (CKD-EPI)NonAf POC Glucometer 148 Random Glucose Calcium Phosphorus Magnesium Total Bilirubin AST ALT Alkaline Phosphatase C-Reactive Protein Total Protein Albumin SARS-CoV-2 (PCR) 08/16/20 08/16/20 08/16/20 06:00 06:38 08:10 WBC RBC Hgb Hct MCV MCH MCHC RDW Plt Count MPV Absolute Neuts (auto) Neutrophils % Lymphocytes % Monocytes % Eosinophils % Basophils % Nucleated RBC % ESR Sodium 137 Potassium 3.3 L Chloride 98 Carbon Dioxide 30 Anion Gap 9 BUN 25.5 H Creatinine 0.9 Est GFR (CKD-EPI)AfAm 66.16 Est GFR (CKD-EPI)NonAf 57.09 POC Glucometer 168 Random Glucose 151 H Calcium 8.8 Phosphorus 2.8 Magnesium 2.2 Total Bilirubin 1.3 H AST 19 ALT 12 L Alkaline Phosphatase 63 C-Reactive Protein Total Protein 6.7 Albumin 2.9 L SARS-CoV-2 (PCR) Negative ASSESSMENT AND PLAN: Acute Respiratory Failure requiring NIPPV Acute on Chronic Diastolic Heart Failure Aortic Stenosis Paroxysmal Atrial Fibrillation Acute Kidney Injury r/o UTI HTN DM Hypercholesterolemia - Will discuss with Cardiology further management - monitor urine output, creatinine - daily weights - keep net negative - O2 to keep SpO2 >90% - BiPAP to assist in work of breathing - rate control - continue anticoagulation - empiric antibiotics - f/u cultures - For possible transfer to tertiary care - continue ICU monitoring Dr Johnston
--- NOTE | 2020-08-16 12:13 | PN ---
Physical Exam: SUBJECTIVE: Patient seen and examined at bedside. The patient denies nausea, shortness of breath, or pain. She feels comfortable but is thirsty. Patient was NPO for transfer to [facility] per Cardio, but the hospital had no ICU beds, so transfer was cancelled today with possible transfer once a bed opens up. Lasix held for 1 day due to patient being on a very high rate of 18 of Levophed due to hypotension (patient lost 0.45kg since yesterday). Lasix also decreased from 60 IV BID to 40 IV BID. Infectious disease doctor will be asked today whether patient is okay to proceed with pacemaker insertion surgery. OBJECTIVE: Vital Signs Period Temp Pulse Resp BP Sys/Mabry Pulse Ox Last 24 Hr 98.0 F-98.5 F 73-99 16-31 76-122/45-64 95-100 GENERAL: Awake, alert, and fully oriented, in no acute distress. HEAD: Normal with no signs of trauma. EYES: Pupils equal, round and reactive to light, extraocular movements intact. No lid lag. EARS, NOSE, THROAT: Ears normal, nares patent, oropharynx clear without exudates. Dry mucous membranes. NECK: Normal range of motion, supple without lymphadenopathy or masses. LUNGS: Tachypneic. Decreased breath sounds bilaterally. No accessory muscle use this morning. HEART: Regular rate and rhythm. Systolic murmur. ABDOMEN: Soft, nontender, not distended, normoactive bowel sounds, no guarding, no rebound, no masses. MUSCULOSKELETAL: Normal range of motion at all joints. No bony deformities or tenderness. UPPER EXTREMITIES: 2+ pulses, warm, well-perfused. No cyanosis. No clubbing. Cap refill <2 seconds. No peripheral edema. LOWER EXTREMITIES: 2+ pulses, warm, well-perfused. No calf tenderness. No edema. NEUROLOGICAL: Normal speech. Gait not observed. SKIN: Warm, dry, normal turgor, no rashes or lesions noted. Laboratory Results - last 24 hr 08/15/20 08/15/20 08/15/20 06:00 17:05 18:00 WBC RBC Hgb Hct MCV MCH MCHC RDW Plt Count MPV Absolute Neuts (auto) Neutrophils % Lymphocytes % Monocytes % Eosinophils % Basophils % Nucleated RBC % ESR 42 H Sodium 137 Potassium 3.5 Chloride 99 Carbon Dioxide 30 Anion Gap 8 BUN 25.3 H Creatinine 0.8 Est GFR (CKD-EPI)AfAm 76.29 Est GFR (CKD-EPI)NonAf 65.82 POC Glucometer 293 Random Glucose 156 H Calcium 9.0 Phosphorus 3.1 Magnesium 2.4 Total Bilirubin 1.5 H AST 19 ALT 13 Alkaline Phosphatase 63 C-Reactive Protein 2.7 H Total Protein 6.8 Albumin 2.9 L SARS-CoV-2 (PCR) 08/15/20 08/16/20 08/16/20 20:37 06:00 06:00 WBC 16.5 H RBC 3.41 L Hgb 10.8 Hct 31.9 L MCV 93.4 MCH 31.8 MCHC 34.0 RDW 19.8 H Plt Count 242 MPV 10.2 Absolute Neuts (auto) 12.4 H Neutrophils % 74.8 Lymphocytes % 6.8 L Monocytes % 6.7 Eosinophils % 10.8 H Basophils % 0.9 Nucleated RBC % 0 ESR Sodium 137 Potassium 3.3 L Chloride 98 Carbon Dioxide 30 Anion Gap 9 BUN 25.5 H Creatinine 0.9 Est GFR (CKD-EPI)AfAm 66.16 Est GFR (CKD-EPI)NonAf 57.09 POC Glucometer 148 Random Glucose 151 H Calcium 8.8 Phosphorus 2.8 Magnesium 2.2 Total Bilirubin 1.3 H AST 19 ALT 12 L Alkaline Phosphatase 63 C-Reactive Protein Total Protein 6.7 Albumin 2.9 L SARS-CoV-2 (PCR) 08/16/20 08/16/20 06:38 08:10 WBC RBC Hgb Hct MCV MCH MCHC RDW Plt Count MPV Absolute Neuts (auto) Neutrophils % Lymphocytes % Monocytes % Eosinophils % Basophils % Nucleated RBC % ESR Sodium Potassium Chloride Carbon Dioxide Anion Gap BUN Creatinine Est GFR (CKD-EPI)AfAm Est GFR (CKD-EPI)NonAf POC Glucometer 168 Random Glucose Calcium Phosphorus Magnesium Total Bilirubin AST ALT Alkaline Phosphatase C-Reactive Protein Total Protein Albumin SARS-CoV-2 (PCR) Negative Active Medications Generic Name Dose Route Start Last Admin Trade Name Freq PRN Reason Stop Dose Admin Apixaban 2.5 mg 08/13/20 10:00 08/15/20 21:06 Eliquis - PO 2.5 mg BID JANETTE Administration Atorvastatin Calcium 10 mg 08/13/20 22:00 08/15/20 21:06 Lipitor - PO 10 mg HS JANETTE Administration Chlorhexidine Gluconate 1 applic 08/10/20 22:00 08/15/20 21:06 Hibiclens For Decolonization - TP 1 applic HS JANETTE Administration Donepezil HCl 5 mg 08/13/20 22:00 08/15/20 21:06 Aricept - PO 5 mg HS JANETTE Administration Furosemide 60 mg 08/15/20 09:59 08/16/20 06:28 Lasix Injection - IVPUSH 60 mg BID@0600,1400 JANETTE Administration Vancomycin HCl 1,000 mg in 250 mls @ 200 mls/hr 08/11/20 13:00 08/15/20 14:13 Vancomycin (Pre-Docked) IVPB 200 mls/hr Q24H JANETTE Administration Protocol Cefepime HCl 1 gm/ Dextrose 100 mls @ 200 mls/hr 08/11/20 13:00 08/16/20 09:43 IVPB Not Given Q8H-IV JANETTE Protocol Norepinephrine Bitartrate 16, 500 mls @ 9.375 mls/hr 08/14/20 11:45 08/16/20 11:00 000 mcg/ Sodium Chloride IV 18 mcg/min TITR JANETTE 33.75 mls/hr Titration Protocol 5 MCG/MIN Insulin Aspart 1 vial 08/13/20 11:00 08/16/20 06:39 Novolog Vial Sliding Scale - SQ 2 units ACHS JANETTE Administration Protocol Melatonin 5 mg 08/14/20 21:35 08/15/20 21:06 Melatonin PO 5 mg HS PRN Administration INSOMNIA ASSESSMENT/PLAN: 89 year old female patient with past medical history that includes severe aortic valve stenosis s/p TAVR (at [facility]), HTN, type 2 DM, hypercholesterolemia, peptic ulcer disease, and diastolic heart failure, who presented to the ED due to shortness of breath. NEURO - A&Ox3 CARDIO - diastolic CHF exacerbation - BNP 14k - SIRS+ (elevated WBC and tachypneic) - attempting to wean patient off levophed (this morning was on a rate of 18 of levophed), so lasix now on hold for 1 day - I/Os - per Dr. Burnett's note: Plan to proceed with permanent pacemaker implant once deemed infection free - Transfer cancelled today by accepting hospital due to lack of ICU bed in accepting hospital and because patient needs ID approval for the pacemaker surgery - Asked Cardio whether the mitral valve with moderate to severe stenosis could be opened with a balloon or if there could be an intervention to fix the valve to help with the patient's diastolic heart failure. Cardio explained that since the mitral valve has a functional stenosis, a balloon valvuloplasty wouldn't help, and that the patient needs a pacemaker and diuresis, although the lasix can be reduced from 60mg IV BID. - Lasix decreased to 40 IV BID - Will contact ID regarding clearance for surgical pacemaker insertion PULM - diastolic CHF exacerbation - mitral valve stenosis not a candidate for surgical intervention to open it up because it is a functional valvular stenosis - diuresis with lasix on hold for 1 day - lasix decreased to 40 IV BID - decreased breath sounds bilaterally - patient's weight has decreased today by 0.45 kg. GI - possibly elevated unconjugated bilirubin due to stress/infection vs. hemolysis (Hgb uptrending but RDW elevated) vs genetic disorder such as Gilbert's syndrome - total bilirubin downtrending, now 1.3 today ID - SIRS+ (elevated WBC and tachypneic) - WBC decreased today, now 16.5 - panculture still negative - Cefepime 1gm TID - Vancomycin 1gm QD - Will contact ID regarding clearance for surgical pacemaker insertion RENAL - EMILY resolved ENDO - ISS - BGMs DVT PPx - Eliquis 2.5 BID FEN - monitor electrolytes - diabetic/sodium controlled diet TUBES LINES AND DRAINS - Right Internal Jugular Central Line from 08/10/2020 Visit type - Emergency Visit Emergency Visit: Yes ED Registration Date: 08/10/20 Care time: The patient presented to the Emergency Department on the above date and was hospitalized for further evaluation of their emergent condition. - New Patient This patient is new to me today: No - Critical Care Critical Care patient: Yes Total Critical Care Time (in minutes): 40 Critical Care Statement: The care of this patient involved high complexity decision making to prevent further life threatening deterioration of the patient's condition and/or to evaluate & treat vital organ system(s) failure or risk of failure. - Discharge Referral Referred to [facility] No - Medication Review Med list reviewed for High Risk Meds patients 65 and older: Yes ATTENDING PHYSICIAN STATEMENT I saw and evaluated the patient. I reviewed the resident's note and discussed the case with the resident. I agree with the resident's findings and plan as documented. SUBJECTIVE: OBJECTIVE: ASSESSMENT AND PLAN:
--- NOTE | 2020-08-16 14:35 | PN ---
Progress Note, Physician History of Present Illness: Pt seen and examined at bedside. She is awake and appears comfortable. She did require bipap this morning. - Current Medication List Current Medications: Active Medications Apixaban (Eliquis -) 2.5 mg PO BID JANETTE Last Admin: 08/15/20 21:06 Dose: 2.5 mg Documented by: Atorvastatin Calcium (Lipitor -) 10 mg PO HS JANETTE Last Admin: 08/15/20 21:06 Dose: 10 mg Documented by: Chlorhexidine Gluconate (Hibiclens For Decolonization -) 1 applic TP HS [facility] Last Admin: 08/15/20 21:06 Dose: 1 applic Documented by: Donepezil HCl (Aricept -) 5 mg PO HS [facility] Last Admin: 08/15/20 21:06 Dose: 5 mg Documented by: Furosemide (Lasix Injection -) 40 mg IVPUSH BID@0600,1400 JANETTE Vancomycin HCl (Vancomycin (Pre-Docked)) 1,000 mg in 250 mls @ 200 mls/hr IVPB Q24H JANETTE; Protocol Last Admin: 08/15/20 14:13 Dose: 200 mls/hr Documented by: Cefepime HCl 1 gm/ Dextrose 100 mls @ 200 mls/hr IVPB Q8H-IV JANETTE; Protocol Last Admin: 08/16/20 09:43 Dose: Not Given Documented by: Norepinephrine Bitartrate 16, (000 mcg/ Sodium Chloride) 500 mls @ 9.375 mls/hr IV TITR JANETTE; Protocol Last Titration: 08/16/20 11:00 Dose: 18 mcg/min, 33.75 mls/hr Documented by: Insulin Aspart (Novolog Vial Sliding Scale -) 1 vial SQ ACHS JANETTE; Protocol Last Admin: 08/16/20 12:29 Dose: 4 units Documented by: Melatonin (Melatonin) 5 mg PO HS PRN PRN Reason: INSOMNIA Last Admin: 08/15/20 21:06 Dose: 5 mg Documented by: - Objective Vital Signs: Vital Signs Temperature 98.5 F 08/16/20 10:00 Pulse Rate 79 08/16/20 12:00 Respiratory Rate 26 H 08/16/20 12:00 Blood Pressure 101/63 08/16/20 12:00 O2 Sat by Pulse Oximetry (%) 100 08/16/20 12:00 Constitutional: Yes: Calm Eyes: Yes: Conjunctiva Clear HENT: Yes: Atraumatic Cardiovascular: Yes: S1, S2 Respiratory: Yes: On Nasal O2 Gastrointestinal: Yes: Normal Bowel Sounds, Soft Genitourinary: Yes: Harrell Present Edema: No Neurological: Yes: Oriented Labs: CBC, BMP 08/16/20 06:00 08/16/20 06:00 INR, PTT INR 1.73 (0.83-1.09) H 08/10/20 09:20 Assessment/Plan Current Medications Generic Name Dose Route Start Last Admin Trade Name Freq PRN Reason Stop Dose Admin Apixaban 2.5 mg 08/13/20 10:00 08/15/20 21:06 Eliquis - PO 2.5 mg BID JANETTE Administration Atorvastatin Calcium 10 mg 08/13/20 22:00 08/15/20 21:06 Lipitor - PO 10 mg HS JANETTE Administration Chlorhexidine Gluconate 1 applic 08/10/20 22:00 08/15/20 21:06 Hibiclens For Decolonization - TP 1 applic HS JANETTE Administration Donepezil HCl 5 mg 08/13/20 22:00 08/15/20 21:06 Aricept - PO 5 mg HS JANETTE Administration Furosemide 40 mg 08/16/20 14:05 Lasix Injection - IVPUSH BID@0600,1400 JANETTE Vancomycin HCl 1,000 mg in 250 mls @ 200 mls/hr 08/11/20 13:00 08/15/20 14:13 Vancomycin (Pre-Docked) IVPB 200 mls/hr Q24H JANETTE Administration Protocol Cefepime HCl 1 gm/ Dextrose 100 mls @ 200 mls/hr 08/11/20 13:00 08/16/20 09:43 IVPB Not Given Q8H-IV JANETTE Protocol Norepinephrine Bitartrate 16, 500 mls @ 9.375 mls/hr 08/14/20 11:45 08/16/20 11:00 000 mcg/ Sodium Chloride IV 18 mcg/min TITR JANETTE 33.75 mls/hr Titration Protocol 5 MCG/MIN Insulin Aspart 1 vial 08/13/20 11:00 08/16/20 12:29 Novolog Vial Sliding Scale - SQ 4 units ACHS JANETTE Administration Protocol Melatonin 5 mg 08/14/20 21:35 08/15/20 21:06 Melatonin PO 5 mg HS PRN Administration INSOMNIA Impression 1. EMILY 2. chf 3. resp falure 4. htn 5. dm 6. hld 7. Aortic Stenosis 8. Paroxysmal Atrial Fibrillation Plan - renal function stable - replace potassium - monitor pulse ox - cardio followup - diuretics per icu - avoid nephrotoxins - maintain map 65 - will follow prn
[2020-08-16] MEDS: VANCOMYCIN 1 GRAM (PRE-DOCKED) 1,000 MG/250 ML BAG IVPB SCH (14:39)
[2020-08-16 15:51] VITALS: BMI 17.7
[2020-08-16] MEDS ORDERED: ACETAMINOPHEN 325 MG TABLET (FP) PO ONE (19:08)
[2020-08-16] MEDS ORDERED: ACETAMINOPHEN 1000 MG/100 ML VIAL (NON FORMULARY) IVPB ONE (19:28)
[2020-08-16] MEDS ORDERED: ACETAMINOPHEN INJECTION 100 ML IVPB ONE (19:32)
[2020-08-16] MEDS: DONEPEZIL HCL 5 MG TABLET (FP) PO SCH (22:00)
[2020-08-16] MEDS: ATORVASTATIN CA 10 MG TABLET (FP) PO SCH (22:00)
[2020-08-16] MEDS: CHLORHEXIDINE GLUCONATE 4% CLEANSER FOR DECOLONIZATION TP SCH (22:00)
[2020-08-16] MEDS ORDERED: FUROSEMIDE 40 MG/4 ML INJECTABLE VIAL IVPUSH ONE (22:20)
--- NOTE | 2020-08-16 22:56 | PN ---
Progress Note, Physician History of Present Illness: AWAKE, ALERT BREATHING NON LABORED ON BIPAP AFEBRILE WBC REMAINS ELEVATED - Current Medication List Current Medications: Active Medications Apixaban (Eliquis -) 2.5 mg PO BID [facility] Last Admin: 08/15/20 21:06 Dose: 2.5 mg Documented by: Atorvastatin Calcium (Lipitor -) 10 mg PO HS [facility] Last Admin: 08/15/20 21:06 Dose: 10 mg Documented by: Chlorhexidine Gluconate (Hibiclens For Decolonization -) 1 applic TP HS [facility] Last Admin: 08/15/20 21:06 Dose: 1 applic Documented by: Diphenhydramine HCl (Benadryl Injection -) 12.5 mg IVPUSH ONCE PRN PRN Reason: INSOMNIA Donepezil HCl (Aricept -) 5 mg PO HS [facility] Last Admin: 08/15/20 21:06 Dose: 5 mg Documented by: Furosemide (Lasix Injection -) 40 mg IVPUSH BID@0600,1400 JANETTE Vancomycin HCl (Vancomycin (Pre-Docked)) 1,000 mg in 250 mls @ 200 mls/hr IVPB Q24H JANETTE; Protocol Last Admin: 08/16/20 14:39 Dose: 200 mls/hr Documented by: Cefepime HCl 1 gm/ Dextrose 100 mls @ 200 mls/hr IVPB Q8H-IV JANETTE; Protocol Last Admin: 08/16/20 17:35 Dose: 200 mls/hr Documented by: Norepinephrine Bitartrate 16, (000 mcg/ Sodium Chloride) 500 mls @ 9.375 mls/hr IV TITR JANETTE; Protocol Last Admin: 08/16/20 17:34 Dose: 18 mcg/min, 33.75 mls/hr Documented by: Insulin Aspart (Novolog Vial Sliding Scale -) 1 vial SQ ACHS [facility]; Protocol Last Admin: 08/16/20 18:03 Dose: 4 units Documented by: Melatonin (Melatonin) 5 mg PO HS PRN PRN Reason: INSOMNIA Last Admin: 08/15/20 21:06 Dose: 5 mg Documented by: - Objective Vital Signs: Vital Signs Temperature 98.6 F 08/16/20 20:00 Pulse Rate 72 08/16/20 20:05 Respiratory Rate 31 H 08/16/20 20:31 Blood Pressure 140/69 08/16/20 20:00 O2 Sat by Pulse Oximetry (%) 100 08/16/20 20:31 Constitutional: Yes: No Distress Eyes: Yes: Conjunctiva Clear Cardiovascular: Yes: Regular Rate and Rhythm, Murmur, S1, S2 Respiratory: Yes: Diminished Gastrointestinal: Yes: Normal Bowel Sounds, Soft Edema: No Labs: CBC, BMP 08/16/20 06:00 08/16/20 06:00 INR, PTT INR 1.73 (0.83-1.09) H 08/10/20 09:20 Assessment/Plan RESP FAILURE R/O HCAP HYPOTENSION ON PRESSORS LEUKOCYTOSIS UTI CONTINUE VANCOMYCIN/ CEFEPIME NO OBJECTION FROM ID STANDPOINT FOR PACEMAKER INSERTION
[2020-08-17] MEDS ORDERED: HALOPERIDOL LACTATE 5 MG/ML IV ONE ×2 (00:33→02:17)
[2020-08-17] MEDS: CEFEPIME 1 GM in DEXTROSE 5%-WATER 100 ML IVPB SCH ×2 (02:00→09:05)
[2020-08-17 02:51] LABS: ARTERIAL BLD GAS O2 SATURATION 93.1 mmHg (95-98); ARTERIAL BLOOD GAS BASE EXCESS -10.2 mmol/L (-2-2); ARTERIAL BLOOD GAS PO2 69.2 mmHg (80-100)
[2020-08-17 02:52] LABS: ALLENS TEST POSITIVE; VENT RATE 16
[2020-08-17] MEDS ORDERED: RAPID SEQUENCE INTUBATION KIT NR ONE (04:46)
[2020-08-17] MEDS ORDERED: MIDAZOLAM HCL 2 MG/2 ML SINGLE DOSE VIAL ONE (04:56)
[2020-08-17] MEDS ORDERED: MIDAZOLAM IN 0.9 % SOD.CHLORID 1 MG/1 ML PLAST..BAG ONE (05:09)
[2020-08-17] MEDS ORDERED: MIDAZOLAM HCL 2 MG/2 ML SINGLE DOSE VIAL IVPUSH ONE (05:25)
[2020-08-17] MEDS ORDERED: MIDAZOLAM IN 0.9 % SOD.CHLORID 100 MG/100 ML PLAST..BAG IVPB SCH (05:30)
--- NOTE | 2020-08-17 05:33 | PROC ---
Intubation - Intubation Reason for Intubation: Respiratory Insufficiency Blade used: Glidescope Tube Size (cm): 7.0 Tube position confirmed by: CO2 detector, Chest x-ray Breath Sounds after Intubation: equal Post Intubation Xray: Yes
[2020-08-17] MEDS ORDERED: VASOPRESSIN 20 UNITS/ML VIAL IV ONE ×2 (05:42→13:30)
[2020-08-17] MEDS: VASOPRESSIN 40 UNITS in SODIUM CHLORIDE 98 ML IVPB SCH (06:23)
[2020-08-17 06:29] LABS: ARTERIAL BLOOD GAS BASE EXCESS -13.1 mmol/L (-2-2); ARTERIAL BLOOD GAS PO2 102.3 mmHg (80-100); ARTERIAL BLOOD GAS pH 7.262 (7.350-7.450)
[2020-08-17 06:32] LABS: VENT MODE A/C; VENT RATE 12
--- NOTE | 2020-08-17 07:23 | PN ---
Progress Note (short form) - Note Progress Note: Pt was displaying increased work of breathing, with RR ~30s, diaphoretic and restless. 12-lead EKG was unchanged from the previous night's. CXR showed persistent infiltrative/congestive changes. ABG notable for PCO2 27.6, PO2 69.2 despite being on BiPAP intermittently throughout the night. The decision was made to intubate for hypoxia and work of breathing. The pt's son Lorenzo Campbell was contacted. Consent for intubation was obtained. Dr Terrell(Anesthesiology) was contacted to provide beside supervision.
--- NOTE | 2020-08-17 08:42 | PN ---
Progress Note (short form) - Note Progress Note: Pulm/CCM 24Hr: intubated this am worsening hemodynamics levo, cyndi, phenylepherine multiple episodes of torsades, VT, requiring cardioversion cardiology saw pt---> d/c chronotropic agents if able SUBJECTIVE: Patient seen and examined in the ICU. -non responsive OBJECTIVE: Vital Signs Temp 98.8 F 08/17/20 06:00 Pulse 69 08/17/20 06:23 Resp 25 H 08/17/20 06:00 BP 72/50 L 08/17/20 06:23 Pulse Ox 100 08/17/20 06:00 Intake & Output 08/16/20 08/16/20 08/17/20 11:59 23:59 11:59 Intake Total 717 Output Total 500 Balance 217 Weight 41.368 kg 41.368 kg Intake: IV 307 Levophed - 16,000 Mcg In 307 Normal Saline - 484 ml @ 5 MCG/MIN 9.375 mls/hr IV TITR JANETTE Rx#:[id number] IVPB 350 Oral 60 Output: Urine 500 Harrell 500 Other: Voiding Method Indwelling Catheter Indwelling Catheter Indwelling Catheter # Unmeasured Voids Harrell 1 Bowel Movement Yes # Bowel Movements 1 Body Mass Index (BMI) 17.7 Active Medications Apixaban (Eliquis -) 2.5 mg PO BID [facility] Last Admin: 08/16/20 22:00 Dose: Not Given Documented by: Atorvastatin Calcium (Lipitor -) 10 mg PO [facility] Last Admin: 08/16/20 22:00 Dose: 10 mg Documented by: Chlorhexidine Gluconate (Hibiclens For Decolonization -) 1 applic TP [facility] Last Admin: 08/16/20 22:00 Dose: 1 applic Documented by: Diphenhydramine HCl (Benadryl Injection -) 12.5 mg IVPUSH ONCE PRN PRN Reason: INSOMNIA Donepezil HCl (Aricept -) 5 mg PO [facility] Last Admin: 08/16/20 22:00 Dose: Not Given Documented by: Furosemide (Lasix Injection -) 40 mg IVPUSH BID@0600,1400 JANETTE Vancomycin HCl (Vancomycin (Pre-Docked)) 1,000 mg in 250 mls @ 200 mls/hr IVPB Q24H [facility]; Protocol Last Admin: 08/16/20 14:39 Dose: 200 mls/hr Documented by: Cefepime HCl 1 gm/ Dextrose 100 mls @ 200 mls/hr IVPB Q8H-IV JANETTE; Protocol Last Admin: 08/17/20 02:00 Dose: 200 mls/hr Documented by: Norepinephrine Bitartrate 16, (000 mcg/ Sodium Chloride) 500 mls @ 9.375 mls/hr IV TITR JANETTE; Protocol Last Admin: 08/16/20 17:34 Dose: 18 mcg/min, 33.75 mls/hr Documented by: Midazolam HCl (Midazolam 100mg/100ml-0.9%Nacl) 100 mg in 100 mls @ 1 mls/hr IVPB TITR JANETTE; Protocol Stop: 08/18/20 05:29 Last Admin: 08/17/20 06:22 Dose: 2 mg/hr, 2 mls/hr Documented by: Vasopressin 40 units/ Sodium (Chloride) 100 mls @ 5 mls/hr IVPB ASDIR [facility]; Protocol Last Admin: 08/17/20 06:23 Dose: 2 units/hr, 5 mls/hr Documented by: Insulin Aspart (Novolog Vial Sliding Scale -) 1 vial SQ ACHS [facility]; Protocol Last Admin: 08/16/20 22:00 Dose: 4 units Documented by: Melatonin (Melatonin) 5 mg PO HS PRN PRN Reason: INSOMNIA Last Admin: 08/15/20 21:06 Dose: 5 mg Documented by: Gen: ill appearing woman, vented Heart: RRR, +systolic murmur Lung: Bilateral rales Abd: soft, nontender Ext: no edema Neuro: withdraws from noxious Laboratory Results - last 24 hr 08/16/20 08/16/20 08/16/20 08:10 12:27 18:01 Anticoagulation Therapy Puncture Site Patient Temperature ABG pH ABG pCO2 ABG pO2 ABG HCO3 ABG O2 Sat (Measured) ABG O2 Content ABG Base Excess Ranjan Test Patient On Oxygen O2 Delivery Device Oxygen Flow Rate Vent Mode Vent Rate Mechanical Rate PEEP Pressure Support Vent POC Glucometer 229 240 SARS-CoV-2 (PCR) Negative 08/17/20 08/17/20 08/17/20 02:20 02:45 06:12 Anticoagulation Therapy S/t No Result Required. Puncture Site Right radial Right brachial Patient Temperature No Result Required. No Result Required. ABG pH 7.330 L 7.262 L ABG pCO2 27.60 L 28.30 L ABG pO2 69.2 L 102.3 H ABG HCO3 14.2 L 12.5 L ABG O2 Sat (Measured) 93.1 L 97.0 ABG O2 Content No Result Required. No Result Required. ABG Base Excess -10.2 L -13.1 L Ranjan Test Positive Not applicable Patient On Oxygen Yes Yes O2 Delivery Device Bipap Vent Oxygen Flow Rate 40 50 Vent Mode No Result Required. A/c Vent Rate 16 12 Mechanical Rate No Result Required. No Result Required. PEEP No Result Required. 5.0 Pressure Support Vent 12/6 400 POC Glucometer 226 SARS-CoV-2 (PCR) ASSESSMENT AND PLAN: Acute Respiratory Failure requiring NIPPV Acute on Chronic Diastolic Heart Failure Aortic Stenosis Paroxysmal Atrial Fibrillation Acute Kidney Injury r/o UTI HTN DM Hypercholesterolemia EMILY mixed shock - full vent support - check lactate - vasopressor support, change to phenylepherine given tachydysrhthmias - Will discuss with Cardiology further management for torsades/VT - amio drip - keep Potassium 4, mag 2 - monitor urine output, creatinine - daily weights - keep even fluid balance if able - rate control - continue anticoagulation - empiric antibiotics - f/u cultures - continue ICU monitoring - on going goals of care discussion [facility] [id number] 35min CCT Critical Care Total Critical Care Time (in minutes): 40 Critical Care Statement: The care of this patient involved high complexity decision making to prevent further life threatening deterioration of the patient's condition and/or to evaluate & treat vital organ system(s) failure or risk of failure.
[2020-08-17] MEDS ORDERED: DEXTROSE 5%-WATER 100 ML IVPB ONE (09:00)
[2020-08-17] MEDS ORDERED: CEFEPIME HCL 1 GM VIAL (RESTRICTED TO ID) ONE (09:00)
[2020-08-17] MEDS: APIXABAN 2.5 MG TABLET PO SCH ×2 (09:26→23:20)
[2020-08-17] MEDS ORDERED: MAGNESIUM SULF 50% (8.12 MEQ/2 ML-1 GM VIAL) ONE (09:47)
[2020-08-17] MEDS ORDERED: CALCIUM GLUCONATE 10% - 1,000 MG/10 ML VIAL ONE (09:54)
[2020-08-17] MEDS ORDERED: CALCIUM CHLORIDE 1 GM/10 ML *DISP.SYRIN ONE (09:54)
[2020-08-17] MEDS ORDERED: AMIODARONE IN DEXTROSE,ISO-OSM 150 MG/100 ML BAG ONE (09:56)
[2020-08-17] MEDS ORDERED: AMIODARONE IN DEXTROSE,ISO-OSM 360 MG/200 ML BAG ONE ×2 (10:08→15:40)
[2020-08-17] MEDS ORDERED: LIDOCAINE HCL 2% 100 MG/5 ML DISP.SYRIN ONE (10:17)
[2020-08-17] MEDS: INSULIN SLIDING SCALE (NOVOLOG) 1 VIAL SQ SCH ×4 (10:26→23:21)
[2020-08-17 10:27] LABS: BASO % 0.2 % (0-2.0); HEMATOCRIT 33.7 % (32.4-45.2); HEMOGLOBIN 10.7 GM/dL (10.7-15.3); LYMPH % 1.7 % (8-40); MCH 30.9 pg (25.7-33.7); MCHC 31.8 g/dl (32.0-36.0); MEAN PLT VOLUME 10.5 fl (7.5-11.1); MONO % 5.3 % (3.8-10.2); NEUT % 92.8 % (42.8-82.8); PLATELET COUNT 258 K/MM3 (134-434); RBC 3.47 M/mm3 (3.60-5.2); RDW 20.1 % (11.6-15.6)
[2020-08-17 10:41] LABS: WHITE BLOOD COUNT 32.7 K/mm3 (4.0-10.0)
[2020-08-17 10:44] LABS: ARTERIAL BLD GAS O2 SATURATION 96.6 mmHg (95-98); ARTERIAL BLOOD GAS BASE EXCESS -11.7 mmol/L (-2-2); ARTERIAL BLOOD GAS PO2 96.5 mmHg (80-100); ARTERIAL BLOOD GAS pH 7.276 (7.350-7.450)
[2020-08-17 10:48] LABS: ALLENS TEST POSITIVE
[2020-08-17] MEDS ORDERED: PT OWN MED DRAWER 7, Y5N ONE (10:48)
[2020-08-17 10:49] LABS: VENT MODE A/C; VENT RATE 20
--- NOTE | 2020-08-17 10:54 | PN ---
Progress Note (short form) - Note Progress Note: events noted intubated early this am developed multiple episodes of VT and torsade this am shocked several times on pressors unresponsive Vital Signs Period Temp Pulse Resp BP Sys/Mabry Pulse Ox Last 24 Hr 98.3 F-98.9 F 69-79 23-33 72-140/43-79 98-100 cor-rrr llungs decreased bs at bases, +hsm abd soft, no distention ext no edema CBC, BMP 08/17/20 09:30 Microbiology 08/10/20 09:30 Blood - Peripheral Venous Blood Culture - Final NO GROWTH AFTER 5 DAYS INCUBATION 08/10/20 09:50 Blood - Peripheral Venous Blood Culture - Final NO GROWTH AFTER 5 DAYS INCUBATION 08/10/20 15:00 Urine - Urine - Catheterized Urine Culture - Final NO GROWTH OBTAINED 08/11/20 12:00 Urine For Antigen Detection Legionella Antigen - Final 08/11/20 12:00 Urine For Antigen Detection Streptococcus pneumoniae Antigen (M - Final cxray bilateral infiltrates meds reviewed a/p venticular tachycardia resp failure CHF possible pneumonia, ?aspiration reculture blood and sputum vancomycin to continue, check level in am switch to zosyn d/c cefepime cardiology f/u overall prognosis is poor unclear if labs were drawn prior to resuscitation this am or after d/w intensitivist over 30 minutes reviewing chart and examining this criticallly ill ICU patient
--- NOTE | 2020-08-17 10:59 | PN ---
Progress Note, Physician History of Present Illness: Sedated and intubated for progressive hypoxemic respiratory failure, refractory shock, salvos of sustained polymorphic VT requiring shocks, started on amiodarone gtt, abx spectrum broadened for possible aspiration PNA. - Current Medication List Current Medications: Active Medications Apixaban (Eliquis -) 2.5 mg PO BID [facility] Last Admin: 08/17/20 09:26 Dose: Not Given Documented by: Atorvastatin Calcium (Lipitor -) 10 mg PO HS JANETTE Last Admin: 08/16/20 22:00 Dose: 10 mg Documented by: Chlorhexidine Gluconate (Hibiclens For Decolonization -) 1 applic TP HS [facility] Last Admin: 08/16/20 22:00 Dose: 1 applic Documented by: Diphenhydramine HCl (Benadryl Injection -) 12.5 mg IVPUSH ONCE PRN PRN Reason: INSOMNIA Donepezil HCl (Aricept -) 5 mg PO HS [facility] Last Admin: 08/16/20 22:00 Dose: Not Given Documented by: Furosemide (Lasix Injection -) 40 mg IVPUSH BID@0600,1400 JANETTE Vancomycin HCl (Vancomycin (Pre-Docked)) 1,000 mg in 250 mls @ 200 mls/hr IVPB Q24H JANETTE; Protocol Last Admin: 08/16/20 14:39 Dose: 200 mls/hr Documented by: Norepinephrine Bitartrate 16, (000 mcg/ Sodium Chloride) 500 mls @ 9.375 mls/hr IV TITR JANETTE; Protocol Last Admin: 08/16/20 17:34 Dose: 18 mcg/min, 33.75 mls/hr Documented by: Midazolam HCl (Midazolam 100mg/100ml-0.9%Nacl) 100 mg in 100 mls @ 1 mls/hr IVPB TITR JANETTE; Protocol Stop: 08/18/20 05:29 Last Admin: 08/17/20 06:22 Dose: 2 mg/hr, 2 mls/hr Documented by: Vasopressin 40 units/ Sodium (Chloride) 100 mls @ 5 mls/hr IVPB ASDIR JANETTE; Protocol Last Admin: 08/17/20 06:23 Dose: 2 units/hr, 5 mls/hr Documented by: Phenylephrine HCl (Thien-Synephrine) 50,000 mcg in 500 mls @ 60 mls/hr CVP TITR JANETTE; Protocol Piperacillin Sod/Tazobactam (Sod 3.375 gm/ Dextrose) 50 mls @ 100 mls/hr IVPB Q8H-IV JANETTE; Protocol Insulin Aspart (Novolog Vial Sliding Scale -) 1 vial SQ ACHS JANETTE; Protocol Last Admin: 08/17/20 10:26 Dose: Not Given Documented by: Melatonin (Melatonin) 5 mg PO HS PRN PRN Reason: INSOMNIA Last Admin: 08/15/20 21:06 Dose: 5 mg Documented by: - Objective Vital Signs: Vital Signs Temperature 98.8 F 08/17/20 06:00 Pulse Rate 74 08/17/20 08:54 Respiratory Rate 30 H 08/17/20 08:54 Blood Pressure 72/50 L 08/17/20 06:23 O2 Sat by Pulse Oximetry (%) 100 08/17/20 08:54 Constitutional: Yes: Other (Sedated and intubated) Cardiovascular: Yes: Regular Rate and Rhythm, Murmur Respiratory: Yes: Intubated, Mechanically Ventilated Gastrointestinal: Yes: Soft, Hypoactive Bowel Sounds Genitourinary: Yes: Harrell Present Edema: No Labs: CBC, BMP 08/17/20 09:30 INR, PTT INR 1.73 (0.83-1.09) H 08/10/20 09:20 - ....Imaging Chest X-ray: Report Reviewed (Bilateral infiltrates R>L) EKG: Report Reviewed (Tele: [place]) Problem List - Problems (1) Acute on chronic diastolic heart failure Code(s): I50.33 - ACUTE ON CHRONIC DIASTOLIC (CONGESTIVE) HEART FAILURE (2) HTN (hypertension) Code(s): I10 - ESSENTIAL (PRIMARY) HYPERTENSION Qualifiers: Hypertension type: essential hypertension Qualified Code(s): I10 - Ess ential (primary) hypertension (3) Hypercholesterolemia Code(s): E78.00 - PURE HYPERCHOLESTEROLEMIA, UNSPECIFIED (4) PAF (paroxysmal atrial fibrillation) Code(s): I48.0 - PAROXYSMAL ATRIAL FIBRILLATION (5) Pleural effusion Code(s): J90 - PLEURAL EFFUSION, NOT ELSEWHERE CLASSIFIED (6) S/P TAVR (transcatheter aortic valve replacement) Code(s): Z95.2 - PRESENCE OF PROSTHETIC HEART VALVE Assessment/Plan 07/31/2020 Echo: Mod cLVH with normal systolic LVEF 62%, abnl LV compliance, normal RV size and fxn, mod LAE, mod-severe MAC, functional MS MVA 1.07 cm^2 P1/2t, mild TR< RVSP 24 mmHg, bioTAVR w/o regurgitation; PAF. ASSESSMENT: 1. Acute hypoxic respiratory failure suspect aspiration PNA requiring mechanical ventilation 2. Acute on chronic class II-III NYHA classification LV failure related to diastolic LV dysfunction 3. Aortic valve stenosis post TAVR with a small paravalvular leak (evidence of post procedure inter-ventricular septal hypertrophy) 5. CAD angina pectoris 6. Paroxysmal atrial fibrillation [id number] score 6 post LALO guided synchronized cardioversion, currently in sinus rhythm- recent presentation with bradyarrhythmia- junctional rhythm necessitating therapy adjustments for planned PPM implant once stable 6. HTN history currently hypotensive on pressors- etiology unclear cardiogenic versus sepsis related/possible pneumonia 7. Hypercholesterolemia 8. Mitral valve regurgitation moderate in severity 9. Organic brain syndrome 10. EMILY and hyperkalemia due to hemodynamic alterations 11. Worsening leukocytosis r/o asp PNA, UTI 12. Shock liver 13. Lactic acidosis 14. Polymorphic VT s/p shock PLAN: 1. Observe off Lasix 40 IV bid with close monitoring of renal function and electrolytes 2. Attempt to taper off pressors as tolerated, broadened abx course per C&S 3. Maintain on amio gtt 4. Ideally B-Koki therapy resumption is recommended pending PPM implant for management of recurrent paroxysmal atrial fibrillation- hemodynamics permitting and once stable 5. Continue Eliquis 2.5 bid with close monitoring of Hg level, therapy to be withheld prior to proceeding with PPM implant 6. Wean FIO2 and PEEP to maintain saO2 7. Continue Lipitor 10 qhs 8. Prognosis worsened, case d/w commissioning engineer and family
[2020-08-17 11:19] LABS: CHLORIDE 107 mmol/L (98-107); SODIUM 141 mmol/L (136-145)
[2020-08-17 11:22] LABS: BLOOD UREA NITROGEN 44.2 mg/dL (7-18); CALCIUM 9.1 mg/dL (8.5-10.1); CO2 17 mmol/L (21-32); GLUCOSE,RANDOM 193 mg/dL (74-106); MAGNESIUM 2.8 mg/dL (1.8-2.4)
[2020-08-17 11:25] LABS: BILIRUBIN,DIRECT 1.1 mg/dL (0.0-0.2); CREATININE 2.3 mg/dL (0.55-1.3)
[2020-08-17 11:26] LABS: BILIRUBIN,TOTAL 3.1 mg/dL (0.2-1); PHOSPHOROUS 7.2 mg/dL (2.5-4.9); TOT PROT 6.5 g/dl (6.4-8.2)
[2020-08-17 11:27] LABS: ALK PHOS 71 U/L (45-117)
[2020-08-17] MEDS ORDERED: PHENYLEPHRINE HCL 10 MG/1 ML SINGLE DOSE VIAL ONE ×2 (11:29→11:34)
[2020-08-17] MEDS: PHENYLEPHRINE NS PREMIX 50,000 MCG/500 ML BAG CVP SCH ×3 (11:32→22:00)
[2020-08-17 11:38] LABS: ANION GAP 17 MMOL/L (8-16); N-TERMINAL BNP > 35000.0 pg/ml (5-450); SGOT/AST 1899 U/L (15-37); SGPT/ALT 1171 U/L (13-61)
[2020-08-17 11:41] LABS: POTASSIUM 6.1 mmol/L (3.5-5.1)
[2020-08-17] MEDS ORDERED: INSULIN REGULAR HUMAN 100 UNITS/ML *VIAL IV ONE (11:44)
[2020-08-17] MEDS ORDERED: SODIUM BICARBONATE 8.4% 50 MEQ/50 ML DISP.SYRIN IVPUSH ONE (11:44)
[2020-08-17] MEDS ORDERED: DEXTROSE 50%-WATER 25 GM/50 ML DISP.SYRIN ONE (11:53)
--- NOTE | 2020-08-17 12:12 | PN ---
Progress Note, Physician History of Present Illness: Seen and examined at the bedside s/p V-tach this am now intubated continues to have intermittent V-tach on amino gtt K noted to be 6.1 - Current Medication List Current Medications: Active Medications Apixaban (Eliquis -) 2.5 mg PO BID [facility] Last Admin: 08/17/20 09:26 Dose: Not Given Documented by: Atorvastatin Calcium (Lipitor -) 10 mg PO HS [facility] Last Admin: 08/16/20 22:00 Dose: 10 mg Documented by: Chlorhexidine Gluconate (Hibiclens For Decolonization -) 1 applic TP HS [facility] Last Admin: 08/16/20 22:00 Dose: 1 applic Documented by: Diphenhydramine HCl (Benadryl Injection -) 12.5 mg IVPUSH ONCE PRN PRN Reason: INSOMNIA Donepezil HCl (Aricept -) 5 mg PO HS [facility] Last Admin: 08/16/20 22:00 Dose: Not Given Documented by: Furosemide (Lasix Injection -) 40 mg IVPUSH BID@0600,1400 JANETTE Vancomycin HCl (Vancomycin (Pre-Docked)) 1,000 mg in 250 mls @ 200 mls/hr IVPB Q24H JANETTE; Protocol Last Admin: 08/16/20 14:39 Dose: 200 mls/hr Documented by: Norepinephrine Bitartrate 16, (000 mcg/ Sodium Chloride) 500 mls @ 9.375 mls/hr IV TITR JANETTE; Protocol Last Admin: 08/16/20 17:34 Dose: 18 mcg/min, 33.75 mls/hr Documented by: Midazolam HCl (Midazolam 100mg/100ml-0.9%Nacl) 100 mg in 100 mls @ 1 mls/hr IVPB TITR JANETTE; Protocol Stop: 08/18/20 05:29 Last Admin: 08/17/20 06:22 Dose: 2 mg/hr, 2 mls/hr Documented by: Vasopressin 40 units/ Sodium (Chloride) 100 mls @ 5 mls/hr IVPB ASDIR JANETTE; Protocol Last Admin: 08/17/20 06:23 Dose: 2 units/hr, 5 mls/hr Documented by: Phenylephrine HCl (Thien-Synephrine) 50,000 mcg in 500 mls @ 60 mls/hr CVP TITR JANETTE; Protocol Piperacillin Sod/Tazobactam (Sod 3.375 gm/ Dextrose) 50 mls @ 100 mls/hr IVPB Q8H-IV JANETTE; Protocol Insulin Aspart (Novolog Vial Sliding Scale -) 1 vial SQ ACHS JANETTE; Protocol Last Admin: 08/17/20 10:26 Dose: Not Given Documented by: Melatonin (Melatonin) 5 mg PO HS PRN PRN Reason: INSOMNIA Last Admin: 08/15/20 21:06 Dose: 5 mg Documented by: - Objective Vital Signs: Vital Signs Temperature 98.8 F 08/17/20 06:00 Pulse Rate 74 08/17/20 08:54 Respiratory Rate 26 H 08/17/20 11:57 Blood Pressure 72/50 L 08/17/20 06:23 O2 Sat by Pulse Oximetry (%) 100 08/17/20 08:54 Constitutional: Yes: No Distress HENT: Yes: Atraumatic Cardiovascular: Yes: Tachycardia Respiratory: Yes: Mechanically Ventilated Extremities: No: Cyanosis Edema: No Neurological: No: Alert Labs: CBC, BMP 08/17/20 09:30 08/17/20 09:30 INR, PTT INR 1.73 (0.83-1.09) H 08/10/20 09:20 Assessment/Plan Impression 1. EMILY (recurrent) 2. chf 3. resp failure 4. htn 5. dm 6. hld 7. Aortic Stenosis 8. Paroxysmal Atrial Fibrillation 9. Hyperkalemia 10. V-tach Plan Renal function noted to be acutely worse today likely related to hypoprofusion in setting of V-tach Would hold diuretics for now continue amino gtt Treat hyperkalemia medically and repeat labs in 4 hours no emergent indication for dialysis and given advanced age and co-morbid conditions pt is not a good dialysis candidate Give lokelma once feeding tube is placed Cardiology follow up Continue antibiotics as per ID prognosis is guarded Darin Zhang
[2020-08-17] MEDS ORDERED: SODIUM ZIRCONIUM CYCLOSILICATE (LOKELMA) 5 GM PACKET PO ONE (12:15)
[2020-08-17 12:16] LABS: ANISOCYTOSIS 0; MACROCYTOSIS 0; PLATELET ESTIMATE NORMAL
[2020-08-17] MEDS ORDERED: PIPERACILLIN/TAZOBACTAM 3.375 GM VIAL IVPB ONE ×2 (12:32→17:57)
[2020-08-17] MEDS ORDERED: DEXTROSE 5%-WATER - 50 ML IVPB ONE ×2 (12:32→17:57)
[2020-08-17] MEDS: PIPERACILLIN/TAZOB 3.375 GM 3.375 GM in DEXTROSE 5%-WATER - 50 ML IVPB SCH ×2 (12:33→18:19)
[2020-08-17] MEDS: NOREPINEPHRINE BITARTRATE 16,000 MCG in SODIUM CHLORIDE 484 ML IV SCH (12:42)
[2020-08-17] MEDS: VANCOMYCIN 1 GRAM (PRE-DOCKED) 1,000 MG/250 ML BAG IVPB SCH (12:46)
[2020-08-17 13:38] LABS: INR 3.95 (0.83-1.09); PROTHROMBIN TIME (PATIENT) 45.9 SEC (9.7-13.0)
[2020-08-17 13:41] LABS: ACTIVATED PTT 30.5 SECONDS (25.2-36.5)
--- NOTE | 2020-08-17 15:30 | EKG ---
Test Reason : Blood Pressure : / mmHG Vent. Rate : 079 BPM Atrial Rate : 053 BPM P-R Int : 000 ms QRS Dur : 126 ms QT Int : 432 ms P-R-T Axes : 000 -21 162 degrees QTc Int : 495 ms WIDE QRS RHYTHM : JUNCTIONAL RHYTHM WITH ABERRANT CONDUCTION VS IDIOVENTRICULAR RHYTHM LEFT VENTRICULAR HYPERTROPHY WITH QRS WIDENING AND REPOLARIZATION ABNORMALITY VS ISCHEMIA LATERAL LEADS ABNORMAL ECG WHEN COMPARED WITH ECG OF 10-AUG-2020 09:18, ST DEPRESSION PRESENT IN LATERAL LEADS Confirmed by MICHELLE SANDRA MD ([id number]) on 08/17/2020 3:29:32 PM Referred By: Confirmed By:MICHELLE SANDRA MD
[2020-08-17] MEDS ORDERED: ACETAMINOPHEN 1000 MG/100 ML VIAL (NON FORMULARY) IVPB PRN (17:24)
[2020-08-17] MEDS: FUROSEMIDE 40 MG/4 ML INJECTABLE VIAL IVPUSH SCH (18:00)
[2020-08-17] MEDS ORDERED: AMIODARONE HCL INJECTION 450 MG in DEXTROSE 5%-WATER - 241 ML IVPB ONE (20:55)
[2020-08-17] MEDS ORDERED: AMIODARONE IN DEXTROSE,ISO-OSM 150 MG/100 ML BAG IVPB ONE (20:55)
[2020-08-17] MEDS ORDERED: AMIODARONE HCL INJECTION 450 MG in DEXTROSE 5%-WATER - 241 ML IVPB SCH (21:00)
[2020-08-17] MEDS ORDERED: AMIODARONE IN DEXTROSE,ISO-OSM 360 MG/200 ML BAG IVPB ONE (21:04)
[2020-08-17] MEDS ORDERED: AMIODARONE IN DEXTROSE,ISO-OSM 360 MG/200 ML BAG IVPB SCH (21:15)
[2020-08-17 22:19] LABS: POTASSIUM 4.5 mmol/L (3.5-5.1)
[2020-08-17 22:20] LABS: BLOOD UREA NITROGEN 52.7 mg/dL (7-18); CALCIUM 8.9 mg/dL (8.5-10.1); MAGNESIUM 3.2 mg/dL (1.8-2.4)
[2020-08-17 22:24] LABS: CREATININE 2.4 mg/dL (0.55-1.3)
[2020-08-17] MEDS: DONEPEZIL HCL 5 MG TABLET (FP) PO SCH (23:20)
[2020-08-17] MEDS: CHLORHEXIDINE GLUCONATE 4% CLEANSER FOR DECOLONIZATION TP SCH (23:20)
[2020-08-17] MEDS: ATORVASTATIN CA 10 MG TABLET (FP) PO SCH (23:21)
[2020-08-18] MEDS: PHENYLEPHRINE NS PREMIX 50,000 MCG/500 ML BAG CVP SCH ×4 (00:33→08:00)
[2020-08-18] MEDS: PIPERACILLIN/TAZOB 3.375 GM 3.375 GM in DEXTROSE 5%-WATER - 50 ML IVPB SCH (02:00)
[2020-08-18] MEDS ORDERED: VASOPRESSIN 20 UNITS/ML VIAL IV ONE (04:32)
[2020-08-18] MEDS ORDERED: DEXTROSE 5%-WATER - 50 ML IVPB ONE (04:47)
[2020-08-18] MEDS ORDERED: PIPERACILLIN/TAZOBACTAM 3.375 GM VIAL IVPB ONE (04:47)
[2020-08-18] MEDS ORDERED: SODIUM BICARBONATE 8.4% 50 MEQ/50 ML DISP.SYRIN IVPUSH ONE (05:01)
[2020-08-18] MEDS: VASOPRESSIN 40 UNITS in SODIUM CHLORIDE 98 ML IVPB SCH (05:30)
[2020-08-18 05:41] LABS: ARTERIAL BLD GAS O2 SATURATION 92.5 mmHg (95-98); ARTERIAL BLOOD GAS BASE EXCESS -18.8 mmol/L (-2-2); ARTERIAL BLOOD GAS PO2 84.1 mmHg (80-100)
[2020-08-18 05:42] LABS: ALLENS TEST POSITIVE
[2020-08-18 05:43] LABS: VENT MODE A/C; VENT RATE 20
[2020-08-18 05:49] LABS: ARTERIAL BLOOD GAS pH 7.102 (7.350-7.450)
[2020-08-18 06:41] VITALS: TEMP 99
[2020-08-18 06:53] LABS: HEMATOCRIT 27.7 % (32.4-45.2); HEMOGLOBIN 8.2 GM/dL (10.7-15.3); MCH 30.5 pg (25.7-33.7); MCHC 29.7 g/dl (32.0-36.0); MEAN CELL VOLUME 102.4 fl (80-96); MEAN PLT VOLUME 10.7 fl (7.5-11.1); PLATELET COUNT 139 K/MM3 (134-434); WHITE BLOOD COUNT 36.5 K/mm3 (4.0-10.0)
[2020-08-18] MEDS: FUROSEMIDE 40 MG/4 ML INJECTABLE VIAL IVPUSH SCH (06:56)
[2020-08-18] MEDS ORDERED: INSULIN SLIDING SCALE (NOVOLOG) 1 VIAL SQ SCH (07:00)
--- NOTE | 2020-08-18 07:01 | PN ---
Progress Note (short form) - Note Progress Note: Code Status Discussion: This morning I had opportunity to speak with the son and surrogate of highest order Mr Lorenzo Campbell regarding the clinical status of his mother. She is currently deteriorating in spite of being on maximal vasopressor support. She has mulitsystem organ failure with shock liver, acute renal failure as well as vasodilatory shock and heart failure. Given her advanced age and with best interest decision making Mr Campbell has decided to make his mother DNR. The family is planning on gathering at the bedside and will discuss discontinuation of life support later. Patient is unconscious and appears in no distress. DNR conversation was witness by the bedside nurse RN Husbands. Tristan Ramos ACNP [id number]
[2020-08-18 07:11] LABS: POTASSIUM 5.7 mmol/L (3.5-5.1)
[2020-08-18 07:13] LABS: BLOOD UREA NITROGEN 50.8 mg/dL (7-18); CALCIUM 7.6 mg/dL (8.5-10.1)
[2020-08-18 07:18] LABS: BILIRUBIN,TOTAL 4.5 mg/dL (0.2-1); TOT PROT 4.6 g/dl (6.4-8.2)
[2020-08-18 07:20] LABS: N-TERMINAL BNP 34819.1 pg/ml (5-450)
[2020-08-18 08:41] VITALS: PULSE 50
[2020-08-18] MEDS ORDERED: PT OWN MED DRAWER 7, Y5N ONE (09:02)
[2020-08-18 09:16] VITALS: BP 68/36
[2020-08-18 09:17] LABS: PROTHROMBIN TIME (PATIENT) 69.3 SEC (9.7-13.0)
[2020-08-18] MEDS: APIXABAN 2.5 MG TABLET PO SCH (10:00)
--- NOTE | 2020-08-18 10:28 | PN ---
Progress Note, Physician History of Present Illness: Sedated and intubated for progressive hypoxemic respiratory failure, refractory shock, salvos of sustained polymorphic VT requiring shocks, started on amiodarone gtt, abx spectrum broadened for possible aspiration PNA, she had choked on porridge previous day. Progressive decline now on comfort care and DNR on triple pressors, unresponsive off sedation. - Current Medication List Current Medications: Active Medications Acetaminophen (Ofirmev Injection -) 500 mg IVPB Q6H PRN PRN Reason: FEVER Stop: 08/18/20 17:24 Last Admin: 08/17/20 18:19 Dose: 500 mg Documented by: Apixaban (Eliquis -) 2.5 mg PO BID [facility] Last Admin: 08/17/20 23:20 Dose: Not Given Documented by: Atorvastatin Calcium (Lipitor -) 10 mg PO HS [facility] Last Admin: 08/17/20 23:21 Dose: Not Given Documented by: Chlorhexidine Gluconate (Hibiclens For Decolonization -) 1 applic TP [facility] Last Admin: 08/17/20 23:20 Dose: Not Given Documented by: Donepezil HCl (Aricept -) 5 mg PO HS [facility] Last Admin: 08/17/20 23:20 Dose: Not Given Documented by: Furosemide (Lasix Injection -) 40 mg IVPUSH BID@0600,1400 [facility] Last Admin: 08/18/20 06:56 Dose: Not Given Documented by: Norepinephrine Bitartrate 16, (000 mcg/ Sodium Chloride) 500 mls @ 9.375 mls/hr IV TITR [facility]; Protocol Last Admin: 08/17/20 12:42 Dose: 5 mcg/min, 9.375 mls/hr Documented by: Vasopressin 40 units/ Sodium (Chloride) 100 mls @ 5 mls/hr IVPB ASDIR JANETTE; Protocol Last Admin: 08/18/20 05:30 Dose: 2 units/hr, 5 mls/hr Documented by: Phenylephrine HCl (Thien-Synephrine) 50,000 mcg in 500 mls @ 60 mls/hr CVP TITR [facility]; Protocol Last Admin: 08/18/20 04:20 Dose: 400 mcg/min, 240 mls/hr Documented by: Amiodarone HCl/Dextrose (Nexterone 360 Mg/200 Ml Bag) 360 mg in 200 mls @ 16.667 mls/hr IVPB ASDIR JANETTE Last Admin: 08/18/20 01:00 EST Dose: 0.5 mg/min, 16.667 mls/hr Documented by: Piperacillin Sod/Tazobactam (Sod 3.375 gm/ Dextrose) 50 mls @ 100 mls/hr IVPB Q12H [facility]; Protocol Insulin Aspart (Novolog Vial Sliding Scale -) 1 vial SQ BIDAC JANETTE; Protocol Last Admin: 08/18/20 06:56 Dose: Not Given Documented by: - Objective Vital Signs: Vital Signs Temperature 99.0 F 08/18/20 06:26 Pulse Rate 50 L 08/18/20 08:40 Respiratory Rate 26 H 08/18/20 09:00 Blood Pressure 68/36 L 08/18/20 08:00 O2 Sat by Pulse Oximetry (%) 92 L 08/18/20 09:00 Cardiovascular: Yes: Bradycardia Respiratory: Yes: Intubated, Mechanically Ventilated, Rhonchi Gastrointestinal: Yes: Soft, Hypoactive Bowel Sounds Genitourinary: Yes: Harrell Present Edema: No Labs: CBC, BMP 08/18/20 05:20 08/18/20 05:20 INR, PTT INR 5.93 (0.83-1.09) H* 08/18/20 05:20 - ....Imaging EKG: Report Reviewed (Tele: SB) Problem List - Problems (1) Acute on chronic diastolic heart failure Code(s): I50.33 - ACUTE ON CHRONIC DIASTOLIC (CONGESTIVE) HEART FAILURE (2) HTN (hypertension) Code(s): I10 - ESSENTIAL (PRIMARY) HYPERTENSION Qualifiers: Hypertension type: essential hypertension Qualified Code(s): I10 - Essential (primary) hypertension (3) Hypercholesterolemia Code(s): E78.00 - PURE HYPERCHOLESTEROLEMIA, UNSPECIFIED (4) PAF (paroxysmal atrial fibrillation) Code(s): I48.0 - PAROXYSMAL ATRIAL FIBRILLATION (5) Pleural effusion Code(s): J90 - PLEURAL EFFUSION, NOT ELSEWHERE CLASSIFIED (6) S/P TAVR (transcatheter aortic valve replacement) Code(s): Z95.2 - PRESENCE OF PROSTHETIC HEART VALVE Assessment/Plan 07/31/2020 Echo: Mod cLVH with normal systolic LVEF 62%, abnl LV compliance, no rmal RV size and fxn, mod LAE, mod-severe MAC, functional MS MVA 1.07 cm^2 P1/2t, mild TR< RVSP 24 mmHg, bioTAVR w/o regurgitation; PAF. ASSESSMENT: 1. Acute hypoxic respiratory failure suspect aspiration PNA requiring mechanical ventilation 2. Acute on chronic class II-III NYHA classification LV failure related to diastolic LV dysfunction 3. Aortic valve stenosis post TAVR with a small paravalvular leak (evidence of post procedure inter-ventricular septal hypertrophy) 5. CAD angina pectoris 6. Paroxysmal atrial fibrillation [id number] score 6 post LALO guided synchr onized cardioversion, currently in sinus rhythm- recent presentation with bradyarrhythmia- junctional rhythm necessitating therapy adjustments for planned PPM implant once stable 6. HTN history currently hypotensive on pressors- etiology unclear cardiogenic versus sepsis related/possible pneumonia 7. Hypercholesterolemia 8. Mitral valve regurgitation moderate in severity 9. Organic brain syndrome 10. EMILY and hyperkalemia due to hemodynamic alterations 11. Worsening leukocytosis r/o asp PNA, UTI 12. Shock liver 13. Lactic acidosis 14. Polymorphic VT s/p shock PLAN: 1. Observe off Lasix 40 IV bid with close monitoring of renal function and electrolytes 2. Attempt to taper off pressors as tolerated, broadened abx course per C&S 3. Maintain on amio gtt 4. Patient has been made comfort care 5. Wean FIO2 and PEEP to maintain saO2 6. Prognosis grave, case d/w sow manager and family
[2020-08-18] MEDS: NOREPINEPHRINE BITARTRATE 16,000 MCG in SODIUM CHLORIDE 484 ML IV SCH (11:30)
--- NOTE | 2020-08-18 11:54 | EKG ---
Test Reason : Blood Pressure : / mmHG Vent. Rate : 113 BPM Atrial Rate : 087 BPM P-R Int : 000 ms QRS Dur : 154 ms QT Int : 458 ms P-R-T Axes : 000 -25 129 degrees QTc Int : 628 ms POOR DATA QUALITY, INTERPRETATION MAY BE ADVERSELY AFFECTED ATRIAL FIBRILLATION WITH RAPID VENTRICULAR RESPONSE WITH A COMPETING JUNCTIONAL PACEMAKER WITH PREMATURE VENTRICULAR OR ABERRANTLY CONDUCTED COMPLEXES LEFT BUNDLE BRANCH BLOCK ABNORMAL ECG WHEN COMPARED WITH ECG OF 17-AUG-2020 09:50, LEFT BUNDLE BRANCH BLOCK IS NOW PRESENT Confirmed by MAN MCKEON MD ([id number]) on 08/18/2020 11:53:57 AM Referred By: Confirmed By:MAN MCKEON MD
--- NOTE | 2020-08-18 11:54 | EKG ---
Test Reason : Blood Pressure : / mmHG Vent. Rate : 084 BPM Atrial Rate : 074 BPM P-R Int : 000 ms QRS Dur : 138 ms QT Int : 450 ms P-R-T Axes : 000 -22 126 degrees QTc Int : 531 ms POOR DATA QUALITY, INTERPRETATION MAY BE ADVERSELY AFFECTED ATRIAL FIBRILLATION LEFT VENTRICULAR HYPERTROPHY WITH QRS WIDENING T WAVE ABNORMALITY, CONSIDER ANTEROLATERAL ISCHEMIA ABNORMAL ECG WHEN COMPARED WITH ECG OF 16-AUG-2020 12:00, ATRIAL FIBRILLATION HAS REPLACED WIDE QRS RHYTHM Confirmed by MAN MCKEON MD ([id number]) on 08/18/2020 11:54:19 AM Referred By: Confirmed By:MAN MCKEON MD
[2020-08-18] MEDS ORDERED: MORPHINE SULFATE/0.9% NACL/PF 100 MG/100 ML BAG IVPB SCH (12:15)
[2020-08-18 13:01] LABS: INR 5.93 (0.83-1.09)
--- NOTE | 2020-08-18 13:14 | PN ---
Progress Note (short form) - Note Progress Note: note Patient is deteriorating in spite of being on maximal vasopressor support. She has mulitsystem organ failure with shock liver, acute renal failure as well as vasodilatory shock and heart failure. Was made DNI earlier today by her son. Family by bedside requested terminal extubation. Patient started on Morphine drip with 4 mg IVP and continued Versed drip. All vasopressors stopped and patient was terminally extubated at 12:20 pm. 12:32 pm asystole on tele monitor. Absent heart sounds, breath sounds, and corneal reflexes. Patient was pronounced by me at 12:32 pm. ODN called by ANTONI. Yakelin BURGESSP
[2020-08-18] MEDS ORDERED: PIPERACILLIN/TAZOB 3.375 GM 3.375 GM in DEXTROSE 5%-WATER - 50 ML IVPB SCH (14:00)
--- NOTE | 2020-08-19 11:42 | EKG ---
Test Reason : Blood Pressure : / mmHG Vent. Rate : 067 BPM Atrial Rate : 067 BPM P-R Int : 440 ms QRS Dur : 140 ms QT Int : 438 ms P-R-T Axes : 000 -22 128 degrees QTc Int : 462 ms UNDETERMINED RHYTHM , JUNCTIONAL RHYTHM ? DELTA WAVE LEFT VENTRICULAR HYPERTROPHY WITH QRS WIDENING AND REPOLARIZATION ABNORMALITY ABNORMAL ECG WHEN COMPARED WITH ECG OF 17-AUG-2020 09:51, VENT. RATE HAS DECREASED BY 46 BPM SIGNIFICANT CHANGE NOTED Confirmed by YADIRA BARRIOS MD ([id number]) on 08/19/2020 11:41:47 AM Referred By: Confirmed By:YADIRA BARRIOS MD
== END 2020-08-18 15:03 | disposition expired | DRG 208 ==
LOC: JER 08:47 → JERBED 11:05 → JICU 16:29
PROVIDERS: ADMIT Internal Medicine; ATTEND Internal Medicine
PROC: 02HV33Z Insertion of Infusion Device into Superior Vena Cava, Percutaneous Approach (ICD-10-PCS; 2020-08-10)
PROC: B548ZZA Ultrasonography of Superior Vena Cava, Guidance (ICD-10-PCS; 2020-08-10)
PROC: 5A1935Z Respiratory Ventilation, Less than 24 Consecutive Hours (ICD-10-PCS; principal; 2020-08-17)
PROC: 0BH17EZ Insertion of Endotracheal Airway into Trachea, Via Natural or Artificial Opening (ICD-10-PCS; 2020-08-17)
PROC: 02HV33Z Insertion of Infusion Device into Superior Vena Cava, Percutaneous Approach (ICD-10-PCS; 2020-08-17)
DX: J96.01 Acute respiratory failure with hypoxia (principal); K72.00 Acute and subacute hepatic failure without coma; J69.0 Pneumonitis due to inhalation of food and vomit; I50.33 Acute on chronic diastolic (congestive) heart failure; N17.9 Acute kidney failure, unspecified; I47.2 Ventricular tachycardia; E87.2 Acidosis; I11.0 Hypertensive heart disease with heart failure; E11.9 Type 2 diabetes mellitus without complications; Z95.2 Presence of prosthetic heart valve; I48.0 Paroxysmal atrial fibrillation; Z79.01 Long term (current) use of anticoagulants; I25.10 Atherosclerotic heart disease of native coronary artery without angina pectoris; E78.5 Hyperlipidemia, unspecified; F09 Unspecified mental disorder due to known physiological condition; E87.5 Hyperkalemia; Z79.4 Long term (current) use of insulin
CPT/HCPCS: 31500; 36415; 36600; 71045-TC-FY; 80048; 80053; 80076; 81003; 82248; 82550; 82803; 82962; 83605; 83735; 83880; 84100; 84443; 84484; 85025; 85027; 85610; 85651; 85730; 86140; 87040; 87086; 87899; 93005; 93010; 94002; 94660; 99285-25; C9803; G0480; J0131; J0282; U0003